=== PATIENT | male | born 1955 | race Caucasian/White ===

== ENCOUNTER 2016-10-13 14:15 | Inpatient (IN) | payer OTHER, MEDICAID ==
[2016-10-13] VITALS (11 sets, daily range): BP systolic 131–150; BP diastolic 83–89; PULSE 78–103; RESP 20–36; O2SAT 87–96
[~2016-10-13] VITALS: Ht 165.1 cm; Wt 62.4 kg
[~2016-10-13 14:15] MED LIST: AMLO5TAB2 PO; ASPI-235 PO; CARV25TA2 PO; CHOL100045 PO; EZET10TA PO; FERR-74 PO; FUR20 PO; KLO5T PO; MORP-32 PO; NITR0.4T6 SL; OXYC5TAB72 PO; PANT20T PO; PRED-508 PO; QUET25TA73 PO; RES15 PO; ROSU40TA20 PO; ZIT250 PO
--- NOTE | 2016-10-13 15:37 | ED.REPORT ---
HPI-Abd Pain M 40 and Over Date of Service Oct 13, 2016 ED Provider: Doc,Ed MD History of Present Illness: 60-year-old male with complex medical history complaining of one episode of black stool today and increasing dyspnea since leaving the hospital. He tells me that he does not have any nebulized or inhaled medications at home for his COPD. Was discharged October 08 after an admission for COPD exacerbation. Also had an acute infiltrate on the left side at that time. Has a history of episodic black stool, source of GI bleeding has been unknown. Patient reports that he was transfused during his last admission. He is not having chest pain. He is quite dyspneic. Nursing Notes Stated Complaint: BLOODY STOOL, ABDOMINAL PAIN, TROUBLE BREATHING Chief Complaint: Male Abdominal Pain Allergies: Coded Allergies: atorvastatin (Verified Allergy, Intermediate, myalgias, 04/18/16) pravastatin (Verified Allergy, Intermediate, myalgias, 04/18/16) propoxyphene (Verified Allergy, Intermediate, Hives, 04/18/16) PT DENIES KNOWLEDGE OF ANY DRUG ALLERGIES amoxicillin (Verified Adverse Reaction, Intermediate, diarrhea, 04/18/16) clavulanic acid (Verified Adverse Reaction, Intermediate, diarrhea, 04/18/16 ) niacin (Verified Adverse Reaction, Intermediate, flushing, 04/18/16) phenytoin (Verified Adverse Reaction, Mild, itching, 04/18/16) Scheduled Amlodipine (Amlodipine) 5 Mg Tablet 2.5 MG PO DAILY Aspirin (Lite Coat Aspirin) 325 Mg Tablet 81 MG PO DAILY Azithromycin (Zithromax) 250 Mg Tablet 250 MG PO DAILY Carvedilol (Carvedilol) 25 Mg Tablet 25 MG PO BID Cholecalciferol (Vitamin D3) (Vitamin D) 1,000 Unit Capsule 2,000 UNIT PO DAILY Ezetimibe (Zetia) 10 Mg Tablet 10 MG PO DAILY Ferrous Sulfate (Feosol) 325 Mg Tablet 325 MG PO BIDWM Furosemide (Furosemide) 20 Mg Tab 20 MG PO DAILY Morphine Sulfate ER (Morphine Sulfate ER) 15 Mg Tablet 15 MG PO BID Pantoprazole DR (Protonix) 20 Mg Tablet 20 MG PO BID Prednisone (Deltasone) 20 Mg Tablet 40 MG PO DAILY Quetiapine Fumarate (Quetiapine Fumarate) 25 Mg Tablet 50 MG PO HS Rosuvastatin Calcium (Rosuvastatin Calcium) 40 Mg Tablet 40 MG PO DAILY Temazepam (Temazepam) 15 Mg Capsule 15 MG PO BID Scheduled PRN Clonazepam (Clonazepam) 0.5 Mg Tablet 1 MG PO BID PRN PRN anxiety Nitroglycerin SL (Nitroglycerin SL) 0.4 Mg Tab.subl 0.4 MG SL Q5MIN PRN PRN For Chest Pain oxyCODONE (oxyCODONE) 5 Mg Tablet 5 MG PO Q8H PRN PRN severe pain General Time Seen by MD: 15:36 Chief Complaint Other (melena) Sudden in Onset?: No Past Medical History Past Medical History Notes: PCP: Dr. Lamas Past Medical History 1. tobacco abuse. 2. Emphysema. 3. Hyperlipidemia. 4. Hypertension. 5. Peripheral vascular disease - extensive, severe - patient was undergone multiple revascularization procedures, and at least several stents - however the details, and location are unclear on review (01/24/16) 6. chronic microcytic anemia 7. 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 8. Myocardial infarction 9. Seizure 10. chronic non-healing LLE ulcers, follow by Wound Care 11. chronic pain, on morphine 12. GI bleed Reports: Coronary artery disease Past Surgical History BLE stent placement H/O multiple revascularization procedures left hip surgery Reports: CABG Family History Father reportedly had "five heart attacks before the last one killed him" Mother at age 78 with dementia Reports: Coronary artery disease Smoking History Current Every Day Smoker Social History Alcohol Use: "Social" Other Social History: Good social support, Local resident Ambulatory Status Independent Review of Systems Constitutional: Reports: Fever, Lethargy, Denies: Chills Respiratory: Reports: Dyspnea on exertion, Prod cough, brown Cardiovascular: Reports: Dyspnea on exertion, Orthopnea, Denies: Chest pain, Palpitations GI: Reports: Abdominal pain, Bloody/tarry stool, Melena, Denies: Anorexia, Constipation, Diarrhea Male: Denies Dysuria, Denies Flank pain Musculoskeletal: Reports: Back pain, Extremity pain (R hip) Complete sys rev & neg: except as marked. Physical Exam Physical Exam Notes: Cachectic male in respiratory distress speaking in 2-3 word sentences. Initial Vital Signs Vital Signs (First) Date Time Temp Pulse Resp B/P Pulse Ox O2 Delivery O2 Flow Rate FiO2 10/13/16 14:24 37.8 80 32 134/83 91 Room Air 10/13/16 15:15 2 General/Constitutional: Alert Distress / Hydration: Positive: Distress moderate Resp Distress / Stridor: Positive: Resp distress moderate Diminished Breath Sounds: Positive: Decreased bilateral Wheezing / Retractions: Positive: Accessory muscle use mild, Prolonged exp phase, Wheeze insp/exp diffuse, Wheezing severe Cardiovascular: Regular rhythm, No murmurs Heart Rate / Rhythm: Positive: Tachycardia Abdomen: Soft Tenderness/Guarding/Rebound: Positive: Tender epigastric (mild no massno guarding) Back: Atraumatic, Inspection NL, No midline vertebral tend, No paraspinal tenderness Head / Eyes: Atraumatic, Normocephalic, PERRL, EOMI Rectum / Perineum: No gross blood, No fecal impaction, Sphincter tone NL Rectal for Blood: Positive: Blood - occult heme + Neurologic: Oriented X3, Speech NL, No motor deficits Interpretation & Diagnostics Lab Results Interpretation Result Diagram: 10/13/16 1544 10/13/16 1544 Test 10/13/16 15:44 10/13/16 16:10 White Blood Count 13.1th/mm3 (3.8-10.1) Red Blood Count 4.01mil/mm3 (4.40-5.80) Hemoglobin 10.2g/dL (13.8-17.2) Hematocrit 31.6% (41.0-50.0) Mean Corpuscular Volume 78.8fL (81-100) Mean Corpuscular Hemoglobin 25.4pg (27.0-35.0) Mean Corpuscular Hemoglobin Concent 32.3% (32.0-37.0) Red Cell Distribution Width 18.3% (12.3-15.4) Platelet Count 251bil/L (150-400) Neutrophils (%) (Auto) 84.3% (40-74) Lymphocytes (%) (Auto) 5.3% (14-46) Monocytes (%) (Auto) 7.3% (4-12) Eosinophils (%) (Auto) 2.7% (0-5) Basophils (%) (Auto) 0.2% (0-3) Sodium Level 135mEq/L (134-144) Potassium Level 4.5mEq/L (3.5-5.2) Chloride Level 100mEq/L (97-108) Carbon Dioxide Level 22mmol/L (18-29) Blood Urea Nitrogen 41mg/dL (8-27) Creatinine 2.05mg/dL (0.76-1.27) Estimat Glomerular Filtration Rate 35mL/min (>59) Glucose Level 113mg/dL (60-99) Calcium Level 8.1mg/dL (8.5-10.1) Magnesium Level 1.9mg/dL (1.6-2.6) Total Bilirubin 0.2mg/dL (0.0-1.2) Aspartate Amino Transf (AST/SGOT) 31U/L (0-50) Alanine Aminotransferase (ALT/SGPT) 22U/L (0-44) Alkaline Phosphatase 87U/L (25-160) Total Protein 5.8g/dL (6.4-8.4) Albumin 2.8g/dL (3.4-5.0) Lipase 62U/L (13-60) Urine Color Yellow (YELLOW) Urine Appearance Clear (CLEAR,HAZY) Urine pH 6.5 (5.0-8.0) Urine Specific [place] 1.025 (1.003-1.035) Urine Protein 300mg/dL (NEG,TRACE) Urine Glucose (UA) Negativemg/dL (NEGATIVE) Urine Ketones Negativemg/dL (NEGATIVE) Urine Occult Blood Small (NEGATIVE) Urine Nitrite Negative (NEGATIVE) Urine Bilirubin Negative (NEGATIVE) Urine Urobilinogen Normalmg/dL (NORMAL) Urine Leukocyte Esterase Negative (NEGATIVE) Urine RBC 0-2/hpf (0-2) Urine WBC 0-5/hpf (0-5) Urine Epithelial Cells None/hpf (NONE-MOD) Urine Crystals None seen (NONE SEEN) Urine Bacteria None/hpf (NONE-FEW) Urine Hyaline Casts None/lpf (NONE) Urine Granular Casts None seen (NONE SEEN) Urine Waxy Casts None seen (NONE SEEN) Urine Red Blood Cell Casts None seen (NONE SEEN) Urine White Blood Cell Casts None seen (NONE SEEN) Urine Mucus None seen (None Seen) Urine Trichomonas None seen (NONE SEEN) Urine Yeast None (NONE SEEN) Urinalysis Comment None Urine Culture Reflexed Not indicated X-Ray Chest Interpretation Chest Xray Interpretation: bibasilar infiltrate, progressed since last admit Interpretation / Wet Read by: Interpret - Radiologist Re-Eval/Medical Decision Med Decision/Clinical Course 60-year-old male with complex medical history including COPD and recurrent episodes of GI bleeding. Presents today with increasing respiratory distress reported a fever this morning and hypoxemia. On chest x-ray it appeared that his infiltrates have expanded. His hemoglobin and hematocrit are stable although he reported one episode of melena, he has had recurrent episodes of melena in the past. Cultures have been obtained and given nebulized bronchodilators and prednisone 40 mg. He is hemodynamically stable antibiotic coverage for healthcare associated pneumonia has been initiated and he will be admitted to the hospitalist service. Time of Eval: 19:22 Re-Evaluation/Progress Note: Still dyspneic, 4-5 word sentences. Poor air movement. 88% on room air. Pt reluctantly agrees to stay Consultation : Referral / Consult Name: Rosa Glass MD Consulted With: Hospitalist Finished Carpet Inspector: Accepts admit Discharge & Departure Primary Impression: Pneumonia Pneumonia type: due to unspecified organism Laterality: bilateral Lung location: lower lobe of lung Qualified Code: J18.9 - Pneumonia, unspecified organism Additional Impressions: COPD exacerbation GI bleed GI bleed type/associated pathology: unspecified gastrointestinal hemorrhage type Qualified Code: K92.2 - Gastrointestinal hemorrhage, unspecified Disposition: ADMITTED TO HOSPITAL Vital Signs - All Vital Signs Date Time Temp Pulse Resp B/P Pulse Ox O2 Delivery O2 Flow Rate FiO2 10/13/16 18:41 96 22 94 Nasal Cannula 2 10/13/16 18:36 36.8 93 28 140/89 94 Nasal Cannula 2 10/13/16 16:21 90 22 94 Nasal Cannula 2 10/13/16 15:15 78 26 137/86 94 Nasal Cannula 2 10/13/16 15:15 87 Room Air 10/13/16 14:24 37.8 80 32 134/83 91 Room Air Referrals: Leo Lamas MD (PCP) Julien Talley MD Oct 13, 2016 15:37
[2016-10-13 15:47] LABS: BASOPHILS % (AUTO) 0.2 % (0-3); EOSINOPHILS % (AUTO) 2.7 % (0-5); MONOCYTES % (AUTO) 7.3 % (4-12); Mean Corpuscular Hemoglobin 25.4 pg (27.0-35.0); Mean Corpuscular Volume 78.8 fL (81-100); NEUTROPHILS % (AUTO) 84.3 % (40-74); Platelet Count 251 bil/L (150-400)
[2016-10-13] MEDS ORDERED: Albuterol-Ipratropium 3 mL Inhalation Solution NEB ONE ×2 (16:10→20:35)
[2016-10-13 16:13] LABS: Magnesium 1.9 mg/dL (1.6-2.6)
[2016-10-13 16:41] LABS: APPEARANCE,URINE CLEAR (CLEAR,HAZY); COLOR,URINE YELLOW (YELLOW); PH,URINE 6.5 (5.0-8.0)
[2016-10-13 16:42] LABS: OCCULT BLOOD,URINE SMALL (NEGATIVE); UROBILINOGEN,URINE NORMAL (NORMAL)
[2016-10-13] MEDS ORDERED: Albuterol 2.5 mg/3 mL Inhalation Solution NEB ONE (18:25)
--- NOTE | 2016-10-13 19:05 | DRSVH ---
PROCEDURE: X-RAY CHEST ONE VIEW, PORTABLE ([id number]) INDICATIONS: dyspnea TECHNIQUE: One view of the chest was acquired. COMPARISON: Merged With [facility], CR, XR CHEST 1VW (PORTABLE), 10/05/2016, 10:48. FINDINGS: Surgical changes and devices: Status post CABG procedure. Lungs and pleura: No pneumothorax. Trace left-sided pleural fluid collection noted. Bibasilar opaci ties left greater than right. Mediastinum: Mediastinal contours appear normal. Heart size is normal. Bones and chest wall: No suspicious bony lesions. Overlying soft tissues appear unremarkable. IMPRESSION: Bibasilar pneumonia. Trace left-sided pleural fluid a. Dictated by: Lora Barth MD, PhD on 10/13/2016 at 19:04 Approved by: Lora Barth MD, PhD on 10/13/2016 at 19:04
[2016-10-13] MEDS ORDERED: levoFLOXacin Inj 500 MG in IV Premix 1 EACH IV ONE (19:10)
[2016-10-13] MEDS ORDERED: Cefepime Inj 2,000 MG in Dextrose 5% Minibag Plus 100 ML IV ONE (19:10)
[2016-10-13] MEDS ORDERED: Alum-Mag Hydrox-Simeth 30 mL Suspension PO PRN (20:30)
[2016-10-13] MEDS ORDERED: Ondansetron 2 mg/mL 2 mL Inj IVPUSH PRN (20:30)
--- NOTE | 2016-10-13 21:00 | NUR ---
Admit: pt A&OX3. IV in Left thumb, IV antibx infusing. Tele in place SR. pt on 2Lo2 sats mid to low 90's. pt using call light frequently, able to make needs known. med rec completed by admit RN. will continue to monitor. Addendum: 10/13/16 at 6005 by ANA PAULA HUTCHINSON RN IV: IV therapy called to start new IV, but not able to find a vein. Resident aware and order for PICC line in the am.
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
[2016-10-13] MEDS ORDERED: Acetaminophen IV 1,000 MG in IV Premix 1 EACH IV PRN (22:05)
[2016-10-13] MEDS: Albuterol-Ipratropium 3 mL Inhalation Solution NEB PRN (22:25)
[2016-10-13] MEDS ORDERED: Sodium Chloride LOK Flush 10 mL Syringe IVFLUSH PRN ×2 (22:40)
[2016-10-13 23:15] LABS: Magnesium 1.7 mg/dL (1.6-2.6)
--- NOTE | 2016-10-13 23:50 | NUR ---
Resp: pt called RN to room, RR 42, O2 sat 83%. Oxymask on at 7Lo2 sats to 91%. resident immediately to room, rapid response called. stat EKG, chest Xray. RT to room, and CCU charge, and [facility] charge. pt to placed on Bipap per RT. Report given to Rocio CLINE RN, and will transfer pt to [facility]. pt at this time is refusing Bipap, oxymask back on at 5Lo2 sat 90%.
[2016-10-14] VITALS (11 sets, daily range): BP systolic 118–140; BP diastolic 73–84; PULSE 80–92; RESP 18–28; O2SAT 92–96
[2016-10-14 00:38] LABS: APPEARANCE,URINE CLEAR (CLEAR,HAZY); COLOR,URINE STRAW (YELLOW); OCCULT BLOOD,URINE SMALL (NEGATIVE); UROBILINOGEN,URINE NORMAL (NORMAL)
--- NOTE | 2016-10-14 01:30 | NUR ---
Transfer/Respiratory status/Pain Pt received from [facility]. Report taken from RN AV. Pt transferred via bed to room 2026. Pt on oxymask 6L nasal canula with Sp02 saturations of 91%. At times, pt stating his mask was "suffocating him" and would remove it. Increasingly pt became more and more dyspnic. RT placed pt on BiPAP at 26L/min. Pt began to slow respirations from 36 to 28 on BiPAP. Pt agitated about wearing BiPAP. Brake Lining Finisher encouraged pt to comply with BiPAP as oxymask is not appropriate to treat his SOB. Pt also requested an analgesic to alleviate pain in his feet, PRN analgesic given. Pt currently on BiPAP at 26L/min with SP02 at 94%.
[2016-10-14] MEDS: Albuterol-Ipratropium 3 mL Inhalation Solution NEB PRN (01:36)
--- NOTE | 2016-10-14 01:47 | PCM.CONPHA ---
Subjective Date of Service: Oct 14, 2016 Requesting Provider: Gloria Howard DO Reason for Pharmacy Consult: Vancomycin Dosing Objective Vital Signs Date Time Temp Pulse Resp B/P Pulse Ox O2 Delivery O2 Flow Rate FiO2 10/14/16 01:37 105 28 92 10/14/16 01:14 37.5 92 26 130/80 94 OxyMask 6.00 10/13/16 23:33 28 35 10/13/16 23:13 103 36 150/85 90 OxyMask 7.00 10/13/16 22:26 88 20 Nasal Cannula 2.00 10/13/16 21:02 36.6 95 20 131/88 93 Nasal Cannula 2.00 10/13/16 20:43 92 24 96 Nasal Cannula 2 10/13/16 20:24 78 23 140/89 Nasal Cannula 2 10/13/16 18:41 96 22 94 Nasal Cannula 2 10/13/16 18:36 36.8 93 28 140/89 94 Nasal Cannula 2 10/13/16 16:21 90 22 94 Nasal Cannula 2 10/13/16 15:15 78 26 137/86 94 Nasal Cannula 2 10/13/16 15:15 87 Room Air 10/13/16 14:24 37.8 80 32 134/83 91 Room Air Intake and Output 10/12/16 10/13/16 10/14/16 00:00 00:00 00:00 Output Total 300 ml Balance -300 ml Weight (Kilograms): 62.100 Height (Feet): 5 Height (Inches): 5.00 Test 10/13/16 15:44 10/13/16 22:39 10/13/16 23:00 White Blood Count 13.1th/mm3 (3.8-10.1) Red Blood Count 4.01mil/mm3 (4.40-5.80) Hemoglobin 10.2g/dL (13.8-17.2) Hematocrit 31.6% (41.0-50.0) Mean Corpuscular Volume 78.8fL (81-100) Mean Corpuscular Hemoglobin 25.4pg (27.0-35.0) Mean Corpuscular Hemoglobin Concent 32.3% (32.0-37.0) Red Cell Distribution Width 18.3% (12.3-15.4) Platelet Count 251bil/L (150-400) Neutrophils (%) (Auto) 84.3% (40-74) Lymphocytes (%) (Auto) 5.3% (14-46) Monocytes (%) (Auto) 7.3% (4-12) Eosinophils (%) (Auto) 2.7% (0-5) Basophils (%) (Auto) 0.2% (0-3) Sodium Level 135mEq/L (134-144) Potassium Level 4.5mEq/L (3.5-5.2) Chloride Level 100mEq/L (97-108) Carbon Dioxide Level 22mmol/L (18-29) Blood Urea Nitrogen 41mg/dL (8-27) Creatinine 2.05mg/dL (0.76-1.27) Estimat Glomerular Filtration Rate 35mL/min (>59) Glucose Level 113mg/dL (60-99) Calcium Level 8.1mg/dL (8.5-10.1) Total Bilirubin 0.2mg/dL (0.0-1.2) Aspartate Amino Transf (AST/SGOT) 31U/L (0-50) Alanine Aminotransferase (ALT/SGPT) 22U/L (0-44) Alkaline Phosphatase 87U/L (25-160) Total Protein 5.8g/dL (6.4-8.4) Albumin 2.8g/dL (3.4-5.0) Lipase 62U/L (13-60) Magnesium Level 1.7mg/dL (1.6-2.6) Prealbumin 31mg/dL (20-40) Urine Color Straw (YELLOW) Urine Appearance Clear (CLEAR,HAZY) Urine pH 7.0 (5.0-8.0) Urine Specific [place] 1.020 (1.003-1.035) Urine Protein 100mg/dL (NEG,TRACE) Urine Glucose (UA) Negativemg/dL (NEGATIVE) Urine Ketones Negativemg/dL (NEGATIVE) Urine Occult Blood Small (NEGATIVE) Urine Nitrite Negative (NEGATIVE) Urine Bilirubin Negative (NEGATIVE) Urine Urobilinogen Normalmg/dL (NORMAL) Urine Leukocyte Esterase Negative (NEGATIVE) Urine RBC 0-2/hpf (0-2) Urine WBC 0-5/hpf (0-5) Urine Epithelial Cells Occasional/hpf (NONE-MOD) Urine Crystals None seen (NONE SEEN) Urine Bacteria None/hpf (NONE-FEW) Urine Hyaline Casts None/lpf (NONE) Urine Granular Casts None seen (NONE SEEN) Urine Waxy Casts None seen (NONE SEEN) Urine Red Blood Cell Casts None seen (NONE SEEN) Urine White Blood Cell Casts None seen (NONE SEEN) Urine Mucus None seen (None Seen) Urine Trichomonas None seen (NONE SEEN) Urine Yeast None (NONE SEEN) Urinalysis Comment Urine Culture Reflexed Not indicated Assessment/Plan Assessment/Plan A: * Vancomycin dosing by pharmacy for 60 y/o man with pneumonia * The patient is also being started on cefepime and Levaquin * He was given vancomycin 750 mg in the ED * The patient has CKD, CrCl is estimated to be 32.5 mL/min ( Cockcroft & Gault) * Estimated vancomycin half-life is 22.4 hours and estimated Vd is 43.5 liters P: * Starting vancomycin 750 mg IV every 24 hours per protocol * This dosing is estimated to result in a trough level of about 16 mcg/mL * Target vancomycin trough range of 15 - 20 mcg/mL * Drawing a trough level prior to the third dose (likely prior to steady-state) * Monitor renal function Thank you. Pharmacy will continue to follow. Rebekah Bullock, PharmD Rebekah Bullock Oct 14, 2016 01:47
[2016-10-14 06:17] LABS: Mean Corpuscular Hemoglobin 25.4 pg (27.0-35.0)
[2016-10-14] MEDS ORDERED: 0.9% Sodium Chloride 250 ML ONE (06:18)
[2016-10-14] MEDS: Pantoprazole 20 mg ER24 Tablet PO SCH ×2 (08:21→20:48)
[2016-10-14] MEDS: predniSONE 20 mg Tablet PO SCH (08:21)
[2016-10-14] MEDS: Morphine ER 15 mg (MS Contin) Tablet PO SCH ×2 (08:24→20:47)
--- NOTE | 2016-10-14 08:29 | DRSVH ---
PROCEDURE: X-RAY CHEST ONE VIEW, PORTABLE ([id number]) INDICATIONS: 60 year-old male with respiratory distress. TECHNIQUE: One view of the chest was acquired. COMPARISON: [facility], CR, XR CHEST 1VW (PORTABLE), 10/13/2016, 18:27. [facility], CR, XR CHEST 1VW (PORTABLE), 10/05/2016, 10:48. [facility], CR, XR CHEST 2VW, 1 11/16/2015, 16:03. FINDINGS: Surgical changes and devices: Patient is status post coronary artery bypass grafting. Lungs and pleura: There is persistent retrocardiac opacity. Right lung is clear. There is trace basal left pleural effusion. No pneumothorax. Mediastinum: Mediastinal contours appear normal. Heart size is normal. There is aortic atheroscler osis. Bones and chest wall: No suspicious bony lesions. Overlying soft tissues appear unremarkable. IMPRESSION: 1. Persistent retrocardiac atelectasis, aspiration, or pneumonia. 2. Persistent small left basal pleural effusion of uncertain etiology. Dictated by: Chris Plunkett M.D. on 10/14/2016 at 8:27 Approved by: Chris Plunkett M.D. on 10/14/2016 at 8:27
[2016-10-14] MEDS ORDERED: Vancomycin Dose per Pharmacist XX SCH (08:30)
[2016-10-14] MEDS ORDERED: Cefepime Inj 2,000 MG in Dextrose 5% Minibag Plus 50 ML IV SCH (08:30)
--- NOTE | 2016-10-14 10:59 | CONS ---
[address] [address] CONSULTATION REPORT PATIENT: MARGARET ROCHA : 1955 MR#: [id number] ADMIT: 10/13/2016 JOB ID: [id number] DATE OF SERVICE: 10/14/2016 RENAL CONSULTATION: HISTORY OF PRESENT ILLNESS: The patient is a 60-year-old white male who was admitted to [facility] for exacerbation of COPD. At time of admission his BUN and creatinine were elevated and renal consultation is being sought for further evaluation and management of his chronic kidney disease. I am familiar with the patient from previous evaluations this past summer. At that time we were consulted for acute kidney injury with acute tubular necrosis secondary to a cardiopulmonary arrest. This resolved and at time of discharge his creatinine had improved considerably. He has not had any renal followup since that time. In looking over his laboratory history, it appears that his creatinine has waxed and waned between a high of 3.9 in April of 2016 to a low of approximately 1.4 several months ago. At time of admission his creatinine was 2.05 and this morning it is 2.36. He denies a history of any prior renal disease but I do need to add that he does not seem to be a particularly good historian. He denies a history of any prior diabetes or prostate issues, but does state that he does have hypertension, COPD, and coronary artery disease. He denies a history of hepatitis, lupus, or rheumatoid arthritis. Furthermore, he states that he has no problems with urination, nocturia, or frequency. There is no history of any hematuria, proteinuria, recurrent urinary tract infections, renal lithiasis, or frequent use of nonsteroidal anti-inflammatories. He states that several days prior to admission he began to have upper respiratory tract symptoms including nasal congestion, slight sore throat, worsening of his cough however remained nonproductive, worsening orthopnea, wheezing, and dyspnea with minimal exertion and at rest. He denies any chest pain, fever, chills, nausea, vomiting, or diarrhea. Since he has been in the hospital he has had some improvement in his symptomatology; however, he does remain orthopneic. PAST MEDICAL HISTORY: Significant for COPD as detailed above, chronic kidney disease, hypertension with hypertensive heart disease and hypertensive nephrosclerosis, peripheral vascular disease, coronary artery disease with a history of coronary artery bypass graft, a chronic nonhealing ulceration of his left lower extremity for which he is being seen by wound care, atrial fibrillation, depression, and hyperlipidemia. PAST SURGICAL HISTORY: Significant for bilateral lower extremity peripheral stent placement and other multiple vascular procedures, coronary artery bypass graft, left hip surgery, and appendectomy. ALLERGIES: AMOXICILLIN, ATORVASTATIN, CLAVULANIC ACID, NIACIN, PHENYTOIN, PROPOXYPHENE, AND PRAVASTATIN. SOCIAL HISTORY: He continues to smoke and has a greater than 100 pack year tobacco history. He has a history of alcohol use but states he quit a year ago. FAMILY HISTORY: Noncontributory. MEDICATIONS: At time of admission include amlodipine, aspirin, carvedilol, vitamin D3, Zetia, ferrous sulfate, furosemide, Protonix, quetiapine, Crestor, and temazepam. REVIEW OF SYSTEMS: Review of systems as detailed above. Otherwise is noncontributory. PHYSICAL EXAMINATION: Revealed a somewhat sam-complected cantankerous 60-year-old white male who was alert and oriented x3, in no distress at time of my evaluation. His blood pressure is 140/73 with a heart rate of 86. HEENT: Remarkable for pale sclerae. Corneas and conjunctivae were within normal limits. There was some mild bitemporal wasting. Neck is supple, without adenopathy or thyromegaly, however some jugular venous distention was noted at 90 degrees. Lungs showed increased AP diameter with some hyper-resonance to percussion. There were also some scattered rhonchi and end-expiratory wheezes in all lung garcia. Heart sounds were distant, but appeared to be grossly normal. Abdomen was soft, without any tenderness, rebound, guarding, masses, or hepatosplenomegaly. Extremities showed evidence of clubbing, but no cyanosis or edema was noted. His wound on his left lower extremity was not explored as it was in a surgical dressing. Skin turgor was good. There was no evidence of any rashes. LABORATORY: This morning his white count is 11.9, hematocrit 30.1, hemoglobin 10.1, MCV was low at 78.8. Urinalysis showed a specific gravity of 1.012. Tests for protein and occult blood were positive. There were 0-2 RBCs per high-power field, 0-5 WBCs per high-power field, and microscopic examination was negative. IMPRESSION: 1. Chronic kidney disease stage 3. 2. Hypertension with hypertensive heart disease and hypertensive nephrosclerosis. 3. Proteinuria. 4. Mild metabolic acidosis. RECOMMENDATION: I would like to check a urine protein/creatinine ratio and a serum protein electrophoresis, along with a PSA and a hepatitis profile. I would also like to get a renal ultrasound on him. Once again, I would like to thank you for allowing me to participate in the care this most pleasant and interesting patient. I will be following him closely with you.
--- NOTE | 2016-10-14 11:03 | ABG ---
DateTimeAnalyzed 05:15:00 -_ pH ____7.481 - pCO2 ___29.9__ -mmHg pO2 104 -mmHg HCO3- ___22.0__ -mmol/L ABE ___-0.4__ -mmol/L tHb ___10.3__ -g/dL O2Hb ___94.9__ -% COHb ____2.8__ -% MetHb ____1.1__ -% sO2 ___98.7__ -% FIO2 ___28.0__ -% Pressure_Support ___12.0__ -cmH2O CPAP ____6.0__ -cmH2O Set_RR ___14.0__ -b/min Drawn By LAB - Date/Time Notified____ 05:19:00 -_ Spontaneous_RR ___28.0__ -b/min Oxygen Device 1 ____BIPAP - Notified Whom CHERYL RN - Age 53 -years B 762 -mmHg tO2 ___13.9__ -Vol% Golden test N/A -
--- NOTE | 2016-10-14 12:18 | CONS ---
[address] [address] CONSULTATION REPORT PATIENT: MARGARET ROCHA : 1955 MR#: [id number] ADMIT: 10/13/2016 JOB ID: [id number] DATE OF SERVICE: 10/14/2016 INFECTIOUS DISEASE CONSULTATION: I kindly thank Dr. Boland for this timely consult. REASON FOR CONSULTATION: Possible recurring pulmonary infection in a gentleman with multiple medical problems. HISTORY OF PRESENT ILLNESS: The patient is a 60-year-old gentleman with an almost innumerable list of problems who I know well from a long admission in April and May of this year. The patient was found in [facility] back in April and had a 5 or 6 week hospitalization here. During most of that hospitalization it was thought he would never survive, as he has an almost insurmountable collection of problems including prolonged ventilator dependence, nosocomial pneumonias, renal failure, cardiac failure, and obvious ischemic lower extremities, but the patient amazingly survived and eventually made it home. He was readmitted briefly last week with what was thought to be a respiratory decompensation perhaps caused by pneumonia. He was treated with a broad-spectrum cephalosporin agent as well as azithromycin for what was thought to be a pulmonary infection complicating his underlying COPD. He eventually went home with azithromycin and steroids, which he apparently finished as an outpatient. His discharge was only about five days ago and he was then readmitted just yesterday, just really last night, with complaints of increasing shortness of breath. He also noted that he had a single black stool and felt he was becoming more anemic. INTERIM HISTORY: Overnight the patient reports he got no sleep because of constant irritations and the fact he could not sleep in a recliner as he usually does at home. He states his breathing has become a little bit better here in the hospital and Sadie tells me that he has received some blood transfusions which have also helped him to feel better. The patient also notes he is continuing to smoke cigarettes and does not use home oxygen, though it has been under discussion apparently. Also this morning the patient tells me, as well as the team, that he wants to be discharged home. He thinks he is back to something approaching his usual baseline level of fragilely compensated health and that he is not certain he needs to be in the hospital anymore. I am asked specifically this morning whether he needs any antibiotics now or when he is discharged. PAST MEDICAL HISTORY: 1. Organic heart disease. a. Coronary artery disease. b. Status post CABG. c. Congestive heart failure. 2. Peripheral vascular disease with chronic and recurring lower extremity ulcerations. 3. History of alcoholism with liver disease and esophageal varices. 4. Hypertension. 5. Hyperlipidemia. 6. COPD. 7. Asthma. 8. History of pancreatitis. 9. History of MRSA and Acinetobacter pneumonia steering his long admission this summer. 10. History of C. diff. SOCIAL HISTORY: The patient says he quit drinking some months ago but he still smokes cigarettes. He lives by himself here in [place]. FAMILY HISTORY: Positive for a grandmother with TB but she about the time he was born. Otherwise he has a family history of coronary disease. REVIEW OF SYSTEMS: This morning the patient has no headache or visual complaint. He notes a bit of hearing loss. No sore throat. He is short of breath at all times but states it is a little better right now. No significant production of sputum. No nausea, vomiting, or diarrhea. He does have the single black stool that was noted prior to his readmission. He states his leg ulcers were just recently re-dressed and they are in about their usual situation. PHYSICAL EXAMINATION: Reveals an afebrile gentleman, he has been afebrile since his readmission yesterday in the evening, temp 36.7 right now. Pulse 86. Respiratory rate 18 on nasal oxygen; he is saturating pretty well. Blood pressure 140/73. He is in no acute distress, though he clearly gets short of breath when he speaks long sentences. Sinuses nontender. Eyes with pale conjunctivae. Oral cavity negative. Lungs: Fair air flow bilaterally and a very few crackles at the left base, but not bad. Cardiac tones regular rate and rhythm, without murmur. Abdomen without tenderness. No skin rash noted. Neurologically, he is grossly intact. LABORATORIES: Include a white count 13,000 on admission, now 12,000 today, but note that he has been recently placed on steroids. Creatinine 2.36, up from 2.05 last night. Initial procalcitonin was 0.24, which is reassuring, and I have ordered a stat procalcitonin to be added to his labs this morning. Urinalysis without pyuria. Serologies from this admission include negative urine Legionella and pneumococcal antigens. The micro studies include a pending respiratory viral PCR panel from this morning. A rapid flu was done yesterday and was negative. Blood cultures done yesterday are negative. During his October 05 to October 08 admission he had blood cultures. He also had a respiratory viral PCR panel and these were all negative. IMAGING: Carefully reviewed on the viewer finder. Though his chest x-ray yesterday was read as possible retrocardiac atelectasis/aspiration pneumonia, I find that when compared to the x-ray done last week it is actually quite a bit better. IMPRESSION: I see no evidence for acute bacterial infection in this patient. His initial procalcitonin is reassuring and his white blood count is minimally elevated, and this is likely on the basis of his steroid use. Right now the patient is receiving antibiotics including cefepime, levofloxacin, and vancomycin, which I think it is excessive, and I suspect he does not have any significant infection. Note that he just finished a course of azithromycin, which is undoubtedly still in his bloodstream, and I would go ahead and stop at a minimum the levofloxacin and the vancomycin. If the stat repeat procalcitonin is negative, and the patient continues to be afebrile, I suspect he could simply be discharged without any antibiotics as I see little to indicate ongoing infection. RECOMMENDATIONS: 1. DC vanco and linezolid now. 2. Will continue cefepime while we wait for the 2nd procalcitonin, but if it is less than 0.5 I think I would stop all his antibiotics. 3. This patient may benefit from low-dose once a day azithromycin or three times a week azithromycin as an outpatient, strictly in terms of COPD control. Thank you for this interesting consult. FLACO
[2016-10-14 13:12] LABS: Unsaturated Iron Binding 177.5 ug/dL
--- NOTE | 2016-10-14 14:19 | NUR ---
O2 Pt on bipap this am requesting to be on NC. Started on NC at 5L 95%, titrated down to NC 2L and currently at 92%. Goal being 88-92%, will continue to monitor.
--- NOTE | 2016-10-14 16:57 | PCM.PNMED ---
Subjective Date of Service Oct 14, 2016 Subjective Mr. Carrillo is a 60-year-old male with a complex past medical history including chronic foot ulcers, recent undiagnosed GI bleeding, congestive heart failure with CAD, A. fib history of MRSA pneumonia as well as C. difficile who presented with one episode of black stool today and increased dyspnea since leaving the hospital last week. He feels that maybe he left the hospital too early last week (D/C 10/08/16) and did not realize the extent of his illness. He had an acute infiltrate on the left side at that time. He states medication compliance other than he did not have any nebulized or inhaled medications at home for his COPD after 10/08 discharge. Has a history of episodic black stool, source of GI bleeding has been unknown. Patient reports that he has had blood transfusion during his last admission. He is not having chest pain. He is quite dyspneic but denies chest pain, dysuria, nausea, vomiting, constipation, diarrhea, abdominal pain, joint pain, swelling, dizziness, headache. Overnight Events: No overnight events. tolerated 2L oxymask. Required Bipap placement. Today Mr. Carrillo tolerated Oxymask this morning at 5L. He is resting in bed comfortably and in no acute distress. The patient reports that he feels better than the day prior and says he would like to leave. The patient denies headache , dizziness, sore throat, cough, chest pain, shortness of breath, abdominal pain , nausea, vomiting, constipation, and diarrhea. The patient is voiding and eliminating without difficulty. The patient is ambulating without difficulty. Exam Vital Signs Vital Sign - Last Date Time Temp Pulse Resp B/P Pulse Ox O2 Delivery O2 Flow Rate FiO2 10/14/16 09:39 36.7 86 18 140/73 96 BiPAP 10/14/16 08:30 5.00 10/14/16 05:15 28 Intake and Output 10/13/16 10/13/16 10/14/16 Cumulative From/Thru 15:00 23:00 07:00 10/13/16 14:24 - 10/14/16 05:03 Intake Total 666 ml 666 ml Output Total 300 ml 650 ml 950 ml Balance -300 ml 16 ml -284 ml Intake Oral 666 ml 666 ml Output Urine Total 300 ml 650 ml 950 ml Exam General: No acute distress, well-developed and chronically ill appearing, well- nourished, appropriately interactive HEENT: Normocephalic, atraumatic. External ears without defect. Pupils equal, round, and reactive to light and accommodation. Anicteric sclerae, moist conjunctivae, and no lid lag. Oropharynx free of erythema and cobble stoning with moist mucosa. Neck: Supple with full range of motion. No jugular venous distension. No bruits. No lymphadenopathy or thyromegaly. Cardiovascular: Regular rate and rhythm with no murmurs, rubs, or gallops appreciated Pulmonary: Clear to auscultation bilaterally with no crackles, wheezes, or rhonchi. Normal respiratory effort with no use of accessory muscles. Abdomen: Bowel tones present. Soft, nontender, nondistended. No hepatosplenomegaly or masses appreciated. Extremities: No clubbing, cyanosis, edema, or lymphadenopathy appreciated. Skin: Normal temperature, turgor, and texture; no rash, ulcers, or subcutaneous nodules appreciated. Neurological: Cranial nerves grossly intact. Normal muscle strength, tone, and bulk. Reflexes, coordination, and sensory function within normal limits. No known gait impairment. Psychiatric: Normal mood and affect. Alert and oriented to person, place, and time. IVs and Medications Medications Reviewed: Medications were reviewed in detail Lab and Diagnostics Result Diagram: 10/14/1651210/14/16512 Microbiology Microbiology 10/13/16 Blood Culture, Received Pending X-Rays, CTs and MRIs Date of Service: 10/13/161822 PROCEDURE: X-RAY CHEST ONE VIEW, PORTABLE ([id number]) INDICATIONS: dyspnea TECHNIQUE: One view of the chest was acquired. COMPARISON: [facility], CR, XR CHEST 1VW (PORTABLE), 10/05/2016, 10 :48. FINDINGS: Surgical changes and devices: Status post CABG procedure. Lungs and pleura: No pneumothorax. Trace left-sided pleural fluid collection noted. Bibasilar opacities left greater than right. Mediastinum: Mediastinal contours appear normal. Heart size is normal. Bones and chest wall: No suspicious bony lesions. Overlying soft tissues appear unremarkable. IMPRESSION: Bibasilar pneumonia. Trace left-sided pleural fluid a. Dictated by: Lora Barth MD, PhD on 10/13/2016 at 19:04 . 12-lead ECG EKG, sinus rhythm rate 92, Left ventricular enlargement, QTc 458 ResidentAnita Assessment & Plan Mr. Carrillo is a 60-year-old male with a complex past medical history including chronic foot ulcers, recent undiagnosed GI bleeding, congestive heart failure with CAD, A. fib history of MRSA pneumonia as well as C. difficile who presented with one episode of black stool today and increased dyspnea since leaving the hospital last week. 1. Acute hypoxic respiratory failure, present on admission. Active. - Patient D/C [facility] on 10/08/16 - Vanco, cefepime, levofloxacin started in the ED, Just finished azithromycin on 10/10/16 as outpatient. Will d/c all antibiotics. - Afebrile and vitals are stable. - DuoNebs and albuterol ordered. - Haq virus on PCR. - Chest x-ray: Bibasilar pneumonia with trace left-sided pleural fluid. - Infectious disease following, time and recommendations appreciated. 2. Acute COPD exacerbation, present on admission, Active. - Requiring 2 L by NC for saturation of 93%. - DuoNebs scheduled. Albuterol ordered. - Finished 40mg PO daily of prednisone x 5 days on 10/10/16. Restarted today - Will add home meds triple therapy upon discharge. 3. GI bleed with chronic microcytic anemia, present on admission. Active. - Patient did report one black stool prior to coming to the ED. - Recent previous admission for GI bleed, thought poor candidate for endoscopy. Discharged after one unit red blood cell transfusion. - Previous EGD showed erosive esophagitis and gastritis, unremarkable colonoscopy (03/07/2016). - Currently Hgb 10.1 and 10.2 on admission. - No Aspirin. - Continue Protonix. 4. 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 - Lasix 40 mg IV in the ED did help his breathing. - ProBNP elevated last 3 draws in the setting of chronic kidney disease. - Echo from 09/16/2016 showed improved ejection fraction from 40% to 50-55% with areas of hypokinesis which are also chronic and mild systolic failure, also to note small atrial septal defect noted. - Continue Lasix 20 mg PO qd home dose. 5. Acute on chronic kidney injury, present on admission. Active. - Creatinine on admission 2.05 and currently 2.36. Baseline around 1.7 - Nephrology following, time and recommendations appreciated. 6. Chronic kidney disease stage III, present on admission. Stable - Creatinine 2.05 which is BETTER than his last hospitalization - Monitor closely in the setting of other comorbidities 7. Chronic lower extremity ulcerations, acute, present on admission -Consulted wound care for continued care. Follows as an outpatient 8. A. fib, present on admission, unknown chronicity - Not anticoagulated currently due to anemia and propensity for GI bleeding. - Telemetry - Acetaminophen as needed for mild pain/fever/headache - Bowel regimen as needed - Antiemetic as needed Patient admitted under inpatient status with expected length of stay > 2 midnights for severity of present symptoms, complexities of treatment plan and risk for adverse events Pain Evaluation: Adequate Pain Control VTE Prophylaxis: SCDs VTE Mechanical Devices: Intermittant Pneumatic CD Resuscitation Status: CPR: Attempt Resuscitation Attending Statement The patient was seen and examined together with Dr. Nobles on 10/14/2016 and I agree with the history, exam and plan as outlined in the note above. . PAO NOBLES DO Oct 14, 2016 16:32 Bro Nam MD Oct 27, 2016 17:26
--- NOTE | 2016-10-14 17:17 | DRSVH ---
PROCEDURE: US RENAL SONOGRAM INDICATIONS: 60 year-old male with chronic kidney disease. TECHNIQUE: Real-time scanning was performed of the kidneys and bladder, with image documentation. COMPARISON: [facility], CR, XR CHEST 1VW (PORTABLE), 10/13/2016, 23:12. FINDINGS: Kidneys: Kidneys are normal in size. Right kidney measures 6.2 cm long; left kidney measures 8.9 cm long. Right renal cortical thickness is 0.7 cm; left renal cortical thickness is 0.8 cm. Renal cor tical echotexture is normal. No hydronephrosis or nephrolithiasis. No suspicious solid mass lesions . Posterior right renal cortical exophytic cyst measures 11 x 11 x 8 mm. Posterior left renal cortica l cyst measures 11 x 11 x 7 mm. Bladder: Pre-void bladder volume is 263 mL. Post-void residual is 2.6 mL. Pre-void images demonstr ate no intraluminal masses or stones. On pre-void images, left but not right ureteral jets are noted with color Doppler interrogation. (Of note, ureteral jets may not be detectable in up to 25% of barry es due to insufficient differences in specific gravity between ureteral and bladder urine). Miscellaneous: No free pelvic fluid. There is moderate basal left pleural effusion. IMPRESSION: 1. Asymmetric right renal cortical atrophy may be secondary to chronic renal arterial insufficiency. 2. Bilateral renal cortical cysts measure up to 1.1 cm. 3. Moderate left pleural effusion is of uncertain etiology. Dictated by: Chris Plunkett M.D. on 10/14/2016 at 17:15 Approved by: Chris Plunkett M.D. on 10/14/2016 at 17:15
[2016-10-14] MEDS ORDERED: levoFLOXacin 250 mg Tablet PO SCH (20:30)
[2016-10-14] MEDS: Albuterol 2.5 mg/3 mL Inhalation Solution NEB PRN (23:39)
[2016-10-15] VITALS (14 sets, daily range): BP systolic 138–161; BP diastolic 68–96; PULSE 77–103; RESP 18–32; O2SAT 93–98
--- NOTE | 2016-10-15 03:35 | NUR ---
Respiration Pt on 2L/min via nasal canula of O2. Pt began to have increased wheezing and difficulty breathing. RT called. RT placed pt on BiPAP at an Fi02 of 35. Pt Sp02 at 94%. Pt currently has regular breaths at 18/min and sleeping.
[2016-10-15 04:57] LABS: Mean Corpuscular Hemoglobin 25.5 pg (27.0-35.0); Mean Corpuscular Volume 78.6 fL (81-100)
[2016-10-15] MEDS: predniSONE 20 mg Tablet PO SCH (08:22)
[2016-10-15] MEDS: Morphine ER 15 mg (MS Contin) Tablet PO SCH ×2 (08:22→21:20)
[2016-10-15] MEDS: Pantoprazole 20 mg ER24 Tablet PO SCH ×2 (08:23→21:20)
[2016-10-15] MEDS: Albuterol 2.5 mg/3 mL Inhalation Solution NEB PRN (09:34)
--- NOTE | 2016-10-15 11:05 | PCM.PNMED ---
Subjective Date of Service Oct 15, 2016 Subjective Patient is currently utilizing CPAP and states that he is breathing better. He denies any chest pain, shortness of breath, cough or wheezing. His intake and output last 24 hours or 2085 in and 175 out. Ultrasound showed marked renal asymmetry with the right kidney measuring 6.2 cm and left kidney measuring 8.9 cm. There were also supple isolated simple cyst and a moderately sized left pleural effusion. His lab work is pending however his protein creatinine ratio was markedly elevated at 14 is consistent with approximately 14 g of protein in his urine. Exam Vital Signs Vital Sign - Last Date Time Temp Pulse Resp B/P Pulse Ox O2 Delivery O2 Flow Rate FiO2 10/15/16 09:30 86 93 BiPAP 10/15/16 09:30 32 35 10/15/16 08:11 36.5 138/85 10/15/16 03:22 2.00 Intake and Output 10/14/16 10/14/16 10/15/16 Cumulative From/Thru 15:00 23:00 07:00 10/13/16 14:24 - 10/15/16 06:27 Intake Total 1420 ml 531 ml 2617 ml Output Total 1100 ml 300 ml 2350 ml Balance 320 ml 231 ml 267 ml Intake Oral 1260 ml 400 ml 2326 ml IV Total 160 ml 131 ml 291 ml Output Urine Total 1100 ml 300 ml 2350 ml # Voids 2 2 # Bowel Movements 0 0 Exam HEENT examination is remarkable for pale sclera. Neck is supple without adenopathy thyromegaly or jugular venous distention. Lungs showed some diminished breath sounds more pronounced on the left as compared to the right with a few scattered rhonchi noted. Posterior the soft systolic murmur. Abdomen soft without any tenderness or rebound guarding masses or hepatosplenomegaly. Extremities do not show any clubbing cyanosis or edema. Skin turgor was good and has no evidence of any rashes. Lab and Diagnostics Result Diagram: 10/15/165 10/15/16444 Microbiology Microbiology 10/13/16 Blood Culture, Received Pending X-Rays, CTs and MRIs Date of Service: 10/13/161822 PROCEDURE: X-RAY CHEST ONE VIEW, PORTABLE ([id number]) INDICATIONS: dyspnea TECHNIQUE: One view of the chest was acquired. COMPARISON: [facility], CR, XR CHEST 1VW (PORTABLE), 10/05/2016, 10 :48. FINDINGS: Surgical changes and devices: Status post CABG procedure. Lungs and pleura: No pneumothorax. Trace left-sided pleural fluid collection noted. Bibasilar opacities left greater than right. Mediastinum: Mediastinal contours appear normal. Heart size is normal. Bones and chest wall: No suspicious bony lesions. Overlying soft tissues appear unremarkable. IMPRESSION: Bibasilar pneumonia. Trace left-sided pleural fluid a. Dictated by: Lora Barth MD, PhD on 10/13/2016 at 19:04 . 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 #2 chronic kidney disease stage III #3 hypertension with hypertensive heart disease hypertensive nephrosclerosis #4 left pleural effusion Recommendations #1 his hepatitis panel is pending at time of this dictation but in the meantime I would like to obtain an WES, ankles, and anti-GBM level along with a C3 and C4 level. I would recommend formal evaluation of his left pleural effusion VTE Prophylaxis: SCDs VTE Mechanical Devices: Intermittant Pneumatic CD Resuscitation Status: CPR: Attempt Resuscitation Artie Pearson DO Oct 15, 2016 11:05
[2016-10-15] MEDS ORDERED: 0.9% Sodium Chloride 250 ML ONE (16:05)
--- NOTE | 2016-10-15 16:17 | NUR ---
Social Work: Screen D: Per EMR review, pt is a 60 year old male admitted for pneumonia, COPD exacerbation. Pt is [place] Blind/Disabled with DS supplement. PCP Is Leo Lamas MD> NOK Is sister, Tiffani Mittal. Readmit score is high, 6/8. Pt lives in [place], alone. Pt was previously open with [facility]. [facility] faxed clinicals to [facility] worker and left message with main [facility] office to notify that pt is admitted. [facility] [employer] unsure who pt's CM is. Pt is also open with [facility] for RN, PT. A: Pt who was living I prior to admission. P: Anticipate pt to discharge back home with resumed [facility] and [facility]. Magdalene Hayes MSW
--- NOTE | 2016-10-15 18:47 | NUR ---
Chest Pain About 1430 he complained of left-sided chest pain saying it was an 8/10 and had started about an hour prior. He requested a nitro tab which was given. His chest pain resolved completely within minutes. Upon asking him, he said he has this sort of chest pain at least once week which is always resolved with a nitro tab. He again complained of chest pain at 1607. Gave another nitro tab and the pain again resolved immediately. Spoke with Dr. Garcia who said to get a stat EKG and Troponin lab draw. EKG showed a slight increase in ST elevation from the previous EKG which also showed ST elevation. Notified Dr. Garcia over phone who said she would assess the EKGs herself. Troponin lab value pending. He is currently not complaining of any chest pain. Care continues.
[2016-10-15] MEDS ORDERED: Vancomycin Serum Trough XX ONE (21:30)
[2016-10-16] VITALS (10 sets, daily range): BP systolic 136–157; BP diastolic 84–92; PULSE 79–96; RESP 14–32; O2SAT 90–100
--- NOTE | 2016-10-16 00:37 | PCM.PNMED ---
Subjective Date of Service Oct 16, 2016 Subjective Dwain Carrillo is a 60-year-old male with a complex past medical history including chronic foot ulcers, recent undiagnosed GI bleeding, systolic and diastolic congestive heart failure, CAD, A. fib, history of MRSA pneumonia, as well as, C. difficile who presented to [facility] ED with one episode of black stool today and increased dyspnea since leaving the hospital last week. Hospital day #3. Overnight: The patient had increasing wheeze and dyspnea and was placed on the BiPAP. The patient is resting comfortably in bed in no acute distress. He reports that he feels short of breath. He is currently on supplemental oxygen. He denies headache, chest pain, abdominal pain, nausea, vomiting, fever, chills, dysuria, constipation or diarrhea. The patient ambulates minimally with a walker in the room. . Exam Vital Signs Vital Sign - Last Date Time Temp Pulse Resp B/P Pulse Ox O2 Delivery O2 Flow Rate FiO2 10/16/16 00:04 82 18 97 35 10/15/16 23:19 36.7 147/96 Nasal Cannula 6.00 Intake and Output 10/15/16 10/15/16 10/16/16 Cumulative From/Thru 15:00 23:00 07:00 10/13/16 14:24 - 10/15/16 18:00 Intake Total 1225 ml 3842 ml Output Total 2050 ml 4400 ml Balance -825 ml -558 ml Intake Oral 1120 ml 3446 ml IV Total 105 ml 396 ml Output Urine Total 2050 ml 4400 ml # Voids 2 # Bowel Movements 0 Exam General: No acute distress, well-developed and chronically ill appearing, well- nourished, appropriately interactive HEENT: Normocephalic, atraumatic. External ears without defect. Pupils equal, round, and reactive to light and accommodation. Anicteric sclerae, moist conjunctivae, and no lid lag. Oropharynx free of erythema and cobble stoning with moist mucosa. Neck: Supple with full range of motion. No jugular venous distension. No bruits. No lymphadenopathy or thyromegaly. Cardiovascular: Regular rate and rhythm with no murmurs, rubs, or gallops appreciated Pulmonary: Clear to auscultation bilaterally with no crackles, wheezes, or rhonchi. Normal respiratory effort with no use of accessory muscles. Abdomen: Bowel tones present. Soft, nontender, nondistended. No hepatosplenomegaly or masses appreciated. Extremities: No clubbing, cyanosis, edema, or lymphadenopathy appreciated. Skin: Normal temperature, turgor, and texture; no rash, ulcers, or subcutaneous nodules appreciated. Neurological: Cranial nerves grossly intact. Normal muscle strength, tone, and bulk. Reflexes, coordination, and sensory function within normal limits. No known gait impairment. Psychiatric: Normal mood and affect. Alert and oriented to person, place, and time. . IVs and Medications Medications Reviewed: Medications were reviewed in detail Lab and Diagnostics Result Diagram: 10/15/1644410/15/16444 Microbiology Blood cultures 2 showed no growth after 2 days. Influenza screen negative. Strep pneumoniae and legionella urine antigens negative. Respiratory viral PCR positive for coronavirus O Oc43. . X-Rays, CTs and MRIs X-RAY CHEST ONE VIEW, PORTABLE IMPRESSION: Bibasilar pneumonia. Trace left-sided pleural fluid a. Dictated by: Lora Barth MD, PhD on 10/13/2016 at 19:04 . 12-lead ECG EKG, sinus rhythm rate 92, Left ventricular enlargement, QTc 458 Resident, Anita Assessment & Plan Dwain Carrillo is a 60-year-old male with a complex past medical history including chronic foot ulcers, recent undiagnosed GI bleeding, systolic and diastolic congestive heart failure, CAD, A. fib, history of MRSA pneumonia, as well as, C. difficile who presented to [facility] ED with one episode of black stool today and increased dyspnea since leaving the hospital last week. Hospital day #3. 1. Acute hypoxemic respiratory failure, present on admission. Active. - Patient D/C [facility] on 10/08/16 - Vanco, cefepime, levofloxacin started in the ED, Just finished azithromycin on 10/10/16 as outpatient. Will d/c all antibiotics. - Afebrile and vitals are stable. - DuoNebs and albuterol ordered. - Haq virus on PCR. - Chest x-ray: Bibasilar pneumonia with trace left-sided pleural fluid. - Infectious disease following. We appreciate their time and recommendations appreciated. 2. Acute COPD exacerbation, present on admission. Active. - Requiring 2 L by [place] for saturation of 93%. - DuoNebs scheduled. Albuterol ordered. - Finished 40mg PO daily of prednisone x 5 days on 10/10/16. Restarted today - Will add home meds triple therapy upon discharge. 3. Chronic upper GI bleed with chronic microcytic anemia, present on admission. Active. - Patient did report one black stool prior to coming to the ED. - Recent previous admission for GI bleed, thought poor candidate for endoscopy. Discharged after one unit red blood cell transfusion. - Previous EGD showed erosive esophagitis and gastritis, unremarkable colonoscopy (03/07/2016). - Currently Hgb 10.1 and 10.2 on admission. Continue to monitor hemoglobin and hematocrit daily. - No Aspirin. - Continue Protonix. 4. 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 - Lasix 40 mg IV in the ED did help his breathing. - ProBNP elevated last 3 draws in the setting of chronic kidney disease. - Echo from 09/16/2016 showed improved ejection fraction from 40% to 50-55% with areas of hypokinesis which are also chronic and mild systolic failure, also to note small atrial septal defect noted. - Continue Lasix 20 mg PO qd home dose. 5. Acute on chronic kidney injury, present on admission. Active. - Creatinine on admission 2.05 and currently 2.36. Baseline around 1.7 - Nephrology following, time and recommendations appreciated. 6. Chronic kidney disease stage III, present on admission. Stable - Creatinine 2.05 which is BETTER than his last hospitalization - Monitor closely in the setting of other comorbidities 7. Chronic lower extremity ulcerations, acute, present on admission -Consulted wound care for continued care. Follows as an outpatient 8. A. fib, present on admission, unknown chronicity - Not anticoagulated currently due to anemia and propensity for GI bleeding. - Telemetry - Acetaminophen as needed for mild pain/fever/headache - Bowel regimen as needed - Antiemetic as needed Patient admitted under inpatient status with expected length of stay > 2 midnights for severity of present symptoms, complexities of treatment plan and risk for adverse events VTE Prophylaxis: SCDs VTE Mechanical Devices: Intermittant Pneumatic CD Resuscitation Status: CPR: Attempt Resuscitation Attending Statement The patient was seen and examined together with Dr. Garcia on 10-15-16 and I agree with the history, exam and plan as outlined in the note above. Please note that the date of service for this note and patient visit is 10-15-16. Melanie Garcia DO Oct 16, 2016 00:37 Cinthya Vásquez MD Oct 16, 2016 17:09
[2016-10-16 04:21] LABS: BASOPHILS % (AUTO) 0.1 % (0-3); EOSINOPHILS % (AUTO) 0.1 % (0-5); MONOCYTES % (AUTO) 7.6 % (4-12); Mean Corpuscular Hemoglobin 25.1 pg (27.0-35.0); Mean Corpuscular Volume 79.7 fL (81-100); NEUTROPHILS % (AUTO) 85.6 % (40-74); Platelet Count 238 bil/L (150-400)
--- NOTE | 2016-10-16 06:07 | NUR ---
Resp Pt very wheezy and extremely SOB, unable to speak in full sentences. Pt uses Bipap on and off but does not tolerate it for very long. Pt desats to low 80's on 3 L NC but refuses Oxymask or Bipap, O2 increased to 6L and sats improved to high 80' and low 90's. Pt reports 8/10 L foot pain but did not requested any pain meds besides what was scheduled. Addendum: 10/16/16 at 0731 by FAYE SIMPSON RN Resp. Update: Pt suddenly extremely SOB and getting agitated, has oxymask on at this time with 5L flowing into it but insisting no air is coming out, does not want to use Bipap, 5L O2 added by NC additionally to oxymask but pt kept working himself into a frenzy insisting that there was no air coming out. RT called to place pt back on Bipap and Clonazepam given. Pt now more calm and resting.
[2016-10-16] MEDS: Albuterol 2.5 mg/3 mL Inhalation Solution NEB PRN (07:08)
[2016-10-16] MEDS: Albuterol-Ipratropium 3 mL Inhalation Solution NEB PRN (07:08)
[2016-10-16] MEDS: Pantoprazole 20 mg ER24 Tablet PO SCH ×2 (08:30→22:55)
[2016-10-16] MEDS: Morphine ER 15 mg (MS Contin) Tablet PO SCH ×2 (08:45→22:56)
[2016-10-16] MEDS: predniSONE 20 mg Tablet PO SCH (08:46)
--- NOTE | 2016-10-16 10:29 | NUR ---
Chest pain He is complaining of left arm pain. Requested a nitro tab which was given. Currently getting a stat EKG per MD orders. Care continues. Addendum: 10/16/16 at 1049 by EMELY MAURER RN EKG received and shown to Dr. Boland who was also notified of the left arm pain. No new orders at this time. Pt states pain has gone away. Care continues.
--- NOTE | 2016-10-16 10:31 | PCM.PNMED ---
Subjective Date of Service Oct 16, 2016 Subjective Patient is having some worsening bruising issues including increased cough, wheezing, and requiring additional utilization of his CPAP. He denies any chest pain nausea or vomiting. His intake and output are 1756 in and 2350. Serologies and additional lab tests are pending at this time. Exam Vital Signs Vital Sign - Last Date Time Temp Pulse Resp B/P Pulse Ox O2 Delivery O2 Flow Rate FiO2 10/16/16 08:38 Supplement Oxygen 10/16/16 08:38 36.4 87 24 147/86 97 40 10/16/16 02:58 6.00 Intake and Output 10/15/16 10/15/16 10/16/16 Cumulative From/Thru 15:00 23:00 07:00 10/13/16 14:24 - 10/16/16 06:11 Intake Total 1225 ml 1180 ml 5022 ml Output Total 2050 ml 500 ml 4900 ml Balance -825 ml 680 ml 122 ml Intake Oral 1120 ml 1180 ml 4626 ml IV Total 105 ml 396 ml Output Urine Total 2050 ml 500 ml 4900 ml # Voids 2 # Bowel Movements 2 2 Exam HEENT examination is remarkable for pale sclera. Neck is supple without adenopathy thyromegaly or jugular venous distention. Lungs show diffuse and expiratory wheezes with intermittent in expiratory wheezes rales and scattered rales. Heart rate is tachycardic. Abdomen is soft without any tenderness rebound guarding masses or hepatosplenomegaly. Extremities normal joints and clubbing cyanosis or edema. Lab and Diagnostics Result Diagram: 10/16/16 0411 10/16/16 0411 Microbiology Blood cultures 2 showed no growth after 2 days. Influenza screen negative. Strep pneumoniae and legionella urine antigens negative. Respiratory viral PCR positive for coronavirus O Oc43. . X-Rays, CTs and MRIs X-RAY CHEST ONE VIEW, PORTABLE IMPRESSION: Bibasilar pneumonia. Trace left-sided pleural fluid a. Dictated by: Lora Barth MD, PhD on 10/13/2016 at 19:04 . 12-lead ECG EKG, sinus rhythm rate 92, Left ventricular enlargement, QTc 458 Anita Vela Assessment & Plan Impression #1 acute kidney injury #2 chronic kidney disease with evidence of nephrotic range proteinuria #3 hypertension with hypertensive heart sedation hypertensive nephrosclerosis #4 anemia which appears to be multifactorial Recommendation: I would recheck a chest x-ray on him today and also to give him a dose of Aranesp and check his iron studies. Continue to closely follow his intake, output, and lab. VTE Prophylaxis: SCDs VTE Mechanical Devices: Intermittant Pneumatic CD Resuscitation Status: CPR: Attempt Resuscitation Artie Pearson DO Oct 16, 2016 10:31
[2016-10-16] MEDS ORDERED: Darbepoetin Alfa 60 mCg/0.3 mL Inj SUBQ ONE (10:35)
--- NOTE | 2016-10-16 11:09 | DRSVH ---
PROCEDURE: X-RAY CHEST ONE VIEW, PORTABLE ([id number]) INDICATIONS: 60 year-old male with shortness of breath. TECHNIQUE: One view of the chest was acquired. COMPARISON: [facility], CR, XR CHEST 1VW (PORTABLE), 10/13/2016, 23:12. [facility], CR, XR CHEST 1VW (PORTABLE), 10/13/2016, 18:27. [facility], CR, XR CHEST 1VW (P ORTABLE), 10/05/2016, 10:48. FINDINGS: Surgical changes and devices: Patient is status post coronary artery bypass grafting. Lungs and pleura: There is persistent retrocardiac opacity, as well as small basal left pleural effus ion. Right lung is clear. No pneumothorax. Mediastinum: Mediastinal contours appear normal. Heart size is normal. There is aortic atheroscler osis. Bones and chest wall: No suspicious bony lesions. Overlying soft tissues appear unremarkable. IMPRESSION: Persistent retrocardiac atelectasis, aspiration, or pneumonia. Persistent small basal lef t pleural effusion. Dictated by: Chris Plunkett M.D. on 10/16/2016 at 11:07 Approved by: Chris Plunkett M.D. on 10/16/2016 at 11:07
[2016-10-16 17:02] LABS: TROPONIN T 0.023 ug/L (0.0-0.011)
[2016-10-16] MEDS: Furosemide 10 mg/mL 4 mL Inj IVPUSH SCH ×2 (17:10→22:56)
--- NOTE | 2016-10-16 18:08 | PROG NOTE ---
[address] [address] PROGRESS NOTE PATIENT: MARGARET ROCHA : 1955 MR#: [id number] ADMIT: 10/13/2016 JOB ID: [id number] DATE: 10/16/2016 REASON FOR FOLLOWUP: Haq virus infection. INTERVAL HISTORY: Recall that this is the 60-year-old gentleman whom I saw in consult on Sunday, October 14. He is an extraordinarily complicated patient with underlying organic heart disease, severe peripheral vascular disease, COPD and history of multi-drug resistant organisms as well as C. diff. He is an ongoing cigarette smoker and he was admitted twice in the last two weeks with increasing shortness of breath. At the time I saw him on the , I was not persuaded he had any ongoing bacterial infection and we decided to suspend his antibiotics and check serial procalcitonins while carefully observing the patient. Over the weekend, he has done fairly well though right now is having an acute apparently asthmatic attack with profound wheezing and shortness of breath which he reports came on suddenly when he was attempting to eat a piece of toast for breakfast. He denies fevers, chills, or sweats. He has had some loose bowel movements and, for that reason, a stool PCR panel has been ordered. PHYSICAL EXAMINATION: Reveals a stridorous, short of breath gentleman with audible wheezing. His temperature is 36.4, he has been afebrile throughout this admission which started on October 13. Pulse 87, respiratory rate 28 right now. Blood pressure 147/86. He is saturating quite well on nasal oxygen but is working hard to breathe. The patient's oral cavity unremarkable. Lungs are notable for bilateral wheezing and this wheezing can be heard across the room without a stethoscope. Cardiac tones: Mild tachycardia. Abdomen: Benign. LABORATORIES: Include white count 9000 with 85% segs, but that is likely due to steroids. Patient's creatinine 2.8, procalcitonins x3 are all less than 0.5. Pneumococcal and Legionella antigens are negative. Respiratory viral panel positive for haq virus and blood culture is negative. Chest x-ray done on the showed retrocardiac atelectasis which seems to have been persistent from his previous admission. IMPRESSION: I see no evidence for ongoing bacterial pneumonia or infection in this unfortunate gentleman with an incredible array of interrelated ongoing severe medical problems. At this point, he is having an asthma/chronic obstructive pulmonary disease exacerbation with tremendously increased work of breathing and wheezing. RECOMMENDATIONS: 1. Continue with prednisone. 2. Consider azithromycin on a low dose once a day or higher dose Sunday, Sunday or Sunday regimen for COPD treatment rather than specific treatment of any bacterial pathogen. 3. No systemic antibiotics other than perhaps the azithromycin as mentioned above are indicated. 4. ID will go ahead and sign off on this case at this time, but please do not hesitate to call if there are questions.
[2016-10-16] MEDS ORDERED: 0.9% Sodium Chloride 250 ML ONE (18:27)
[2016-10-16] MEDS: Albuterol-Ipratropium 3 mL Inhalation Solution NEB SCH (21:05)
--- NOTE | 2016-10-16 21:29 | PCM.PNMED ---
Subjective Date of Service Oct 16, 2016 Subjective Mr. Carrillo is a 60-year-old male with a complex past medical history including chronic foot ulcers, recent undiagnosed GI bleeding, congestive heart failure with CAD, A. fib history of MRSA pneumonia as well as C. difficile who presented with one episode of black stool today and increased dyspnea since leaving the hospital last week. He feels that maybe he left the hospital too early last week (D/C 10/08/16) and did not realize the extent of his illness. He had an acute infiltrate on the left side at that time. He states medication compliance other than he did not have any nebulized or inhaled medications at home for his COPD after 10/08 discharge. Has a history of episodic black stool, source of GI bleeding has been unknown. Patient reports that he has had blood transfusion during his last admission. He is not having chest pain. He is quite dyspneic but denies chest pain, dysuria, nausea, vomiting, constipation, diarrhea, abdominal pain, joint pain, swelling, dizziness, headache. Overnight Events: No overnight events. tolerated 2L oxymask. Required Bipap placement. Today Mr. Carrillo tolerated Oxymask this morning at 5L. He is resting in bed comfortably and in no acute distress since O2 needs are met. He reports being tired and the he only puffs on cigarettes.. The patient denies headache, dizziness, sore throat, cough, chest pain, abdominal pain, nausea, vomiting, constipation, and diarrhea. The patient is voiding and eliminating without difficulty. The patient is ambulating without difficulty. Exam Vital Signs Vital Sign - Last Date Time Temp Pulse Resp B/P Pulse Ox O2 Delivery O2 Flow Rate FiO2 10/16/16 07:05 103 32 93 40 10/16/16 02:58 36.4 136/90 Nasal Cannula 6.00 Intake and Output 10/15/16 10/15/16 10/16/16 Cumulative From/Thru 15:00 23:00 07:00 10/13/16 14:24 - 10/16/16 06:11 Intake Total 1225 ml 1180 ml 5022 ml Output Total 2050 ml 500 ml 4900 ml Balance -825 ml 680 ml 122 ml Intake Oral 1120 ml 1180 ml 4626 ml IV Total 105 ml 396 ml Output Urine Total 2050 ml 500 ml 4900 ml # Voids 2 # Bowel Movements 2 2 Exam General: No acute distress, well-developed and chronically ill appearing, well- nourished, appropriately interactive HEENT: Normocephalic, atraumatic. External ears without defect. Pupils equal, round, and reactive to light and accommodation. Anicteric sclerae, moist conjunctivae, and no lid lag. Oropharynx free of erythema and cobble stoning with moist mucosa. Neck: Supple with full range of motion. mild jugular venous distension. No bruits. No lymphadenopathy or thyromegaly. Cardiovascular: Regular rate and rhythm with no murmurs, rubs, or gallops appreciated Pulmonary: Severe Rodriguez-expiratory wheezing. Abnormal respiratory effort with maximal use of accessory muscles. Abdomen: Bowel tones present. Soft, nontender, nondistended. No hepatosplenomegaly or masses appreciated. Extremities: No clubbing, cyanosis, mild lower extremity edema, or lymphadenopathy appreciated. Skin: Normal temperature, turgor, and texture; no rash, ulcers, or subcutaneous nodules appreciated. Neurological: Cranial nerves grossly intact. Normal muscle strength, tone, and bulk. Reflexes, coordination, and sensory function within normal limits. No known gait impairment. Psychiatric: Normal mood and affect. Alert and oriented to person, place, and time. IVs and Medications Medications Reviewed: Medications were reviewed in detail Lab and Diagnostics Result Diagram: 10/16/1641010/16/16410 Microbiology Blood cultures 2 showed no growth after 2 days. Influenza screen negative. Strep pneumoniae and legionella urine antigens negative. Respiratory viral PCR positive for coronavirus O Oc43. . X-Rays, CTs and MRIs X-RAY CHEST ONE VIEW, PORTABLE IMPRESSION: Bibasilar pneumonia. Trace left-sided pleural fluid a. Dictated by: Lora Barth MD, PhD on 10/13/2016 at 19:04 . 12-lead ECG EKG, sinus rhythm rate 92, Left ventricular enlargement, QTc 458 Resident, Anita Assessment & Plan Dwain Carrillo is a 60-year-old male with a complex past medical history including chronic foot ulcers, recent undiagnosed GI bleeding, systolic and diastolic congestive heart failure, CAD, A. fib, history of MRSA pneumonia, as well as, C. difficile who presented to [facility] ED with one episode of black stool today and increased dyspnea since leaving the hospital last week. Hospital day #4. 1. Acute hypoxemic respiratory failure, present on admission. Active. - Patient D/C [facility] on 10/08/16 - Azithromycin 1G Q2Day - Afebrile and vitals are stable. - DuoNebs and albuterol ordered. - Haq virus on PCR. - Chest x-ray: Results per above. - ID consulted and signed off. 2. 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 - ProBNP elevated last 3 draws in the setting of chronic kidney disease. - Echo from 09/16/2016 showed improved ejection fraction from 40% to 50-55% with areas of hypokinesis which are also chronic and mild systolic failure, also to note small atrial septal defect noted. - Lasix 40 IV QID. - Troponins and CPK ordered. 3. Acute COPD exacerbation, present on admission. Active. - Requiring 2-4 L by NC for saturation of 93%. - DuoNebs scheduled. Albuterol ordered. - 60mg PO daily of prednisone starting tomorrow 10/17/15 - Will add home meds, triple therapy upon discharge. 4. Chronic upper GI bleed with chronic microcytic anemia, present on admission. Active. - Patient did report one black stool prior to coming to the ED. - Recent previous admission for GI bleed, thought poor candidate for endoscopy. Discharged after one unit red blood cell transfusion. - Previous EGD showed erosive esophagitis and gastritis, unremarkable colonoscopy (03/07/2016). - Currently Hgb 10.1 and 10.2 on admission. Continue to monitor hemoglobin and hematocrit daily. - No Aspirin. - Continue Protonix. 5. Acute on chronic kidney injury, present on admission. Active. - Creatinine on admission 2.05 and Baseline around 1.7, currently 2.80. - Nephrology following, time and recommendations appreciated. 6. Chronic kidney disease stage III, present on admission. active. - Creatinine 2.80. - Monitor closely in the setting of other comorbidities 7. Chronic lower extremity ulcerations, acute, present on admission -Consulted wound care for continued care. Follows as an outpatient 8. A. fib, present on admission, unknown chronicity - Not anticoagulated currently due to anemia and propensity for GI bleeding. - Telemetry - Acetaminophen as needed for mild pain/fever/headache - Bowel regimen as needed - Antiemetic as needed Patient admitted under inpatient status with expected length of stay > 2 midnights for severity of present symptoms, complexities of treatment plan and risk for adverse events Pain Evaluation: Adequate Pain Control VTE Prophylaxis: SCDs VTE Mechanical Devices: Intermittant Pneumatic CD Resuscitation Status: CPR: Attempt Resuscitation Attending Statement The patient was seen and examined together with Dr. Nobles on 10-16-16 and I agree with the history, exam and plan as outlined in the note above. PAO NOBLES DO Oct 16, 2016 08:32 Cinthya Vásquez MD Oct 17, 2016 17:01
[2016-10-17] VITALS (16 sets, daily range): BP systolic 133–167; BP diastolic 81–100; PULSE 65–92; RESP 15–26; O2SAT 91–100
[2016-10-17 00:06] LABS: Hepatitis A Antibody IgM Negative (Negative); Hepatitis B Core Antibody IgM Negative (Negative)
[2016-10-17 05:13] LABS: BASOPHILS % (AUTO) 0.2 % (0-3); EOSINOPHILS % (AUTO) 0 % (0-5); MONOCYTES % (AUTO) 8.8 % (4-12); Mean Corpuscular Hemoglobin 26.1 pg (27.0-35.0); Mean Corpuscular Volume 79.4 fL (81-100); NEUTROPHILS % (AUTO) 80.6 % (40-74); Platelet Count 250 bil/L (150-400)
[2016-10-17 06:03] LABS: Creatine Kinase 83 U/L (21-232); Unsaturated Iron Binding 255.4 ug/dL
[2016-10-17] MEDS: Furosemide 10 mg/mL 4 mL Inj IVPUSH SCH (06:18)
--- NOTE | 2016-10-17 06:32 | NUR ---
Respiratory Pt reports dyspnea at baseline throughout shift, intermittent use of BiPAP at 40% FiO2 and NC 6L, SpO2 within range. Pt reports "I didn't like wearing that mask at first, but I'm getting used to it now, and I can even sleep with it." VSS, tele SR 70s IVCD.
[2016-10-17] MEDS: Albuterol-Ipratropium 3 mL Inhalation Solution NEB SCH ×4 (09:02→21:23)
--- NOTE | 2016-10-17 10:24 | PCM.PNMED ---
Subjective Date of Service Oct 17, 2016 Subjective Patient's primary issue seems to be respiratory at this point. His intake and output from yesterday was 2496 and 1300 out. His hepatitis titers came back weakly positive for hepatitis C and his remaining serologies are pending at time of this dictation. Her head and further investigate the positive hepatitis serology including cryoglobulins. Exam Vital Signs Vital Sign - Last Date Time Temp Pulse Resp B/P Pulse Ox O2 Delivery O2 Flow Rate FiO2 10/17/16 09:03 73 22 98 Nasal Cannula 3.00 10/17/16 04:30 40 10/17/16 03:39 36.4 133/81 Intake and Output 10/16/16 10/16/16 10/17/16 Cumulative From/Thru 15:00 23:00 07:00 10/13/16 14:24 - 10/17/16 06:48 Intake Total 1316 ml 1200 ml 7538 ml Output Total 800 ml 500 ml 6200 ml Balance 516 ml 700 ml 1338 ml Intake Oral 1080 ml 1200 ml 6906 ml IV Total 236 ml 632 ml Output Urine Total 800 ml 500 ml 6200 ml # Voids 2 4 # Bowel Movements 1 3 Exam Neck is supple without adenopathy or thyromegaly however venous distention was noted. Examination of his lungs showed increased AP diameter and diffuse end expiratory wheezes in all lung garcia. Heart regular rhythm. Systolic murmur. Abdomen soft without any tenderness or rebound guarding masses or hepatosplenomegaly. Extremities transient clubbing cyanosis or edema. Skin turgor was good and there is no evidence of any rashes. Lab and Diagnostics Result Diagram: 10/17/16 0423 10/17/16 0423 Microbiology Blood cultures 2 showed no growth after 2 days. Influenza screen negative. Strep pneumoniae and legionella urine antigens negative. Respiratory viral PCR positive for coronavirus O Oc43. . X-Rays, CTs and MRIs X-RAY CHEST ONE VIEW, PORTABLE IMPRESSION: Bibasilar pneumonia. Trace left-sided pleural fluid a. Dictated by: Lora Barth MD, PhD on 10/13/2016 at 19:04 . 12-lead ECG EKG, sinus rhythm rate 92, Left ventricular enlargement, QTc 458 Resident, Anita Assessment & Plan Dwain Carrillo is a 60-year-old male with a complex past medical history including chronic foot ulcers, recent undiagnosed GI bleeding, systolic and diastolic congestive heart failure, CAD, A. fib, history of MRSA pneumonia, as well as, C. difficile who presented to [facility] ED with one episode of black stool today and increased dyspnea since leaving the hospital last week. Hospital day #4. 1. Acute hypoxemic respiratory failure, present on admission. Active. - Patient D/C [facility] on 10/08/16 - Azithromycin 1G Q2Day - Afebrile and vitals are stable. - DuoNebs and albuterol ordered. - Haq virus on PCR. - Chest x-ray: Results per above. - ID consulted and signed off. 2. 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 - ProBNP elevated last 3 draws in the setting of chronic kidney disease. - Echo from 09/16/2016 showed improved ejection fraction from 40% to 50-55% with areas of hypokinesis which are also chronic and mild systolic failure, also to note small atrial septal defect noted. - Lasix 40 IV QID. - Troponins and CPK ordered. 3. Acute COPD exacerbation, present on admission. Active. - Requiring 2-4 L by NC for saturation of 93%. - DuoNebs scheduled. Albuterol ordered. - 60mg PO daily of prednisone starting tomorrow 10/17/15 - Will add home meds, triple therapy upon discharge. 4. Chronic upper GI bleed with chronic microcytic anemia, present on admission. Active. - Patient did report one black stool prior to coming to the ED. - Recent previous admission for GI bleed, thought poor candidate for endoscopy. Discharged after one unit red blood cell transfusion. - Previous EGD showed erosive esophagitis and gastritis, unremarkable colonoscopy (03/07/2016). - Currently Hgb 10.1 and 10.2 on admission. Continue to monitor hemoglobin and hematocrit daily. - No Aspirin. - Continue Protonix. 5. Acute on chronic kidney injury, present on admission. Active. - Creatinine on admission 2.05 and Baseline around 1.7, currently 2.80. - Nephrology following, time and recommendations appreciated. 6. Chronic kidney disease stage III, present on admission. active. - Creatinine 2.80. - Monitor closely in the setting of other comorbidities 7. Chronic lower extremity ulcerations, acute, present on admission -Consulted wound care for continued care. Follows as an outpatient 8. A. fib, present on admission, unknown chronicity - Not anticoagulated currently due to anemia and propensity for GI bleeding. - Telemetry - Acetaminophen as needed for mild pain/fever/headache - Bowel regimen as needed - Antiemetic as needed Patient admitted under inpatient status with expected length of stay > 2 midnights for severity of present symptoms, complexities of treatment plan and risk for adverse events VTE Prophylaxis: SCDs VTE Mechanical Devices: Intermittant Pneumatic CD Resuscitation Status: CPR: Attempt Resuscitation Artie Pearson DO Oct 17, 2016 10:24
[2016-10-17] MEDS: Pantoprazole 20 mg ER24 Tablet PO SCH ×2 (10:40→21:36)
[2016-10-17] MEDS: Morphine ER 15 mg (MS Contin) Tablet PO SCH ×2 (10:40→21:36)
[2016-10-17] MEDS ORDERED: predniSONE 20 mg Tablet PO ONE (10:50)
[2016-10-17] MEDS: predniSONE 20 mg Tablet PO SCH (13:15)
--- NOTE | 2016-10-17 14:49 | NUR ---
Wound Care Wound evaluation orders received patient seen at bedside. 60 yo male admitted with pneumonia,COPD exacerbation and GI bleed. Well known to the wound clinic for treatment of left and right foot and ankle wounds due to PAD. Today I am impressed that all of his ulcers are healed with the exception of his left medial ankle wound. This wound measures 2 cm x 3 cm x 0.1 cm, it has no erythema and is at this point nearly superficial, It bleeds minimally with cleaning today and is redressed with a piece of xeroform and 2x2 gauze tape, this can be changed daily by nursing. Should need no follow up at wound center, follow up with sole filler as needed.
--- NOTE | 2016-10-17 15:02 | DRSVH ---
PROCEDURE: X-RAY CHEST ONE VIEW, PORTABLE ([id number]) INDICATIONS: dyspnea TECHNIQUE: One view of the chest was acquired. COMPARISON: [facility], CR, XR CHEST 1VW (PORTABLE), 10/16/2016, 10:39. [facility], CR, XR CHEST 1VW (PORTABLE), 10/13/2016, 23:12. [facility], CR, XR CHEST 1VW (PO RTABLE), 10/13/2016, 18:27. FINDINGS: Surgical changes and devices: Median sternotomy. Lungs and pleura: No pneumothorax. Small left pleural effusions. Severe left and moderate right basi lar airspace opacity. Mediastinum: Mediastinal contours appear normal. Heart size is normal. Bones and chest wall: No suspicious bony lesions. Overlying soft tissues appear unremarkable. IMPRESSION: 1. No change in bibasilar pneumonia. Continued plain film surveillance is recommended to ensure resol ution, and to exclude underlying or central malignancy. Dictated by: Martha Yuan M.D. on 10/17/2016 at 15:00 Approved by: Martha Yuan M.D. on 10/17/2016 at 15:00
--- NOTE | 2016-10-17 17:09 | NUR ---
Critical Lab - Troponin At 1455 the lab called to notify this nurse that his troponin was 0.035. Notified Dr. Boland in person at 1313. There were no new orders at that time other than to keep monitoring him. Care continues.
--- NOTE | 2016-10-17 21:58 | PCM.PNMED ---
Subjective Date of Service Oct 17, 2016 Subjective Mr. Carrillo is a 60-year-old male with a complex past medical history including chronic foot ulcers, recent undiagnosed GI bleeding, congestive heart failure with CAD, A. fib history of MRSA pneumonia as well as C. difficile who presented with one episode of black stool today and increased dyspnea since leaving the hospital last week. He feels that maybe he left the hospital too early last week (D/C 10/08/16) and did not realize the extent of his illness. He had an acute infiltrate on the left side at that time. He states medication compliance other than he did not have any nebulized or inhaled medications at home for his COPD after 10/08 discharge. Has a history of episodic black stool, source of GI bleeding has been unknown. Patient reports that he has had blood transfusion during his last admission. He is not having chest pain. He is quite dyspneic but denies chest pain, dysuria, nausea, vomiting, constipation, diarrhea, abdominal pain, joint pain, swelling, dizziness, headache. Overnight Events: No overnight events. Today Mr. Carrillo tolerated Oxymask this morning at 3L down from 5L. He is resting in bed comfortably and in no acute distress since O2 needs are met. He reports being tired and the he only puffs on cigarettes. The patient denies headache, dizziness, sore throat, cough, chest pain, abdominal pain, nausea, vomiting, constipation, and diarrhea. The patient is voiding and eliminating without difficulty. The patient is ambulating without difficulty. We discussed the need for smoking cessation. . Exam Vital Signs Vital Sign - Last Date Time Temp Pulse Resp B/P Pulse Ox O2 Delivery O2 Flow Rate FiO2 10/17/16 04:30 83 24 97 40 10/17/16 03:39 36.4 133/81 Nasal Cannula 3.00 Intake and Output 10/16/16 10/16/16 10/17/16 Cumulative From/Thru 15:00 23:00 07:00 10/13/16 14:24 - 10/17/16 06:01 Intake Total 1316 ml 1200 ml 7538 ml Output Total 800 ml 500 ml 6200 ml Balance 516 ml 700 ml 1338 ml Intake Oral 1080 ml 1200 ml 6906 ml IV Total 236 ml 632 ml Output Urine Total 800 ml 500 ml 6200 ml # Voids 2 4 # Bowel Movements 1 3 Exam General: No acute distress, well-developed and chronically ill appearing, well- nourished, appropriately interactive HEENT: Normocephalic, atraumatic. External ears without defect. Pupils equal, round, and reactive to light and accommodation. Anicteric sclerae, moist conjunctivae, and no lid lag. Oropharynx free of erythema and cobble stoning with moist mucosa. Neck: Supple with full range of motion. mild jugular venous distension. No bruits. No lymphadenopathy or thyromegaly. Cardiovascular: Regular rate and rhythm with no murmurs, rubs, or gallops appreciated Pulmonary: Severe Rodriguez-expiratory wheezing. Abnormal respiratory effort with maximal use of accessory muscles. Abdomen: Bowel tones present. Soft, nontender, nondistended. No hepatosplenomegaly or masses appreciated. Extremities: No clubbing, cyanosis, mild lower extremity edema, or lymphadenopathy appreciated. Skin: Normal temperature, turgor, and texture; no rash, ulcers, or subcutaneous nodules appreciated. Neurological: Cranial nerves grossly intact. Normal muscle strength, tone, and bulk. Reflexes, coordination, and sensory function within normal limits. No known gait impairment. Psychiatric: Normal mood and affect. Alert and oriented to person, place, and time. IVs and Medications Medications Reviewed: Medications were reviewed in detail Lab and Diagnostics Result Diagram: 10/17/16 0423 10/16/16 0411 Microbiology Blood cultures 2 showed no growth after 2 days. Influenza screen negative. Strep pneumoniae and legionella urine antigens negative. Respiratory viral PCR positive for coronavirus O Oc43. . X-Rays, CTs and MRIs X-RAY CHEST ONE VIEW, PORTABLE IMPRESSION: Bibasilar pneumonia. Trace left-sided pleural fluid a. Dictated by: Lora aBrth MD, PhD on 10/13/2016 at 19:04 . 12-lead ECG EKG, sinus rhythm rate 92, Left ventricular enlargement, QTc 458 Resident, Anita Assessment & Plan Dwain Carrillo is a 60-year-old male with a complex past medical history including chronic foot ulcers, recent undiagnosed GI bleeding, systolic and diastolic congestive heart failure, CAD, A. fib, history of MRSA pneumonia, as well as, C. difficile who presented to [facility] ED with one episode of black stool today and increased dyspnea since leaving the hospital last week. Hospital day #5. 1. Acute hypoxemic respiratory failure, present on admission. Improving. - Patient D/C [facility] on 10/08/16. - Azithromycin 1G Q2Day. - Afebrile and vitals are stable. - DuoNebs and albuterol ordered. - Haq virus on PCR. - Chest x-ray: Results per above. - ID consulted and signed off. 2. 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 - Clinically looks more like COPD exacerbation than pneumonia. - ProBNP elevated last 3 draws in the setting of chronic kidney disease. - Echo from 09/16/2016 showed improved ejection fraction from 40% to 50-55% with areas of hypokinesis which are also chronic and mild systolic failure, also to note small atrial septal defect noted. - Lasix 40 IV QID Today, Will start Torsemide 20mg tomorrow. - Troponins and CPK ordered. 3. Acute COPD exacerbation, present on admission. Improving. . - Requiring 2-4 L by NC for saturation of 93%. Goal of between 88% - 92%. - DuoNebs scheduled. Albuterol ordered. - Prednisone 60mg PO daily. - Will add home meds, triple therapy upon discharge. - Anticipate need for home O2 / trilogy. 4. Chronic upper GI bleed with chronic microcytic anemia, present on admission. Resolved. - Patient did report one black stool prior to coming to the ED. - Recent previous admission for GI bleed, thought poor candidate for endoscopy. Discharged after one unit red blood cell transfusion. - Previous EGD showed erosive esophagitis and gastritis, unremarkable colonoscopy (03/07/2016). - Currently Hgb 10.1 and 10.2 on admission. - No Aspirin. - Continue Protonix. 5. Acute on chronic kidney injury, present on admission, Improving. - Creatinine on admission 2.05 and Baseline around 1.7, currently 2.66. - Nephrology following, time and recommendations appreciated. 6. Chronic kidney disease stage III, present on admission. active. - Creatinine 2.66. - Monitor closely in the setting of other comorbidities 7. Chronic lower extremity ulcerations, acute, present on admission -Consulted wound care for continued care. Follows as an outpatient 8. A. fib, present on admission, unknown chronicity. - Not anticoagulated currently due to anemia and propensity for GI bleeding. - Telemetry Physical therapy following, time and recommendations appreciated. - Acetaminophen as needed for mild pain/fever/headache - Bowel regimen as needed - Antiemetic as needed High Risk Medications: Disposition. Patient will likely be discharged in 1-2 more days to [facility] with likely home O2 and Trilogy. Pain Evaluation: Adequate Pain Control VTE Prophylaxis: SCDs VTE Mechanical Devices: Intermittant Pneumatic CD Resuscitation Status: CPR: Attempt Resuscitation Attending Statement The patient was seen and examined together with Dr. Nobles on 10-17-16 and I agree with the history, exam and plan as outlined in the note above. PAO NOBLES DO Oct 17, 2016 06:10 Cinthya Vásquez MD Oct 18, 2016 16:56
[2016-10-18] VITALS (13 sets, daily range): BP systolic 160–176; BP diastolic 82–99; PULSE 67–170; RESP 16–24; O2SAT 95–99
[2016-10-18 04:51] LABS: BASOPHILS % (AUTO) 0.1 % (0-3); EOSINOPHILS % (AUTO) 0 % (0-5); MONOCYTES % (AUTO) 2.9 % (4-12); Mean Corpuscular Hemoglobin 25.8 pg (27.0-35.0); Mean Corpuscular Volume 79.3 fL (81-100); NEUTROPHILS % (AUTO) 90.1 % (40-74); Platelet Count 251 bil/L (150-400)
--- NOTE | 2016-10-18 04:54 | NUR ---
Respiratory Pt switches between 3L NC and BiPAP at 28% FiO2 throughout shift, SpO2 88-97% on both. Pt denies feeling dyspneic, states "It sounds like my breathing is really bad but it feels a lot better, really." Pt resting throughout shift, reports pain at 8/10 at beginning of shift to L foot, scheduled morphine administered with relief upon reassessment. VSS.
[2016-10-18 05:24] LABS: TROPONIN T 0.024 ug/L (0.0-0.011)
--- NOTE | 2016-10-18 08:33 | DRSVH ---
PROCEDURE: X-RAY CHEST ONE VIEW, PORTABLE ([id number]) INDICATIONS: 60 year-old male with dyspnea. TECHNIQUE: One view of the chest was acquired. COMPARISON: [facility], CR, XR CHEST 1VW (PORTABLE), 10/17/2016, 14:30. [facility], CR, XR CHEST 1VW (PORTABLE), 10/16/2016, 10:39. [facility], CR, XR CHEST 1VW (POR TABLE), 10/13/2016, 23:12. FINDINGS: Surgical changes and devices: Patient is status post coronary artery bypass grafting. Lungs and pleura: No pleural effusions or pneumothorax. Bibasilar airspace opacities persist. Mediastinum: Mediastinal contours appear normal. Heart size is normal. There is aortic atheroscler osis. Bones and chest wall: No suspicious bony lesions. Overlying soft tissues appear unremarkable. IMPRESSION: Persistent bibasilar atelectasis, aspiration, or bronchopneumonia. Dictated by: Chris Plunkett M.D. on 10/18/2016 at 8:31 Approved by: Chris Plunkett M.D. on 10/18/2016 at 8:31
[2016-10-18] MEDS: predniSONE 20 mg Tablet PO SCH (09:14)
[2016-10-18] MEDS: Pantoprazole 20 mg ER24 Tablet PO SCH ×2 (09:14→20:55)
[2016-10-18] MEDS: Albuterol-Ipratropium 3 mL Inhalation Solution NEB SCH ×2 (09:15→20:30)
[2016-10-18] MEDS: Morphine ER 15 mg (MS Contin) Tablet PO SCH ×2 (09:15→20:54)
--- NOTE | 2016-10-18 10:15 | PCM.PNMED ---
Subjective Date of Service Oct 18, 2016 Subjective NEPHROLOGY PROGRESS NOTE: No acute event over night. Patient's primary issue remains to be respiratory, although he reports to feel better. He is currently on 3L of NC. The patient denies headache, dizziness, sore throat, chest pain, abdominal pain, nausea, vomiting, constipation, and diarrhea. The patient is voiding without difficulty. The patient is ambulating without difficulty. His intake and output from yesterday was 1951 in and 2375 out. His remaining serologies are pending. Exam Vital Signs Vital Sign - Last Date Time Temp Pulse Resp B/P Pulse Ox O2 Delivery O2 Flow Rate FiO2 10/18/16 09:05 Supplement Oxygen 10/18/16 09:05 36.4 89 20 176/99 97 3.00 10/17/16 16:46 21 Intake and Output 10/17/16 10/17/16 10/18/16 Cumulative From/Thru 15:00 23:00 07:00 10/13/16 14:24 - 10/18/16 05:06 Intake Total 751 ml 810 ml 9099 ml Output Total 1875 ml 700 ml 8775 ml Balance -1124 ml 110 ml 324 ml Intake Oral 630 ml 810 ml 8346 ml IV Total 121 ml 753 ml Output Urine Total 1875 ml 700 ml 8775 ml # Voids 4 # Bowel Movements 1 0 4 Exam General: chronically ill appearance, alert and oriented x 3, cooperative, in no acute distress HEENT:pale sclera, mucosa membrane is moist. Neck: supple without adenopathy thyromegaly or jugular venous distention. Lungs: labored effort with accessory muscle use, auscultation shows diffuse and expiratory wheezes with intermittent in expiratory wheezes rales and scattered rales. Heart: regular rate and rhythm. No murmurs appreciated. Abdomen: soft, nondistended without any tenderness rebound guarding masses or hepatosplenomegaly. Extremities: normal joints and clubbing cyanosis or edema. Skin: dry, but no rashes or skin lesion noted. IVs and Medications Medications Reviewed: Medications were reviewed in detail Lab and Diagnostics Result Diagram: 10/18/1642510/18/16425 Microbiology Blood cultures 2 showed no growth after 2 days. Influenza screen negative. Strep pneumoniae and legionella urine antigens negative. Respiratory viral PCR positive for coronavirus O Oc43. . X-Rays, CTs and MRIs X-RAY CHEST ONE VIEW, PORTABLE IMPRESSION: Bibasilar pneumonia. Trace left-sided pleural fluid a. Dictated by: Lora Barth MD, PhD on 10/13/2016 at 19:04 PROCEDURE: X-RAY CHEST ONE VIEW, PORTABLE INDICATIONS: 60 year-old male with dyspnea. TECHNIQUE: One view of the chest was acquired. COMPARISON: [facility], CR, XR CHEST 1VW (PORTABLE), 10/17/2016, 14: 30. [facility], CR, XR CHEST 1VW (PORTABLE), 10/16/2016, 10:39. [facility], CR, XR CHEST 1VW (PORTABLE), 10/13/2016, 23:12. FINDINGS: Surgical changes and devices: Patient is status post coronary artery bypass grafting. Lungs and pleura: No pleural effusions or pneumothorax. Bibasilar airspace opacities persist. Mediastinum: Mediastinal contours appear normal. Heart size is normal. There is aortic atherosclerosis. Bones and chest wall: No suspicious bony lesions. Overlying soft tissues appear unremarkable. IMPRESSION: Persistent bibasilar atelectasis, aspiration, or bronchopneumonia. Dictated by: Chris Plunkett M.D. on 10/18/2016 at 8:31 Approved by: Chris Plunkett M.D. on 10/18/2016 at 8:31 . 12-lead ECG EKG, sinus rhythm rate 92, Left ventricular enlargement, QTc 458 ResidentAnita Assessment & Plan 60-year-old male with a complex past medical history including chronic foot ulcers, recent undiagnosed GI bleeding, systolic and diastolic congestive heart failure, CAD, A. fib, history of MRSA pneumonia, as well as, C. difficile who presented to [facility] ED with one episode of black stool and increased dyspnea. He was admitted for acute hypoxemic respiratory failure, likely due to COPD exacerbation. 1. Acute on chronic kidney injury, present on admission, active. - With evidence of nephrotic range proteinuria. - Likely related to hypertensive nephrosclerosis and exacerbated by acute hypoxic respiratory failure. - BUN and Cr continue to trend up. Will monitor renal function and strict I/O - Patient's membrane is moist and thus will encourage oral hydration at this point. - Serology pending. - Repeated CXR today showed persistent "bibasilar atelectasis, aspiration, or bronchopneumonia." Treatment for COPD exacerbation per hospitalist team. 2. Chronic hypertension with hypertensive heart secondary to hypertensive nephrosclerosis. - Continue current antihypertensive meds. - Monitor vital signs. 3.Chronic microcytic anemia, multifactorial. - A dose of Aranesp was given yesterday. - Continue oral iron. - H/H is currently stable. Pain Evaluation: Adequate Pain Control VTE Prophylaxis: SCDs VTE Mechanical Devices: Intermittant Pneumatic CD Resuscitation Status: CPR: Attempt Resuscitation Attending Statement Patient's had some worsening of his renal function in addition his blood pressure remains elevated I feel part of this is due to his ongoing difficulties with breathing. I have seen the patient along with a family medicine residents and we have for thoroughly discussed the patient's case Mabel Welch DO Oct 18, 2016 10:15 Artie Pearson DO Oct 18, 2016 16:34
--- NOTE | 2016-10-18 10:54 | NUR ---
Nebulizers He politely, but firmly refused his nebulizer treatments today from the Respiratory Therapist saying, "I don't need them. My lungs don't hurt or nothing." Dr. Vásquez and Dr. Ugarte notified who then went to talk to him about it. He still refuses. Dr. Ugarte is adjusting his medications accordingly. Care continues. Addendum: 10/18/16 at 1144 by EMELY MAURER RN Correction: Dr. Boland.
[2016-10-18] MEDS ORDERED: Albuterol HFA 60 Puff 8 Gm Inhaler INHALATION PRN (12:00)
[2016-10-18] MEDS ORDERED: Albuterol 2.5 mg/3 mL Inhalation Solution NEB PRN (12:30)
[2016-10-18] MEDS ORDERED: Albuterol-Ipratropium 120 Spray 4 Gm Inhaler INHALATION SCH (14:30)
[2016-10-18] MEDS ORDERED: Albuterol-Ipratropium 3 mL Inhalation Solution NEB SCH (14:30)
--- NOTE | 2016-10-18 20:32 | PCM.PNMED ---
Subjective Date of Service Oct 18, 2016 Subjective Mr. Carrillo is a 60-year-old male with a complex past medical history including chronic foot ulcers, recent undiagnosed GI bleeding, congestive heart failure with CAD, A. fib history of MRSA pneumonia as well as C. difficile who presented with one episode of black stool today and increased dyspnea since leaving the hospital last week. He feels that maybe he left the hospital too early last week (D/C 10/08/16) and did not realize the extent of his illness. He had an acute infiltrate on the left side at that time. He states medication compliance other than he did not have any nebulized or inhaled medications at home for his COPD after 10/08 discharge. Has a history of episodic black stool, source of GI bleeding has been unknown. Patient reports that he has had blood transfusion during his last admission. He is not having chest pain. He is quite dyspneic but denies chest pain, dysuria, nausea, vomiting, constipation, diarrhea, abdominal pain, joint pain, swelling, dizziness, headache. Overnight Events: No overnight events. Mr. Carrillo refused nebulizer treatments. Today Mr. Carrillo tolerated oxymask this morning at 3L down from 5L. He is resting in bed comfortably and in no acute distress since O2 needs are met. He reports being tired and the he only puffs on cigarettes. The patient denies headache, dizziness, sore throat, cough, chest pain, abdominal pain, nausea, vomiting, constipation, and diarrhea. The patient is voiding and eliminating without difficulty. The patient is ambulating without difficulty. We discussed the need for smoking cessation. . Exam Vital Signs Vital Sign - Last Date Time Temp Pulse Resp B/P Pulse Ox O2 Delivery O2 Flow Rate FiO2 10/18/16 12:56 36.7 84 20 172/88 96 Nasal Cannula 3.00 10/17/16 16:46 21 Intake and Output 10/17/16 10/17/16 10/18/16 Cumulative From/Thru 15:00 23:00 07:00 10/13/16 14:24 - 10/18/16 05:06 Intake Total 751 ml 810 ml 9099 ml Output Total 1875 ml 700 ml 8775 ml Balance -1124 ml 110 ml 324 ml Intake Oral 630 ml 810 ml 8346 ml IV Total 121 ml 753 ml Output Urine Total 1875 ml 700 ml 8775 ml # Voids 4 # Bowel Movements 1 0 4 Exam General: No acute distress, well-developed and chronically ill appearing, well- nourished, appropriately interactive HEENT: Normocephalic, atraumatic. External ears without defect. Pupils equal, round, and reactive to light and accommodation. Anicteric sclerae, moist conjunctivae, and no lid lag. Oropharynx free of erythema and cobble stoning with moist mucosa. Neck: Supple with full range of motion. mild jugular venous distension. No bruits. No lymphadenopathy or thyromegaly. Cardiovascular: Regular rate and rhythm with no murmurs, rubs, or gallops appreciated Pulmonary: Severe Rodriguez-expiratory wheezing. Abnormal respiratory effort with maximal use of accessory muscles. Abdomen: Bowel tones present. Soft, nontender, nondistended. No hepatosplenomegaly or masses appreciated. Extremities: No clubbing, cyanosis, mild lower extremity edema, or lymphadenopathy appreciated. Skin: Normal temperature, turgor, and texture; no rash, ulcers, or subcutaneous nodules appreciated. Neurological: Cranial nerves grossly intact. Normal muscle strength, tone, and bulk. Reflexes, coordination, and sensory function within normal limits. No known gait impairment. Psychiatric: Normal mood and affect. Alert and oriented to person, place, and time. IVs and Medications Medications Reviewed: Medications were reviewed in detail Lab and Diagnostics Result Diagram: 10/18/1642510/18/16425 Microbiology Blood cultures 2 showed no growth after 2 days. Influenza screen negative. Strep pneumoniae and legionella urine antigens negative. Respiratory viral PCR positive for coronavirus O Oc43. . X-Rays, CTs and MRIs X-RAY CHEST ONE VIEW, PORTABLE IMPRESSION: Bibasilar pneumonia. Trace left-sided pleural fluid a. Dictated by: Lora Barth MD, PhD on 10/13/2016 at 19:04 PROCEDURE: X-RAY CHEST ONE VIEW, PORTABLE INDICATIONS: 60 year-old male with dyspnea. TECHNIQUE: One view of the chest was acquired. COMPARISON: [facility], CR, XR CHEST 1VW (PORTABLE), 10/17/2016, 14: 30. [facility], CR, XR CHEST 1VW (PORTABLE), 10/16/2016, 10:39. [facility], CR, XR CHEST 1VW (PORTABLE), 10/13/2016, 23:12. FINDINGS: Surgical changes and devices: Patient is status post coronary artery bypass grafting. Lungs and pleura: No pleural effusions or pneumothorax. Bibasilar airspace opacities persist. Mediastinum: Mediastinal contours appear normal. Heart size is normal. There is aortic atherosclerosis. Bones and chest wall: No suspicious bony lesions. Overlying soft tissues appear unremarkable. IMPRESSION: Persistent bibasilar atelectasis, aspiration, or bronchopneumonia. Dictated by: Chris Plunkett M.D. on 10/18/2016 at 8:31 Approved by: Chris Plunkett M.D. on 10/18/2016 at 8:31 . 12-lead ECG EKG, sinus rhythm rate 92, Left ventricular enlargement, QTc 458 Resident, Anita Assessment & Plan Dwain Carrillo is a 60-year-old male with a complex past medical history including chronic foot ulcers, recent undiagnosed GI bleeding, systolic and diastolic congestive heart failure, CAD, A. fib, history of MRSA pneumonia, as well as, C. difficile who presented to [facility] ED with one episode of black stool today and increased dyspnea since leaving the hospital last week. Hospital day #5. 1. Acute hypoxemic respiratory failure, present on admission. Improving. - Patient D/C [facility] on 10/08/16. - Azithromycin 1G Q2Day. - Afebrile and vitals are stable. - DuoNebs and albuterol ordered, patient refused nebulized inhalers, replaced with puffers. - Haq virus on PCR. - Chest x-ray: Results per above. - ID consulted and signed off. 2. 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 - Clinically looks more like COPD exacerbation than pneumonia. - ProBNP elevated last 3 draws in the setting of chronic kidney disease. - Echo from 09/16/2016 showed improved ejection fraction from 40% to 50-55% with areas of hypokinesis which are also chronic and mild systolic failure, also to note small atrial septal defect noted. - Holding diuretics and NABIL inhib. 3. Acute COPD exacerbation, present on admission. Improving. - Requiring 2-4 L by [place] for saturation of 93%. Goal of between 88% - 92%. - DuoNebs and albuterol ordered, patient refused nebulized inhalers, replaced with puffers. - Prednisone 60mg PO daily. - Will add home meds, triple therapy upon discharge. - Anticipate need for home O2 / trilogy. 4. Elevated troponins of unknown significance, present on admission. Active. - Troponins - 0.018 on admission, peak at 0.035, currently 0.024. - EKG in the AM, repeat tropes AM. 5. Acute on chronic kidney injury, present on admission,active. - Creatinine on admission 2.05 and Baseline around 1.7, currently 2.66. - IV NS 60 ml / hour - Holding diuretics and NABIL inhib. - Nephrology following, time and recommendations appreciated. 6. Chronic upper GI bleed with chronic microcytic anemia, present on admission. Resolved. - Patient did report one black stool prior to coming to the ED. - Recent previous admission for GI bleed, thought poor candidate for endoscopy. Discharged after one unit red blood cell transfusion. - Previous EGD showed erosive esophagitis and gastritis, unremarkable colonoscopy (03/07/2016). - Currently Hgb 10.1 and 10.2 on admission. - Holding Aspirin. - Continue Protonix. 7. Chronic kidney disease stage III, present on admission. active. - Creatinine 2.66. - Monitor closely in the setting of other comorbidities 8. Chronic lower extremity ulcerations, acute, present on admission -Consulted wound care for continued care. Follows as an outpatient 9. A. fib, present on admission, unknown chronicity. - Not anticoagulated currently due to anemia and propensity for GI bleeding. - Telemetry 10. Tobacco use disorder, present on admission. Active. - Nicotine patch as needed. - Counseled smoking cessation. Physical therapy following, time and recommendations appreciated. - Acetaminophen as needed for mild pain/fever/headache - Bowel regimen as needed - Antiemetic as needed High Risk Medications: Disposition. Patient will likely be discharged in 1-2 more days to [facility] with likely home O2 and Trilogy. Pain Evaluation: Adequate Pain Control VTE Prophylaxis: SCDs VTE Mechanical Devices: Intermittant Pneumatic CD Resuscitation Status: CPR: Attempt Resuscitation Attending Statement The patient was seen and examined together with Dr. Nobles on 10-18-16 and I agree with the history, exam and plan as outlined in the note above. PAO NOBLES DO Oct 18, 2016 18:41 Cinthya Vásquez MD Oct 19, 2016 15:49
[2016-10-18] MEDS: 0.9% Sodium Chloride 1,000 ML IV SCH (21:03)
[2016-10-19] VITALS (14 sets, daily range): BP systolic 118–176; BP diastolic 65–98; PULSE 50–95; RESP 12–22; O2SAT 88–96
--- NOTE | 2016-10-19 01:20 | NUR ---
Respiratory status. Patient reports that he is feeling much better and breathing much better. Patient reports that he just need a little supplemental O2 and he will be fine. Patient is on 1lpm via nasal canula and sating at 96%. Patients lungs are diminished at times and wheezy at other time. Patient denies the need for nebulizers.
[2016-10-19] MEDS: Albuterol 2.5 mg/3 mL Inhalation Solution NEB PRN (02:46)
[2016-10-19 04:33] LABS: BASOPHILS % (AUTO) 0.1 % (0-3); EOSINOPHILS % (AUTO) 0 % (0-5); MONOCYTES % (AUTO) 5.7 % (4-12); Mean Corpuscular Hemoglobin 25.9 pg (27.0-35.0); Mean Corpuscular Volume 78.9 fL (81-100); NEUTROPHILS % (AUTO) 85.8 % (40-74); Platelet Count 290 bil/L (150-400)
[2016-10-19 04:54] LABS: TROPONIN T 0.028 ug/L (0.0-0.011)
[2016-10-19 05:07] LABS: Magnesium 1.7 mg/dL (1.6-2.6); Phosphorus 3.3 mg/dL (2.5-4.9)
[2016-10-19] MEDS: predniSONE 20 mg Tablet PO SCH (07:13)
[2016-10-19] MEDS: Pantoprazole 20 mg ER24 Tablet PO SCH ×2 (07:13→19:41)
[2016-10-19] MEDS: Morphine ER 15 mg (MS Contin) Tablet PO SCH ×2 (07:16→19:39)
[2016-10-19] MEDS: Albuterol-Ipratropium 3 mL Inhalation Solution NEB SCH ×5 (07:17→20:53)
--- NOTE | 2016-10-19 09:39 | DRSVH ---
PROCEDURE: X-RAY CHEST ONE VIEW, PORTABLE ([id number]) INDICATIONS: resp failure TECHNIQUE: One view of the chest was acquired. COMPARISON: [facility], CR, XR CHEST 1VW (PORTABLE), 10/18/2016, 1:55. FINDINGS: Surgical changes and devices: Sternal wires and hilar clips are noted. Lungs and pleura: There is a persistent appearance of predominantly bibasilar/retrocardiac opacities. Minimal interval improvement as noted. There is an overall appearance of increased pulmonary vascula rity. Mediastinum: Mediastinal contours appear normal. Heart size is normal. Bones and chest wall: No suspicious bony lesions. Overlying soft tissues appear unremarkable. IMPRESSION: Persisting, minimally improved appearance of bibasilar/retrocardiac opacities, consistent with pneumonia, atelectasis and/or aspiration. Dictated by: Jackie Ramirez M.D. on 10/19/2016 at 9:29 Approved by: Jackie Ramirez M.D. on 10/19/2016 at 9:29
--- NOTE | 2016-10-19 10:45 | NUR ---
Social Work: Continued Discharge Planning D: Pt discussed in morning rounds. Pt is refusing medical treatments and nebulizer as recommended by MD team. At this point, pt likely to be discharged as pt is not complying with recommendation and no longer meets medical necessity for hospitalization. MD team is requested [employer] speak with pt regarding possible SNF placement. [employer] reviewed barriers for placement: pt insurance and pt history of declining placement. PT will attempted to see pt today. Pt currently 1PA for ambulation. [employer] met with pt at bedside. Sw role explained. Pt states that he is open with [facility] for RN care but has not had [facility] caregivers in the home. [employer] reviewed concerns about pt's readmissions and placement recommendations. Pt states that he will not go to a skilled rehab and told [employer] "don't even waste your time because I won't go." [employer] reviewed risks and high likelihood of readmission. Pt states he understands but still does not wish to discharge to skilled care. Pt states that he has been doing "fine at home" and uses his 4WW. Pt states his sister assists him with groceries and medication management. [employer] discussed adding PT to pt's HH. He is agreeable to this. [employer] spoke with Crescencio at [facility]. They would need a new PT order as pt is not currently open with PT. [employer] to obtain F2F and fax to [facility]. t/c to [facility]; pt's worker is Gertrudis Martinez. Left Message requesting update on pt's [facility] CG status as pt states he does not have in-home caregiving. RN VASCULAR to fax clinicals. A: Pt who is refusing skilled care. P: Anticipate pt to discharge home with resumed [facility] for RN care and new PT order; Pt's sister to transport. [employer] to continue to follow. ESAU Becker
[2016-10-19 11:14] LABS: APPEARANCE,URINE HAZY (CLEAR,HAZY); COLOR,URINE STRAW (YELLOW); OCCULT BLOOD,URINE TRACE (NEGATIVE)
[2016-10-19 11:15] LABS: UROBILINOGEN,URINE NORMAL (NORMAL)
--- NOTE | 2016-10-19 12:42 | PCM.PNMED ---
Subjective Date of Service Oct 19, 2016 Subjective She has had some improvement in both his urine output and his renal function. Yesterday he had 1790 and 1945 out. His creatinine is improved to 2.84. He seems to be having some more increased with breathing however he still has some mild to moderate conversational dyspnea. Exam Vital Signs Vital Sign - Last Date Time Temp Pulse Resp B/P Pulse Ox O2 Delivery O2 Flow Rate FiO2 10/19/16 12:27 36.7 85 20 159/96 96 Room Air 10/19/16 07:48 1.00 10/17/16 16:46 21 Intake and Output 10/18/16 10/18/16 10/19/16 Cumulative From/Thru 15:00 23:00 07:00 10/13/16 14:24 - 10/19/16 05:08 Intake Total 980 ml 1081 ml 10359 ml Output Total 1245 ml 925 ml 15529 ml Balance -265 ml 156 ml 215 ml Intake Oral 980 ml 656 ml 9982 ml IV Total 425 ml 1178 ml Output Urine Total 1245 ml 925 ml 49885 ml # Voids 4 # Bowel Movements 1 0 5 Exam Neck is supple without adenopathy thyromegaly over there is some jugular venous distention which persists. Lungs showed scattered end expiratory wheezes. Heart is regular with a soft systolic murmur. Soft without any tenderness or rebound guarding masses or hepatosplenomegaly. Extremities withoutclubbing cyanosis or edema. Lab and Diagnostics Result Diagram: 10/19/16 0345 10/19/16 0345 Microbiology Blood cultures 2 showed no growth after 2 days. Influenza screen negative. Strep pneumoniae and legionella urine antigens negative. Respiratory viral PCR positive for coronavirus O Oc43. . X-Rays, CTs and MRIs X-RAY CHEST ONE VIEW, PORTABLE IMPRESSION: Bibasilar pneumonia. Trace left-sided pleural fluid a. Dictated by: Lora Barth MD, PhD on 10/13/2016 at 19:04 PROCEDURE: X-RAY CHEST ONE VIEW, PORTABLE INDICATIONS: 60 year-old male with dyspnea. TECHNIQUE: One view of the chest was acquired. COMPARISON: [facility], CR, XR CHEST 1VW (PORTABLE), 10/17/2016, 14: 30. [facility], CR, XR CHEST 1VW (PORTABLE), 10/16/2016, 10:39. [facility], CR, XR CHEST 1VW (PORTABLE), 10/13/2016, 23:12. FINDINGS: Surgical changes and devices: Patient is status post coronary artery bypass grafting. Lungs and pleura: No pleural effusions or pneumothorax. Bibasilar airspace opacities persist. Mediastinum: Mediastinal contours appear normal. Heart size is normal. There is aortic atherosclerosis. Bones and chest wall: No suspicious bony lesions. Overlying soft tissues appear unremarkable. IMPRESSION: Persistent bibasilar atelectasis, aspiration, or bronchopneumonia. Dictated by: Chris Plunkett M.D. on 10/18/2016 at 8:31 Approved by: Chris Plunkett M.D. on 10/18/2016 at 8:31 . 12-lead ECG EKG, sinus rhythm rate 92, Left ventricular enlargement, QTc 458 ResidentAnita Assessment & Plan Impression #1 acute kidney injury which appears to be resolving #2 chronic kidney disease stage III #3 hypertension with hypertensive heart disease hypertensive nephrosclerosis Recommendations #1 I would like to stop the carvedilol and start him on labetalol 300 mg twice a day along with chlorthalidone 25 mg once a day. VTE Prophylaxis: SCDs VTE Mechanical Devices: Intermittant Pneumatic CD Resuscitation Status: CPR: Attempt Resuscitation Artie Pearson DO Oct 19, 2016 12:42
--- NOTE | 2016-10-19 17:08 | PCM.PNMED ---
Subjective Date of Service Oct 19, 2016 Subjective Mr. Carrillo is a 60-year-old male with a complex past medical history including chronic foot ulcers, recent undiagnosed GI bleeding, congestive heart failure with CAD, A. fib history of MRSA pneumonia as well as C. difficile who presented with one episode of black stool today and increased dyspnea since leaving the hospital last week. He feels that maybe he left the hospital too early last week (D/C 10/08/16) and did not realize the extent of his illness. He had an acute infiltrate on the left side at that time. He states medication compliance other than he did not have any nebulized or inhaled medications at home for his COPD after 10/08 discharge. Has a history of episodic black stool, source of GI bleeding has been unknown. Patient reports that he has had blood transfusion during his last admission. He is not having chest pain. He is quite dyspneic but denies chest pain, dysuria, nausea, vomiting, constipation, diarrhea, abdominal pain, joint pain, swelling, dizziness, headache. Overnight Events: No overnight events. Mr. Carrillo accepted nebulizer treatments. Today Mr. Carrillo tolerated oxymask this morning at 0L down from 3L. He is resting in bed comfortably and in no acute distress since O2 needs are met. He reports being tired and the he only puffs on cigarettes. The patient denies headache, dizziness, sore throat, cough, chest pain, abdominal pain, nausea, vomiting, constipation, and diarrhea. The patient is voiding and eliminating without difficulty. The patient is ambulating without difficulty per Physical therapy. We discussed the need for smoking cessation. . Exam Vital Signs Vital Sign - Last Date Time Temp Pulse Resp B/P Pulse Ox O2 Delivery O2 Flow Rate FiO2 10/19/16 12:27 36.7 85 20 159/96 96 Room Air 10/19/16 07:48 1.00 10/17/16 16:46 21 Intake and Output 10/18/16 10/18/16 10/19/16 Cumulative From/Thru 15:00 23:00 07:00 10/13/16 14:24 - 10/19/16 05:08 Intake Total 980 ml 1081 ml 41709 ml Output Total 1245 ml 925 ml 36831 ml Balance -265 ml 156 ml 215 ml Intake Oral 980 ml 656 ml 9982 ml IV Total 425 ml 1178 ml Output Urine Total 1245 ml 925 ml 86257 ml # Voids 4 # Bowel Movements 1 0 5 Exam General: No acute distress, well-developed and chronically ill appearing, well- nourished, appropriately interactive HEENT: Normocephalic, atraumatic. External ears without defect. Pupils equal, round, and reactive to light and accommodation. Anicteric sclerae, moist conjunctivae, and no lid lag. Oropharynx free of erythema and cobble stoning with moist mucosa. Neck: Supple with full range of motion. mild jugular venous distension. No bruits. No lymphadenopathy or thyromegaly. Cardiovascular: Regular rate and rhythm with no murmurs, rubs, or gallops appreciated Pulmonary: Severe Rodriguez-expiratory wheezing. Abnormal respiratory effort with maximal use of accessory muscles. Abdomen: Bowel tones present. Soft, nontender, nondistended. No hepatosplenomegaly or masses appreciated. Extremities: No clubbing, cyanosis, mild lower extremity edema, or lymphadenopathy appreciated. Skin: Normal temperature, turgor, and texture; no rash, ulcers, or subcutaneous nodules appreciated. Neurological: Cranial nerves grossly intact. Normal muscle strength, tone, and bulk. Reflexes, coordination, and sensory function within normal limits. No known gait impairment. Psychiatric: Normal mood and affect. Alert and oriented to person, place, and time. IVs and Medications Medications Reviewed: Medications were reviewed in detail Lab and Diagnostics Result Diagram: 10/19/16 [id number]/[id number] Microbiology Blood cultures 2 showed no growth after 2 days. Influenza screen negative. Strep pneumoniae and legionella urine antigens negative. Respiratory viral PCR positive for coronavirus O Oc43. . X-Rays, CTs and MRIs X-RAY CHEST ONE VIEW, PORTABLE IMPRESSION: Bibasilar pneumonia. Trace left-sided pleural fluid a. Dictated by: Lora Barth MD, PhD on 10/13/2016 at 19:04 PROCEDURE: X-RAY CHEST ONE VIEW, PORTABLE INDICATIONS: 60 year-old male with dyspnea. TECHNIQUE: One view of the chest was acquired. COMPARISON: [facility], CR, XR CHEST 1VW (PORTABLE), 10/17/2016, 14: 30. [facility], CR, XR CHEST 1VW (PORTABLE), 10/16/2016, 10:39. [facility], CR, XR CHEST 1VW (PORTABLE), 10/13/2016, 23:12. FINDINGS: Surgical changes and devices: Patient is status post coronary artery bypass grafting. Lungs and pleura: No pleural effusions or pneumothorax. Bibasilar airspace opacities persist. Mediastinum: Mediastinal contours appear normal. Heart size is normal. There is aortic atherosclerosis. Bones and chest wall: No suspicious bony lesions. Overlying soft tissues appear unremarkable. IMPRESSION: Persistent bibasilar atelectasis, aspiration, or bronchopneumonia. Dictated by: Chris Plunkett M.D. on 10/18/2016 at 8:31 Approved by: Chris Plunkett M.D. on 10/18/2016 at 8:31 . 12-lead ECG EKG, sinus rhythm rate 92, Left ventricular enlargement, QTc 458 Resident, Anita Assessment & Plan Dwain Carrillo is a 60-year-old male with a complex past medical history including chronic foot ulcers, recent undiagnosed GI bleeding, systolic and diastolic congestive heart failure, CAD, A. fib, history of MRSA pneumonia, as well as, C. difficile who presented to [facility] ED with one episode of black stool today and increased dyspnea since leaving the hospital last week. Hospital day #7. 1. Acute hypoxemic respiratory failure, present on admission. Improving. - Patient D/C [facility] on 10/08/16. - Azithromycin 1G Q2Day. - Afebrile and vitals are stable. - DuoNebs and albuterol ordered, patient refused nebulized inhalers, replaced with puffers. - Haq virus on PCR. - Chest x-ray: Results per above. - ID consulted and signed off. 2. Chronic combined systolic and diastolic HF, present on admission, Active. - with reduced ejection fraction - Clinically looks more like COPD exacerbation than pneumonia. - ProBNP elevated last 3 draws in the setting of chronic kidney disease. - Echo from 09/16/2016 showed improved ejection fraction from 40% to 50-55% with areas of hypokinesis which are also chronic and mild systolic failure, also to note small atrial septal defect noted. - Holding diuretics and NABIL inhib. 3. Acute COPD exacerbation, present on admission. Improving. - Requiring 2-4 L by IN for saturation of 93%. Goal of between 88% - 92%. - DuoNebs and albuterol ordered, patient refused nebulized inhalers, replaced with puffers. - Prednisone 60mg PO daily to begin taper tomorrow. decrease by 10 mg daily. - Will add home meds, triple therapy upon discharge. 4. Elevated troponins of unknown significance, present on admission. Improving. - Troponins - 0.018 on admission, peak at 0.035, currently 0.024. - EKG in the AM, repeat tropes AM. 5. Acute on chronic kidney injury, present on admission, Active. - Creatinine on admission 2.05 and Baseline around 1.7, currently 2.66. - IV NS 60 ml / hour - Holding diuretics and NABIL inhib. - Nephrology following, time and recommendations appreciated. - Recommended per Nephro - stop the carvedilol and start him on labetalol 300 mg twice a day along with chlorthalidone 25 mg once a day. 6. Chronic upper GI bleed with chronic microcytic anemia, present on admission. Resolved. - Patient did report one black stool prior to coming to the ED. - Recent previous admission for GI bleed, thought poor candidate for endoscopy. Discharged after one unit red blood cell transfusion. - Previous EGD showed erosive esophagitis and gastritis, unremarkable colonoscopy (03/07/2016). - Currently Hgb 10.1 and 10.2 on admission. - Holding Aspirin. - Continue Protonix. 7. Chronic kidney disease stage III, present on admission. Improving. - Creatinine 2.66. near baseline. will continue to hold Lisinopril and lasix. - Monitor closely in the setting of other comorbidities 8. Chronic lower extremity ulcerations, acute, present on admission. Stable. -Consulted wound care for continued care. Follows as an outpatient 9. Chronic A. fib, present on admission, Stable. - Not anticoagulated currently due to anemia and propensity for GI bleeding. - Telemetry 10. Chronic Tobacco use disorder, present on admission. Stable. - Nicotine patch as needed. - Counseled smoking cessation. Physical therapy following, time and recommendations appreciated. - Acetaminophen as needed for mild pain/fever/headache - Bowel regimen as needed - Antiemetic as needed High Risk Medications: Pain Evaluation: Adequate Pain Control VTE Prophylaxis: SCDs VTE Mechanical Devices: Intermittant Pneumatic CD Resuscitation Status: CPR: Attempt Resuscitation Attending Statement The patient was seen and examined together with Dr. Nobles on 10-19-16 and I agree with the history, exam and plan as outlined in the note above. PAO NOBLES DO Oct 19, 2016 17:05 Cinthya Vásquez MD Oct 20, 2016 12:50
[2016-10-19] MEDS: 0.9% Sodium Chloride 1,000 ML IV SCH (17:52)
--- NOTE | 2016-10-19 18:08 | NUR ---
Respiratory Pt has been on room air today. Pt has had audible wheezes both inspiratory and expiatory. Pt was up ambulating with SBA, he does desat a bit and recovers quickly when he stops momentarily to catch his breath. Plan is for patient to DC tomorrow with HH
[2016-10-20] VITALS (12 sets, daily range): BP systolic 127–162; BP diastolic 78–97; PULSE 74–93; RESP 14–22; O2SAT 91–96
[2016-10-20] MEDS: Albuterol 2.5 mg/3 mL Inhalation Solution NEB PRN (00:43)
[2016-10-20 03:56] LABS: Mean Corpuscular Hemoglobin 25.6 pg (27.0-35.0); Mean Corpuscular Volume 79.5 fL (81-100)
--- NOTE | 2016-10-20 05:12 | NUR ---
Respiratory status and SVT. Patient resting comfortably in bed for most of the shift and maintained O2 saturations in the 90's. Patient became wheezy and RT administered breathing treatments as needed. Patient remains on room air and reports that he is feeling well. Patient had one burst of PSVT at approximally 0515 lasting for 12 seconds. Patient is asymptomatic and vitals are stable. Provider informed and no new orders were received at this time.
[2016-10-20] MEDS: 0.9% Sodium Chloride 1,000 ML IV SCH (05:48)
[2016-10-20] MEDS: Albuterol-Ipratropium 3 mL Inhalation Solution NEB SCH ×3 (08:24→20:40)
[2016-10-20] MEDS ORDERED: predniSONE 20 mg Tablet PO ONE (08:30)
[2016-10-20] MEDS: Pantoprazole 20 mg ER24 Tablet PO SCH ×2 (09:37→20:32)
[2016-10-20] MEDS: Morphine ER 15 mg (MS Contin) Tablet PO SCH ×2 (09:38→20:31)
--- NOTE | 2016-10-20 11:52 | PCM.PNMED ---
Subjective Date of Service Oct 20, 2016 Subjective NEPHROLOGY PROGRESS NOTE: Earlier this morning, patient became wheezy and RT administered breathing treatments as needed. Patient reports improvement and remains on room air. He denies headache, dizziness, sore throat, chest pain, abdominal pain, nausea, vomiting, constipation, and diarrhea. The patient is voiding without difficulty and has good urine output (I/O 2291/2000 yesterday). His renal function has also improved with Cr 2.54 today. Exam Vital Signs Vital Sign - Last Date Time Temp Pulse Resp B/P Pulse Ox O2 Delivery O2 Flow Rate FiO2 10/20/16 09:30 Supplement Oxygen 10/20/16 08:24 91 16 95 10/20/16 08:15 36.7 162/97 10/19/16 07:48 1.00 10/17/16 16:46 21 Intake and Output 10/19/16 10/19/16 10/20/16 Cumulative From/Thru 15:00 23:00 07:00 10/13/16 14:24 - 10/20/16 06:37 Intake Total 1210 ml 1949 ml 48913 ml Output Total 1075 ml 675 ml 05163 ml Balance 135 ml 1274 ml 1624 ml Intake Oral 680 ml 1352 ml 06966 ml IV Total 530 ml 597 ml 2305 ml Output Urine Total 1075 ml 675 ml 06767 ml # Voids 4 # Bowel Movements 1 1 7 Exam General: chronically ill appearance, alert and oriented x 3, cooperative, in no acute distress HEENT:pale sclera, mucosa membrane is moist. Neck: supple without adenopathy thyromegaly or jugular venous distention. Lungs: good respiratory effort at room air. Lung exam reveals scattered end expiratory wheezes. Heart: regular rate and rhythm. No murmurs appreciated. Abdomen: soft, nondistended without any tenderness rebound guarding masses or hepatosplenomegaly. Extremities: normal joints and clubbing cyanosis or edema. Skin: dry, but no rashes or skin lesion noted. IVs and Medications Medications Reviewed: Medications were reviewed in detail Lab and Diagnostics Result Diagram: 10/20/1631410/20/16314 Microbiology Blood cultures 2 showed no growth after 2 days. Influenza screen negative. Strep pneumoniae and legionella urine antigens negative. Respiratory viral PCR positive for coronavirus O Oc43. . X-Rays, CTs and MRIs X-RAY CHEST ONE VIEW, PORTABLE IMPRESSION: Bibasilar pneumonia. Trace left-sided pleural fluid a. Dictated by: Lora Barth MD, PhD on 10/13/2016 at 19:04 PROCEDURE: X-RAY CHEST ONE VIEW, PORTABLE INDICATIONS: 60 year-old male with dyspnea. TECHNIQUE: One view of the chest was acquired. COMPARISON: [facility], CR, XR CHEST 1VW (PORTABLE), 10/17/2016, 14: 30. [facility], CR, XR CHEST 1VW (PORTABLE), 10/16/2016, 10:39. [facility], CR, XR CHEST 1VW (PORTABLE), 10/13/2016, 23:12. FINDINGS: Surgical changes and devices: Patient is status post coronary artery bypass grafting. Lungs and pleura: No pleural effusions or pneumothorax. Bibasilar airspace opacities persist. Mediastinum: Mediastinal contours appear normal. Heart size is normal. There is aortic atherosclerosis. Bones and chest wall: No suspicious bony lesions. Overlying soft tissues appear unremarkable. IMPRESSION: Persistent bibasilar atelectasis, aspiration, or bronchopneumonia. Dictated by: Chris Plunkett M.D. on 10/18/2016 at 8:31 Approved by: Chris Plunkett M.D. on 10/18/2016 at 8:31 . 12-lead ECG EKG, sinus rhythm rate 92, Left ventricular enlargement, QTc 458 ResidentAnita Assessment & Plan Dwain Carrillo is a 60-year-old male with a complex past medical history including chronic foot ulcers, recent undiagnosed GI bleeding, systolic and diastolic congestive heart failure, CAD, A. fib, history of MRSA pneumonia, as well as, C. difficile who presented to [facility] ED with one episode of black stool today and increased dyspnea since leaving the hospital last week. 1. Acute on chronic kidney injury stage III, present on admission, improved. - Likely related to hypertensive nephrosclerosis and exacerbated by acute hypoxic respiratory failure. - Renal function is improving. Will continue to monitor BMP and I/O. 2. Chronic hypertension with hypertensive heart secondary to hypertensive nephrosclerosis. - Will resume home Lasix 20mg PO daily. - Continue with Labetalol 300 mg twice a day along with chlorthalidone 25 mg once a day. - Monitor vital signs. 3.Chronic microcytic anemia, multifactorial. - Continue oral iron. - H/H is currently stable. Pain Evaluation: Adequate Pain Control VTE Prophylaxis: SCDs VTE Mechanical Devices: Intermittant Pneumatic CD Resuscitation Status: CPR: Attempt Resuscitation Mabel Welch DO Oct 20, 2016 11:52 with puffers. - Haq virus on PCR. - Chest x-ray: Results per above. - ID consulted and signed off. 2. Chronic combined systolic and diastolic HF, present on admission, Active. - with reduced ejection fraction - Clinically looks more like COPD exacerbation than pneumonia. - ProBNP elevated last 3 draws in the setting of chronic kidney disease. - Echo from 09/16/2016 showed improved ejection fraction from 40% to 50-55% with areas of hypokinesis which are also chronic and mild systolic failure, also to note small atrial septal defect noted. - Holding diuretics and NABIL inhib. 3. Acute COPD exacerbation, present on admission. Improving. - Requiring 2-4 L by NC for saturation of 93%. Goal of between 88% - 92%. - DuoNebs and albuterol ordered, patient refused nebulized inhalers, replaced with puffers. - Prednisone 60mg PO daily to begin taper tomorrow. decrease by 10 mg daily. - Will add home meds, triple therapy upon discharge. 4. Elevated troponins of unknown significance, present on admission. Improving. - Troponins - 0.018 on admission, peak at 0.035, currently 0.024. - EKG in the AM, repeat tropes AM. 5. Acute on chronic kidney injury, present on admission, Active. - Creatinine on admission 2.05 and Baseline around 1.7, currently 2.66. - IV NS 60 ml / hour - Holding diuretics and NABIL inhib. - Nephrology following, time and recommendations appreciated. - Recommended per Nephro - stop the carvedilol and start him on labetalol 300 mg twice a day along with chlorthalidone 25 mg once a day. 6. Chronic upper GI bleed with chronic microcytic anemia, present on admission. Resolved. - Patient did report one black stool prior to coming to the ED. - Recent previous admission for GI bleed, thought poor candidate for endoscopy. Discharged after one unit red blood cell transfusion. - Previous EGD showed erosive esophagitis and gastritis, unremarkable colonoscopy (03/07/2016). - Currently Hgb 10.1 and 10.2 on admission. - Holding Aspirin. - Continue Protonix. 7. Chronic kidney disease stage III, present on admission. Improving. - Creatinine 2.66. near baseline. will continue to hold Lisinopril and lasix. - Monitor closely in the setting of other comorbidities 8. Chronic lower extremity ulcerations, acute, present on admission. Stable. -Consulted wound care for continued care. Follows as an outpatient 9. Chronic A. fib, present on admission, Stable. - Not anticoagulated currently due to anemia and propensity for GI bleeding. - Telemetry 10. Chronic Tobacco use disorder, present on admission. Stable. - Nicotine patch as needed. - Counseled smoking cessation. Physical therapy following, time and recommendations appreciated. - Acetaminophen as needed for mild pain/fever/headache - Bowel regimen as needed - Antiemetic as needed High Risk Medications: Pain Evaluation: Adequate Pain Control VTE Prophylaxis: SCDs VTE Mechanical Devices: Intermittant Pneumatic CD Resuscitation Status: CPR: Attempt Resuscitation Mabel Welch DO Oct 20, 2016 11:52
--- NOTE | 2016-10-20 12:00 | PCM.PNMED ---
Subjective Date of Service Oct 20, 2016 Exam Vital Signs Vital Sign - Last Date Time Temp Pulse Resp B/P Pulse Ox O2 Delivery O2 Flow Rate FiO2 10/20/16 09:30 Supplement Oxygen 10/20/16 08:24 91 16 95 10/20/16 08:15 36.7 162/97 10/19/16 07:48 1.00 10/17/16 16:46 21 Intake and Output 10/19/16 10/19/16 10/20/16 Cumulative From/Thru 15:00 23:00 07:00 10/13/16 14:24 - 10/20/16 06:37 Intake Total 1210 ml 1949 ml 19022 ml Output Total 1075 ml 675 ml 63488 ml Balance 135 ml 1274 ml 1624 ml Intake Oral 680 ml 1352 ml 46900 ml IV Total 530 ml 597 ml 2305 ml Output Urine Total 1075 ml 675 ml 91823 ml # Voids 4 # Bowel Movements 1 1 7 Lab and Diagnostics Result Diagram: 10/20/16 0315 10/20/16 0315 Microbiology Blood cultures 2 showed no growth after 2 days. Influenza screen negative. Strep pneumoniae and legionella urine antigens negative. Respiratory viral PCR positive for coronavirus O Oc43. . X-Rays, CTs and MRIs X-RAY CHEST ONE VIEW, PORTABLE IMPRESSION: Bibasilar pneumonia. Trace left-sided pleural fluid a. Dictated by: Lora Barth MD, PhD on 10/13/2016 at 19:04 PROCEDURE: X-RAY CHEST ONE VIEW, PORTABLE INDICATIONS: 60 year-old male with dyspnea. TECHNIQUE: One view of the chest was acquired. COMPARISON: [facility], CR, XR CHEST 1VW (PORTABLE), 10/17/2016, 14: 30. [facility], CR, XR CHEST 1VW (PORTABLE), 10/16/2016, 10:39. [facility], CR, XR CHEST 1VW (PORTABLE), 10/13/2016, 23:12. FINDINGS: Surgical changes and devices: Patient is status post coronary artery bypass grafting. Lungs and pleura: No pleural effusions or pneumothorax. Bibasilar airspace opacities persist. Mediastinum: Mediastinal contours appear normal. Heart size is normal. There is aortic atherosclerosis. Bones and chest wall: No suspicious bony lesions. Overlying soft tissues appear unremarkable. IMPRESSION: Persistent bibasilar atelectasis, aspiration, or bronchopneumonia. Dictated by: Chris Plunkett M.D. on 10/18/2016 at 8:31 Approved by: Chris Plunkett M.D. on 10/18/2016 at 8:31 . 12-lead ECG EKG, sinus rhythm rate 92, Left ventricular enlargement, QTc 458 Resident, Anita Assessment & Plan Dwain Carrillo is a 60-year-old male with a complex past medical history including chronic foot ulcers, recent undiagnosed GI bleeding, systolic and diastolic congestive heart failure, CAD, A. fib, history of MRSA pneumonia, as well as, C. difficile who presented to [facility] ED with one episode of black stool today and increased dyspnea since leaving the hospital last week. 1. Acute on chronic kidney injury, present on admission, improved. - Likely related to hypertensive nephrosclerosis and exacerbated by acute hypoxic respiratory failure. - Renal function is improving. Will continue to monitor. 2. Chronic hypertension with hypertensive heart secondary to hypertensive nephrosclerosis. - Will resume home Lasix 20mg PO daily. - Monitor vital signs. 3.Chronic microcytic anemia, multifactorial. - A dose of Aranesp was given yesterday. - Continue oral iron. - H/H is currently stable. 1. Acute hypoxemic respiratory failure, present on admission. Improving. - Patient D/C [facility] on 10/08/16. - Azithromycin 1G Q2Day. - Afebrile and vitals are stable. - DuoNebs and albuterol ordered, patient refused nebulized inhalers, replaced with puffers. - Haq virus on PCR. - Chest x-ray: Results per above. - ID consulted and signed off. 2. Chronic combined systolic and diastolic HF, present on admission, Active. - with reduced ejection fraction - Clinically looks more like COPD exacerbation than pneumonia. - ProBNP elevated last 3 draws in the setting of chronic kidney disease. - Echo from 09/16/2016 showed improved ejection fraction from 40% to 50-55% with areas of hypokinesis which are also chronic and mild systolic failure, also to note small atrial septal defect noted. - Holding diuretics and NABIL inhib. 3. Acute COPD exacerbation, present on admission. Improving. - Requiring 2-4 L by AL for saturation of 93%. Goal of between 88% - 92%. - DuoNebs and albuterol ordered, patient refused nebulized inhalers, replaced with puffers. - Prednisone 60mg PO daily to begin taper tomorrow. decrease by 10 mg daily. - Will add home meds, triple therapy upon discharge. 4. Elevated troponins of unknown significance, present on admission. Improving. - Troponins - 0.018 on admission, peak at 0.035, currently 0.024. - EKG in the AM, repeat tropes AM. 5. Acute on chronic kidney injury, present on admission, Active. - Creatinine on admission 2.05 and Baseline around 1.7, currently 2.66. - IV NS 60 ml / hour - Holding diuretics and NABIL inhib. - Nephrology following, time and recommendations appreciated. - Recommended per Nephro - stop the carvedilol and start him on labetalol 300 mg twice a day along with chlorthalidone 25 mg once a day. 6. Chronic upper GI bleed with chronic microcytic anemia, present on admission. Resolved. - Patient did report one black stool prior to coming to the ED. - Recent previous admission for GI bleed, thought poor candidate for endoscopy. Discharged after one unit red blood cell transfusion. - Previous EGD showed erosive esophagitis and gastritis, unremarkable colonoscopy (03/07/2016). - Currently Hgb 10.1 and 10.2 on admission. - Holding Aspirin. - Continue Protonix. 7. Chronic kidney disease stage III, present on admission. Improving. - Creatinine 2.66. near baseline. will continue to hold Lisinopril and lasix. - Monitor closely in the setting of other comorbidities 8. Chronic lower extremity ulcerations, acute, present on admission. Stable. -Consulted wound care for continued care. Follows as an outpatient 9. Chronic A. fib, present on admission, Stable. - Not anticoagulated currently due to anemia and propensity for GI bleeding. - Telemetry 10. Chronic Tobacco use disorder, present on admission. Stable. - Nicotine patch as needed. - Counseled smoking cessation. Physical therapy following, time and recommendations appreciated. - Acetaminophen as needed for mild pain/fever/headache - Bowel regimen as needed - Antiemetic as needed High Risk Medications: VTE Prophylaxis: SCDs VTE Mechanical Devices: Intermittant Pneumatic CD Resuscitation Status: CPR: Attempt Resuscitation Attending Statement The patient was seen and examined on rounds with the residential property tax appraiser and the findings are detailed above. He is to have improvement in his renal function and the patient appears to have much less respiratory difficulties during our exam today. Her to continue to cautiously treat his blood pressure and closely follow his laboratory values. Artie Pearson DO Oct 20, 2016 12:00
--- NOTE | 2016-10-20 14:19 | DRSVH ---
PROCEDURE: X-RAY CHEST ONE VIEW, PORTABLE ([id number]) INDICATIONS: sob TECHNIQUE: One view of the chest was acquired. COMPARISON: [facility], CR, XR CHEST 1VW (PORTABLE), 10/19/2016, 5:37. FINDINGS: Surgical changes and devices: Status post CABG procedure. Lungs and pleura: Small bilateral pleural fluid collections are noted. Patchy opacities in the left l felipe base suspicious for pneumonia. Streaky opacity noted in the right lung base which could represent atelectasis or pneumonia.. Mediastinum: Mediastinal contours appear normal. Heart size is normal. Bones and chest wall: No suspicious bony lesions. Overlying soft tissues appear unremarkable. IMPRESSION: 1. Small bilateral pleural effusions. 2. Patchy opacity left lung base is increased in size compared to prior examination and is suspicious for pneumonia. 3. Streaky opacity in the right lung base which could represent atelectasis or pneumonia. Dictated by: Lora Barth MD, PhD on 10/20/2016 at 14:17 Approved by: Lora Barth MD, PhD on 10/20/2016 at 14:17
--- NOTE | 2016-10-20 15:16 | NUR ---
Social Work: Readiness for Discharge D: Pt discussed in morning rounds. Pt is approaching discharge and is anticipated to discharge home tomorrow. Pt worked with PT who cleared him to d/c home. Pt is currently open with [facility] for RN care. Per MD, pt is expressing some concerns about d/c home. Upon further discussion with pt, SET UP PERSON learned that pt has anxiety about going home as his sister currently has the flu and he is worried that she won't be able to help him. Pt states that he has everything he needs at home and has no concerns except that he still feels dizzy. SET UP PERSON reviewed options with pt including paying privately for someone to stay with him for several days. Pt declined this but was agreeable to have his HH nurse visit him on Sunday to check vitals and review his care. Pt liked this idea. SET UP PERSON updated MD of plan and informed them that pt states he continues to feel dizzy. t/c to Frankie with [facility] to request an RN see the pt on Sunday morning. He confirms that they can do this and a nurse will see him on Sunday. A: Pt who is I at baseline. P: Pt to discharge home with [facility] for RN care; SET UP PERSON to continue to assist if new barriers arise. ESAU Becker
--- NOTE | 2016-10-20 16:33 | PCM.PNMED ---
Subjective Date of Service Oct 20, 2016 Subjective Mr. Carrillo is a 60-year-old male with a complex past medical history including chronic foot ulcers, recent undiagnosed GI bleeding, congestive heart failure with CAD, A. fib history of MRSA pneumonia as well as C. difficile who presented with one episode of black stool today and increased dyspnea since leaving the hospital last week. He feels that maybe he left the hospital too early last week (D/C 10/08/16) and did not realize the extent of his illness. He had an acute infiltrate on the left side at that time. He states medication compliance other than he did not have any nebulized or inhaled medications at home for his COPD after 10/08 discharge. Has a history of episodic black stool, source of GI bleeding has been unknown. Patient reports that he has had blood transfusion during his last admission. He is not having chest pain. He is quite dyspneic but denies chest pain, dysuria, nausea, vomiting, constipation, diarrhea, abdominal pain, joint pain, swelling, dizziness, headache. Overnight Events: No overnight events. Today Mr. Carrillo was sitting in bed this morning tolerating RA with saturations of 94%. He is resting in bed comfortably and in no acute distress. He reports being ready to go home, however his sister can't take care of him due to their flu-like illness. The patient denies headache, dizziness, sore throat, cough, chest pain, abdominal pain, nausea, vomiting, constipation, and diarrhea. The patient is voiding and eliminating without difficulty. The patient is ambulating without difficulty per Physical therapy. We discussed the need for smoking cessation. Exam Vital Signs Vital Sign - Last Date Time Temp Pulse Resp B/P Pulse Ox O2 Delivery O2 Flow Rate FiO2 10/20/16 04:38 82 10/20/16 03:24 36.5 16 147/85 92 Room Air 10/19/16 07:48 1.00 10/17/16 16:46 21 Intake and Output 10/19/16 10/19/16 10/20/16 Cumulative From/Thru 15:00 23:00 07:00 10/13/16 14:24 - 10/20/16 06:37 Intake Total 1210 ml 1949 ml 66724 ml Output Total 1075 ml 675 ml 59671 ml Balance 135 ml 1274 ml 1624 ml Intake Oral 680 ml 1352 ml 22584 ml IV Total 530 ml 597 ml 2305 ml Output Urine Total 1075 ml 675 ml 90604 ml # Voids 4 # Bowel Movements 1 1 7 Exam General: No acute distress, well-developed and chronically ill appearing, well- nourished, appropriately interactive HEENT: Normocephalic, atraumatic. External ears without defect. Pupils equal, round, and reactive to light and accommodation. Anicteric sclerae, moist conjunctivae, and no lid lag. Oropharynx free of erythema and cobble stoning with moist mucosa. Neck: Supple with full range of motion. mild jugular venous distension. No bruits. No lymphadenopathy or thyromegaly. Cardiovascular: Regular rate and rhythm with no murmurs, rubs, or gallops appreciated Pulmonary: greatly improved Rodriguez-expiratory wheezing from day before now moderate. Abnormal respiratory effort with maximal use of accessory muscles likely at baseline. . Abdomen: Bowel tones present. Soft, nontender, nondistended. No hepatosplenomegaly or masses appreciated. Extremities: No clubbing, cyanosis, mild lower extremity edema, or lymphadenopathy appreciated. Skin: Normal temperature, turgor, and texture; no rash, ulcers, or subcutaneous nodules appreciated. Neurological: Cranial nerves grossly intact. Normal muscle strength, tone, and bulk. Reflexes, coordination, and sensory function within normal limits. No known gait impairment. Psychiatric: Normal mood and affect. Alert and oriented to person, place, and time. IVs and Medications Medications Reviewed: Medications were reviewed in detail Lab and Diagnostics Result Diagram: 10/20/1631410/20/16314 Microbiology Blood cultures 2 showed no growth after 2 days. Influenza screen negative. Strep pneumoniae and legionella urine antigens negative. Respiratory viral PCR positive for coronavirus O Oc43. . X-Rays, CTs and MRIs X-RAY CHEST ONE VIEW, PORTABLE IMPRESSION: Bibasilar pneumonia. Trace left-sided pleural fluid a. Dictated by: Lora Barth MD, PhD on 10/13/2016 at 19:04 PROCEDURE: X-RAY CHEST ONE VIEW, PORTABLE INDICATIONS: 60 year-old male with dyspnea. TECHNIQUE: One view of the chest was acquired. COMPARISON: [facility], CR, XR CHEST 1VW (PORTABLE), 10/17/2016, 14: 30. [facility], CR, XR CHEST 1VW (PORTABLE), 10/16/2016, 10:39. [facility], CR, XR CHEST 1VW (PORTABLE), 10/13/2016, 23:12. FINDINGS: Surgical changes and devices: Patient is status post coronary artery bypass grafting. Lungs and pleura: No pleural effusions or pneumothorax. Bibasilar airspace opacities persist. Mediastinum: Mediastinal contours appear normal. Heart size is normal. There is aortic atherosclerosis. Bones and chest wall: No suspicious bony lesions. Overlying soft tissues appear unremarkable. IMPRESSION: Persistent bibasilar atelectasis, aspiration, or bronchopneumonia. Dictated by: Chris Plunkett M.D. on 10/18/2016 at 8:31 Approved by: Chris Plunkett M.D. on 10/18/2016 at 8:31 . 12-lead ECG EKG, sinus rhythm rate 92, Left ventricular enlargement, QTc 458 Resident, Anita Assessment & Plan Dwain Carrillo is a 60-year-old male with a complex past medical history including chronic foot ulcers, recent undiagnosed GI bleeding, systolic and diastolic congestive heart failure, CAD, A. fib, history of MRSA pneumonia, as well as, C. difficile who presented to [facility] ED with one episode of black stool today and increased dyspnea since leaving the hospital last week. Hospital day #8. 1. Acute hypoxemic respiratory failure, present on admission. Improving. - Patient D/C [facility] on 10/08/16. - Azithromycin 1G Q2Day. - Afebrile and vitals are stable. - DuoNebs and albuterol ordered, patient refused nebulized inhalers, replaced with puffers. - Haq virus on PCR. - Chest x-ray Repeat today, per above. - ID consulted and signed off. - Will send home script for prophylactic Tamiflu. 2. Chronic combined systolic and diastolic HF, present on admission, Stable. - Clinically looks more like COPD exacerbation than pneumonia. - ProBNP elevated last 3 draws in the setting of chronic kidney disease. - Echo from 09/16/2016 showed improved ejection fraction from 40% to 50-55% with areas of hypokinesis which are also chronic and mild systolic failure, also to note small atrial septal defect noted. - Holding diuretics and NABIL inhib due to renal impairment. 3. Acute COPD exacerbation, present on admission. Improving. - On Room Air with saturations of 94%. Goal of between 88% - 92%. - DuoNebs and albuterol ordered, patient refused nebulized inhalers, replaced with puffers. - Prednisone tapering at 30 mg PO daily. Will start 20mg tomorrow and to go home with 20mg daily for 20 days managed by PCP. - Will add home meds, triple therapy inhalers and nebulizer upon discharge. 4. Elevated troponins of unknown significance, present on admission. Improving. - Troponins - 0.018 on admission, peak at 0.035, currently 0.024. - EKG in the AM, repeat tropes AM. - Statin held due to Renal impairment and Rosuvastatin is renally eliminated. He has allergies to atorvastatin and pravastatin. Will resume home meds upon discharge. 5. Acute on chronic kidney injury, present on admission, Improving. - Creatinine on admission 2.05 and Baseline around 1.7, currently 2.66. - IV NS 60 ml / hour discontinued. - Nephrology following, time and recommendations appreciated. - Recommended per Nephro - stop the carvedilol and start him on labetalol 300 mg twice a day along with chlorthalidone 25 mg once a day. 6. Chronic hypertension with hypertensive heart secondary to hypertensive nephrosclerosis. - Will resume home Lasix 20mg PO daily. - Monitor vital signs. 7. Chronic upper GI bleed with chronic microcytic anemia, present on admission. Resolved. - Patient did report one black stool prior to coming to the ED. - Recent previous admission for GI bleed, thought poor candidate for endoscopy. Discharged after one unit red blood cell transfusion. - Previous EGD showed erosive esophagitis and gastritis, unremarkable colonoscopy (03/07/2016). - Currently Hgb 10.1 and 10.2 on admission. - Started Aspirin at 81 mg. - Continue Protonix. 8. Chronic kidney disease stage III, present on admission. Improving. - Creatinine 2.66. near baseline. Will resume Lasix. - Monitor closely in the setting of other comorbidities 9. Chronic lower extremity ulcerations, acute, present on admission. Stable. -Consulted wound care for continued care. Follows as an outpatient 10. Chronic A. fib, present on admission, Stable. - Not anticoagulated currently due to anemia and propensity for GI bleeding. - Telemetry 11. Chronic Tobacco use disorder, present on admission. Stable. - Nicotine patch as needed. - Counseled smoking cessation. 12. Chronic microcytic anemia, multifactorial. present on admission. Stable. - A dose of Aranesp was given yesterday. - Continue oral iron. - H/H is currently stable. Physical therapy following, time and recommendations appreciated. - Acetaminophen as needed for mild pain/fever/headache - Bowel regimen as needed - Antiemetic as needed High Risk Medications: Disposition: Likely home with [facility] tomorrow, pending CXR today and troponin level. Pain Evaluation: Adequate Pain Control VTE Prophylaxis: SCDs VTE Mechanical Devices: Intermittant Pneumatic CD Resuscitation Status: CPR: Attempt Resuscitation Attending Statement The patient was seen and examined together with Dr. Nobles on 10-20-16 and I agree with the history, exam and plan as outlined in the note above. PAO NOBLES DO Oct 20, 2016 06:52 Cinthya Vásquez MD Oct 21, 2016 17:41
--- NOTE | 2016-10-20 19:49 | NUR ---
Dizziness/cough/SPO2 Cardiac: No c/o chest pain. Tele: 80-90 with occasional PSVT. Resp: Pt denies SOB at rest. SPO2 93-96% range on RA. Pt continues to have a cough. Sats actually seem to improve when pt stands and ambulates. GI/: Pt denies n/v/d Neuro: A&Ox3. uses call light to makes needs known. able to ambulate and transfer, but weak. pt reports having lightheadedness throughout the day and despite improved condition feels he is not safe to return home yet.
[2016-10-21] VITALS (11 sets, daily range): BP systolic 141–185; BP diastolic 78–92; PULSE 56–94; RESP 18–24; O2SAT 91–100
[2016-10-21] MEDS: Albuterol 2.5 mg/3 mL Inhalation Solution NEB PRN (01:03)
[2016-10-21 04:35] LABS: BASOPHILS % (AUTO) 0.1 % (0-3); EOSINOPHILS % (AUTO) 0 % (0-5); MONOCYTES % (AUTO) 5.1 % (4-12); Mean Corpuscular Hemoglobin 25.4 pg (27.0-35.0); Mean Corpuscular Volume 79.1 fL (81-100); NEUTROPHILS % (AUTO) 86.8 % (40-74); Platelet Count 359 bil/L (150-400)
--- NOTE | 2016-10-21 05:57 | NUR ---
Restful night. Patient had a restful evening and reported that he got a fair amount of sleep. Patient is maintaining O2 saturations well on room air and vitals are stable. Patient is able to stand and ambulate well.
[2016-10-21] MEDS: Albuterol-Ipratropium 3 mL Inhalation Solution NEB SCH ×3 (08:30→20:46)
[2016-10-21] MEDS ORDERED: predniSONE 20 mg Tablet PO ONE (08:30)
[2016-10-21] MEDS: Pantoprazole 20 mg ER24 Tablet PO SCH ×2 (09:26→20:36)
[2016-10-21] MEDS: Morphine ER 15 mg (MS Contin) Tablet PO SCH ×2 (09:27→20:36)
--- NOTE | 2016-10-21 10:33 | PCM.PNMED ---
Subjective Date of Service Oct 21, 2016 Subjective Patient's pulmonary status continues to improve slowly. She had some slight improvement in his renal function along with his blood pressure. Continue feel somewhat his transient hypotension is more secondary to respiratory difficulties and primary hypertension. His intake and output were 3821 in and 1860 out. Exam Vital Signs Vital Sign - Last Date Time Temp Pulse Resp B/P Pulse Ox O2 Delivery O2 Flow Rate FiO2 10/21/16 10:00 90 10/21/16 09:32 Supplement Oxygen 10/21/16 09:22 36.5 24 185/92 10/21/16 03:40 92 10/19/16 07:48 1.00 10/17/16 16:46 21 Intake and Output 10/20/16 10/20/16 10/21/16 Cumulative From/Thru 15:00 23:00 07:00 10/13/16 14:24 - 10/21/16 06:05 Intake Total 1872 ml 1562 ml 57417 ml Output Total 1185 ml 1000 ml 94915 ml Balance 687 ml 562 ml 2873 ml Intake Oral 1672 ml 1562 ml 64584 ml IV Total 200 ml 2505 ml Output Urine Total 1185 ml 1000 ml 08395 ml # Voids 4 # Bowel Movements 1 1 9 Exam Neck is supple without adenopathy, thyromegaly, but there was some jugular venous distention at 90. Lungs once again showed diffuse scattered end expiratory wheezes with some component of inspiratory wheezing. Heart exam revealed a soft systolic murmur. Abdomen is soft without tenderness rebound guarding masses or hepatosplenomegaly. Extremities shows a clubbing cyanosis or edema. Lab and Diagnostics Result Diagram: 10/21/16 0405 10/21/16 0405 Microbiology Blood cultures 2 showed no growth after 2 days. Influenza screen negative. Strep pneumoniae and legionella urine antigens negative. Respiratory viral PCR positive for coronavirus O Oc43. . X-Rays, CTs and MRIs X-RAY CHEST ONE VIEW, PORTABLE IMPRESSION: Bibasilar pneumonia. Trace left-sided pleural fluid a. Dictated by: Lora Barth MD, PhD on 10/13/2016 at 19:04 PROCEDURE: X-RAY CHEST ONE VIEW, PORTABLE INDICATIONS: 60 year-old male with dyspnea. TECHNIQUE: One view of the chest was acquired. COMPARISON: [facility], CR, XR CHEST 1VW (PORTABLE), 10/17/2016, 14: 30. [facility], CR, XR CHEST 1VW (PORTABLE), 10/16/2016, 10:39. [facility], CR, XR CHEST 1VW (PORTABLE), 10/13/2016, 23:12. FINDINGS: Surgical changes and devices: Patient is status post coronary artery bypass grafting. Lungs and pleura: No pleural effusions or pneumothorax. Bibasilar airspace opacities persist. Mediastinum: Mediastinal contours appear normal. Heart size is normal. There is aortic atherosclerosis. Bones and chest wall: No suspicious bony lesions. Overlying soft tissues appear unremarkable. IMPRESSION: Persistent bibasilar atelectasis, aspiration, or bronchopneumonia. Dictated by: Chris Plunkett M.D. on 10/18/2016 at 8:31 Approved by: Chris Plunkett M.D. on 10/18/2016 at 8:31 . 12-lead ECG EKG, sinus rhythm rate 92, Left ventricular enlargement, QTc 458 Resident, Anita Assessment & Plan Impression #1 chronic kidney disease stage III #2 hypertension with hypertensive heart disease and hypertensive nephrosclerosis Recommendation #1 I would like to continue on his current medical therapy. VTE Prophylaxis: SCDs VTE Mechanical Devices: Intermittant Pneumatic CD Resuscitation Status: CPR: Attempt Resuscitation Artie Pearson DO Oct 21, 2016 10:33
--- NOTE | 2016-10-21 10:44 | DRSVH ---
[facility] [address] [address] Echocardiogram Report Name: MARGARET ROCHA DStudy Date: 10/21/2016 Height: 65 in Hospital Exam Location: [facility] Weight: 137 lb Gender: Male BSA: 1.7 m2 : 1955 Age: 60 yrs BP: 148/51 mmHg Reason For Study: [facility] [place] Ordering Physician: HOSPITALIST [facility] Performed By: Shadi Heart Referring Physician: PAO NOBLES Interpretation Summary The left ventricle is normal in size. There is mild concentric left ventricular hypertrophy. Left ventricular systolic function is moderately reduced. The ejection fraction is estimated to be 40-45%. Base on personal review on prior echo study, there has been no significant change since the previous study. There is severe hypokinesis of the inferolateral wall and the basal and mid anterolateral wall. There is akinesis of the basal inferior wall. The right ventricle is normal size. Right ventricular systolic function is borderline reduced. The right ventricular systolic pressure is estimated at 48 mmHg assuming a right atrial pressure of 3 mm Hg. Compared to the prior echo exam, there has been an increase in the severity of pulmonary hypertension. The left atrium is severely dilated. Right atrial size is normal. A secundum type atrial septal defect is present. The atrial septal defect is small. There is moderate to severe mitral regurgitation. Compared to the prior echo study, there has been an increase in the severity of mitral regurgitation. There is mild aortic regurgitation. This is unchanged compared to the previous study. There is no other significant valvular heart disease. The ascending aorta is mild-moderately enlarged. This is increase compared to the previous study. There is a moderate left-sided pleural effusion. Procedure: A two-dimensional transthoracic echocardiogram with color flow and Doppler was performed. The study quality was technically good. Comparison is made with the echocardiogram of 09/16/16. The patient was in normal sinus rhythm during the exam. Left Ventricle: The left ventricle is normal in size. There is mild concentric left ventricular hypertrophy. Left ventricular systolic function is moderately reduced. The ejection fraction is estimated to be 40-45%. There has been no significant change since the previous study. There is severe hypokinesis of the inferolateral wall and the basal and mid anterolateral wall. There is akinesis of the basal inferior wall. Assessment of diastolic parameters indicates a restrictive filling pattern of the left ventricle consistent with significantly elevated filling pressures. Right Ventricle: The right ventricle is normal size. Right ventricular systolic function is borderline reduced. Atria: The left atrium is severely dilated. Right atrial size is normal. A secundum type atrial septal defect is present. The atrial septal defect is small. Mitral Valve: The mitral valve leaflets are slightly calcified. There is moderate to severe mitral regurgitation. Compared to the prior echo study, there has been an increase in the severity of mitral regurgitation. Aortic Valve: The aortic valve is trileaflet. The aortic valve opens well. There is mild aortic regurgitation. This is unchanged compared to the previous study. Tricuspid Valve: The tricuspid valve is normal. There is mild tricuspid regurgitation. The right ventricular systolic pressure is estimated at 48 mmHg assuming a right atrial pressure of 3 mm Hg. Compared to the prior echo exam, there has been an increase in the severity of pulmonary hypertension. Pulmonic Valve: The pulmonic valve is not well visualized. There is a trace or physiologic amount of pulmonic regurgitation. There is no other significant valvular heart disease. Great Vessels: The aortic root is normal size. The ascending aorta is mild- moderately enlarged. This is increase compared to the previous study. The pulmonary artery is normal size. The IVC is of normal diameter and collapses greater than 50% with a sniff. This suggests a low right atrial pressure of 3 mm Hg. Pericardium/ Pleura There is no pericardial effusion. There is a moderate left-sided pleural effusion. MMode/2D Measurements & Calculations LVIDd: 4.9 cm RA long axis LVOT diam: 2.0 cm LVIDs: 4.1 cm LA A2 area: 28.6 cm AoV Openin.9 cm FS: 15.6 % LA A4 area: 26.5 cm RA area Ao root diam: 3.8 cm EPSS: 1.3 cm LA length (vol) asc Aorta Diam IVSd: 1.1 cm : 14.7 cm LVPWd: 1.2 cm LA vol: 102.0 ml RA vol Ao Arch Diam LA vol index : 36.7 ml (Proximal trans.) RA : 21.8 mm2 IVC diam: 1.8 cm LV esteves. diameter/BSALV sys. diameter/BSA TAPSE: 1.6 cm (cm/m^2): 2.9 (cm/m^2): 2.4 Doppler Measurements & Calculations Ao V2 max MV E max kyle MV E/A: 3.0 TR max kyle : 143.6 cm/sec : 124.7 cm/sec Med Peak E' Kyle : 333.6 cm/sec Ao max PG MV A max kyle TR max PG : 8.3 mmHg : 40.9 cm/sec E/E' med: 32.0 : 44.5 mmHg Ao mean PG Lat Peak E' Kyle PA V2 max MR ERO: 0.17 cm2 : 109.3 cm/sec LVOT Max Kyle E/E' lat: 19.1 PA mean PG : 90.5 cm/sec : 2.7 mmHg CELINA(I,D): 2.0 cm sev ratio MV dec time Ao V2 mean LV V1 max PG MR flow rate : 0.15 sec : 98.3 cm/sec : 104.7 cm3/sec Ao V2 VTI: 29.6 cm LV V1 VTI MR PISA radius CELINA(V,D): 1.9 cm2 : 19.3 cm PA V2 mean CELINA indexed to BSA E/e' average : 78.5 cm/sec (cm^2/m^2): 1.2 : 25.5 PA pr(Accel) : 44.7 mmHg Reading Physician:JAMES
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
--- NOTE | 2016-10-21 19:28 | NUR ---
Tele/pain Cardiac: Pt denies chest pain at this time, but reports he had some around change of shift, aware. Tele: 70-90 with occasional PSVT. Resp: Pt denies SOB at rest. SPO2 93-96% on RA. GI/: Pt denies n/v/d Neuro: A&Ox3. uses call light to makes needs known. able to ambulate and transfer, but weak. has foot and hip pain well managed by pain meds.
--- NOTE | 2016-10-21 19:35 | PCM.PNMED ---
Subjective Date of Service Oct 21, 2016 Subjective Mr. Carrillo is a 60-year-old male with a complex past medical history including chronic foot ulcers, recent undiagnosed GI bleeding, congestive heart failure with CAD, A. fib history of MRSA pneumonia as well as C. difficile who presented with one episode of black stool today and increased dyspnea since leaving the hospital last week. He feels that maybe he left the hospital too early last week (D/C 10/08/16) and did not realize the extent of his illness. He had an acute infiltrate on the left side at that time. He states medication compliance other than he did not have any nebulized or inhaled medications at home for his COPD after 10/08 discharge. Has a history of episodic black stool, source of GI bleeding has been unknown. Patient reports that he has had blood transfusion during his last admission. He is not having chest pain. He is quite dyspneic but denies chest pain, dysuria, nausea, vomiting, constipation, diarrhea, abdominal pain, joint pain, swelling, dizziness, headache. Overnight Events: No overnight events. Telemetry overnight: Sinus rhythm, heart rate 80's, 1st degree AV block, rare PVC's. The patient is resting in bed and in no acute distress. He reports an episode of chest pain this morning that spontaneously resolved. He denies headache, dizziness, sore throat, cough, chest pain, abdominal pain, nausea, vomiting, dysuria, constipation or diarrhea. The patient is voiding and eliminating without difficulty. The patient is ambulating without difficulty per physical therapy. We continue to discuss the importance of smoking cessation. . Exam Vital Signs Vital Sign - Last Date Time Temp Pulse Resp B/P Pulse Ox O2 Delivery O2 Flow Rate FiO2 10/21/16 15:26 36.7 81 18 141/82 97 Room Air 10/19/16 07:48 1.00 10/17/16 16:46 21 Intake and Output 10/20/16 10/20/16 10/21/16 Cumulative From/Thru 15:00 23:00 07:00 10/13/16 14:24 - 10/21/16 06:05 Intake Total 1872 ml 1562 ml 61967 ml Output Total 1185 ml 1000 ml 64520 ml Balance 687 ml 562 ml 2873 ml Intake Oral 1672 ml 1562 ml 69627 ml IV Total 200 ml 2505 ml Output Urine Total 1185 ml 1000 ml 86534 ml # Voids 4 # Bowel Movements 1 1 9 Exam General: Thin older gentleman lying in bed and in no acute distress, chronically ill appearing, appropriately interactive. HEENT: Normocephalic, atraumatic. External ears without defect. Pupils equal, round, and reactive to light. Anicteric sclerae, moist conjunctivae, and no lid lag. Oropharynx free of erythema and cobble stoning with moist mucosa. Neck: Supple with full range of motion. No lymphadenopathy or thyromegaly. Cardiovascular: Regular rate and rhythm with no murmurs, rubs, or gallops appreciated. Pulmonary: Clear to auscultation bilaterally with occasional scattered expiratory wheeze. Abdomen: Bowel tones present. Soft, nontender, nondistended. No hepatosplenomegaly or masses appreciated. Extremities: No clubbing, cyanosis, or edema. Skin: Normal temperature, turgor, and texture; no rash, ulcers, or subcutaneous nodules appreciated. Neurological: Cranial nerves grossly intact. Normal muscle strength, tone, and bulk. Reflexes, coordination, and sensory function within normal limits. No known gait impairment. Psychiatric: Normal mood and affect. Alert and oriented to person, place, and time. . IVs and Medications Medications Reviewed: Medications were reviewed in detail Lab and Diagnostics Item Value Date Time Calcium Level 8.3 mg/dL L 10/21/16 0405 Total Bilirubin 0.2 mg/dL 10/21/16 0405 Aspartate Amino Transf (AST/SGOT) 47 U/L 10/21/16 0405 Alanine Aminotransferase (ALT/SGPT) 67 U/L H 10/21/16 0405 Alkaline Phosphatase 77 U/L 10/21/16 0405 Total Protein 5.2 g/dL L 10/21/16 0405 Albumin 2.7 g/dL L 10/21/16 0405 Procalcitonin 0.18 ng/mL 10/21/16 040 Result Diagram: 10/21/1640410/21/16 040 Microbiology Blood cultures 2 showed no growth after 2 days. Influenza screen negative. Strep pneumoniae and legionella urine antigens negative. Respiratory viral PCR positive for coronavirus O Oc43. . X-Rays, CTs and MRIs X-RAY CHEST ONE VIEW, PORTABLE IMPRESSION: Bibasilar pneumonia. Trace left-sided pleural fluid a. Dictated by: Lora Barth MD, PhD on 10/13/2016 at 19:04 X-RAY CHEST ONE VIEW, PORTABLE IMPRESSION: 1. Small bilateral pleural effusions. 2. Patchy opacity left lung base is increased in size compared to prior examination and is suspicious for pneumonia. 3. Streaky opacity in the right lung base which could represent atelectasis or pneumonia. Dictated by: Lora Barth MD, PhD on 10/20/2016 at 14:17 Approved by: Lora Barth MD, PhD on 10/20/2016 at 14:17 . 12-lead ECG EKG, sinus rhythm rate 92, Left ventricular enlargement, QTc 458 Resident, Anita Assessment & Plan Dwain Carrillo is a 60-year-old male with a complex past medical history including chronic foot ulcers, recent undiagnosed GI bleeding, systolic and diastolic congestive heart failure, CAD, A. fib, history of MRSA pneumonia, as well as, C. difficile who presented to [facility] with one episode of black stool today and increased dyspnea since leaving the hospital last week. Hospital day #8. 1. Acute hypoxemic respiratory failure, present on admission. Improving. - Patient D/C [facility] on 10/08/16. - Azithromycin 1G Q2Day. - Afebrile and vitals are stable. - DuoNebs and albuterol ordered, patient refused nebulized inhalers, replaced with puffers. - Haq virus on PCR. - Chest x-ray Repeat today, per above. - ID consulted and signed off. - Will send home script for prophylactic Tamiflu. 2. Chronic combined systolic and diastolic heart failure, present on admission. Stable. - Clinically looks more like COPD exacerbation than pneumonia. - ProBNP elevated last 3 draws in the setting of chronic kidney disease. - Echo from 09/16/2016 showed improved ejection fraction from 40% to 50-55% with areas of hypokinesis which are also chronic and mild systolic failure, also to note small atrial septal defect noted. - Holding diuretics and NABIL inhib due to renal impairment. 3. Acute COPD exacerbation, present on admission. Improving. - On Room Air with saturations of 94%. Goal of between 88% - 92%. - DuoNebs and albuterol ordered, patient refused nebulized inhalers, replaced with puffers. - Prednisone tapering at 30 mg PO daily. Will start 20mg tomorrow and to go home with 20mg daily for 20 days managed by PCP. - Will add home meds, triple therapy inhalers and nebulizer upon discharge. 4. Elevated troponins of unknown significance, present on admission. Improving. - Troponins - 0.018 on admission, peak at 0.035, currently 0.024. - EKG in the AM, repeat tropes AM. - Statin held due to renal impairment and Rosuvastatin is renally eliminated. He has allergies to atorvastatin and pravastatin. Will resume home meds upon discharge. - Consulted cardiology who believes he is a poor candidate for left heart cath. Added Imdur to medical management and would like to keep him overnight and see how he tolerates Imdur tomorrow. 5. Acute on chronic kidney injury, present on admission. Improving. - Creatinine on admission 2.05 and Baseline around 1.7, currently 2.66. - IV NS 60 ml / hour discontinued. - Nephrology following, time and recommendations appreciated. - Recommended per Nephro - stop the carvedilol and start him on labetalol 300 mg twice a day along with chlorthalidone 25 mg once a day. 6. Chronic hypertension with hypertensive heart secondary to hypertensive nephrosclerosis. - Will resume home Lasix 20mg PO daily. - Monitor vital signs. 7. Chronic upper GI bleed with chronic microcytic anemia, present on admission. Resolved. - Patient did report one black stool prior to coming to the ED. - Recent previous admission for GI bleed, thought poor candidate for endoscopy. Discharged after one unit red blood cell transfusion. - Previous EGD showed erosive esophagitis and gastritis, unremarkable colonoscopy (03/07/2016). - Currently Hgb 10.1 and 10.2 on admission. - Started Aspirin at 81 mg. - Continue Protonix. 8. Chronic kidney disease stage III, present on admission. Improving. - Creatinine 2.66. near baseline. Will resume Lasix. - Monitor closely in the setting of other comorbidities 9. Chronic lower extremity ulcerations, acute, present on admission. Stable. -Consulted wound care for continued care. Follows as an outpatient 10. Chronic A. fib, present on admission, Stable. - Not anticoagulated currently due to anemia and propensity for GI bleeding. - Telemetry 11. Chronic Tobacco use disorder, present on admission. Stable. - Nicotine patch as needed. - Counseled smoking cessation. 12. Chronic microcytic anemia, multifactorial. present on admission. Stable. - A dose of Aranesp was given yesterday. - Continue oral iron. - H/H is currently stable. Physical therapy following, time and recommendations appreciated. - Acetaminophen as needed for mild pain/fever/headache - Bowel regimen as needed - Antiemetic as needed High Risk Medications: Disposition: Likely home with [facility] tomorrow, pending CXR today and troponin level. VTE Prophylaxis: SCDs VTE Mechanical Devices: Intermittant Pneumatic CD Resuscitation Status: CPR: Attempt Resuscitation Attending Statement The patient was seen and examined together with Dr. Garcia on 10-21-16 and I agree with the history, exam and plan as outlined in the note above. Melanie Garcia DO Oct 21, 2016 19:35 Cinthya Vásquez MD Oct 22, 2016 14:41
[2016-10-22] VITALS (7 sets, daily range): BP systolic 142–163; BP diastolic 74–96; PULSE 70–97; RESP 16–22; O2SAT 90–95
[2016-10-22] MEDS: Albuterol 2.5 mg/3 mL Inhalation Solution NEB PRN (02:52)
[2016-10-22 03:47] LABS: BASOPHILS % (AUTO) 0.1 % (0-3); EOSINOPHILS % (AUTO) 0 % (0-5); MONOCYTES % (AUTO) 7.1 % (4-12); Mean Corpuscular Hemoglobin 25.2 pg (27.0-35.0); NEUTROPHILS % (AUTO) 85.7 % (40-74); Platelet Count 342 bil/L (150-400)
[2016-10-22 04:09] LABS: Magnesium 1.7 mg/dL (1.6-2.6); Phosphorus 4.3 mg/dL (2.5-4.9)
--- NOTE | 2016-10-22 05:27 | NUR ---
Wound care/BUN Dressing changed on patient's left ankle wound; xeroform and gauze pad placed over wound and secured with tegaderm. No drainage noted from wound. Patient Sleeping through most of shift. BUN on morning labs 89; paged. Continue to monitor.
[2016-10-22] MEDS ORDERED: Isosorbide Mononitrate 30 mg ER24 Tablet PO SCH (07:30)
[2016-10-22] MEDS: Pantoprazole 20 mg ER24 Tablet PO SCH (08:46)
[2016-10-22] MEDS: Morphine ER 15 mg (MS Contin) Tablet PO SCH (08:46)
[2016-10-22] MEDS: Albuterol-Ipratropium 3 mL Inhalation Solution NEB SCH (09:41)
--- NOTE | 2016-10-22 11:20 | PCM.PNMED ---
Subjective Date of Service Oct 22, 2016 Subjective Patient's blood pressures are trending better with improvement in his respiratory status. His intake and output from yesterday were 3082 in and 3256 out he denies any cough, wheezing or worsening of his shortness of breath. He is having some increase in his urea nitrogen and I feel this is in part due to prednisone. Exam Vital Signs Vital Sign - Last Date Time Temp Pulse Resp B/P Pulse Ox O2 Delivery O2 Flow Rate FiO2 10/22/16 10:03 70 10/22/16 09:41 22 90 Room Air 10/22/16 08:44 36.7 161/96 10/19/16 07:48 1.00 10/17/16 16:46 21 Intake and Output 10/21/16 10/21/16 10/22/16 Cumulative From/Thru 15:00 23:00 07:00 10/13/16 14:24 - 10/22/16 05:27 Intake Total 1520 ml 1187 ml 71065 ml Output Total 2250 ml 600 ml 09813 ml Balance -730 ml 587 ml 2730 ml Intake Oral 1520 ml 1157 ml 31273 ml IV Total 30 ml 2535 ml Output Urine Total 2250 ml 600 ml 90692 ml # Voids 4 # Bowel Movements 0 9 Exam Neck is supple without adenopathy thyromegaly or jugular venous distention. Lungs show diffuse end expiratory wheezes in all lung garcia with scattered rhonchi. Heart is regular rhythmical with a soft systolic murmur. Abdomen was soft with moderate tenderness rebound guarding masses or hepatosplenomegaly. Extremities no transient clubbing cyanosis or edema. Lab and Diagnostics Result Diagram: 10/22/16 0320 10/22/16 0320 Microbiology Blood cultures 2 showed no growth after 2 days. Influenza screen negative. Strep pneumoniae and legionella urine antigens negative. Respiratory viral PCR positive for coronavirus O Oc43. . X-Rays, CTs and MRIs X-RAY CHEST ONE VIEW, PORTABLE IMPRESSION: Bibasilar pneumonia. Trace left-sided pleural fluid a. Dictated by: Lora Barth MD, PhD on 10/13/2016 at 19:04 X-RAY CHEST ONE VIEW, PORTABLE IMPRESSION: 1. Small bilateral pleural effusions. 2. Patchy opacity left lung base is increased in size compared to prior examination and is suspicious for pneumonia. 3. Streaky opacity in the right lung base which could represent atelectasis or pneumonia. Dictated by: Lora Barth MD, PhD on 10/20/2016 at 14:17 Approved by: Lora Barth MD, PhD on 10/20/2016 at 14:17 . 12-lead ECG EKG, sinus rhythm rate 92, Left ventricular enlargement, QTc 458 Resident, Anita Assessment & Plan Impression #1 chronic kidney disease stage III #2 hypertension with hypertensive urgency and hypertensive nephrosclerosis #3 renal azotemia secondary to corticosteroids Recommendations #1 over to continue on his current medical therapy and continue to follow his lab and I&O's with you. VTE Prophylaxis: SCDs VTE Mechanical Devices: Intermittant Pneumatic CD Resuscitation Status: CPR: Attempt Resuscitation Artie Pearson DO Oct 22, 2016 11:20
--- NOTE | 2016-10-22 12:25 | NUR ---
Social Work Discharge D: EMR Reviewed. Pt is on day 9 of hospitalization for Pneumonia, COPD Exacerbation. Pt is medically stable and discharging home via POV. Pt will resumed Home Health services with [facility] at discharge. GIOVANNI called and left message for Dwain Marmolejo with [facility] to inform Pt discharging and requires resumption of service. A: Pt open with Home Health P: Pt is medically stable and discharging home today via POV. Pt to resume services with [facility]. ESAU Roca
--- NOTE | 2016-10-22 12:43 | PCM.DIMED ---
PAO NOBLES DO 10/22/16 1233: Discharge Instructions Date of Service Oct 22, 2016 Dates of Hospitalization Oct 13, 2016 at 20:34 Discharge Diagnosis Discharge Diagnosis 1. Acute hypoxemic respiratory failure, present on admission. Resolved.. 2. Chronic combined systolic and diastolic heart failure, present on admission. Stable. 3. Acute COPD exacerbation, present on admission. Stable. 4. Elevated troponins of unknown significance, present on admission. Stable. 5. Acute on chronic kidney injury, present on admission. Stable. 6. Chronic hypertension with hypertensive heart secondary to hypertensive nephrosclerosis. Present on admission. Stable. 7. Chronic upper GI bleed with chronic microcytic anemia, present on admission. Resolved. 8. Chronic kidney disease stage III, present on admission. Stable. 9. Chronic lower extremity ulcerations, acute, present on admission. Stable. 10. Chronic persistent A. fib, present on admission, Stable. 11. Chronic Tobacco use disorder, present on admission. Stable. 12. Chronic microcytic anemia, multifactorial. present on admission. Stable. Medication Instructions - Azithromycin 500 mg Q2Day as outpatient. - Prophylactic Tamiflu 45 mg daily. - Continue with low dose Aspirin and Beta Blockers (labetalol). - Typically I would recommend carvedilol instead of labetalol in this patient's situation given the fact he has reduced LVEF and ischemic heart disease. - ACEi's are probably not a great choice given his history of CKD. Possibly consider Isordil/Hydralazine TID for afterload/preload reduction. - Prednisone tapering at 30 mg PO daily. Will start 20mg tomorrow and to go home with 20mg daily for 20 days managed by PCP - Triple therapy inhalers and nebulizer upon discharge. - Rosuvastatin to be continued. - Lasix 20mg PO daily. - Continue Protonix. - Continue home ASA. - Continue oral iron. Activity Home Health Phyical Therapy Call your provider Fever or Chills, Shortness of breath, Bleeding, Chest pain, Vomitting, Excessive diarrhea, Weakness (unilateral) Patient Instructions Recommend home with home health. Follow-up plan Recommend that he follows up with Dr. Dodd as an outpatient to manage CAD and his ischemic heart disease. Follow up in 1-2 weeks with your PCP, Dr. Lamas for post hospitalization and medication review. Follow-up Provider: Jemima Dodd MD Follow-up with PCP in: 2 weeks Provider: Leo Lamas MD Follow-up in: 2 weeks Cinthya Vásquez MD 10/30/16 0920: Discharge Instructions Attending's Statement The patient was seen and examined together with Dr. Fernandez on 10-22-16 and I agree with the history, exam and plan as outlined in the note above. PAO NOBLES DO Oct 22, 2016 12:33 Cinthya Vásquez MD Oct 30, 2016 09:20
[2016-10-22] MEDS ORDERED: predniSONE 20 mg Tablet PO ONE (12:45)
[2016-10-22] MEDS ORDERED: HYG25 PO (12:57)
[2016-10-22] MEDS ORDERED: ASPI-973 PO (12:57)
[2016-10-22] MEDS ORDERED: ALBU1.25 INHALATION (12:57)
[2016-10-22] MEDS ORDERED: ADV100INH IH (12:57)
[2016-10-22] MEDS ORDERED: TIOT18CA3 IH (12:57)
[2016-10-22] MEDS ORDERED: ZIT250 PO (12:57)
[2016-10-22] MEDS ORDERED: PRED-508 PO (12:57)
--- NOTE | 2016-10-22 13:40 | NUR ---
Discharge Patient given discharge orders. Patient given hard copies of prescriptions. Patient given medication list with written and verbal times of medication due next. Patient given informational packets. Patient IV removed fully intact. Patient assisted with getting dressed and belongings packed. Patient sister was called for transportation. Patient was wheeled to main entrance to meet sister at entrance.
--- NOTE | 2016-10-22 19:37 | PCM.DC.MED ---
Discharge Summary Date of Service Oct 22, 2016 Dates of Hospitalization Date of Hospital Admission Oct 13, 2016 at 20:34 Date of Discharge: Oct 22, 2016 Providers: Admitting Physician: Rosa Glass MD Primary Care Physician: Leo Lamas MD Attending Physician: Rosa Glass MD Diagnosis at Time of Discharge Diagnosis at Time of Discharge 1. Acute hypoxemic respiratory failure, present on admission. Resolved.. 2. Chronic combined systolic and diastolic heart failure, present on admission. Stable. 3. Acute COPD exacerbation, present on admission. Stable. 4. Elevated troponins of unknown significance, present on admission. Stable. 5. Acute on chronic kidney injury, present on admission. Stable. 6. Chronic hypertension with hypertensive heart secondary to hypertensive nephrosclerosis. Present on admission. Stable. 7. Chronic upper GI bleed with chronic microcytic anemia, present on admission. Resolved. 8. Chronic kidney disease stage III, present on admission. Stable. 9. Chronic lower extremity ulcerations, acute, present on admission. Stable. 10. Chronic persistent A. fib, present on admission, Stable. 11. Chronic Tobacco use disorder, present on admission. Stable. 12. Chronic microcytic anemia, multifactorial. present on admission. Stable. Procedures XRay, CTs & MRIs X-RAY CHEST ONE VIEW, PORTABLE IMPRESSION: Bibasilar pneumonia. Trace left-sided pleural fluid a. Dictated by: Lora Barth MD, PhD on 10/13/2016 at 19:04 X-RAY CHEST ONE VIEW, PORTABLE IMPRESSION: 1. Small bilateral pleural effusions. 2. Patchy opacity left lung base is increased in size compared to prior examination and is suspicious for pneumonia. 3. Streaky opacity in the right lung base which could represent atelectasis or pneumonia. Dictated by: Lora Barth MD, PhD on 10/20/2016 at 14:17 Approved by: Lora Barth MD, PhD on 10/20/2016 at 14:17 . ECG 12 Lead EKG, sinus rhythm rate 92, Left ventricular enlargement, QTc 458 ResidentAnita Brief History Mr. Carrillo is a 60-year-old male with a complex past medical history including chronic foot ulcers, recent undiagnosed GI bleeding, congestive heart failure with CAD, A. fib history of MRSA pneumonia as well as C. difficile who presented with one episode of black stool today and increased dyspnea since leaving the hospital last week. He feels that maybe he left the hospital too early last week (D/C 10/08/16) and did not realize the extent of his illness. He had an acute infiltrate on the left side at that time. He states medication compliance other than he did not have any nebulized or inhaled medications at home for his COPD after 10/08 discharge. Has a history of episodic black stool, source of GI bleeding has been unknown. Patient reports that he has had blood transfusion during his last admission. He is not having chest pain. He is quite dyspneic but denies chest pain, dysuria, nausea, vomiting, constipation, diarrhea, abdominal pain, joint pain, swelling, dizziness, headache. In the ED, He was afebrile, HR 90, RR 28; BP 140/89; 94% on 2L by NC. WBC 13.1, H&H 10.2 and 31.6; BUN & creatinine 41 & 2.05, proteinuria Chest x-ray Bibasilar PNA, trace left-sided pleural fluid accumulation Hospital Course Dwain Carrillo is a 60-year-old male with a complex past medical history including chronic foot ulcers, recent undiagnosed GI bleeding, systolic and diastolic congestive heart failure, CAD, A. fib, history of MRSA pneumonia, as well as, C. difficile who presented to [facility] ED with one episode of black stool today and increased dyspnea since leaving the hospital last week. Hospital day #8. 1. Acute hypoxemic respiratory failure, present on admission. Improving. - Patient D/C [facility] on 10/08/16. - Azithromycin 1G Q2Day. - Afebrile and vitals are stable. - DuoNebs and albuterol ordered, patient refused nebulized inhalers, replaced with puffers. - Haq virus on PCR. - Chest x-ray Repeat today, per above. - ID consulted and signed off. - Will send home script for prophylactic Tamiflu. 2. Chronic combined systolic and diastolic heart failure, present on admission. Stable. - Clinically looks more like COPD exacerbation than pneumonia. - ProBNP elevated last 3 draws in the setting of chronic kidney disease. - Echo from 09/16/2016 showed improved ejection fraction from 40% to 50-55% with areas of hypokinesis which are also chronic and mild systolic failure, also to note small atrial septal defect noted. - Holding diuretics and NABIL inhib due to renal impairment. 3. Acute COPD exacerbation, present on admission. Improving. - On Room Air with saturations of 94%. Goal of between 88% - 92%. - DuoNebs and albuterol ordered, patient refused nebulized inhalers, replaced with puffers. - Prednisone tapering at 30 mg PO daily. Will start 20mg tomorrow and to go home with 20mg daily for 20 days managed by PCP. - Will add home meds, triple therapy inhalers and nebulizer upon discharge. 4. Elevated troponins of unknown significance, present on admission. Improving. - Troponins - 0.018 on admission, peak at 0.035, currently 0.024. - EKG in the AM, repeat tropes AM. - Statin held due to renal impairment and Rosuvastatin is renally eliminated. He has allergies to atorvastatin and pravastatin. Will resume home meds upon discharge. - Consulted cardiology who believes he is a poor candidate for left heart cath. Added Imdur to medical management and would like to keep him overnight and see how he tolerates Imdur tomorrow. 5. Acute on chronic kidney injury, present on admission. Improving. - Creatinine on admission 2.05 and Baseline around 1.7, currently 2.66. - IV NS 60 ml / hour discontinued. - Nephrology following, time and recommendations appreciated. - Recommended per Nephro - stop the carvedilol and start him on labetalol 300 mg twice a day along with chlorthalidone 25 mg once a day. 6. Chronic hypertension with hypertensive heart secondary to hypertensive nephrosclerosis. - Will resume home Lasix 20mg PO daily. - Monitor vital signs. 7. Chronic upper GI bleed with chronic microcytic anemia, present on admission. Resolved. - Patient did report one black stool prior to coming to the ED. - Recent previous admission for GI bleed, thought poor candidate for endoscopy. Discharged after one unit red blood cell transfusion. - Previous EGD showed erosive esophagitis and gastritis, unremarkable colonoscopy (03/07/2016). - Currently Hgb 10.1 and 10.2 on admission. - Started Aspirin at 81 mg. - Continue Protonix. 8. Chronic kidney disease stage III, present on admission. Improving. - Creatinine 2.66. near baseline. Will resume Lasix. - Monitor closely in the setting of other comorbidities 9. Chronic lower extremity ulcerations, acute, present on admission. Stable. -Consulted wound care for continued care. Follows as an outpatient 10. Chronic A. fib, present on admission, Stable. - Not anticoagulated currently due to anemia and propensity for GI bleeding. - Telemetry 11. Chronic Tobacco use disorder, present on admission. Stable. - Nicotine patch as needed. - Counseled smoking cessation. 12. Chronic microcytic anemia, multifactorial. present on admission. Stable. - A dose of Aranesp was given yesterday. - Continue oral iron. - H/H is currently stable. Physical therapy following, time and recommendations appreciated. - Acetaminophen as needed for mild pain/fever/headache - Bowel regimen as needed - Antiemetic as needed High Risk Medications: Disposition: Likely home with [facility] tomorrow, pending CXR today and troponin level. Exam Vital Signs (Last) Date Time Temp Pulse Resp B/P Pulse Ox O2 Delivery O2 Flow Rate FiO2 10/22/16 11:48 36.4 74 16 142/74 90 Room Air 10/19/16 07:48 1.00 10/17/16 16:46 21 Exam General: Thin older gentleman lying in bed and in no acute distress, chronically ill appearing, appropriately interactive. HEENT: Normocephalic, atraumatic. External ears without defect. Pupils equal, round, and reactive to light. Anicteric sclerae, moist conjunctivae, and no lid lag. Oropharynx free of erythema and cobble stoning with moist mucosa. Neck: Supple with full range of motion. No lymphadenopathy or thyromegaly. Cardiovascular: Regular rate and rhythm with no murmurs, rubs, or gallops appreciated. Pulmonary: Clear to auscultation bilaterally with occasional scattered expiratory wheeze. Abdomen: Bowel tones present. Soft, nontender, nondistended. No hepatosplenomegaly or masses appreciated. Extremities: No clubbing, cyanosis, or edema. Skin: Normal temperature, turgor, and texture; no rash, ulcers, or subcutaneous nodules appreciated. Neurological: Cranial nerves grossly intact. Normal muscle strength, tone, and bulk. Reflexes, coordination, and sensory function within normal limits. No known gait impairment. Psychiatric: Normal mood and affect. Alert and oriented to person, place, and time. Test 10/13/16 15:44 10/13/16 22:39 12/30/16 23:00 10/14/16 11:00 Lipase 62U/L (13-60) Hemoglobin A1c 5.7% (4.8-5.6) Prealbumin 31mg/dL (20-40) Urine Legionella pneumophilia Ag Negative (Negative) Urine Random Creatinine 23mg/dL (22-328) Urine Random Total Protein 337mg/dL (0-15) Uric Acid 7.0mg/dL (2.6-7.2) Globulin (PEP) 2.5g/dL (2.2-3.9) Albumin/Globulin Ratio 0.9 (0.7-1.7) Lhxky-6-Bfutwgkge 0.3g/dL (0.0-0.4) Uopmj-3-Fobiyulcc 0.9g/dL (0.4-1.0) Beta Globulins 0.9g/dL (0.7-1.3) Gamma Globulins 0.4g/dL (0.4-1.8) Serum Monoclonal Protein Not observedg/dL Protein Electrophoresis Comment Comment (.) Protein Electrophoresis Interpret Comment (.) Hepatitis A IgM Antibody Negative (Negative) Hepatitis B Surface Antigen Negative (Negative) Hepatitis B Core IgM Antibody Negative (Negative) Hepatitis C Antibody 0.1s/co ratio (0.0-0.9) Hepatitis C Comment Comment (.) Test 10/15/16 12:37 10/17/16 04:23 10/17/16 09:50 10/17/16 12:30 Erythrocyte Sedimentation Rate 31mm/hr (0-30) Anti-Nuclear Antibody Screen Negative (.) Anti-Glomerular Basement Memb Ab 6units (0-20) Iron Level 26ug/dL (35-150) Total Iron Binding Capacity 281ug/dL (250-450) Percent Iron Saturation 9%sat (15-50) Unsaturated Iron Binding 255.4ug/dL Total Creatine Kinase 83U/L (21-232) Creatine Kinase MB 4.6ng/mL (0.0-10.4) Creatine Kinase MB % % (0.0-5.0) Hepatitis C RNA Qualitative (PCR) Negative (Negative) Hepatitis C Genotype (.) Hepatitis C Genotype Comment Comment (.) Test 10/18/16 11:50 10/20/16 16:40 10/20/16 17:07 10/21/16 04:05 Urine Color Straw (YELLOW) Urine Appearance Hazy (CLEAR,HAZY) Urine pH 6.0 (5.0-8.0) Urine Specific [place] 1.015 (1.003-1.035) Urine Protein 100mg/dL (NEG,TRACE) Urine Glucose (UA) Negativemg/dL (NEGATIVE) Urine Ketones Negativemg/dL (NEGATIVE) Urine Occult Blood Trace (NEGATIVE) Urine Nitrite Negative (NEGATIVE) Urine Bilirubin Negative (NEGATIVE) Urine Urobilinogen Normalmg/dL (NORMAL) Urine Leukocyte Esterase Negative (NEGATIVE) Urine RBC 0-2/hpf (0-2) Urine WBC 0-5/hpf (0-5) Urine Epithelial Cells Occasional/hpf (NONE-MOD) Urine Crystals None seen (NONE SEEN) Urine Bacteria None/hpf (NONE-FEW) Urine Hyaline Casts None/lpf (NONE) Urine Granular Casts None seen (NONE SEEN) Urine Waxy Casts None seen (NONE SEEN) Urine Red Blood Cell Casts None seen (NONE SEEN) Urine White Blood Cell Casts None seen (NONE SEEN) Urine Mucus None seen (None Seen) Urine Trichomonas None seen (NONE SEEN) Urine Yeast None (NONE SEEN) Urinalysis Comment None Urine Culture Reflexed Not indicated Troponin T 0.055ug/L (0.0-0.011) Hold Urine Received (Received) Procalcitonin 0.18ng/mL (See Comment) Test 10/22/16 03:20 White Blood Count 13.3th/mm3 (3.8-10.1) Red Blood Count 3.57mil/mm3 (4.40-5.80) Hemoglobin 9.0g/dL (13.8-17.2) Hematocrit 28.2% (41.0-50.0) Mean Corpuscular Volume 79.0fL (81-100) Mean Corpuscular Hemoglobin 25.2pg (27.0-35.0) Mean Corpuscular Hemoglobin Concent 31.9% (32.0-37.0) Red Cell Distribution Width 19.5% (12.3-15.4) Platelet Count 342bil/L (150-400) Neutrophils (%) (Auto) 85.7% (40-74) Lymphocytes (%) (Auto) 6.4% (14-46) Monocytes (%) (Auto) 7.1% (4-12) Eosinophils (%) (Auto) 0% (0-5) Basophils (%) (Auto) 0.1% (0-3) Sodium Level 142mEq/L (134-144) Potassium Level 4.6mEq/L (3.5-5.2) Chloride Level 102mEq/L (97-108) Carbon Dioxide Level 24mmol/L (18-29) Blood Urea Nitrogen 89mg/dL (8-27) Creatinine 2.61mg/dL (0.76-1.27) Estimat Glomerular Filtration Rate 27mL/min (>59) Glucose Level 103mg/dL (60-99) Calcium Level 8.1mg/dL (8.5-10.1) Phosphorus Level 4.3mg/dL (2.5-4.9) Magnesium Level 1.7mg/dL (1.6-2.6) Total Bilirubin 0.2mg/dL (0.0-1.2) Aspartate Amino Transf (AST/SGOT) 31U/L (0-50) Alanine Aminotransferase (ALT/SGPT) 51U/L (0-44) Alkaline Phosphatase 77U/L (25-160) Total Protein 4.9g/dL (6.4-8.4) Albumin 2.6g/dL (3.4-5.0) Microbiology Results Blood cultures 2 showed no growth after 2 days. Influenza screen negative. Strep pneumoniae and legionella urine antigens negative. Respiratory viral PCR positive for coronavirus O Oc43. . Discharge Medications Discharge Medications Albuterol Neb Soln (Albuterol Neb Soln) 1.25 Mg/3 Ml Vial.neb 1.25 MG INHALATION Q4H Prescribed by: PAO NOBLES DO Amlodipine (Amlodipine) 5 Mg Tablet 2.5 MG PO DAILY Prescribed by: SHIRLEY DAMON MD Aspirin (Aspirin) 81 Mg Tablet 81 MG PO DAILY Prescribed by: PAO NOBLES DO Azithromycin (Zithromax) 250 Mg Tablet 500 MG PO Q2DAY Prescribed by: PAO NOBLES DO Chlorthalidone (Chlorthalidone) 25 Mg Tablet 25 MG PO DAILY Prescribed by: PAO NOBLES DO Cholecalciferol (Vitamin D3) (Vitamin D) 1,000 Unit Capsule 2,000 UNIT PO DAILY (Reported) Ezetimibe (Zetia) 10 Mg Tablet 10 MG PO DAILY (Reported) Ferrous Sulfate (Feosol) 325 Mg Tablet 325 MG PO BIDWM Prescribed by: SHIRLEY DAMON MD Fluticasone/Salmeterol (Advair 100-50 Diskus) 60 Puffs/Inh Disk 1 PUFFS IH BID Prescribed by: PAO NOBLES DO Furosemide (Furosemide) 20 Mg Tab 20 MG PO DAILY Prescribed by: JUMANA URBAN DO Morphine Sulfate ER (Morphine Sulfate ER) 15 Mg Tablet 15 MG PO BID Prescribed by: JUMANA URBAN DO Pantoprazole DR (Protonix) 20 Mg Tablet 20 MG PO BID Prescribed by: JUMANA URBAN DO Prednisone (Deltasone) 20 Mg Tablet 20 MG PO DAILY Prescribed by: PAO NOBLES DO Quetiapine Fumarate (Quetiapine Fumarate) 25 Mg Tablet 50 MG PO HS Prescribed by: SHIRLEY DAMON MD Rosuvastatin Calcium (Rosuvastatin Calcium) 40 Mg Tablet 40 MG PO DAILY Prescribed by: JUMANA URBAN DO Temazepam (Temazepam) 15 Mg Capsule 15 MG PO BID Prescribed by: JUMANA URBAN DO Tiotropium [place] (Spiriva) 18 Mcg Cap.w.dev 18 MCG IH DAILY Prescribed by: PAO NOBLES DO As needed Clonazepam (Clonazepam) 0.5 Mg Tablet 1 MG PO BID PRN PRN anxiety Prescribed by: LAUREEN CUMMINGS DO Nitroglycerin SL (Nitroglycerin SL) 0.4 Mg Tab.subl 0.4 MG SL Q5MIN PRN PRN For Chest Pain (Reported) oxyCODONE (oxyCODONE) 5 Mg Tablet 5 MG PO Q8H PRN PRN severe pain Prescribed by: LAUREEN CUMMINGS DO Additional med instructions - Azithromycin 500 mg Q2Day as outpatient. - Prophylactic Tamiflu 45 mg daily. - Continue with low dose Aspirin and Beta Blockers (labetalol). - Typically I would recommend carvedilol instead of labetalol in this patient's situation given the fact he has reduced LVEF and ischemic heart disease. - ACEi's are probably not a great choice given his history of CKD. Possibly consider Isordil/Hydralazine TID for afterload/preload reduction. - Prednisone tapering at 30 mg PO daily. Will start 20mg tomorrow and to go home with 20mg daily for 20 days managed by PCP - Triple therapy inhalers and nebulizer upon discharge. - Rosuvastatin to be continued. - Lasix 20mg PO daily. - Continue Protonix. - Continue home ASA. - Continue oral iron. Followup Plan Follow-up plan Recommend that he follows up with Dr. Dodd as an outpatient to manage CAD and his ischemic heart disease. Follow up in 1-2 weeks with your PCP, Dr. Lamas for post hospitalization and medication review. Discharge Activity: Home Health Phyical Therapy Patient Instructions Recommend home with home health. Follow-up Provider: Jemima Dodd MD Follow-up with PCP in: 2 weeks Provider: Leo Lamas MD Follow-up in: 2 weeks Attending Statement The patient was seen and examined together with Dr. Nobles on 10-22-16 and I agree with the history, exam and plan as outlined in the note above. copies to: Jemima Dodd MD; Leo Lamas MD, COREY P DO Oct 22, 2016 19:35 Cinthya Vásquez MD Oct 30, 2016 09:21
[2016-10-27 14:10] LABS: Antiproteinase 3 (PR-3) Abs <3.5 U/mL (0.0-3.5); Perinuclear (P-ANCA) <1:20 titer (Neg:<1:20)
== END 2016-10-22 13:45 | disposition home health service (06) | DRG 133 ==
LOC: SED 14:15 → MPC 20:34 → PCC 10-14 01:20
PROVIDERS: ADMIT Specialist; ATTEND Specialist
PROC: 5A09558 Assistance with Respiratory Ventilation, Greater than 96 Consecutive Hours, Intermittent Positive Airway Pressure (ICD-10-PCS; principal; 2016-10-13)
PROC: 4A033R1 Measurement of Arterial Saturation, Peripheral, Percutaneous Approach (ICD-10-PCS; 2016-10-14)
DX: J96.01 Acute respiratory failure with hypoxia (principal); J44.1 Chronic obstructive pulmonary disease with (acute) exacerbation; K92.2 Gastrointestinal hemorrhage, unspecified; I13.0 Hypertensive heart and chronic kidney disease with heart failure and stage 1 through stage 4 chronic kidney disease, or unspecified chronic kidney disease; I50.42 Chronic combined systolic (congestive) and diastolic (congestive) heart failure; N18.3 Chronic kidney disease, stage 3 (moderate); E87.2 Acidosis; N17.9 Acute kidney failure, unspecified; E78.5 Hyperlipidemia, unspecified; I73.9 Peripheral vascular disease, unspecified; D63.1 Anemia in chronic kidney disease; I25.2 Old myocardial infarction; F17.210 Nicotine dependence, cigarettes, uncomplicated; Z79.82 Long term (current) use of aspirin; Z95.1 Presence of aortocoronary bypass graft; Z86.14 Personal history of Methicillin resistant Staphylococcus aureus infection; L97.909 Non-pressure chronic ulcer of unspecified part of unspecified lower leg with unspecified severity; I48.91 Unspecified atrial fibrillation

== ENCOUNTER 2016-10-23 13:17 | Inpatient (IN) | payer OTHER, MEDICAID ==
[2016-10-23] VITALS (7 sets, daily range): BP systolic 129–159; BP diastolic 60–89; PULSE 69–107; RESP 12–25; O2SAT 91–98
[~2016-10-23] VITALS: Ht 165.1 cm; Wt 63.3 kg
[~2016-10-23 13:17] MED LIST changes: +ADV100INH IH; +ALBU1.25 INHALATION; -ASPI-235 PO; +ASPI-973 PO; -CARV25TA2 PO; +HYG25 PO; +TIOT18CA3 IH
--- NOTE | 2016-10-23 13:35 | ED.REPORT ---
HPI-General Illness Date of Service Oct 23, 2016 ED Provider: Jake Ricci MD 60 year old male presents to the ED via EMS after he was found on the ground by his sister. Pt unable to recall how long he was on the ground before EMS arrival. He states that he got tired yesterday and laid down on the floor. He was too weak to get up and was then found this morning. Patient DC'd yesterday after admit - for a multitude of issues, chronic respiratory failure, COPD, elevated troponins, acute on chronic kidney injury, chronic hypertension, chronic upper GI bleed, chronic kidney, disease, chronic lower extremity ulcerations, chronic A. fib. He states " I just don't feel good." Additionally, he reports abd pain, but is a poor historian otherwise. Nursing Notes Stated Complaint: GROUND LEVEL FALL Chief Complaint: General Complaint Nursing Notes Reviewed: Yes ([employer] not reconciled) Allergies: Coded Allergies: atorvastatin (Verified Allergy, Intermediate, myalgias, 04/18/16) pravastatin (Verified Allergy, Intermediate, myalgias, 04/18/16) propoxyphene (Verified Allergy, Intermediate, Hives, 04/18/16) PT DENIES KNOWLEDGE OF ANY DRUG ALLERGIES amoxicillin (Verified Adverse Reaction, Intermediate, diarrhea, 04/18/16) clavulanic acid (Verified Adverse Reaction, Intermediate, diarrhea, 04/18/16 ) niacin (Verified Adverse Reaction, Intermediate, flushing, 04/18/16) phenytoin (Verified Adverse Reaction, Mild, itching, 04/18/16) Scheduled Albuterol Neb Soln (Albuterol Neb Soln) 1.25 Mg/3 Ml Vial.neb 1.25 MG INHALATION Q4H Amlodipine (Amlodipine) 5 Mg Tablet 2.5 MG PO DAILY Aspirin (Aspirin) 81 Mg Tablet 81 MG PO DAILY Azithromycin (Zithromax) 250 Mg Tablet 500 MG PO Q2DAY Chlorthalidone (Chlorthalidone) 25 Mg Tablet 25 MG PO DAILY Cholecalciferol (Vitamin D3) (Vitamin D) 1,000 Unit Capsule 2,000 UNIT PO DAILY Ezetimibe (Zetia) 10 Mg Tablet 10 MG PO DAILY Ferrous Sulfate (Feosol) 325 Mg Tablet 325 MG PO BIDWM Fluticasone/Salmeterol (Advair 100-50 Diskus) 60 Puffs/Inh Disk 1 PUFFS IH BID Furosemide (Furosemide) 20 Mg Tab 20 MG PO DAILY Morphine Sulfate ER (Morphine Sulfate ER) 15 Mg Tablet 15 MG PO BID Pantoprazole DR (Protonix) 20 Mg Tablet 20 MG PO BID Prednisone (Deltasone) 20 Mg Tablet 20 MG PO DAILY Quetiapine Fumarate (Quetiapine Fumarate) 25 Mg Tablet 50 MG PO HS Rosuvastatin Calcium (Rosuvastatin Calcium) 40 Mg Tablet 40 MG PO DAILY Temazepam (Temazepam) 15 Mg Capsule 15 MG PO BID Tiotropium [place] (Spiriva) 18 Mcg Cap.w.dev 18 MCG IH DAILY Scheduled PRN Clonazepam (Clonazepam) 0.5 Mg Tablet 1 MG PO BID PRN PRN anxiety Nitroglycerin SL (Nitroglycerin SL) 0.4 Mg Tab.subl 0.4 MG SL Q5MIN PRN PRN For Chest Pain oxyCODONE (oxyCODONE) 5 Mg Tablet 5 MG PO Q8H PRN PRN severe pain General Time Seen by MD: 13:31 Chief Complaint Other (Found down) Hx Obtained From: Patient, EMS Unable to Obtain Hx: Patient condition (Poor historian) Arrived By: Ambulance Past Medical History Past Medical History Notes: PCP: Dr. Lamas Patient DC'd yesterday after admit - for a multitude of issues, chronic respiratory failure, COPD, elevated troponins, acute on chronic kidney injury, chronic hypertension, chronic upper GI bleed, chronic kidney disease, chronic lower extremity ulcerations, chronic A. fib... Past Medical History 1. tobacco abuse. 2. Emphysema. 3. Hyperlipidemia. 4. Hypertension. 5. Peripheral vascular disease - extensive, severe - patient was undergone multiple revascularization procedures, and at least several stents - however the details, and location are unclear on review (01/24/16) 6. chronic microcytic anemia 7. 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 8. Myocardial infarction 9. Seizure 10. chronic non-healing LLE ulcers, follow by Wound Care 11. chronic pain, on morphine 12. GI bleed History of MRSA pneumonia History of chronic atrial fibrillation on anticoagulation and anemia and propensity for GI bleeding Reports: Coronary artery disease Past Surgical History BLE stent placement H/O multiple revascularization procedures left hip surgery Reports: CABG Family History Father reportedly had "five heart attacks before the last one killed him" Mother at age 78 with dementia Reports: Coronary artery disease Smoking History Current Every Day Smoker Social History Alcohol Use: "Social" Other Social History: Good social support, Local resident Ambulatory Status Independent Review of Systems Unable to Obtain ROS Patient condition (poor historian) Full Review of Systems Constitutional: Reports: Malaise, Weakness - generalized GI: Reports: Abdominal pain Physical Exam Vital Signs Vital Signs Date Time Temp Pulse Resp B/P Pulse Ox O2 Delivery O2 Flow Rate FiO2 10/23/16 16:48 87 12 152/60 96 Nasal Cannula 2 10/23/16 15:45 90 22 10/23/16 14:31 107 22 91 Room Air 10/23/16 13:24 36.5 104 25 148/60 96 Room Air Initial VS: Reviewed, Vital signs abnormal General/Constitutional: Awake Appears very weak and chronically ill. Head / Eyes: Normocephalic, PERRL, No scleral icterus, Conjunctiva NL Bilat periorbial and facial edema of uncertain acuity. No head or facial trauma. Neck: Atraumatic, Full range of motion Resp Distress / Stridor: Positive: Resp distress mild (mildy dyspneic) scattered wheezes and rhonchi in all lung garcia. Cardiovascular: Regular rhythm, Heart sounds NL, Peripheral circulation NL Heart Rate / Rhythm: Positive: Tachycardia Abdomen: Soft, Non-tender, No guarding, No rebound Back: Atraumatic, Inspection NL Lower Extremity / Pelvis / MS: Full range of motion, Neurologic intact, Vascular intact 1+ edema to bilat ankles. Skin: Warm, Dry Neurologic: Oriented X3, Speech NL Globally weak with no focal findings. Interpretation & Diagnostics Lab Results Interpretation Result Diagram: 10/23/16 1535 10/23/16 1535 Test 10/23/16 13:42 10/23/16 14:20 10/23/16 15:35 Hold Urine Received (Received) Urine Color Straw (YELLOW) Urine Appearance Hazy (CLEAR,HAZY) Urine pH 7.0 (5.0-8.0) Urine Specific [place] 1.020 (1.003-1.035) Urine Protein 100mg/dL (NEG,TRACE) Urine Glucose (UA) Negativemg/dL (NEGATIVE) Urine Ketones Negativemg/dL (NEGATIVE) Urine Occult Blood Moderate (NEGATIVE) Urine Nitrite Negative (NEGATIVE) Urine Bilirubin Negative (NEGATIVE) Urine Urobilinogen Normalmg/dL (NORMAL) Urine Leukocyte Esterase Negative (NEGATIVE) Urine RBC 0-2/hpf (0-2) Urine WBC 0-5/hpf (0-5) Urine Epithelial Cells Occasional/hpf (NONE-MOD) Urine Crystals None seen (NONE SEEN) Urine Bacteria None/hpf (NONE-FEW) Urine Hyaline Casts None/lpf (NONE) Urine Granular Casts None seen (NONE SEEN) Urine Waxy Casts None seen (NONE SEEN) Urine Red Blood Cell Casts None seen (NONE SEEN) Urine White Blood Cell Casts None seen (NONE SEEN) Urine Mucus None seen (None Seen) Urine Trichomonas None seen (NONE SEEN) Urine Yeast None (NONE SEEN) Urinalysis Comment None Urine Culture Reflexed Not indicated White Blood Count 15.3th/mm3 (3.8-10.1) Red Blood Count 2.99mil/mm3 (4.40-5.80) Hemoglobin 7.6g/dL (13.8-17.2) Hematocrit 23.5% (41.0-50.0) Mean Corpuscular Volume 78.6fL (81-100) Mean Corpuscular Hemoglobin 25.4pg (27.0-35.0) Mean Corpuscular Hemoglobin Concent 32.3% (32.0-37.0) Red Cell Distribution Width 19.5% (12.3-15.4) Platelet Count 355bil/L (150-400) Neutrophils (%) (Auto) 89.0% (40-74) Lymphocytes (%) (Auto) 5.4% (14-46) Monocytes (%) (Auto) 5.2% (4-12) Eosinophils (%) (Auto) 0.1% (0-5) Basophils (%) (Auto) 0% (0-3) Prothrombin Time 10.7sec (8.1-12.5) Prothromb Time International Ratio 1.00ratio Sodium Level 140mEq/L (134-144) Potassium Level 4.1mEq/L (3.5-5.2) Chloride Level 97mEq/L (97-108) Carbon Dioxide Level 23mmol/L (18-29) Blood Urea Nitrogen 94mg/dL (8-27) Creatinine 2.72mg/dL (0.76-1.27) Estimat Glomerular Filtration Rate 25mL/min (>59) Glucose Level 84mg/dL (60-99) Lactic Acid Level 1.4mmol/L (0.4-2.0) Calcium Level 8.2mg/dL (8.5-10.1) Magnesium Level 1.9mg/dL (1.6-2.6) Total Bilirubin 0.4mg/dL (0.0-1.2) Aspartate Amino Transf (AST/SGOT) 46U/L (0-50) Alanine Aminotransferase (ALT/SGPT) 47U/L (0-44) Alkaline Phosphatase 86U/L (25-160) Total Creatine Kinase 847U/L (21-232) Troponin T 0.115ug/L (0.0-0.011) Total Protein 5.4g/dL (6.4-8.4) Albumin 3.1g/dL (3.4-5.0) Lab Results Interpretation: C positive leukocytosis Hematocrit has dropped from 28 yesterday CMP chronic renal insufficiency not appreciably changed, glucose adequate CPK marginally elevated, but not severely so General Lab Results Interp 1: Labs reviewed ECG Interpretation ECG Interpretation: LVH with repol Unchanged from 2 days ago Time: 15:50 Interpreted by: ED physician Normal ECG Interpretation: Normal rate (95), Normal sinus rhythm X-Ray Chest Interpretation Chest Xray Interpretation: IMPRESSION: Persistent retrocardiac atelectasis, aspiration, or pneumonia. Dictated by: Chris Plunkett M.D. on 10/23/2016 at 15:10 View: Portable, 1 view Interpretation / Wet Read by: Interpret - Radiologist Re-Eval/Medical Decision Med Decision/Clinical Course This is a 60-year-old male multiple recent admissions just discharged yesterday went home. Reports he felt weak, like down the floor and remained there until home health came and found him on the floor today. Not had anything to eat or drink since yesterday, he is not taking any of his medicines, he still feels short of breath, denies any actual trauma-he reports he did not fall or hit himself but he laid about self down. He now has Periorbital edema he thinks is from having his face later on the floor. He appears mildly short of breath but thinks that may be his baseline, and I had a resident who had seen him during his hospitalization is that he does look better from a respiratory standpoint than before even though he has profound rhonchi and wheezes in all garcia and is mildly tachypnea. Abdomen notable for a significant 5. drop in his hematocrit. He has recently admitted for many anemia and transfusion and early September. He has been typed and cross and transfusion is being planned. He is too weak and unsafe for discharge, [place] for direct trauma [facility] given the dramatic drop in hematocrit, the lack of stability, profound weakness, the plan is readmission. He received empiric albuterol and Atrovent for his chronic lung disease, his radiograph is not appreciably changed Case discussed with hospitalisst. Source of Hx: Old records Time of Eval: 15:00 Re-Evaluation/Progress Note: Pt updated. Time of Eval: 17:59 Re-Evaluation/Progress Note: Updated pt of labs, ECG and imaging results. Recommended admission. Pt understands and agrees with plan. All questions addressed. Consultation #1: Call Returned at: 14:55 Note: A resident that was following the patient while hospitalized last week, came down to evaluate the patient. He states that the facial edema is new, but otherwise the patient is at baseline. Consultation #2: Referral / Consult Name: Luis Angel Howell MD Consulted With: Hospitalist Call Returned at: 17:58 Sales Ambassador: Will see patient, Agrees with eval, Agrees with plan, Accepts admit Differential Diagnosis: Negative: Abdominal pain, Drug dependence, G-tube repair/replacement, Malingering, Medical clearance, Medication refill, Neutropenia Counseled Regarding: Diagnosis, Lab results, Need for admission Discharge & Departure Primary Impression: Weakness Additional Impressions: Anemia Anemia type: unspecified type Qualified Code: D64.9 - Anemia, unspecified Chronic obstructive pulmonary disease (COPD) COPD type: unspecified COPD Qualified Code: J44.9 - Chronic obstructive pulmonary disease, unspecified Chronic renal insufficiency Chronic kidney disease stage: stage 3 (moderate) Qualified Code: N18.3 - Chronic kidney disease, stage 3 (moderate) Disposition: ADMITTED TO HOSPITAL Discharge Condition All VS Reviewed: Yes Referrals: Leo Lamas MD (PCP) Scribe Attestation Portions of this note were transcribed by Dhara Henao. I, (Dr. Ricci) personally performed the history, physical exam and medical decision-making; I reviewed and confirmed the accuracy of the information in the transcribed note. Signed by: Dhara Henao. 10/23/2016, 1800 copies to: Leo Lamas MD, Matthew F MD Oct 23, 2016 13:35 Dhara Henao Oct 23, 2016 13:59
[2016-10-23] MEDS ORDERED: Ipratropium 0.02% 0.5 mg/2.5 mL Inhalation Solution NEB ONE ×2 (14:05→15:30)
[2016-10-23] MEDS ORDERED: Albuterol 2.5 mg/3 mL Inhalation Solution NEB ONE ×2 (14:05→15:30)
[2016-10-23 14:41] LABS: APPEARANCE,URINE HAZY (CLEAR,HAZY); COLOR,URINE STRAW (YELLOW); OCCULT BLOOD,URINE MODERATE (NEGATIVE); UROBILINOGEN,URINE NORMAL (NORMAL)
--- NOTE | 2016-10-23 15:12 | DRSVH ---
PROCEDURE: X-RAY CHEST ONE VIEW, PORTABLE ([id number]) INDICATIONS: 60 year-old male with shortness of breath. TECHNIQUE: One view of the chest was acquired. COMPARISON: [facility], CR, XR CHEST 1VW (PORTABLE), 10/20/2016, 13:46. [facility], CR, XR CHEST 1VW (PORTABLE), 10/19/2016, 5:37. [facility], CR, XR CHEST 1VW (PORT ABLE), 10/18/2016, 1:55. FINDINGS: Surgical changes and devices: Patient is status post coronary artery bypass grafting. Lungs and pleura: There is persistent retrocardiac air space opacity. Right lung now appears clear. N o pleural effusions or pneumothorax. Mediastinum: Mediastinal contours appear normal. Heart size is normal. There is aortic atheroscler osis. Bones and chest wall: No suspicious bony lesions. Overlying soft tissues appear unremarkable. IMPRESSION: Persistent retrocardiac atelectasis, aspiration, or pneumonia. Dictated by: Chris Plunkett M.D. on 10/23/2016 at 15:10 Approved by: Chris Plunkett M.D. on 10/23/2016 at 15:10
[2016-10-23 15:57] LABS: BASOPHILS % (AUTO) 0 % (0-3); EOSINOPHILS % (AUTO) 0.1 % (0-5); MONOCYTES % (AUTO) 5.2 % (4-12); Mean Corpuscular Hemoglobin 25.4 pg (27.0-35.0); Mean Corpuscular Volume 78.6 fL (81-100); Platelet Count 355 bil/L (150-400)
[2016-10-23 17:44] LABS: Magnesium 1.9 mg/dL (1.6-2.6)
--- NOTE | 2016-10-23 17:59 | PCM.HPMED ---
Subjective Date of Service Oct 23, 2016 Primary Provider: Admitting Physician: Luis Angel Howell MD Primary Care Physician: Leo Lamas MD Attending Physician: Luis Angel Howell MD Chief Complaint: Weakness, anemia, failure to thrive History of Present Illness: 60 year old male presents to the ED via EMS after he was found on the ground by his sister. Pt unable to recall how long he was on the ground before EMS arrival. He states that he got tired yesterday and laid down on the floor. He was too weak to get up and was then found this morning. Patient DC'd yesterday after admit - for a multitude of issues, chronic respiratory failure, COPD, elevated troponins, acute on chronic kidney injury, chronic hypertension, chronic upper GI bleed, chronic kidney, disease, chronic lower extremity ulcerations, chronic A. fib. He states " I just don't feel good." Additionally, he reports abd pain, but is a poor historian otherwise. Review of Systems: Patient says he cannot remember much of anything from the prior day. He states he gave up smoking. He had a normal bowel movement that was brown yesterday. He states he did not eat dinner and woke up on the ground so had not had breakfast. Not clear if he ate since he went home. States he just feels lousy. He denies all of the symptoms below. Gen.: No fevers chills weight loss weight gain + general malaise Eyes: no visual disturbances or blurring vision HEENT: No nose/throat drainage, no pain in ears or throat, no hearing loss Lymph: No lymph nodes noted Cardiac: No chest pain, orthopnea, PND, palpitations , pedal edema or dyspnea on exertion Pulmonary: no cough, wheezing or bringing up of sputum GI: No anorexia nausea vomiting blood or black in the stool I guess one could state anorexia since he did not eat dinner or breakfast since he has been home. But now he is hungry and asking for a turkey sandwich. : no dysuria hematuria urinary frequency or decrease in urine output Musculoskeletal: Joint swelling no joint pain no new muscle aches or back pain Neuro: No syncope, seizures, no new focal weakness, numbness or tingling +LOC Psychiatric: New new anxiety insomnia or depression Endocrine: No new heat or cold intolerances polyuria or polydipsia Hematology: No lymphadenopathy or easy bleeding or bruising noted skin: No new rashes, stasis dermatitis Allergies Coded Allergies: atorvastatin (Verified Allergy, Intermediate, myalgias, 04/18/16) pravastatin (Verified Allergy, Intermediate, myalgias, 04/18/16) propoxyphene (Verified Allergy, Intermediate, Hives, 04/18/16) PT DENIES KNOWLEDGE OF ANY DRUG ALLERGIES amoxicillin (Verified Adverse Reaction, Intermediate, diarrhea, 04/18/16) clavulanic acid (Verified Adverse Reaction, Intermediate, diarrhea, 04/18/16 ) niacin (Verified Adverse Reaction, Intermediate, flushing, 04/18/16) phenytoin (Verified Adverse Reaction, Mild, itching, 04/18/16) Home Medications Albuterol Neb Soln (Albuterol Neb Soln) 1.25 Mg/3 Ml Vial.neb 1.25 MG INHALATION Q4H Amlodipine (Amlodipine) 5 Mg Tablet 2.5 MG PO DAILY Aspirin (Aspirin) 81 Mg Tablet 81 MG PO DAILY Azithromycin (Zithromax) 250 Mg Tablet 500 MG PO Q2DAY Chlorthalidone (Chlorthalidone) 25 Mg Tablet 25 MG PO DAILY Cholecalciferol (Vitamin D3) (Vitamin D) 1,000 Unit Capsule 2,000 UNIT PO DAILY Ezetimibe (Zetia) 10 Mg Tablet 10 MG PO DAILY Ferrous Sulfate (Feosol) 325 Mg Tablet 325 MG PO BIDWM Fluticasone/Salmeterol (Advair 100-50 Diskus) 60 Puffs/Inh Disk 1 PUFFS IH BID Furosemide (Furosemide) 20 Mg Tab 20 MG PO DAILY Morphine Sulfate ER (Morphine Sulfate ER) 15 Mg Tablet 15 MG PO BID Pantoprazole DR (Protonix) 20 Mg Tablet 20 MG PO BID Prednisone (Deltasone) 20 Mg Tablet 20 MG PO DAILY Quetiapine Fumarate (Quetiapine Fumarate) 25 Mg Tablet 50 MG PO HS Rosuvastatin Calcium (Rosuvastatin Calcium) 40 Mg Tablet 40 MG PO DAILY Temazepam (Temazepam) 15 Mg Capsule 15 MG PO BID Tiotropium [place] (Spiriva) 18 Mcg Cap.w.dev 18 MCG IH DAILY Scheduled PRN Clonazepam (Clonazepam) 0.5 Mg Tablet 1 MG PO BID PRN PRN anxiety Nitroglycerin SL (Nitroglycerin SL) 0.4 Mg Tab.subl 0.4 MG SL Q5MIN PRN PRN For Chest Pain oxyCODONE (oxyCODONE) 5 Mg Tablet 5 MG PO Q8H PRN PRN severe pain PMH tobacco abuse. Emphysema. 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 Seizure chronic non-healing LLE ulcers, follow by Wound Care chronic pain, on morphine GI bleed History of MRSA pneumonia History of chronic atrial fibrillation on anticoagulation and anemia and propensity for GI bleeding Reports: Coronary artery disease Past Surgical History BLE stent placement H/O multiple revascularization procedures left hip surgery Reports: CABG Family History Father reportedly had "five heart attacks before the last one killed him" Mother at age 78 with dementia Reports: Coronary artery disease Smoking History Current Every Day Smoker Social History Alcohol Use: "Social" Other Social History: Good social support, Local resident Ambulatory Status Independent Social History Hx Alcohol Use: Yes (quit 1 year ago) Hx Substance Use: Yes (marijuana "once in a while") Hx Tobacco Use: Yes Smoking Status: Current Every Day Smoker Exam Vital Signs Vital Sign - Last Date Time Temp Pulse Resp B/P Pulse Ox O2 Delivery O2 Flow Rate FiO2 10/23/16 16:48 87 12 152/60 96 Nasal Cannula 2 10/23/16 13:24 36.5 Exam Gen.- A+ O 3 no apparent distress. Frail wisp of a man who looks much older than stated age and looks exhausted and tired Eyes- open conjunctiva clear, pupils equal nonicteric Mouth- oral mucosa moist, no exudate ENT- ears normal, nose normal Neck- supple/trach midline CVS- RRR no murmur or gallop Lungs- patient moves they are all right, no accessory muscle usage there are crackles at the right base GI- NABS/NT soft, flat Musc- moving 4 no obvious deformity Neuro- cranial nerves II through XII intact to gross examination, nonfocal Skin- warm and dry, no rashes/lesions/wounds noted Psych- pleasant and appropriate, Lab and Diagnostics Labs LFTs- AST 46, ALT 47 [place] CK 847, BU and 94/CR 2.72, PT 10.7, INR 1.0, UA Result Diagram: 10/23/16 1535 10/23/16 1535 X-Rays, CTs and MRIs CXR concurrently reviewed by myself persistent retrocardiac atelectasis/ aspiration or pneumonia Assessment & Plan 60-year-old male discharged yesterday to home found on the ground with a lower hemoglobin than yesterday. Possible GI bleed-follow H&H and check stool for blood, PPI prophylaxis. Patient is hemodynamically stable so I see no indication for urgent transfusion at this point in time and have canceled the 2 units ordered from the emergency room. Acute/chronic anemia- checking anemia panel, follow H&H and transfuse as needed Weakness/failure to thrive-PT eval and case management/social work. Patient more agreeable to placement and even going to his sister's house now. COPD/pneumonia-bumping prednisone from 20 back up to 40 mg continuing Zithromax as previously and bronchodilators Chronic systolic CHF-check BNP and judiciously manage fluids CAD, HTN, lipids, PVD, hx pafib-it is not entirely clear why this patient is not on a beta laney such as Coreg for CAD/CHF, continue his home BP regimen and rosuvastatin for lipids and aspirin for CAD/PVD Ongoing tobacco abuse-recommend cessation, ongoing nicotine replacement Chronic pain with continuous opiate dependence-continue prior opiate regimen of morphine sulfate 15 mg twice a day with when necessary oxycodone Prophylaxis-DVT, heparin as SCDs are contraindicated with peripheral vascular disease, GI patient is already on a PPI Disposition-he is from home independent living in a full code. If patient does not drop his H&H and is not acutely bleeding then we need to mobilize him and figure out a better discharge plan than the one that took place. Luis Angel Howell MD Oct 23, 2016 17:59
[2016-10-23 18:09] LABS: TROPONIN T 0.115 ug/L (0.0-0.011)
[2016-10-23] MEDS ORDERED: Ondansetron 2 mg/mL 2 mL Inj IVPUSH PRN (18:20)
[2016-10-23] MEDS ORDERED: Alum-Mag Hydrox-Simeth 30 mL Suspension PO PRN (18:20)
[2016-10-23] MEDS ORDERED: 0.9% Sodium Chloride 250 ML IV ONE (18:20)
[2016-10-23] MEDS ORDERED: Polyethylene Glycol (PEG) 17 Gm Powder PO PRN (18:20)
[2016-10-23] MEDS: Albuterol 1.25 mg/3 mL Inhalation Solution INHALATION SCH ×2 (18:25→22:25)
[2016-10-23 19:31] LABS: Unsaturated Iron Binding 296.4 ug/dL
[2016-10-23] MEDS: Fluticasone-Salmeterol 100-50 Inhaler INHALATION SCH (22:20)
[2016-10-23] MEDS: Pantoprazole 20 mg ER24 Tablet PO SCH (22:22)
[2016-10-23] MEDS: Morphine ER 15 mg (MS Contin) Tablet PO SCH (22:22)
--- NOTE | 2016-10-23 22:42 | NUR ---
Admit note: Pt admitted from ER, able to stand and pivot a few steps to the bed. Reports some dizziness when up. VSS. The ER doctor had ordered for the pt to receive RBCs tonight, Swing hospitalist was to patient's room and d/c'd the transfusion tonight. To watch pt tonight, trending H & H. Pt was able to eat a dinner after arriving, stated that helped give him some energy. Pt is slightly confused, was able to state name, birthday, at [facility], but did not know the date or year. RN did talk to pt's sister Tiffani on the phone who stated pt is not usually confused but he was "not quite himself" when she found him on the floor earlier today. Pt arrived on 2L NC 98%, CPOX is being used for high risk for FIDEL score. Pt was decreased to 1L NC currently 95%. Denies shortness of breath. RN asked pt is he uses oxygen at home, he stated "yes", when asked how much he stated "I don't know". Pt oriented to room and call light, bed alarm activated.
[2016-10-24] VITALS (20 sets, daily range): BP systolic 122–152; BP diastolic 72–84; PULSE 81–113; RESP 18–20; O2SAT 87–98
[2016-10-24] MEDS: Albuterol 1.25 mg/3 mL Inhalation Solution INHALATION SCH ×6 (00:57→20:25)
--- NOTE | 2016-10-24 02:54 | NUR ---
Critical lab: Hemoglobin 6.7. Night hospitalist paged, awaiting orders. Addendum: 10/24/16 at 0343 by MARY BAZZI RN Night hospitalist aware. No new orders, trend H & H with am labs. Addendum: 10/24/16 at 0638 by MARY BAZZI RN New H&H 6.3 & 19.9. Night hospitalist paged.
[2016-10-24 06:14] LABS: BASOPHILS % (AUTO) 0 % (0-3); EOSINOPHILS % (AUTO) 0.1 % (0-5); Mean Corpuscular Hemoglobin 25.3 pg (27.0-35.0); Mean Corpuscular Volume 79.9 fL (81-100); Platelet Count 249 bil/L (150-400)
[2016-10-24 07:58] LABS: TROPONIN T 0.133 ug/L (0.0-0.011)
[2016-10-24] MEDS ORDERED: predniSONE 20 mg Tablet PO SCH (08:30)
--- NOTE | 2016-10-24 08:34 | PCM.PNMED ---
Subjective Date of Service Oct 24, 2016 Subjective Patient laying in bed complains of fatigue and dyspnea which has worsened since yesterday. Denies fevers, chills, coughing up blood or blood in stool/tarry stool. Exam Vital Signs Vital Sign - Last Date Time Temp Pulse Resp B/P Pulse Ox O2 Delivery O2 Flow Rate FiO2 10/24/16 06:38 Supplement Oxygen 10/24/16 05:25 37.1 94 20 134/77 96 2.00 Intake and Output 10/23/16 10/23/16 10/24/16 Cumulative From/Thru 15:00 23:00 07:00 10/23/16 13:24 - 10/24/16 06:38 Output Total 100 ml 100 ml Balance -100 ml -100 ml Output Urine Total 100 ml 100 ml # Voids 1 1 Exam General/Constitutional: Thin, Awake and alert, in mild distress, chronically ill appearing and tired Head / Eyes: Normocephalic, PERRL, Mild scleral icterus, Conjunctiva NL Neck: Supple Resp: Mild respiratory distress, no use of accessory muscles, scattered wheezes on lower lobes bilaterally Cardiovascular: Regular rhythm, Heart sounds NL no murmurs appreciated, pedal pulse NL Abdomen: Soft, Tenderness to palpation on LLQ MSK: 1+ pitting edema LE Neuro: No focal neuro deficits Psych: NL mood and affect Skin: Dowy edematous with periorbital swelling, Warm, Dry, poor skin tugor. IVs and Medications Medications Reviewed: Medications were reviewed in detail Lab and Diagnostics Result Diagram: 10/24/16 0520 10/24/16 0520 X-Rays, CTs and MRIs CXR concurrently reviewed by myself persistent retrocardiac atelectasis/ aspiration or pneumonia Assessment & Plan Patient is a 60-year-old male with a complex past medical history including chronic foot ulcers, recent undiagnosed GI bleeding, systolic and diastolic congestive heart failure, CAD, A. fib, history of MRSA pneumonia, as well as, C. difficile, with multiple recent hospitalizations, who presented to [facility] ED found on the ground with a lower hemoglobin than yesterday. Day #1 Possible GI bleed Recent previous admission for GI bleed, thought poor candidate for endoscopy. Discharged after one unit red blood cell transfusion. Previous EGD showed erosive esophagitis and gastritis, unremarkable colonoscopy (03/07/2016). 2 unit PRBC given this am H&H every 6H x4 now on PPI ggt GI consult placed, appreciate time and recommendations Acute on chronic anemia 2 units PRBC given for hemoglobin decreasing from 7.6 on admit to 6.3 this morning anemia panel pending follow H&H and transfuse as needed Weakness/failure to thrive PT eval and case management/social work Acute on chronic kidney injury, present on admission. Creatinine on admission 2.72 and Baseline around 1.7, currently 2.87. gentle fluids Nephrology consult placed, appreciate time and recommendations Elevated troponins of unknown significance, present on admission. Troponins - 0.113 on admission trend Troponin Q6H x4 Statin held due to renal impairment and Rosuvastatin is renally eliminated. He has allergies to atorvastatin and pravastatin. Will resume home meds upon discharge. COPD patient recently discharged on 10/08/16 and 10/22/16 increasing prednisone from 20mg back up to 40 mg continuing Zithromax as previously DuoNebs and albuterol Chronic systolic CHF, present on admission. Echo from 09/16/2016 showed improved ejection fraction from 40% to 50-55% with areas of hypokinesis which are also chronic and mild systolic failure, also to note small atrial septal defect noted. check BNP and judiciously manage fluids Chronic hypertension with hypertensive heart secondary to hypertensive nephrosclerosis. Lasix 40mg PO daily. Monitor vital signs. Hx of A-fib telemetry Chronic lower extremity ulcerations with PVD, present on admission. wound care Ongoing tobacco abuse counseled on smoking cessation ongoing nicotine replacement Chronic pain with continuous opiate dependence continue prior opiate regimen of morphine sulfate 15 mg twice a day with oxycodone for break through Prophylaxis-DVT, heparin as SCDs are contraindicated with peripheral vascular disease, GI patient is already on a PPI Disposition-he is from home independent living. Code status: FULL VTE Prophylaxis: Sub-Q Heparin (Unfractionated) Resuscitation Status: CPR: Attempt Resuscitation Attending Statement The patient was seen and examined together with Dr. Sauer on 10/24/2016 and I agree with the history, exam and plan as outlined in the note above. Jessica Sauer DO Oct 24, 2016 08:25 Vaughn England MD Oct 25, 2016 10:39
[2016-10-24] MEDS: Morphine ER 15 mg (MS Contin) Tablet PO SCH ×2 (08:49→20:05)
[2016-10-24] MEDS: Pantoprazole 20 mg ER24 Tablet PO SCH (08:49)
[2016-10-24] MEDS: Tiotropium 18mcg/Cap 5 Capsule Inhaler Kit INHALATION SCH (08:50)
[2016-10-24] MEDS: Fluticasone-Salmeterol 100-50 Inhaler INHALATION SCH ×2 (08:50→20:03)
[2016-10-24] MEDS ORDERED: Pantoprazole 8 mg/Hr Infusion IV SCH ×2 (12:00)
--- NOTE | 2016-10-24 15:50 | NUR ---
Social Work-initial assessment: Data:See initial assessment. Pt is a 60 y/o male who was admitted on 10/23/16 for weakness per H&P. Pt insurance is [employer] and PCP is Leo Lamas MD. EMR Reviewed. SW met with pt to discuss discharge planning, SW role explained. Pt just discharged home a couple days ago with resume HH through [facility]. Pt resides at home alone in an apartment where he remains independent with ADLS. Pt does not use any DME and does not drive. Pt is currently open with [facility] , left message for Frankie Nash, [facility] liaison informing him of pt's admission, pt has no SNF history. Pt has no roasterman care or VA benefits. Pt has no DPOA/advanced directive, pt states his sister is working on this. PT evaluation is pending. Pt anticipates to return home with Resume HH orders. Pt states his sister will provide transport home. SW placed phone number and plan on white board in room. SW will continue to follow. Assessment:Pt who would benefit from HH. Plan:Pt to discharge home when medically stable via POV. Pt will need resume HH through [facility] at discharge. PT evaluation is pending. SW will continue to follow. ESAU Post Addendum: 10/24/16 at 1554 by OLGA BARNETT SS Amended: Links added.
--- NOTE | 2016-10-24 17:29 | NUR ---
Endo refusal Pt consulted by GI who recommended clear diet for dinner tonight in anticipation of endoscopy procedure tomorrow. Pt refused and said he "will do it in a few days", and that he wants to eat now instead. GI brought me into room to clarify pt's position again with witness, and pt repeated refusal of GI procedure in favor of eating dinner tonight. Hospitalist notified by GI , continuing to monitor.
[2016-10-24] MEDS: Dextrose 5% 0.45% NaCl 1,000 ML IV SCH (20:03)
--- NOTE | 2016-10-24 21:10 | CONS ---
[address] [address] CONSULTATION REPORT PATIENT: MARGARET ROCHA : 1955 MR#: [id number] ADMIT: 10/23/2016 JOB ID: [id number] DATE OF SERVICE: 10/24/2016 REASON FOR CONSULTATION: Acute on chronic anemia. HISTORY OF PRESENT ILLNESS: The patient is a very pleasant 60-year-old gentleman who was found down on the ground by his sister. EMS was called and he was brought to the hospital. He states that he does not remember falling down but does state that for the last couple of days he has been feeling poorly and easy fatigability. He does, however, state that he does not remember much of anything the day prior to the event above. He does report that he has been having regular brown formed stool. The most recent one was in the hospital today. Review of records indicates that his iron-deficiency anemia has been present at least since February 2016. In February 2016, he was seen by Dr. Soriano and at that time had undergone an upper endoscopy as well as a colonoscopy. The upper endoscopy did reveal evidence of gastritis and old blood in the stomach and the colonoscopy was essentially unremarkable. He has been on iron tablets and has been seeing Dr. Fabio Clark with Hematology for microcytic iron-deficiency anemia. He was last seen in the oncology clinic back in June 2016 and at that time, his hemoglobin was 10.5 with a hematocrit of 33%. On October 05, he was admitted to the hospital for what appears to be a COPD exacerbation and possibly pneumonia. He was then subsequently discharged and then readmitted back to the hospital on October 13 for hospital-acquired pneumonia, COPD exacerbation and possible GI bleed as he reported one episode of melena. However, his hemoglobin on that admission was 10.2 and 31.6 which was his baseline. He was then subsequently discharged from the hospital on October 22. On admission yesterday, he was noted to have a hemoglobin of 7.6 with a hematocrit of 23.5. His white blood cell count was 15.3, platelet count was 355 and subsequently his hemoglobin has been repeated and this morning he was noted to have a hemoglobin of 6.3 with a hematocrit of 19.9. Per my discussion with the primary team, his initial stool guaiac was negative. However, repeat stool guaiac was positive. Upon further interview with the patient, he denies any nausea or vomiting. He does report pain in the left lower quadrant which he states has been present for the last four days. This pain does not improve with bowel movements. He denies any trauma to the area. States he has not had pain like that in the past. PAST MEDICAL HISTORY: Significant for COPD, coronary artery disease, peripheral vascular disease, chronic microcytic anemia. PAST SURGICAL HISTORY: Includes bilateral lower extremity stent placement, history of left hip surgery, and history of coronary bypass grafting. FAMILY HISTORY: Significant for coronary artery disease. SOCIAL HISTORY: Patient reports a history of cigarette use starting at age of 11 up until the age of 60. He reports social alcohol use. HOME MEDICATIONS: 1. Albuterol. 2. Amodopa. 3. Aspirin. 4. Azathioprine. 5. Chlorthalidone. 6. Cholecalciferol. 7. Zetia. 8. Ferrous sulfate 325 mg b.i.d. 9. Fluticasone salmeterol. 10. Furosemide. 11. Morphine sulfate. 12. Pantoprazole 20 mg p.o. b.i.d. 13. Prednisone 20 mg p.o. daily. 14. Quetiapine fumarate. 15. Rosuvastatin. 16. Temazepam. 17. Spiriva. ALLERGIES: 1. ATORVASTATIN. 2. PRAVASTATIN. 3. PROPOXYPHENE. 4. AMOXICILLIN. 5. CLAVULANIC ACID. 6. NIACIN. 7. PHENYTOIN. REVIEW OF SYSTEMS: Positive for generalized malaise as well as he reports there is some irritation in the back of the throat which he describes as a sandpaper-type feeling. He denies any associated dysphagia. PHYSICAL EXAMINATION: His temperature is 37, his pulse is 98, blood pressure is 140/84, respiratory rate is 19, O2 saturation is 95% on 2 L nasal cannula. Generally, he is an chronically ill-appearing gentleman in no apparent distress who answers questions appropriately and is oriented to person, place, and time. HEENT: No pallor. No icterus. Oropharynx is clear. Chest exam: Lung exam reveals some crackles at bilateral bases as well as some rhonchi. Abdomen is soft. He is tender in the left lower quadrant. There is no rebound or guarding. Positive bowel sounds are appreciated. Extremities with trace edema. LABORATORY DATA: Shows a sodium of 140, potassium 4.1, chloride of 23, BUN of 94, creatinine of 2.72, lactic acid was 1.4, total bili 0.4, AST is 46, ALT is 47, alkaline phosphatase is 86, creatine kinase is 847 and troponin is 0.115, total protein 5.4, albumin is 3.1. White blood cell count is 12.2, hemoglobin of 6.3, hematocrit 19.9. MCV of 79.9, platelet count 249. His retic count 4.8. IMAGING: Includes a chest x-ray which shows persistent retrocardiac atelectasis. CT chest, abdomen and pelvis without contrast from April 19, 2016 revealed indeterminate hepatic hypodensities possibly cysts in liver. Also there was a comment of nodular contour of the liver, however, liver and spleen were normal in size. The pancreas contained foci of calcifications in the pancreatic head. There was a moderate amount of free fluid. There is possible mild thickening of the sigmoid colon. ASSESSMENT AND PLAN: 1. A 60-year-old gentleman with multiple medical problems, presenting with acute on chronic anemia. The patient is not having any overt GI bleeding as he reports having had a brown bowel movement today. He does have a history of gastritis as well as esophagitis which may be contributing to his anemia, however, with this degree of H and H drop and without any overt signs, I feel this is less likely and his anemia may be multifactorial. I did discuss with the patient regarding upper endoscopic evaluation. He, however, declined for endoscopy procedure for tomorrow and stated that possibly he may consider it for the next day or the day after. He did state to me that he did not want to be n.p.o. or on a clear liquid diet but wanted to be able to eat solid food now. I will recommend that he be on a PPI daily and would recommend discontinuing the PPI drip as there is no evidence of overt bleeding. Would also continue to follow his H and H closely, and transfuse blood products as needed. Would avoid any NSAIDs or anticoagulants. 2. Left lower quadrant pain. Would recommend cross-sectional imaging for further evaluation. 3. History of ascites. If ascites is seen on repeat imaging, may need to consider doing a diagnostic paracentesis. 4. Calcifications in the head of the pancreas. This is suggestive of chronic pancreatitis, however, the patient does not have any epigastric pain or diarrhea to suggest pancreatic insufficiency. 5. Nodular-appearing liver with ascites. This is suggestive of cirrhosis. Would recommend that if repeat imaging shows evidence of ascites, would send off ascitic fluid for albumin, total protein, cytology, cell count and differential. Thank you for allowing me to participate in the patients care. If you have any further questions, please not hesitate to contact me.
--- NOTE | 2016-10-24 22:18 | CONS ---
[address] [address] CONSULTATION REPORT PATIENT: MARGARET ROCHA : 1955 MR#: [id number] ADMIT: 10/23/2016 JOB ID: [id number] DATE OF SERVICE: 10/24/2016 REQUESTING PHYSICIAN: Luis Angel Howell MD REASON FOR CONSULTATION: Management of abnormal kidney function test. CHIEF COMPLAINT: Ground level fall. HISTORY OF PRESENT ILLNESS: This is a 60-year-old male with multiple past medical history including chronic kidney disease stage 3, upper GI bleed, hypertension, COPD, heart failure, and chronic atrial fibrillation presented to the hospital due to ground level fall. The patient was just discharged home on October 22. He was admitted at that time for a week due to acute hypoxic respiratory failure and CO2 exacerbation. He came back the very next day due to ground level fall. His initial hemoglobin was 7.6 and it dropped to 6.7, and currently is 6.3. He received packed RBCs today. His initial serum creatinine was 2.72. Today it went up to 2.8. His baseline serum creatinine was around 2. During my visit, the patient asking for food. He is now n.p.o. and placed on PPI drip. He had an EGD done previously that showed erosive esophagitis and gastritis. Also, had a colonoscopy in February 2016 which was unremarkable. Of note, he was also found to have elevation of serum troponin. Current level is 0.133. He has no chest pain or shortness of breath during my visit. His blood pressure has been stable. PAST MEDICAL HISTORY: Chronic kidney disease, stage 3, COPD, hypertension, peripheral vascular disease, coronary artery disease status post CABG, chronic nonhealing ulcers, chronic atrial fibrillation, depression, dyslipidemia, COPD, heart failure, peripheral vascular disease, tobacco abuse, seizure, history of GI bleed. PAST SURGICAL HISTORY: Status post bilateral lower extremity stent placement, multiple revascularization left hip surgeries status post CABG. FAMILY HISTORY: Positive for coronary artery disease in the family, dementia. SOCIAL HISTORY: Patient is an active smoker. He uses marijuana once in a while. He quit drinking one year ago. REVIEW OF SYSTEMS: A 14 point review of systems was performed. MEDICATIONS: Reviewed. ALLERGIES: 1. LOVASTATIN. 2. PRAVASTATIN. 3. PROPOXYPHENE. 4. AMOXICILLIN. 5. CLAVULANIC ACID. 6. NIACIN. 7. PHENYTOIN. PHYSICAL EXAMINATION: Vitals: Temperature 37.0, pulse 98, respiratory rate 19, blood pressure 140/84. General appearance: Awake, alert x3. In no acute distress. HEENT: Mild pallor. No jaundice. No JVD. No lymphadenopathy. No thyroid enlargement. Heart: Regular rhythm. Normal S1, S2. No murmur, rubs or gallops. Lungs: Occasional rhonchi bilaterally. No wheezing at this moment. Extremities: Trace edema of the lower extremities. Skin: No rashes. No excoriation. LABORATORY: Sodium 138, potassium 4.0, chloride 97, bicarb 23, BUN 87, creatinine 2.87, glucose 83, calcium 7.6, alkaline phos 462. ASSESSMENT: This is a very complicated case with multiple history of gastrointestinal bleed, chronic obstructive pulmonary disease, heart failure, hypertension, atrial fibrillation, peripheral vascular disease, tobacco abuse presented to the hospital with ground level fall and found to have acute on chronic anemia. His hemoglobin was 6.3, and he received 2 units of blood. He is now with worsening kidney function. Baseline creatinine was around 2. Current number is 2.8. The etiology of acute kidney injury rather due to intravascular volume depletion from the CVA and anemia. The patient has not received any IV contrast over the past 24 hours. At this point, I would like to give him gentle IV fluid with normal saline run at 40 cc/hour overnight. Monitor hemoglobin. Continue Protonix as per GI recommendations. I would recommend to hold diuretics for now. We will monitor his kidney function on a daily basis. We will repeat bladder scan to check postvoid residual. We will repeat a UA to rule out any evidence of infection. Thank you for the consultation. We will monitor along with you.
[2016-10-25] VITALS (11 sets, daily range): BP systolic 128–198; BP diastolic 78–93; PULSE 80–100; RESP 18–22; O2SAT 91–95
[2016-10-25] MEDS: Albuterol 1.25 mg/3 mL Inhalation Solution INHALATION SCH ×3 (00:52→10:25)
[2016-10-25] MEDS: Pantoprazole 20 mg ER24 Tablet PO SCH ×3 (01:03→20:26)
--- NOTE | 2016-10-25 02:19 | NUR ---
Abdominal tenderness, Respiratory: Pt denies abdominal pain at rest, states it is only tender with palpation. At the beginning of the shift, pt went down for an abdominal CT; no reading up at this time. Pt was also on RA at the beginning of the shift, CPOX in place. After falling asleep, sats dropped to 86%. Placed on 2L NC for the night, low to mid 90s.
[2016-10-25 06:35] LABS: BASOPHILS % (AUTO) 0 % (0-3); EOSINOPHILS % (AUTO) 0 % (0-5); MONOCYTES % (AUTO) 7.6 % (4-12); Mean Corpuscular Hemoglobin 26.8 pg (27.0-35.0); Mean Corpuscular Volume 82.2 fL (81-100); NEUTROPHILS % (AUTO) 86.4 % (40-74); Platelet Count 203 bil/L (150-400)
[2016-10-25] MEDS: Fluticasone-Salmeterol 100-50 Inhaler INHALATION SCH ×2 (08:09→20:24)
[2016-10-25] MEDS: Tiotropium 18mcg/Cap 5 Capsule Inhaler Kit INHALATION SCH (08:11)
[2016-10-25] MEDS: Morphine ER 15 mg (MS Contin) Tablet PO SCH ×2 (08:12→20:25)
[2016-10-25] MEDS: Dextrose 5% 0.45% NaCl 1,000 ML IV SCH (10:00)
--- NOTE | 2016-10-25 10:37 | PCM.PNMED ---
Subjective Date of Service Oct 25, 2016 Subjective No overnight events. Patient reports he is feeling better, but not back to his baseline. He endorses SOB. Denies CP, fevers, chills, nausea or vomiting. Exam Vital Signs Vital Sign - Last Date Time Temp Pulse Resp B/P Pulse Ox O2 Delivery O2 Flow Rate FiO2 10/25/16 04:51 36.7 86 18 155/83 94 Nasal Cannula 2.00 Intake and Output 10/24/16 10/24/16 10/25/16 Cumulative From/Thru 15:00 23:00 07:00 10/23/16 13:24 - 10/25/16 06:32 Intake Total 1215 ml 940 ml 1548 ml 3703 ml Output Total 750 ml 1400 ml 900 ml 3150 ml Balance 465 ml -460 ml 648 ml 553 ml Intake Oral 900 ml 600 ml 880 ml 2380 ml IV Total 25 ml 50 ml 668 ml 743 ml Packed Cells 290 ml 290 ml 580 ml Output Urine Total 750 ml 1400 ml 900 ml 3150 ml # Voids 1 # Bowel Movements 1 1 Exam General/Constitutional: Thin, Awake and alert, in mild distress, chronically ill appearing Head / Eyes: Normocephalic, PERRL, Mild scleral icterus, Conjunctiva NL Neck: Supple Resp: Mild respiratory distress, no use of accessory muscles, scattered wheezes on lower lobes bilaterally Cardiovascular: Regular rhythm, Heart sounds NL no murmurs appreciated, pedal pulse NL Abdomen: Soft, Tenderness to palpation on LLQ MSK: 1+ pitting edema LE Neuro: No focal neuro deficits Psych: NL mood and affect Skin: Pale,Warm, Dry, large area of ecchymosis 20cm in height by 10cm in width on left lower back Lab and Diagnostics Result Diagram: 10/25/16 0547 10/25/16 0547 X-Rays, CTs and MRIs Date of Service: 10/23/16 1403 PROCEDURE: X-RAY CHEST ONE VIEW, PORTABLE ([id number]) IMPRESSION: Persistent retrocardiac atelectasis, aspiration, or pneumonia. Dictated by: Chris Plunkett M.D. on 10/23/2016 at 15:10 Date of Service: 10/24/16 1725 PROCEDURE: CT ABDOMEN AND PELVIS WITHOUT CONTRAST ([id number]) INDICATIONS: LLQ abdomen pain IMPRESSION: 1.The presumed source of left lower quadrant pain is a relatively large left psoas muscle hematoma with epicenter in the abdomen and tapering into the pelvis. No hemoperitoneum is associated. 2.There is mild diverticulosis but without acute diverticulitis. Asymmetric pleural effusions, small to moderate on the left and scant on the right. Adjacent basilar atelectasis. Postsurgical changes are noted of presumed prior CABG. 3.This information was immediately called to the nursing station caring for the patient who is hospitalized at this time. Dictated by: Miko Garcia M.D. on 10/25/2016 at 10:57 Assessment & Plan Patient is a 60-year-old male with a complex past medical history including chronic foot ulcers, recent undiagnosed GI bleeding, systolic and diastolic congestive heart failure, CAD, A. fib, history of MRSA pneumonia, as well as, C. difficile, with multiple recent hospitalizations, who presented to [facility] ED found on the ground with a lower hemoglobin than yesterday. Day #2 Left psoas hematoma, acute. CT abd/pelv showed 17cm hematoma on left psoas General surgery consulted, appreciate time and expertise Patient to be NPO until further recommendations from general surgery Acute on chronic anemia 2 units PRBC given for hemoglobin decreasing from 7.6 on admit to 6.3, then 8.7 after transfusion anemia panel showing iron deficiency H&H every 6H x4 transfuse if hgb <7 PPI ggt changed to PPI PO per GI recs Low suspicion of active GI bleed Recent previous admission for GI bleed, thought poor candidate for endoscopy. Discharged after one unit red blood cell transfusion. Previous EGD showed erosive esophagitis and gastritis, unremarkable colonoscopy (03/07/2016). Appreciate GI consult - patient declines to have endoscopy at this time Weakness/failure to thrive PT eval postponed due to recent CT findings as above Acute on chronic kidney injury, present on admission. Creatinine on admission 2.72 and Baseline around 1.7, currently 2.81. gentle fluids Nephrology consult placed, appreciate time and recommendations Elevated troponins of unknown significance, present on admission. Troponins - 0.113 on admission most likely due to demand ischemia, patient has not had any CP COPD patient recently discharged on 10/08/16 and 10/22/16 increasing prednisone from 20mg back up to 40 mg DuoNebs and albuterol scheduled TID Chronic systolic CHF, present on admission. Echo from 09/16/2016 showed improved ejection fraction from 40% to 50-55% with areas of hypokinesis which are also chronic and mild systolic failure, also to note small atrial [place] [id number] judiciously manage fluids Chronic hypertension with hypertensive heart secondary to hypertensive nephrosclerosis. Hold Lasix per nephro recs Monitor vital signs. Hx of A-fib telemetry Chronic lower extremity ulcerations with PVD, present on admission. wound care Ongoing tobacco abuse counseled on smoking cessation ongoing nicotine replacement Chronic pain with continuous opiate dependence continue prior opiate regimen of morphine sulfate 15 mg twice a day with oxycodone for break through Prophylaxis-DVT, heparin as SCDs are contraindicated with peripheral vascular disease, GI patient is already on a PPI Disposition-he is from home independent living. Code status: FULL VTE Prophylaxis: Sub-Q Heparin (Unfractionated) VTE Mechanical Devices: Intermittant Pneumatic CD Resuscitation Status: CPR: Attempt Resuscitation Attending Statement The patient was seen and examined together with Dr. Sauer on 10/25/2016 and I agree with the history, exam and plan as outlined in the note above. Jessica Sauer DO Oct 25, 2016 08:31 Vaughn England MD Oct 26, 2016 13:40
--- NOTE | 2016-10-25 10:59 | DRSVH ---
PROCEDURE: CT ABDOMEN AND PELVIS WITHOUT CONTRAST ([id number]) INDICATIONS: LLQ abdomen pain TECHNIQUE: After the administration of oral contrast, 5 mm thick sections acquired from the diaphragms to the sy mphysis. 5 mm coronal and sagittal reformats were performed. For radiation dose reduction, the foll owing was used: automated exposure control, adjustment of mA and/or kV according to patient size. COMPARISON: [facility], CT, CHEST/ABD/PELVIS W/CON ([facility]), 12/21/2008, 8:19. [facility], CT, ABD/PELVIS W/O CON (PNL), 12/16/2008, 1:29. FINDINGS: Image quality: Excellent. ABDOMEN: Lung bases: Lung bases are atelectatic greater on the left than the right associated with bilateral left greater than right pleural effusions. A small ovoid pulmonary nodule at the lateral right middl e lobe of the right lung is sharply demarcated, benign in appearance, and has not changed from 2009. Heart size is normal. Solid organs: Liver and spleen are normal in size. Gallbladder contains a very small nonobstructive calculus measuring only approximately 3 mm in dimension, and this could be better visualized by ultr asound if clinically warranted.. Pancreas is normal in size. No adrenal nodules. The kidneys are s een to be asymmetric in size, without hydronephrosis or nephrolithiasis but with a diminutive right k idney and compensatory hypertrophy of the left kidney, and this was not present on the comparison CT from 12/16/08. Peritoneum and bowel: Bowel loops demonstrate normal wall thickness and caliber. No free fluid or a ir. Nodes and vessels: No retroperitoneal or mesenteric adenopathy by size criteria. Aorta and inferior vena cava are normal in size. Miscellaneous: No ventral hernias. Involving the left psoas muscle and extending into the pelvis is what appears to be a spontaneous psoas muscle hematoma with maximal craniocaudad dimension of 16.9 c m in maximal axial dimension of 5.8 cm AP and 7.4 cm transverse. This has mildly heterogeneous high density material within, and no evidence of penetration into the peritoneal space with secondary hemo peritoneum. PELVIS: Genitourinary: Bladder wall thickness is normal. Miscellaneous: No inguinal hernias or adenopathy. The left psoas hematoma extends inferiorly taperi ng into the pelvis, without significant adjacent mass effect, or without evidence of hemoperitoneum i mmediately adjacent. There is no suspicion for acute diverticulitis. Bones: No suspicious bony lesions. No vertebral body compression fractures. IMPRESSION: 1. The presumed source of left lower quadrant pain is a relatively large left psoas muscle hematoma with epicenter in the abdomen and tapering into the pelvis. No hemoperitoneum is associated. 2. There is mild diverticulosis but without acute diverticulitis. Asymmetric pleural effusions, sma ll to moderate on the left and scant on the right. Adjacent basilar atelectasis. Postsurgical reeves es are noted of presumed prior CABG. 3. This information was immediately called to the nursing station caring for the patient who is hosp italized at this time. The patient's nurse, Lupillo, was advised of these findings and will contact the ordering health care pro vider. Multiple attempts to contact the ordering provider directly were unsuccessful through the pag er number provided. Dictated by: Miko Garcia M.D. on 10/25/2016 at 10:57 Approved by: Miko Garcia M.D. on 10/25/2016 at 10:57
--- NOTE | 2016-10-25 11:44 | PCM.PNSURG ---
Subjective Date of Service: Oct 25, 2016 Date of Service: Oct 25, 2016 Visit Information: Reason for Visit Weakness, Anemia Surgery/Surgery Date Post-Op Day # Date of Admission: Oct 23, 2016 at 17:13 Hospital Day # Subjective: Patient reports his weakness is improving but still present, and he continues to experience dizziness when sitting up. He denies fevers, chills, N/V/D, abdominal pain. He reports shortness of breath, nonproductive cough, and wheezing, improved with nebulizers. He had a bowel movement with brown stool yesterday which tested guaiac positive. Revisited the topic of an upper endoscopy with the patient and he stated that he does not wish to have it done today, as he still wants to eat, but wants it tomorrow. Advised the patient that if he does have an upper GI bleed, he may continue to bleed until an upper endoscopy can be done, and he expressed understanding but stated he wished to have it done tomorrow. Objective Objective General: Alert, Oriented X3, Cooperative, Chronically ill appearing. Mild respiratory distress with accessory muscle use. Head: Normocephalic, atraumatic Eyes: PERRLA, EOMI. No scleral icterus ENT: Mucous Membranes Moist/[place] Chest & Lungs: Scattered wheezes bilaterally. Cardiovascular: Regular Rate/Rhythm, Normal S1, Normal S2, No Murmurs/Rubs/ Gallops Abdomen: Mild LLQ tenderness to palpation, Non-distended, No masses, Normoactive bowel tones, Soft Extremities: No cyanosis/clubbing/edema bilaterally Neurological: Grossly Neurologically Intact Vital Sign- Last 8 Hours Date Time Temp Pulse Resp B/P Pulse Ox O2 Delivery O2 Flow Rate FiO2 10/25/16 04:51 36.7 86 18 155/83 94 Nasal Cannula 2.00 10/25/16 04:02 91 20 95 Nasal Cannula 1.50 10/25/16 04:00 Supplement Oxygen Intake and Output- Last 8 Hour 10/25/16 Cumulative From/Thru 07:00 10/23/16 13:24 - 10/25/16 06:32 Intake Total 1548 ml 3703 ml Output Total 900 ml 3150 ml Balance 648 ml 553 ml Intake Oral 880 ml 2380 ml IV Total 668 ml 743 ml Packed Cells 580 ml Output Urine Total 900 ml 3150 ml # Voids 1 # Bowel Movements 1 Result Diagram: 10/25/16 0547 10/25/16 0547 Assessment & Plan Impression Patient is a 60-year-old male with history of chronic anemia, recent admission for acute GI bleed, CHF, CAD, A. fib on aspirin, C diff diarrhea, with multiple recent hospitalizations, who presented after being found on the ground. Admitted for acute on chronic anemia. 1. Acute on chronic anemia - Likely secondary to psoas hematoma seen on CT abd/pelvis. He does have a history of recent previous admission for GI bleed, thought poor candidate for endoscopy, as well as a history of gastritis and esophagitis found on colonoscopy 03/07/16. However, this is a less likely cause of his anemia. He reports brown stools, which were initially guaiac negative early yesterday but turned guaiac positive later in the day. On Aspirin at home. Discussed upper endoscopy with patient but he continues to decline today, requesting the endoscopy be done tomorrow as he still wanted to eat. As the patient has been having brown stool and no overt hematochezia, the acute drop in his H&H is likely explained by other factors such as the psoas hematoma. He was given 2U PRBCs this admission. - Recommend daily Protonix 40 mg - Avoid any NSAIDs or anticoagulants - Follow H&H q6h 2. Psoas hematoma - Patient reports continuing mild LLQ pain. CT abd/pelvis showed mild diverticulosis without acute diverticulitis. Likely source of LLQ pain is a relatively large left psoas muscle hematoma with epicenter in the abdomen and tapering into the pelvis. - Recommend surgery consult. 3. Calcifications in the head of the pancreas. - This is suggestive of chronic pancreatitis, however, the patient does not have any epigastric pain or diarrhea to suggest pancreatic insufficiency. 4. Nodular-appearing liver with ascites. - Radiology reading on CT abd on 04/19/16 commented on nodular contour of liver despite normal size of liver/spleen. This may be suggestive of cirrhosis. However, CT abd showed no ascites, and normal appearing liver. 5. History of ascites. - No ascites seen on CT abdomen/pelvis. Stable. Problems: VTE Prophylaxis: Sub-Q Heparin (Unfractionated) Resuscitation Status: CPR: Attempt Resuscitation Attending Statement: pt seen and examined with resident physician agree with his note. Ct scan revealed psoas hematoma which I believe is responsible for his acute anemia. He has had no overt bleeding from his rectum as he reports brown stool. would continue PPI daily secondary to history of gastritis. Follow H/H and transfuse PRBC as needed. Surgery consultation noted. Mike Quiñones Oct 25, 2016 11:44 Stevenson Jiménez MD Oct 25, 2016 17:04
--- NOTE | 2016-10-25 12:19 | PCM.PNMED ---
Subjective Date of Service Oct 25, 2016 Subjective s/p blood transfusion. Hb 10.3, dropped to 8.7 this morning. He has chronic SOB, stable, not worsened. Exam Vital Signs Vital Sign - Last Date Time Temp Pulse Resp B/P Pulse Ox O2 Delivery O2 Flow Rate FiO2 10/25/16 08:00 Supplement Oxygen 10/25/16 04:51 36.7 86 18 155/83 94 2.00 Intake and Output 10/24/16 10/24/16 10/25/16 Cumulative From/Thru 15:00 23:00 07:00 10/23/16 13:24 - 10/25/16 06:32 Intake Total 1215 ml 940 ml 1548 ml 3703 ml Output Total 750 ml 1400 ml 900 ml 3150 ml Balance 465 ml -460 ml 648 ml 553 ml Intake Oral 900 ml 600 ml 880 ml 2380 ml IV Total 25 ml 50 ml 668 ml 743 ml Packed Cells 290 ml 290 ml 580 ml Output Urine Total 750 ml 1400 ml 900 ml 3150 ml # Voids 1 # Bowel Movements 1 1 Exam PHYSICAL EXAMINATION: Vitals: Temperature 37.0, pulse 98, respiratory rate 19, blood pressure 140/84. General appearance: Awake, alert x3. In no acute distress. HEENT: Mild pallor. No jaundice. No JVD. No lymphadenopathy. No thyroid enlargement. Heart: Regular rhythm. Normal S1, S2. No murmur, rubs or gallops. Lungs: Occasional rhonchi bilaterally. no wheezing at this moment. Abd: LLQ tenderness, soft, no rebound, no HSM. Extremities: Trace edema of the lower extremities. Skin: No rashes. No excoriation. Lab and Diagnostics Result Diagram: 10/25/16 0547 10/25/16 0547 X-Rays, CTs and MRIs CXR concurrently reviewed by myself persistent retrocardiac atelectasis/ aspiration or pneumonia Assessment & Plan 1. BABS on CKD - due to intravascular volume depletion, severe anemia. - relatively stable. 2. Severe anemia - h/o GIB. - large left psoas hematoma. 3. COPD with tobacco abuse. 4. Afib 5. Chronic systolic heart failure. plan: continue D5 1/2 NS 60 ml/hr x 1 L then d/c'd. avoid nephrotoxins, adjust meds per GFR. repeat BMP in am. VTE Prophylaxis: Sub-Q Heparin (Unfractionated) VTE Mechanical Devices: Intermittant Pneumatic CD Resuscitation Status: CPR: Attempt Resuscitation Flavio Alves MD Oct 25, 2016 12:19
[2016-10-25] MEDS: Albuterol-Ipratropium 3 mL Inhalation Solution NEB SCH (15:05)
--- NOTE | 2016-10-25 16:08 | NUR ---
PT NOTE-- Cancel order received for PT. Patient removed from PT caseload.
--- NOTE | 2016-10-25 18:50 | NUR ---
Elevated BP BP reported 191/83 at approx 1800 while eating dinner. After dinner pt settled down a bit, BP taken again was 171/85. MD notified, PRN medications ordered. NOC shift notified.
[2016-10-25] MEDS ORDERED: hydrALAZINE 20 mg/mL Inj IV PRN (19:00)
--- NOTE | 2016-10-25 20:45 | CONS ---
[address] [address] CONSULTATION REPORT PATIENT: MARGARET ROCHA : 1955 MR#: [id number] ADMIT: 10/23/2016 JOB ID: [id number] DATE OF SERVICE: 10/25/2016 CHIEF COMPLAINT: A 60-year-old gentleman with left psoas hematoma seen in consultation at the request of Jessica Sauer DO. HISTORY OF PRESENT ILLNESS: The patient is a 60-year-old gentleman who was brought into the emergency department on October 23, 2016 after he was found on the ground passed out by his sister. He was unable to recall how long he was down. He apparently got tired and laid down and he was too weak to get up and he was found there in the morning. He was discharged from the hospital on October 22, 2016 after 10 days of tendinitis of hospitalization with a diagnosis of heart failure, respiratory failure. He has been in the hospital earlier in September with bleeding thought to be from occult source attributed to gastrointestinal bleeding, but no source was ever found. He got 2 units of packed red blood cells given yesterday and when Dr. Jiménez from Gastroenterology was involved yesterday, he had requested a CT of abdomen and pelvis to evaluate his left lower quadrant pain. That revealed a left psoas hematoma. He stayed hemodynamically normal overnight, but the hospitalist team consulted me today due to decreasing hemoglobin from 10.3 yesterday to 8.7 today. The patient feels like his abdominal pain is still there, but it is actually better than it was yesterday. He reports the left flank bruising that was noticed today, but he does not know how long he has had it. OTHER MEDICAL PROBLEMS: 1. Alcoholic pancreatitis. 2. Peripheral arterial occlusive disease. 3. MRSA pneumonia. 4. Chronic atrial fibrillation. 5. Propensity to bleed and anemia. 6. Coronary artery disease. 7. Chronic obstructive pulmonary disease. PRIOR OPERATIONS: 1. Coronary artery bypass grafting. 2. Left hip surgery. 3. Bilateral lower extremity stent placement. MEDICATIONS: 1. Albuterol. 2. Amlodipine. 3. Baby aspirin. 4. Azithromycin. 5. Chlorthalidone. 6. Cholecalciferol. 7. Zetia. 8. Ferrous sulfate. 9. Fluticasone salmeterol. 10. Furosemide. 11. Morphine. 12. Pantoprazole. 13. Prednisone. 14. Quetiapine. 15. Rosuvastatin. 16. Temazepam. 17. Tiotropium. ALLERGIES: 1. ATORVASTATIN. 2. PRAVASTATIN. 3. PROPOXYPHENE. 4. AMOXICILLIN. 5. NIACIN. 6. PHENYTOIN. REVIEW OF SYSTEMS: Twelve point review of systems negative other than the pertinent positives noted in the history of present illness and other medical problems. SOCIAL HISTORY: He continues to smoke. FAMILY HISTORY: Father had myocardial infarction. Mother had dementia. INVESTIGATIONS: Hemoglobin 10.1, up from 8.7 this morning, platelets 203, white blood cell count 10.3, BUN 83, creatinine 2.81. Otherwise, relatively normal chemistries. ProBNP 26,000. CT abdomen and pelvis showed large left psoas muscle hematoma. Moderate diverticulosis. Diminutive right kidney. PHYSICAL EXAMINATION: A 60-year-old gentleman in no acute distress. Temperature 37.2, heart rate 87, blood pressure 155/83, saturating 91% on 1.5 L nasal cannula. Eyes: Normal pupils, conjunctivae. Ears, nose, and throat: Normal external appearance. Respiratory: Bilateral air entry. Cardiovascular: Irregularly irregular. Gastrointestinal: Tender to deep palpation in the left lower quadrant. Obvious bruising of the left flank. Genitourinary: Deferred. Musculoskeletal: Globally decreased strength but symmetric. Neurologic: No focal deficits. Psych: Alert, appropriate. ASSESSMENT AND PLAN: He could have a spontaneous or posttraumatic left psoas hematoma from minor trauma. With history of multiple episodes of bleeding with just him being on baby aspirin, I believe it might be worth getting hematology to investigate him for a bleeding diatheses, but I do not see any reason for surgical intervention at this point. I would continue to support him with transfusion of RBCs and clotting factors as indicated. He does not have any signs of infection, and I reviewed the CT with Dr. Garcia who does believe this is not an abscess and it looks very much like a classic hematoma. I will continue to follow along for the time being, but please call us if you have any other questions, but I do not believe he would need a surgical intervention.
--- NOTE | 2016-10-25 22:02 | NUR ---
Hypertension Initial assessment pt BP found to be 198/93. Scheduled Po metoprolol given. BP still elevated. IV access obtained and Hydralazine 5mg IVP given x1. BP reassessed 30mins later 128/78.
[2016-10-26] VITALS (10 sets, daily range): BP systolic 137–167; BP diastolic 74–88; PULSE 65–84; RESP 18–22; O2SAT 90–95
--- NOTE | 2016-10-26 00:03 | NUR ---
IV access: IV started at start of shift, which shortly after infiltrated. Multiple attempts made, including attempts by charge operator. Unable to obtain IV access. Pt currently has no scheduled IV meds, H&H has been stable. Spoke with Dr. Gregory who said he will bring it to day teams attention. MD aware of no IV access at this time.
[2016-10-26 06:38] LABS: BASOPHILS % (AUTO) 0 % (0-3); EOSINOPHILS % (AUTO) 1.3 % (0-5); Mean Corpuscular Hemoglobin 26.8 pg (27.0-35.0); Platelet Count 234 bil/L (150-400)
[2016-10-26] MEDS: Albuterol-Ipratropium 3 mL Inhalation Solution NEB SCH ×3 (07:34→21:55)
[2016-10-26] MEDS: Pantoprazole 20 mg ER24 Tablet PO SCH ×2 (08:40→20:42)
[2016-10-26] MEDS: Morphine ER 15 mg (MS Contin) Tablet PO SCH ×2 (08:41→20:43)
[2016-10-26] MEDS: Fluticasone-Salmeterol 100-50 Inhaler INHALATION SCH ×2 (08:41→20:42)
[2016-10-26] MEDS: Tiotropium 18mcg/Cap 5 Capsule Inhaler Kit INHALATION SCH (08:41)
--- NOTE | 2016-10-26 09:25 | PCM.PNMED ---
Subjective Date of Service Oct 26, 2016 Subjective No acute events overnight. This morning, he reports his baseline coughing, wheezing, and shortness of breath, but denies fevers, chills, N/V/D, weakness, dizziness. He has no other complaints. Exam Vital Signs Vital Sign - Last Date Time Temp Pulse Resp B/P Pulse Ox O2 Delivery O2 Flow Rate FiO2 10/26/16 08:00 74 10/26/16 07:35 20 92 Nasal Cannula 2.00 10/26/16 04:31 36.7 167/88 Intake and Output 10/25/16 10/25/16 10/26/16 Cumulative From/Thru 15:00 23:00 07:00 10/23/16 13:24 - 10/26/16 04:34 Intake Total 2024 ml 109 ml 5836 ml Output Total 800 ml 3950 ml Balance 1224 ml 109 ml 1886 ml Intake Oral 997 ml 3377 ml IV Total 1027 ml 109 ml 1879 ml Packed Cells 580 ml Output Urine Total 800 ml 3950 ml # Voids 1 # Bowel Movements 1 Exam General: Alert, Oriented X3, Cooperative, Chronically ill appearing. Mild respiratory distress with accessory muscle use. Head: Normocephalic, atraumatic Eyes: PERRLA, EOMI. No scleral icterus ENT: Mucous Membranes Moist/[place] Chest & Lungs: Scattered wheezes bilaterally. Cardiovascular: Regular Rate/Rhythm, Normal S1, Normal S2, No Murmurs/Rubs/ Gallops Abdomen: Mild LLQ tenderness to palpation, Non-distended, No masses, Normoactive bowel tones, Soft Extremities: No cyanosis/clubbing/edema bilaterally Neurological: Grossly Neurologically Intact Lab and Diagnostics Result Diagram: 10/26/16 0600 10/26/16 0600 X-Rays, CTs and MRIs Date of Service: 10/23/16 1403 PROCEDURE: X-RAY CHEST ONE VIEW, PORTABLE ([id number]) IMPRESSION: Persistent retrocardiac atelectasis, aspiration, or pneumonia. Dictated by: Chris Plunkett M.D. on 10/23/2016 at 15:10 Date of Service: 10/24/16 1725 PROCEDURE: CT ABDOMEN AND PELVIS WITHOUT CONTRAST ([id number]) INDICATIONS: LLQ abdomen pain IMPRESSION: 1.The presumed source of left lower quadrant pain is a relatively large left psoas muscle hematoma with epicenter in the abdomen and tapering into the pelvis. No hemoperitoneum is associated. 2.There is mild diverticulosis but without acute diverticulitis. Asymmetric pleural effusions, small to moderate on the left and scant on the right. Adjacent basilar atelectasis. Postsurgical changes are noted of presumed prior CABG. 3.This information was immediately called to the nursing station caring for the patient who is hospitalized at this time. Dictated by: Miko Garcia M.D. on 10/25/2016 at 10:57 Assessment & Plan Patient is a 60-year-old male with history of chronic anemia, recent admission for acute GI bleed, CHF, CAD, A. fib on aspirin, C diff diarrhea, with multiple recent hospitalizations, who presented after being found on the ground. Admitted for acute on chronic anemia. 1. Acute on chronic anemia. Improving. - Likely secondary to psoas hematoma seen on CT abd/pelvis. He does have a history of recent previous admission for GI bleed, thought poor candidate for endoscopy, as well as a history of gastritis and esophagitis found on colonoscopy 03/07/16. However, this is a less likely cause of his anemia. He reports brown stools, which were initially guaiac negative early yesterday but turned guaiac positive later in the day. As the patient has been having brown stool and no overt hematochezia, the acute drop in his H&H is likely explained by other factors such as the psoas hematoma. He was given 2U PRBCs this admission. Hb has begun to stabilize, with Hb 9.1 at 2:40 AM and 9.3 at 6 AM. - Recommend daily Protonix 40 mg - Avoid any NSAIDs or anticoagulants - Continue to trend H&H, tranfuse if necessary 2. Psoas hematoma - Patient reports continuing mild LLQ pain. CT abd/pelvis showed mild diverticulosis without acute diverticulitis. Likely source of LLQ pain is a relatively large left psoas muscle hematoma with epicenter in the abdomen and tapering into the pelvis. Possibly secondary to trauma as he was found down. - General Surgery has been consulted. - Continue to trend H&H. 3. Calcifications in the head of the pancreas. - This is suggestive of chronic pancreatitis, however, the patient does not have any epigastric pain or diarrhea to suggest pancreatic insufficiency. - Will continue to monitor 4. Nodular-appearing liver with ascites. - Radiology reading on CT abd on 04/19/16 commented on nodular contour of liver despite normal size of liver/spleen. This may be suggestive of cirrhosis. However, CT abd showed no ascites, and normal appearing liver. - Will continue to monitor. 5. History of ascites. Stable. - No ascites seen on CT abdomen/pelvis. VTE Prophylaxis: Sub-Q Heparin (Unfractionated) VTE Mechanical Devices: Intermittant Pneumatic CD Resuscitation Status: CPR: Attempt Resuscitation Attending Statement Seen and examined with the resident physician Plan as outlined in his notes above. Mike Quiñones Oct 26, 2016 09:25 Stevenson Jiménez MD Nov 13, 2016 14:46
--- NOTE | 2016-10-26 10:18 | PCM.PNMED ---
Subjective Date of Service Oct 26, 2016 Subjective No overnight events. Patient reports he is feeling better. Continues to have chronic shortness of breath, relieved to not have surgery. Endorses feeling cold, no chills. Denies CP, fevers or chills. Exam Vital Signs Vital Sign - Last Date Time Temp Pulse Resp B/P Pulse Ox O2 Delivery O2 Flow Rate FiO2 10/26/16 07:35 73 20 92 Nasal Cannula 2.00 10/26/16 04:31 36.7 167/88 Intake and Output 10/25/16 10/25/16 10/26/16 Cumulative From/Thru 15:00 23:00 07:00 10/23/16 13:24 - 10/26/16 04:34 Intake Total 2024 ml 109 ml 5836 ml Output Total 800 ml 3950 ml Balance 1224 ml 109 ml 1886 ml Intake Oral 997 ml 3377 ml IV Total 1027 ml 109 ml 1879 ml Packed Cells 580 ml Output Urine Total 800 ml 3950 ml # Voids 1 # Bowel Movements 1 Exam General/Constitutional: Thin, Awake and alert, chronically ill appearing, NAD Head / Eyes: Normocephalic, PERRL, Conjunctiva NL Neck: Supple Resp: Mild respiratory distress, no use of accessory muscles, scattered wheezes on lower lobes bilaterally Cardiovascular: Regular rhythm, Heart sounds NL no murmurs appreciated, pedal pulse NL Abdomen: Soft, Tenderness to palpation on LLQ MSK: no edema Psych: NL mood and affect Skin: Pale,Warm, Dry, large area of ecchymosis 20cm in height by 10cm in width on left lower back, now slightly more edematous and larger IVs and Medications Medications Reviewed: Medications were reviewed in detail Lab and Diagnostics Result Diagram: 10/26/16 0600 10/26/16 0600 X-Rays, CTs and MRIs Date of Service: 10/23/16 1403 PROCEDURE: X-RAY CHEST ONE VIEW, PORTABLE ([id number]) IMPRESSION: Persistent retrocardiac atelectasis, aspiration, or pneumonia. Dictated by: Chris Plunkett M.D. on 10/23/2016 at 15:10 Date of Service: 10/24/16 1725 PROCEDURE: CT ABDOMEN AND PELVIS WITHOUT CONTRAST ([id number]) INDICATIONS: LLQ abdomen pain IMPRESSION: 1.The presumed source of left lower quadrant pain is a relatively large left psoas muscle hematoma with epicenter in the abdomen and tapering into the pelvis. No hemoperitoneum is associated. 2.There is mild diverticulosis but without acute diverticulitis. Asymmetric pleural effusions, small to moderate on the left and scant on the right. Adjacent basilar atelectasis. Postsurgical changes are noted of presumed prior CABG. 3.This information was immediately called to the nursing station caring for the patient who is hospitalized at this time. Dictated by: Miko Garcia M.D. on 10/25/2016 at 10:57 Assessment & Plan Patient is a 60-year-old male with a complex past medical history including chronic foot ulcers, recent undiagnosed GI bleeding, systolic and diastolic congestive heart failure, CAD, A. fib, history of MRSA pneumonia, as well as, C. difficile, with multiple recent hospitalizations, who presented to [facility] ED found on the ground with a lower hemoglobin than yesterday. Day #3 Left psoas hematoma, present on admission. Acute. CT abd/pelv showed 17cm hematoma on left psoas General surgery consulted, appreciate time and expertise No surgical interventions recommended at this time continue to follow H/H transfuse as needed Repeat CT abd/pelv tomorrow if H/H stable Acute on chronic anemia, present on admission. Stable. 2 units PRBC given for hemoglobin decreasing from 7.6 on admit to 6.3, then 8.7 after transfusion anemia panel showing iron deficiency H/H every 6H x4 transfuse if hgb <7 PPI ggt changed to PPI PO per GI recs Low suspicion of active GI bleed Recent previous admission for GI bleed, thought poor candidate for endoscopy. Discharged after one unit red blood cell transfusion. Previous EGD showed erosive esophagitis and gastritis, unremarkable colonoscopy (03/07/2016). Appreciate GI consult - patient declines to have endoscopy at this time Hypertension, present on admission. Uncontrolled. Currently on amlodipine, metoprolol succinate 25mg BID added Weakness/failure to thrive, present on admission. Improving. PT eval postponed due to recent CT findings as above PT eval reordered Acute on chronic kidney injury, present on admission. Improving. Creatinine on admission 2.72 and Baseline around 1.7, currently 2.67. currently without IV access, will monitor with daily BMP Nephrology consult placed, appreciate time and recommendations Elevated troponins of unknown significance, present on admission. Troponins - 0.113 on admission most likely due to demand ischemia, patient has not had any CP COPD patient recently discharged on 10/08/16 and 10/22/16 increasing prednisone from 20mg back up to 40 mg DuoNebs and albuterol scheduled TID Not on home O2, requiring supplemental O2 at 2L O2 to be kept at 88-92% Chronic systolic CHF, present on admission. Echo from 09/16/2016 showed improved ejection fraction from 40% to 50-55% with areas of hypokinesis which are also chronic and mild systolic failure, also to note small atrial [place]al [place] [address] judiciously manage fluids, currently without IV access Chronic hypertension with hypertensive heart secondary to hypertensive nephrosclerosis. Hold Lasix per nephro recs Monitor vital signs. Hx of A-fib telemetry Chronic lower extremity ulcerations with PVD, present on admission. wound care Ongoing tobacco abuse counseled on smoking cessation ongoing nicotine replacement Chronic pain with continuous opiate dependence continue prior opiate regimen of morphine sulfate 15 mg twice a day with oxycodone for break through Prophylaxis-DVT, heparin as SCDs are contraindicated with peripheral vascular disease, GI patient is already on a PPI Disposition-he is from home independent living. Code status: FULL VTE Prophylaxis: Sub-Q Heparin (Unfractionated) VTE Mechanical Devices: Intermittant Pneumatic CD Resuscitation Status: CPR: Attempt Resuscitation Attending Statement The patient was seen and examined together with Dr. Sauer on 10/26/2016 and I agree with the history, exam and plan as outlined in the note above. Jessica Sauer DO Oct 26, 2016 07:46 Vaughn England MD Oct 27, 2016 13:57
--- NOTE | 2016-10-26 11:56 | PCM.PNMED ---
Subjective Date of Service Oct 26, 2016 Subjective Hb stabilized. no episode of GIB. (+) chronic SOB, stable, on NC. Exam Vital Signs Vital Sign - Last Date Time Temp Pulse Resp B/P Pulse Ox O2 Delivery O2 Flow Rate FiO2 10/26/16 09:42 36.6 71 20 154/80 93 Nasal Cannula 2.00 Intake and Output 10/25/16 10/25/16 10/26/16 Cumulative From/Thru 15:00 23:00 07:00 10/23/16 13:24 - 10/26/16 04:34 Intake Total 2024 ml 109 ml 5836 ml Output Total 800 ml 3950 ml Balance 1224 ml 109 ml 1886 ml Intake Oral 997 ml 3377 ml IV Total 1027 ml 109 ml 1879 ml Packed Cells 580 ml Output Urine Total 800 ml 3950 ml # Voids 1 # Bowel Movements 1 Exam General appearance: Awake, alert x3. In no acute distress. HEENT: Mild pallor. No jaundice. No JVD. No lymphadenopathy. No thyroid enlargement. Heart: Regular rhythm. Normal S1, S2. No murmur, rubs or gallops. Lungs: coarse crackles at bases. (+) wheezing at this moment. Abd: LLQ tenderness, soft, no rebound, no HSM. Extremities: Trace edema of the lower extremities. Skin: No rashes. No excoriation. Lab and Diagnostics Result Diagram: 10/26/16 0600 10/26/16 0600 X-Rays, CTs and MRIs Date of Service: 10/23/16 1403 PROCEDURE: X-RAY CHEST ONE VIEW, PORTABLE ([id number]) IMPRESSION: Persistent retrocardiac atelectasis, aspiration, or pneumonia. Dictated by: Chris Plunkett M.D. on 10/23/2016 at 15:10 Date of Service: 10/24/16 1725 PROCEDURE: CT ABDOMEN AND PELVIS WITHOUT CONTRAST ([id number]) INDICATIONS: LLQ abdomen pain IMPRESSION: 1.The presumed source of left lower quadrant pain is a relatively large left psoas muscle hematoma with epicenter in the abdomen and tapering into the pelvis. No hemoperitoneum is associated. 2.There is mild diverticulosis but without acute diverticulitis. Asymmetric pleural effusions, small to moderate on the left and scant on the right. Adjacent basilar atelectasis. Postsurgical changes are noted of presumed prior CABG. 3.This information was immediately called to the nursing station caring for the patient who is hospitalized at this time. Dictated by: Miko Garcia M.D. on 10/25/2016 at 10:57 Assessment & Plan 1. BABS on CKD - due to intravascular volume depletion, severe anemia. - relatively stable. 2. Severe anemia - h/o GIB. - large left psoas hematoma. 3. COPD with tobacco abuse. 4. Afib 5. Chronic systolic heart failure. plan: d/c IVF, hold diuretics. resume lasix in am. avoid nephrotoxins, adjust meds per GFR. repeat BMP in am. VTE Prophylaxis: Sub-Q Heparin (Unfractionated) VTE Mechanical Devices: Intermittant Pneumatic CD Resuscitation Status: CPR: Attempt Resuscitation Flavio Alves MD Oct 26, 2016 11:56
--- NOTE | 2016-10-26 13:01 | NUR ---
Social Work: Continued d/c planning Data: Pt is on day 3 of hospitalization. EMR reviewed, pt discussed in rounds. Pt continues to not be stable for d/c. PT continues to be pending and, per MD, will be evaluated by PT once H&H is stable. Assessment: Pt in wheelchair at baseline with caregiving. Plan: Pt will d/c home via POV when medically stable with resume Vidhya VAUGHAN. [employer] will continue to follow. ESAU Reynoso
--- NOTE | 2016-10-26 13:26 | PROG NOTE ---
[address] [address] PROGRESS NOTE PATIENT: MARGARET ROCHA : 1955 MR#: [id number] ADMIT: 10/23/2016 JOB ID: [id number] DATE: 10/26/2016 SUBJECTIVE: The patient is a 60-year-old gentleman [facility] microcytic iron deficiency anemia. Initial endoscopies did not show blood loss, but he ultimately had an upper endoscopy showing gastritis and ongoing blood loss. He was hospitalized from April 18, 2016, through June 05, 2016, with septic shock associated with MRSA, Clostridium difficile colitis and Acinetobacter tracheobronchitis, which resolved. He was rehospitalized with chronic GI bleeding and transfused on September 15, 2016, discharged the following day, but readmitted on October 05, 2016, with the COPD and pneumonia, discharged on October 08, 2016. He was again admitted from October 13, 2016 through October 22, 2016 with acute respiratory failure and COPD in the setting of chronic GI bleeding, requiring additional transfusion support. His current admission on October 23, 2016 was precipitated when he was found on the ground by his sister. He was extremely weak, and unable to get up. He had severe anemia with a hemoglobin that fell to 6.3 and hematocrit of 19.9% on October 24, 2016, for which he has received two additional units of packed red blood cells on October 24, 2016. Imaging showed a large 17 cm hematoma in the left psoas muscle. Hematology/oncology follows him for microcytic iron deficiency anemia, likely due to his longstanding chronic GI blood loss. OBJECTIVE: Vitals: T 36.6, P 71, R 20, BP 154/80, O2 saturation 93% on 2 L oxygen by nasal cannula. HEENT: Conjunctivae slightly pale. Mucous membranes dry. No oral lesions. Nodes: Shotty adenopathy in the neck. Chest: A few scattered expiratory wheezes. Cardiac examination: Regular rate and rhythm with rare ectopic beat. Normal S1, S2. Abdomen: Soft, nontender. Normoactive bowel tones. No splenomegaly or masses. Extremities: No edema. 2+ distal pulses. No calf tenderness. LABORATORIES: WBC 13.1 with 85% neutrophils, 6% lymphocytes, hemoglobin 9.3, hematocrit 28.8%, MCV 83, platelets 234,000. BUN 73, creatinine 2.67, glucose 85, iron 23 (normal 35-150), ferritin 51 (normal 30-400). ASSESSMENT AND PLAN: Microcytic iron deficiency anemia: The patient has been transfused on multiple occasions for chronic GI blood loss, likely associated with gastritis. His current findings are likely associated with ongoing GI blood loss and acute bleeding into a large 17 cm left psoas hematoma. This may be posttraumatic. Surgery does not feel any indication for surgical intervention. His coagulation parameters have shown a normal PT of 10.7 with INR of 1.0. Recommend testing PFA-100 which evaluates platelet function, which could be impaired, contributing to further bleeding/blood loss. Other contributing factors to his anemia include significant renal insufficiency with current BUN of 73 and creatinine of 2.67. Baseline creatinine has been closer to 1.7, although it has varied significantly in the past. I am not inclined to perform bone marrow studies in this gentleman with multiple comorbidities. Transfuse if hemoglobin is less than 7.0. Despite multiple transfusions, there is no evidence of iron overload, with normal ferritin of 51 as recently as October 23, 2016. MTDD
[2016-10-26] MEDS: MeTOProlol XL 25 mg ER24 Tablet PO SCH (20:42)
[2016-10-27] VITALS (13 sets, daily range): BP systolic 114–172; BP diastolic 68–89; PULSE 69–92; RESP 19–22; O2SAT 90–97
[2016-10-27 02:44] LABS: BASOPHILS % (AUTO) 0 % (0-3); EOSINOPHILS % (AUTO) 2.1 % (0-5); MONOCYTES % (AUTO) 7.8 % (4-12); Mean Corpuscular Hemoglobin 26.4 pg (27.0-35.0); Mean Corpuscular Volume 83.6 fL (81-100); NEUTROPHILS % (AUTO) 80.8 % (40-74); Platelet Count 238 bil/L (150-400)
--- NOTE | 2016-10-27 04:23 | NUR ---
Resp/Pain/Activity Pt c/o SOB on exertion, SpO2 90% 1L NC. Pt c/o 7/10 L hip pain. Scheduled MS Contin and PRN Oxycodone administered, effective per patient. Patient turning independently, using urinal at bedside to void, using call light appropriately.
[2016-10-27] MEDS: Albuterol-Ipratropium 3 mL Inhalation Solution NEB SCH ×4 (07:33→20:30)
[2016-10-27] MEDS: Morphine ER 15 mg (MS Contin) Tablet PO SCH ×2 (07:45→20:24)
[2016-10-27] MEDS: MeTOProlol XL 25 mg ER24 Tablet PO SCH ×2 (07:45→20:24)
[2016-10-27] MEDS: Pantoprazole 20 mg ER24 Tablet PO SCH ×2 (07:46→20:24)
[2016-10-27] MEDS: Fluticasone-Salmeterol 100-50 Inhaler INHALATION SCH ×2 (07:46→20:23)
[2016-10-27] MEDS: Tiotropium 18mcg/Cap 5 Capsule Inhaler Kit INHALATION SCH (07:46)
--- NOTE | 2016-10-27 09:50 | PCM.PNMED ---
Subjective Date of Service Oct 27, 2016 Subjective No overnight events. Patient reports no further nausea or vomiting since yesterday morning. Tolerating oral intake. Would like to know more about his kidneys. Denies M[place]ICK, vision changes, CP, SOB, fevers or chills. Exam Vital Signs Vital Sign - Last Date Time Temp Pulse Resp B/P Pulse Ox O2 Delivery O2 Flow Rate FiO2 10/27/16 09:27 37.1 89 20 162/80 93 Nasal Cannula 1.00 Intake and Output 10/26/16 10/26/16 10/27/16 Cumulative From/Thru 15:00 23:00 07:00 10/23/16 13:24 - 10/27/16 04:45 Intake Total 1036 ml 700 ml 150 ml 7722 ml Output Total 900 ml 1300 ml 6150 ml Balance 136 ml -600 ml 150 ml 1572 ml Intake Oral 1036 ml 700 ml 5113 ml IV Total 150 ml 2029 ml Packed Cells 580 ml Output Urine Total 900 ml 1300 ml 6150 ml # Voids 1 # Bowel Movements 2 1 4 Exam General/Constitutional: Thin, Awake and alert, NAD, chronically ill appearing Head / Eyes: Normocephalic atraumatic, EOMI, PERRL, Conjunctiva NL Neck: Supple Resp: Mild respiratory distress, no use of accessory muscles, scattered wheezes on lower lobes bilaterally Cardiovascular: Regular rhythm, Heart sounds NL no murmurs appreciated, pedal pulse NL Abdomen: Soft, Tenderness to palpation on LLQ MSK: no edema Psych: NL mood and affect Skin: Pale,Warm, Dry, large area of ecchymosis 20cm in height by 10cm in width on left lower back, edema improved IVs and Medications Medications Reviewed: Medications were reviewed in detail Lab and Diagnostics Result Diagram: 10/27/16 0230 10/27/16 0230 X-Rays, CTs and MRIs Date of Service: 10/23/16 1403 PROCEDURE: X-RAY CHEST ONE VIEW, PORTABLE ([id number]) IMPRESSION: Persistent retrocardiac atelectasis, aspiration, or pneumonia. Dictated by: Chris Plunkett M.D. on 10/23/2016 at 15:10 Date of Service: 10/24/16 1725 PROCEDURE: CT ABDOMEN AND PELVIS WITHOUT CONTRAST ([id number]) INDICATIONS: LLQ abdomen pain IMPRESSION: 1.The presumed source of left lower quadrant pain is a relatively large left psoas muscle hematoma with epicenter in the abdomen and tapering into the pelvis. No hemoperitoneum is associated. 2.There is mild diverticulosis but without acute diverticulitis. Asymmetric pleural effusions, small to moderate on the left and scant on the right. Adjacent basilar atelectasis. Postsurgical changes are noted of presumed prior CABG. 3.This information was immediately called to the nursing station caring for the patient who is hospitalized at this time. Dictated by: Miko Garcia M.D. on 10/25/2016 at 10:57 Assessment & Plan Patient is a 60-year-old male with a complex past medical history including chronic foot ulcers, recent undiagnosed GI bleeding, systolic and diastolic congestive heart failure, CAD, A. fib, history of MRSA pneumonia, as well as, C. difficile, with multiple recent hospitalizations, who presented to [facility] ED found on the ground with a lower hemoglobin than yesterday. Day #4 Left psoas hematoma, present on admission. Acute. CT abd/pelv showed 17cm hematoma on left psoas General surgery consulted, appreciate time and expertise No surgical interventions recommended at this time continue to follow H/H transfuse as needed Repeat CT abd/pelv ordered for today with PO contrast to evaluate for any progression of the hematoma Acute on chronic anemia, present on admission. Stable. Secondary to Psoas Hematoma likely 2 units PRBC given for hemoglobin decreasing from 7.6 on admit to 6.3, then 8.7 after transfusion anemia panel showing iron deficiency H/H every 6H x4 transfuse if hgb <7 PPI ggt changed to PPI PO per GI recs Low suspicion of active GI bleed Recent previous admission for GI bleed, thought poor candidate for endoscopy. Discharged after one unit red blood cell transfusion. Previous EGD showed erosive esophagitis and gastritis, unremarkable colonoscopy (03/07/2016). Appreciate GI consult - patient declines to have endoscopy at this time Hypertension, present on admission. Uncontrolled. Currently on amlodipine, metoprolol succinate 25mg BID added Weakness/failure to thrive, present on admission. Improving. PT eval postponed due to recent CT findings as above PT eval reordered Acute Kidney Injury on CKD, present on admission. Improving. Creatinine on admission 2.72 and Baseline around 1.7, currently 3.10 Start D5 1/2 NS at 80 mL/hour Recheck renal function in AM Nephrology on board and managing Hold diuretics for now Elevated troponins of unknown significance, present on admission. Troponins - 0.113 on admission most likely due to demand ischemia, patient has not had any CP COPD patient recently discharged on 10/08/16 and 10/22/16 increasing prednisone from 20mg back up to 40 mg DuoNebs and albuterol scheduled TID Not on home O2, requiring supplemental O2 at 2L O2 to be kept at 88-92% Chronic systolic CHF, present on admission. Echo from 09/16/2016 showed improved ejection fraction from 40% to 50-55% with areas of hypokinesis which are also chronic and mild systolic failure, also to note small atrial [place] [address] judiciously manage fluids, currently without IV access Chronic hypertension with hypertensive heart secondary to hypertensive nephrosclerosis. Hold Lasix per nephro recs Monitor vital signs. Hx of A-fib telemetry Chronic lower extremity ulcerations with PVD, present on admission. wound care Ongoing tobacco abuse counseled on smoking cessation ongoing nicotine replacement Chronic pain with continuous opiate dependence continue prior opiate regimen of morphine sulfate 15 mg twice a day with oxycodone for break through Prophylaxis-DVT, heparin as SCDs are contraindicated with peripheral vascular disease, GI patient is already on a PPI Disposition-he is from home independent living. Code status: FULL VTE Prophylaxis: Sub-Q Heparin (Unfractionated) VTE Mechanical Devices: Intermittant Pneumatic CD Resuscitation Status: CPR: Attempt Resuscitation Attending Statement The patient was seen and examined together with Dr. Sauer on 10/27/2016 and I agree with the history, exam and plan as outlined in the note above. Jessica Sauer DO Oct 27, 2016 09:48 Vaughn England MD Oct 27, 2016 14:01
--- NOTE | 2016-10-27 11:40 | DRSVH ---
PROCEDURE: CT ABDOMEN AND PELVIS WITHOUT CONTRAST ([id number]) INDICATIONS: left psoas hematoma follow up TECHNIQUE: After the administration of oral contrast, 5 mm thick sections acquired from the diaphragms to the sy mphysis. 5 mm coronal and sagittal reformats were performed. For radiation dose reduction, the foll owing was used: automated exposure control, adjustment of mA and/or kV according to patient size. COMPARISON: [facility], CT, CHEST/ABD/PELVIS W/CON (PNL), 12/21/2008, 8:19. [facility], MR, MR ANKLE LT W&WO CON, 01/26/2016, 12:11. [facility], CT, CT ANGIO CHEST P E, 08/14/2015, 21:23. [facility], CT, CT CHEST ABD PELVIS WO CON, 04/19/2016, 2:08. [facility], CT, CT CHEST WO CON, 09/16/2016, 6:29. [facility], CT, CT ABD PELVIS WO CON, 10/24/2016, 19:12. FINDINGS: Image quality: Excellent. ABDOMEN: Lung bases: There is a trace right and a moderate-sized left low-density pleural effusion. There is compressive atelectasis or consolidation at the left lung base. Patchy air space opacities are partia lly characterize within the right middle lobe and lingula. There is a 7 mm in diameter coin lesion wi thin the right middle lobe which is unchanged when compared with the study dated 12/21/08. Heart is no rmal size. Dense coronary artery calcifications are present. Solid organs: Liver and spleen are normal in size. Multiple low-density cystic lesions are present t hroughout the liver unchanged from the study dated 12/21/08. A 3 mm diameter calcification is present in the gallbladder fundus. No gallbladder wall thickening or pericholecystic fluid. Pancreas is maurilio l in size. Punctate calcifications are present in the head of the pancreas suggesting prior pancreati tis, now resolved. The medial limb of the right adrenal gland is thickened and low density suggesting the presence of an adrenal adenoma. No left adrenal nodules. The right kidney is atrophic. 2 low-den sity cystic lesions are present within the right renal cortex. There is likely compensatory hypertrop hy of the left kidney. There is moderate left perinephric fat stranding. An intermediate density cyst ic lesion is present off the lower pole the left kidney. This lesion was low density in the past sugg esting the presence of interval bleeding. Peritoneum and bowel: Bowel loops demonstrate normal wall thickness and caliber. There are scattere d sigmoid diverticula. No evidence for diverticulitis. The appendix is not visualized; however there is no discrete right lower quadrant fluid or fat stranding to suggest acute appendicitis. There is t race low density free fluid within the pelvis. Nodes and vessels: No retroperitoneal or mesenteric adenopathy by size criteria. Aorta and inferior vena cava are normal in size. Dense atheromatous calcifications are present throughout the abdomina l aorta and iliac vessels. Miscellaneous: Large left intramuscular psoas hematomas redemonstrated, slightly decreased in size wh en compared with the prior study. For example, in the axial plane the hematoma now measures 7.8 x 5.7 cm and previously measured 8.2 x 5.9 cm. No new retroperitoneal hematoma. PELVIS: Genitourinary: Bladder wall thickness is normal. Miscellaneous: No inguinal adenopathy. There are small bilateral fat containing inguinal hernias. Bones: No suspicious bony lesions. No vertebral body compression fractures. The left hip prosthesi s is intact. IMPRESSION: 1. Slight decrease in the size of the large left intramuscular hematoma when compared to study dated 10/24/16. No findings to suggest new retroperitoneal bleed. 2. Trace right and moderate-sized left pleural effusion and consolidation or compressive atelectasis at the left lung base. 3. Cholelithiasis. No findings to suggest choledocholithiasis or acute cholecystitis. 4. Left lower pole intermediate density renal cyst which previously demonstrated low density suggesti ng a small amount of intracystic hemorrhage. Dictated by: Dali Arzate M.D. on 10/27/2016 at 11:38 Approved by: Dali Arzate M.D. on 10/27/2016 at 11:38
--- NOTE | 2016-10-27 11:47 | PCM.PNMED ---
Subjective Date of Service Oct 27, 2016 Subjective Patient continues to have shortness of breath. He denies abdominal pain, N/V/D, fevers, chills, or hematemesis/hematochezia. He has no other complaints. Exam Vital Signs Vital Sign - Last Date Time Temp Pulse Resp B/P Pulse Ox O2 Delivery O2 Flow Rate FiO2 10/27/16 09:27 37.1 89 20 162/80 93 Nasal Cannula 1.00 Intake and Output 10/26/16 10/26/16 10/27/16 Cumulative From/Thru 15:00 23:00 07:00 10/23/16 13:24 - 10/27/16 04:45 Intake Total 1036 ml 700 ml 150 ml 7722 ml Output Total 900 ml 1300 ml 6150 ml Balance 136 ml -600 ml 150 ml 1572 ml Intake Oral 1036 ml 700 ml 5113 ml IV Total 150 ml 2029 ml Packed Cells 580 ml Output Urine Total 900 ml 1300 ml 6150 ml # Voids 1 # Bowel Movements 2 1 4 Exam General: Alert, Oriented X3, Cooperative, Chronically ill appearing. Mild respiratory distress with accessory muscle use. Head: Normocephalic, atraumatic Eyes: PERRLA, EOMI. No scleral icterus ENT: Mucous Membranes Moist/[place] Chest & Lungs: Scattered wheezes bilaterally. Cardiovascular: Regular Rate/Rhythm, Normal S1, Normal S2, No Murmurs/Rubs/ Gallops Abdomen: No tenderness, Non-distended, No masses, Normoactive bowel tones, Soft Extremities: No cyanosis/clubbing/edema bilaterally Neurological: Grossly Neurologically Intact Lab and Diagnostics Result Diagram: 10/27/16 0230 10/27/16 0230 X-Rays, CTs and MRIs Date of Service: 10/23/16 1403 PROCEDURE: X-RAY CHEST ONE VIEW, PORTABLE ([id number]) IMPRESSION: Persistent retrocardiac atelectasis, aspiration, or pneumonia. Dictated by: Chris Plunkett M.D. on 10/23/2016 at 15:10 Date of Service: 10/24/16 1725 PROCEDURE: CT ABDOMEN AND PELVIS WITHOUT CONTRAST ([id number]) INDICATIONS: LLQ abdomen pain IMPRESSION: 1.The presumed source of left lower quadrant pain is a relatively large left psoas muscle hematoma with epicenter in the abdomen and tapering into the pelvis. No hemoperitoneum is associated. 2.There is mild diverticulosis but without acute diverticulitis. Asymmetric pleural effusions, small to moderate on the left and scant on the right. Adjacent basilar atelectasis. Postsurgical changes are noted of presumed prior CABG. 3.This information was immediately called to the nursing station caring for the patient who is hospitalized at this time. Dictated by: Miko Garcia M.D. on 10/25/2016 at 10:57 Assessment & Plan Patient is a 60-year-old male with history of chronic anemia, recent admission for acute GI bleed, CHF, CAD, A. fib on aspirin, C diff diarrhea, with multiple recent hospitalizations, who presented after being found on the ground. Admitted for acute on chronic anemia. Acute on chronic anemia. Improving. - Likely secondary to psoas hematoma seen on CT abd/pelvis. He does have a history of recent previous admission for GI bleed, gastritis and esophagitis found on colonoscopy 03/07/16. However, this is a less likely cause of his anemia. He reports brown stools, so his anemia is most likely secondary to his psoas hematoma. Hb has begun to stabilize, with Hb fluctuating between 9.5 and 10.5. - Recommend daily Protonix 40 mg - Avoid any NSAIDs or anticoagulants - Continue to trend H&H, tranfuse if necessary - We will sign off at this time, as it appears his anemia is secondary to the psoas hematoma. If you have any further questions or require assistance, please do not hesitate to contact us. Thank you. Psoas hematoma - Patient reports continuing mild LLQ pain. CT abd/pelvis showed mild diverticulosis without acute diverticulitis. Likely source of LLQ pain is a relatively large left psoas muscle hematoma with epicenter in the abdomen and tapering into the pelvis. Possibly secondary to trauma as he was found down. - General Surgery has been consulted. - Continue to trend H&H. Calcifications in the head of the pancreas. - This is suggestive of chronic pancreatitis, however, the patient does not have any epigastric pain or diarrhea to suggest pancreatic insufficiency. - Will continue to monitor Nodular-appearing liver with ascites. - Radiology reading on CT abd on 04/19/16 commented on nodular contour of liver despite normal size of liver/spleen. This may be suggestive of cirrhosis. However, CT abd showed no ascites, and normal appearing liver. - Will continue to monitor. History of ascites. Stable. - No ascites seen on CT abdomen/pelvis. VTE Prophylaxis: Sub-Q Heparin (Unfractionated) VTE Mechanical Devices: Intermittant Pneumatic CD Resuscitation Status: CPR: Attempt Resuscitation Attending Statement Patient seen and examined Agree with resident physician noted above Agree with plan as outlined in his notes above. Mike Quiñones Oct 27, 2016 11:47 Stevenson Jiménez MD Nov 13, 2016 14:50
[2016-10-27] MEDS: Dextrose 5% 0.45% NaCl 1,000 ML IV SCH ×2 (13:21→23:50)
--- NOTE | 2016-10-27 13:35 | PCM.PNMED ---
Subjective Date of Service Oct 27, 2016 Subjective chronic dyspnea at rest noted, stable. productive cough. Exam Vital Signs Vital Sign - Last Date Time Temp Pulse Resp B/P Pulse Ox O2 Delivery O2 Flow Rate FiO2 10/27/16 13:17 36.7 76 22 172/73 92 Nasal Cannula 1.00 Intake and Output 10/26/16 10/26/16 10/27/16 Cumulative From/Thru 15:00 23:00 07:00 10/23/16 13:24 - 10/27/16 04:45 Intake Total 1036 ml 700 ml 150 ml 7722 ml Output Total 900 ml 1300 ml 6150 ml Balance 136 ml -600 ml 150 ml 1572 ml Intake Oral 1036 ml 700 ml 5113 ml IV Total 150 ml 2029 ml Packed Cells 580 ml Output Urine Total 900 ml 1300 ml 6150 ml # Voids 1 # Bowel Movements 2 1 4 Exam General appearance: Awake, alert x3. In no acute distress. HEENT: Mild pallor. No jaundice. No JVD. No lymphadenopathy. No thyroid enlargement. Heart: Regular rhythm. Normal S1, S2. No murmur, rubs or gallops. Lungs: coarse crackles at bases. (+) wheezing at this moment. Abd: LLQ tenderness, soft, no rebound, no HSM. Extremities: Trace edema of the lower extremities. Skin: No rashes. No excoriation. Lab and Diagnostics Result Diagram: 10/27/16 0230 10/27/16 0230 X-Rays, CTs and MRIs Date of Service: 10/23/16 1403 PROCEDURE: X-RAY CHEST ONE VIEW, PORTABLE ([id number]) IMPRESSION: Persistent retrocardiac atelectasis, aspiration, or pneumonia. Dictated by: Chris Plunkett M.D. on 10/23/2016 at 15:10 Date of Service: 10/24/16 1725 PROCEDURE: CT ABDOMEN AND PELVIS WITHOUT CONTRAST ([id number]) INDICATIONS: LLQ abdomen pain IMPRESSION: 1.The presumed source of left lower quadrant pain is a relatively large left psoas muscle hematoma with epicenter in the abdomen and tapering into the pelvis. No hemoperitoneum is associated. 2.There is mild diverticulosis but without acute diverticulitis. Asymmetric pleural effusions, small to moderate on the left and scant on the right. Adjacent basilar atelectasis. Postsurgical changes are noted of presumed prior CABG. 3.This information was immediately called to the nursing station caring for the patient who is hospitalized at this time. Dictated by: Miko Garcai M.D. on 10/25/2016 at 10:57 Assessment & Plan 1. BABS on CKD - due to intravascular volume depletion, severe anemia. - deteriorate after IVF discontinued 2. Severe anemia - h/o GIB. - large left psoas hematoma. 3. COPD with tobacco abuse. 4. Afib 5. Chronic systolic heart failure. plan: resume maintenance IVF with d5 1/2NS 80 ml/hr. hold diuretics. continue to monitor his volume status on the daily basis. BMP in am. VTE Prophylaxis: Sub-Q Heparin (Unfractionated) VTE Mechanical Devices: Intermittant Pneumatic CD Resuscitation Status: CPR: Attempt Resuscitation Flavio Alves MD Oct 27, 2016 13:35
--- NOTE | 2016-10-27 13:46 | NUR ---
Evaluation completed. Please go to "Notes" then click on "Assessments and Notes" (bottom left corner of screen). Then select appropriate discipline tab on top of screen.
[2016-10-28] VITALS (10 sets, daily range): BP systolic 116–157; BP diastolic 69–82; PULSE 62–83; RESP 16–22; O2SAT 91–96
[2016-10-28 06:00] LABS: BASOPHILS % (AUTO) 0 % (0-3); EOSINOPHILS % (AUTO) 2.3 % (0-5); Mean Corpuscular Hemoglobin 26.3 pg (27.0-35.0); Mean Corpuscular Volume 83.4 fL (81-100); Platelet Count 240 bil/L (150-400)
[2016-10-28] MEDS: Albuterol-Ipratropium 3 mL Inhalation Solution NEB SCH ×3 (08:15→20:28)
[2016-10-28] MEDS: Tiotropium 18mcg/Cap 5 Capsule Inhaler Kit INHALATION SCH (08:41)
[2016-10-28] MEDS: MeTOProlol XL 25 mg ER24 Tablet PO SCH ×2 (08:42→20:19)
[2016-10-28] MEDS: Morphine ER 15 mg (MS Contin) Tablet PO SCH ×2 (08:42→20:19)
[2016-10-28] MEDS: Pantoprazole 20 mg ER24 Tablet PO SCH ×2 (08:43→20:19)
[2016-10-28] MEDS: Fluticasone-Salmeterol 100-50 Inhaler INHALATION SCH ×2 (08:43→20:20)
--- NOTE | 2016-10-28 11:38 | NUR ---
PSVT call recd from tele (2x) with PSVT 5 sec and 4 sec. aware. Pt asymptomatic. will continue to monitor.
--- NOTE | 2016-10-28 12:21 | NUR ---
Social Work-readiness for discharge: Data:EMR Reviewed. Pt is on day 5 of hospitalization for weakness per H&P. Pt is not medically stable, but MD anticipated in the next day or two. PT worked with pt and recommending home with HH. Pt ambulated 100ft. SW spoke with pt at bedside and confirmed discharge plan. Pt states that his sister will provide transport home at discharge. [facility] aware pt is in the hospital and the will need resume orders at discharge. SW will continue to follow. Assessment:pt to benefit from HH. Plan:Pt to discharge home when medically stable via POV. Pt will need resume HH orders through [facility] at discharge. SW will continue to follow. [facility] Post
--- NOTE | 2016-10-28 12:26 | DRSVH ---
PROCEDURE: X-RAY CHEST ONE VIEW, PORTABLE ([id number]) INDICATIONS: SOB with cough TECHNIQUE: One view of the chest was acquired. COMPARISON: [facility], CR, XR CHEST 1VW (PORTABLE), 10/23/2016, 14:02. FINDINGS: Surgical changes and devices: Postsurgical changes are redemonstrated in the mediastinum. Lungs and pleura: There is a small left pleural effusion, increased from the prior study with persis tent left basilar consolidation or compressive atelectasis. There are new confluent airspace opaciti es in the medial upper lung zones, right greater than left. Mild bony edema is also noted. Mediastinum: Mediastinal contours appear unchanged. Heart size is enlarged. Bones and chest wall: No suspicious bony lesions. Overlying soft tissues appear unremarkable. IMPRESSION: 1. New confluent airspace opacities in the suprahilar regions, right greater than left, are nonspeci fic but likely represent pneumonia given clinical history. 2. Increased small left pleural effusion with persistent left basilar consolidation or compressive a telectasis. 3. Persistent mild pulmonary edema. Dictated by: Sheldon Hackett M.D. on 10/28/2016 at 12:21 Approved by: Sheldon Hackett M.D. on 10/28/2016 at 12:21
--- NOTE | 2016-10-28 12:53 | PCM.PNMED ---
Subjective Date of Service Oct 28, 2016 Subjective doing about the same, having lunch. sitting up on the chair, no worsening SOB. Exam Vital Signs Vital Sign - Last Date Time Temp Pulse Resp B/P Pulse Ox O2 Delivery O2 Flow Rate FiO2 10/28/16 10:33 70 10/28/16 10:25 36.6 18 116/69 94 Nasal Cannula 2.00 Intake and Output 10/27/16 10/27/16 10/28/16 Cumulative From/Thru 15:00 23:00 07:00 10/23/16 13:24 - 10/28/16 06:15 Intake Total 874 ml 1482 ml 645 ml 50953 ml Output Total 650 ml 1275 ml 1025 ml 9100 ml Balance 224 ml 207 ml -380 ml 1623 ml Intake Oral 874 ml 1100 ml 200 ml 7287 ml IV Total 382 ml 445 ml 2856 ml Packed Cells 580 ml Output Urine Total 650 ml 1275 ml 1025 ml 9100 ml # Voids 1 # Bowel Movements 0 1 1 6 Exam General appearance: Awake, alert x3. In no acute distress. HEENT: Mild pallor. No jaundice. No JVD. No lymphadenopathy. No thyroid enlargement. Heart: Regular rhythm. Normal S1, S2. No murmur, rubs or gallops. Lungs: coarse crackles at bases. no wheezing at this moment. Abd: LLQ tenderness, soft, no rebound, no HSM. Extremities: Trace edema of the lower extremities. Skin: No rashes. No excoriation. Lab and Diagnostics Result Diagram: 10/28/16 0530 10/28/16 0530 X-Rays, CTs and MRIs Date of Service: 10/23/16 1403 PROCEDURE: X-RAY CHEST ONE VIEW, PORTABLE ([id number]) IMPRESSION: Persistent retrocardiac atelectasis, aspiration, or pneumonia. Dictated by: Chris Plunkett M.D. on 10/23/2016 at 15:10 Date of Service: 10/24/16 1725 PROCEDURE: CT ABDOMEN AND PELVIS WITHOUT CONTRAST ([id number]) INDICATIONS: LLQ abdomen pain IMPRESSION: 1.The presumed source of left lower quadrant pain is a relatively large left psoas muscle hematoma with epicenter in the abdomen and tapering into the pelvis. No hemoperitoneum is associated. 2.There is mild diverticulosis but without acute diverticulitis. Asymmetric pleural effusions, small to moderate on the left and scant on the right. Adjacent basilar atelectasis. Postsurgical changes are noted of presumed prior CABG. 3.This information was immediately called to the nursing station caring for the patient who is hospitalized at this time. Dictated by: Miko Garcia M.D. on 10/25/2016 at 10:57 Assessment & Plan 1. BABS on CKD - due to intravascular volume depletion, severe anemia. - deteriorate after IVF discontinued 2. Severe anemia - h/o GIB. - large left psoas hematoma. 3. COPD with tobacco abuse. 4. Afib 5. Chronic systolic heart failure. plan: continue maintenance IVF with d5 1/2NS 60 ml/hr. hold diuretics. continue to monitor his volume status on the daily basis. VTE Prophylaxis: Sub-Q Heparin (Unfractionated) VTE Mechanical Devices: Venous Foot Pump Resuscitation Status: CPR: Attempt Resuscitation Flavio Alves MD Oct 28, 2016 12:53
--- NOTE | 2016-10-28 14:04 | PCM.PNMED ---
Subjective Date of Service Oct 28, 2016 Subjective No overnight events. Patient endorses chronic SOB with cough. Otherwise no concerns or complaints. Denies fevers or chills. Exam Vital Signs Vital Sign - Last Date Time Temp Pulse Resp B/P Pulse Ox O2 Delivery O2 Flow Rate FiO2 10/28/16 10:33 70 10/28/16 10:25 36.6 18 116/69 94 Nasal Cannula 2.00 Intake and Output 10/27/16 10/27/16 10/28/16 Cumulative From/Thru 15:00 23:00 07:00 10/23/16 13:24 - 10/28/16 06:15 Intake Total 874 ml 1482 ml 645 ml 46204 ml Output Total 650 ml 1275 ml 1025 ml 9100 ml Balance 224 ml 207 ml -380 ml 1623 ml Intake Oral 874 ml 1100 ml 200 ml 7287 ml IV Total 382 ml 445 ml 2856 ml Packed Cells 580 ml Output Urine Total 650 ml 1275 ml 1025 ml 9100 ml # Voids 1 # Bowel Movements 0 1 1 6 Exam General/Constitutional: Thin, Awake and alert, NAD, chronically ill appearing Head / Eyes: Normocephalic atraumatic, EOMI, PERRL, Conjunctiva NL Neck: Supple Resp: Mild-mod respiratory distress, some use of accessory muscles, scattered wheezes on lower lobes bilaterally with crackles right upper lobes Cardiovascular: Regular rhythm, Heart sounds NL no murmurs appreciated, pedal pulse NL Extremities: no edema Psych: NL mood and affect Skin: Pale,Warm, Dry, large area of ecchymosis 20cm in height by 10cm in width on left lower back no longer edematous IVs and Medications Medications Reviewed: Medications were reviewed in detail Lab and Diagnostics Result Diagram: 10/28/16 0530 10/28/16 0530 X-Rays, CTs and MRIs Date of Service: 10/23/16 1403 PROCEDURE: X-RAY CHEST ONE VIEW, PORTABLE ([id number]) IMPRESSION: Persistent retrocardiac atelectasis, aspiration, or pneumonia. Dictated by: Chris Plunkett M.D. on 10/23/2016 at 15:10 Date of Service: 10/24/16 1725 PROCEDURE: CT ABDOMEN AND PELVIS WITHOUT CONTRAST ([id number]) INDICATIONS: LLQ abdomen pain IMPRESSION: 1.The presumed source of left lower quadrant pain is a relatively large left psoas muscle hematoma with epicenter in the abdomen and tapering into the pelvis. No hemoperitoneum is associated. 2.There is mild diverticulosis but without acute diverticulitis. Asymmetric pleural effusions, small to moderate on the left and scant on the right. Adjacent basilar atelectasis. Postsurgical changes are noted of presumed prior CABG. 3.This information was immediately called to the nursing station caring for the patient who is hospitalized at this time. Dictated by: Miko Garcia M.D. on 10/25/2016 at 10:57 Assessment & Plan Patient is a 60-year-old male with a complex past medical history including chronic foot ulcers, recent undiagnosed GI bleeding, systolic and diastolic congestive heart failure, CAD, A. fib, history of MRSA pneumonia, as well as, C. difficile, with multiple recent hospitalizations, who presented to [facility] ED found on the ground with a lower hemoglobin than yesterday. Day #4 Left psoas hematoma, present on admission. Acute. CT abd/pelv showed 17cm hematoma on left psoas General surgery consulted, appreciate time and expertise No surgical interventions recommended at this time continue to follow H/H transfuse as needed Repeat CT abd/pelv showed hematoma decreased in size Will follow H/H Q12H Acute on chronic anemia, present on admission. Stable. Secondary to Psoas Hematoma likely 2 units PRBC given for hemoglobin decreasing from 7.6 on admit to 6.3, then 8.7 after transfusion anemia panel showing iron deficiency H/H every 6H x4 transfuse if hgb <7 PPI ggt changed to PPI PO per GI recs Low suspicion of active GI bleed Recent previous admission for GI bleed, thought poor candidate for endoscopy. Discharged after one unit red blood cell transfusion. Previous EGD showed erosive esophagitis and gastritis, unremarkable colonoscopy (03/07/2016). Appreciate GI consult - patient declines to have endoscopy at this time Acute Kidney Injury on CKD, present on admission. Improving. Creatinine on admission 2.72 and Baseline around 1.7, currently 3.10 Continue with D5 1/2 NS at 60 mL/hour Hold diuretics Recheck renal function in AM Appreciate nephrology consult: time and expertise Suspected pneumonia, acute. HCAP treatment started with Vancomycin, Zosyn and Levofloxacin MRSA screen pending Hypertension, present on admission. Uncontrolled. Currently on amlodipine, metoprolol succinate 25mg BID added Weakness/failure to thrive, present on admission. Improving. PT eval postponed due to recent CT findings as above PT recommends HHPT Elevated troponins of unknown significance, present on admission. Troponins - 0.113 on admission most likely due to demand ischemia, patient has not had any CP COPD patient recently discharged on 10/08/16 and 10/22/16 increasing prednisone from 20mg back up to 40 mg DuoNebs and albuterol scheduled TID Not on home O2, requiring supplemental O2 at 2L O2 to be kept at 88-92% Chronic systolic CHF, present on admission. Echo from 09/16/2016 showed improved ejection fraction from 40% to 50-55% with areas of hypokinesis which are also chronic and mild systolic failure, also to note small atrial septal [place] [address] judiciously manage fluids, currently without IV access Chronic hypertension with hypertensive heart secondary to hypertensive nephrosclerosis. Hold Lasix per nephro recs Monitor vital signs. Hx of A-fib telemetry Chronic lower extremity ulcerations with PVD, present on admission. wound care Ongoing tobacco abuse counseled on smoking cessation ongoing nicotine replacement Chronic pain with continuous opiate dependence continue prior opiate regimen of morphine sulfate 15 mg twice a day with oxycodone for break through Prophylaxis-DVT, heparin as SCDs are contraindicated with peripheral vascular disease, GI patient is already on a PPI Disposition-he is from home independent living. Code status: FULL VTE Prophylaxis: Sub-Q Heparin (Unfractionated) VTE Mechanical Devices: Intermittant Pneumatic CD Resuscitation Status: CPR: Attempt Resuscitation VTE Prophylaxis: Sub-Q Heparin (Unfractionated) VTE Mechanical Devices: Venous Foot Pump Resuscitation Status: CPR: Attempt Resuscitation Attending Statement The patient was seen and examined together with Dr. Sauer on 10/28/2016 and I agree with the history, exam and plan as outlined in the note above. Jessica Sauer DO Oct 28, 2016 13:49 Vaughn England MD Oct 29, 2016 12:23
[2016-10-28] MEDS: Dextrose 5% 0.45% NaCl 1,000 ML IV SCH (15:14)
--- NOTE | 2016-10-28 15:35 | PCM.PHAPRO ---
Progress Weakness, anemia, failure to thrive VANCOMYCIN DOSING PER PHARMACY A - Pt is currently being treated for possible HCAP - Has hx of MRSA with previous vancomycin use Current labs include: SCr: 3.05 CrCl: 21 WBC: 9.2 Other abx: Levofloxacin, zosyn Culture info is pending P: - Will give vancomycin 750 mg IV Q24H with close monitoring of renal function - Random trough to be drawn on 10/29/16 @ 0500 - Pharmacy will continue to follow, thanks! Deborah Oleary PharmD Oct 28, 2016 15:35
--- NOTE | 2016-10-28 16:05 | NUR ---
IV/ Off unit->PICC placement Pt transported via by aide for PIC placement. Initial IV leaked, 1 attempt made by primary RN for IV. IV therapy called for assistance. Recommendation by IV therapy to place a PICC line. Primary RN confirmed with Dr Sauer that PICC was necessary for IVF. Addendum: 10/28/16 at 1738 by YULI ADAM RN Pt back on unit. Reconnecting to IVF.
[2016-10-28] MEDS ORDERED: Sodium Chloride LOK Flush 10 mL Syringe IVFLUSH PRN (17:45)
[2016-10-28] MEDS: Vancomycin Dose per Pharmacist XX SCH (17:51)
[2016-10-28] MEDS: Piperacillin-Tazo 3.375 Gm Inj 3.375 GM in Dextrose 5% Minibag Plus 50 ML IV SCH (17:57)
--- NOTE | 2016-10-28 18:51 | DRSVH ---
PROCEDURE: X-RAY PICC LINE PLACEMENT BY NURSE ([id number]) INDICATIONS: Need IV Access COMPARISON: [facility], CR, XR CHEST 1VW (PORTABLE), 10/28/2016, 11:24. FINDINGS: PICC was placed by the intravenous therapy team from the right side. Fluoroscopic spot fi lm demonstrates tip of PICC at the cavoatrial junction. IMPRESSION: Tip of PICC extends to the cavoatrial junction. Dictated by: Sheldon Hackett M.D. on 10/28/2016 at 18:50 Approved by: Sheldon Hackett M.D. on 10/28/2016 at 18:50
[2016-10-29] VITALS (11 sets, daily range): BP systolic 102–146; BP diastolic 61–84; PULSE 76–90; RESP 18–26; O2SAT 92–98
[2016-10-29] MEDS: Piperacillin-Tazo 3.375 Gm Inj 3.375 GM in Dextrose 5% Minibag Plus 50 ML IV SCH ×2 (01:01→07:37)
[2016-10-29] MEDS ORDERED: Vancomycin Serum Trough XX ONE ×2 (05:00→17:30)
[2016-10-29 05:15] LABS: BASOPHILS % (AUTO) 0 % (0-3); EOSINOPHILS % (AUTO) 2.2 % (0-5); MONOCYTES % (AUTO) 8.6 % (4-12); Mean Corpuscular Hemoglobin 26.2 pg (27.0-35.0); Mean Corpuscular Volume 83.3 fL (81-100); NEUTROPHILS % (AUTO) 83.1 % (40-74); Platelet Count 212 bil/L (150-400)
--- NOTE | 2016-10-29 05:32 | NUR ---
Uneventful night Patient slept throughout the night. on 2L via NC. lungs coarse throughout. occasional non-productive cough. patient uses call light appropriately. bed alarm in place for safety, history of falls.
[2016-10-29] MEDS: Fluticasone-Salmeterol 100-50 Inhaler INHALATION SCH ×2 (07:38→20:45)
[2016-10-29] MEDS: Tiotropium 18mcg/Cap 5 Capsule Inhaler Kit INHALATION SCH (07:38)
[2016-10-29] MEDS: Dextrose 5% 0.45% NaCl 1,000 ML IV SCH (07:39)
[2016-10-29] MEDS: Morphine ER 15 mg (MS Contin) Tablet PO SCH ×2 (07:42→20:46)
[2016-10-29] MEDS: MeTOProlol XL 25 mg ER24 Tablet PO SCH ×2 (07:42→20:45)
[2016-10-29] MEDS: Pantoprazole 20 mg ER24 Tablet PO SCH ×2 (07:42→20:45)
[2016-10-29] MEDS: Vancomycin Dose per Pharmacist XX SCH (07:47)
[2016-10-29] MEDS: Albuterol-Ipratropium 3 mL Inhalation Solution NEB SCH ×3 (08:04→20:29)
[2016-10-29] MEDS ORDERED: levoFLOXacin Inj 750 MG in IV Premix 1 EACH IV SCH (08:30)
--- NOTE | 2016-10-29 11:45 | NUR ---
PSVT & PVR-Kiser Per orders, PVR scanned, showed to be >444. Order obtained for kiser catheter. Cather placed using sterile technique. Yellow/clear urine drained. Pt tolerated procedure well. Call recd from tele d/t 6 sec of PSVT in 140s. MD aware. pt asymptomatic. Will continue with frequent monitoring.
--- NOTE | 2016-10-29 13:59 | PCM.PNMED ---
Subjective Date of Service Oct 29, 2016 Subjective Kidney function deteriorated. PVR > 444 ml, kiser cath inserted. chronic SOB, noted, not worsened. Exam Vital Signs Vital Sign - Last Date Time Temp Pulse Resp B/P Pulse Ox O2 Delivery O2 Flow Rate FiO2 10/29/16 13:46 36.6 81 18 146/71 97 Room Air 10/29/16 10:14 3.00 Intake and Output 10/28/16 10/28/16 10/29/16 Cumulative From/Thru 15:00 23:00 07:00 10/23/16 13:24 - 10/29/16 05:23 Intake Total 1046 ml 880 ml 200 ml 51850 ml Output Total 620 ml 1100 ml 26984 ml Balance 1046 ml 260 ml -900 ml 2029 ml Intake Oral 880 ml 200 ml 8367 ml IV Total 1046 ml 3902 ml Packed Cells 580 ml Output Urine Total 620 ml 1100 ml 82234 ml # Voids 1 # Bowel Movements 1 1 8 Exam General appearance: Awake, alert x3. In no acute distress. HEENT: Mild pallor. No jaundice. No JVD. No lymphadenopathy. No thyroid enlargement. Heart: Regular rhythm. Normal S1, S2. No murmur, rubs or gallops. Lungs: coarse crackles at bases. no wheezing at this moment. Abd: LLQ tenderness, soft, no rebound, no HSM. Extremities: Trace edema of the lower extremities. Skin: No rashes. No excoriation. : kiser cath in place, yellowish urine. Lab and Diagnostics Result Diagram: 10/29/16 0858 10/29/16 0447 X-Rays, CTs and MRIs Date of Service: 10/23/16 1403 PROCEDURE: X-RAY CHEST ONE VIEW, PORTABLE ([id number]) IMPRESSION: Persistent retrocardiac atelectasis, aspiration, or pneumonia. Dictated by: Chris Plunkett M.D. on 10/23/2016 at 15:10 Date of Service: 10/24/16 1725 PROCEDURE: CT ABDOMEN AND PELVIS WITHOUT CONTRAST ([id number]) INDICATIONS: LLQ abdomen pain IMPRESSION: 1.The presumed source of left lower quadrant pain is a relatively large left psoas muscle hematoma with epicenter in the abdomen and tapering into the pelvis. No hemoperitoneum is associated. 2.There is mild diverticulosis but without acute diverticulitis. Asymmetric pleural effusions, small to moderate on the left and scant on the right. Adjacent basilar atelectasis. Postsurgical changes are noted of presumed prior CABG. 3.This information was immediately called to the nursing station caring for the patient who is hospitalized at this time. Dictated by: Miko Garcia M.D. on 10/25/2016 at 10:57 Assessment & Plan 1. BABS on CKD - due to intravascular volume depletion, severe anemia. - deteriorate now with evidence of urinary retention. 2. Severe anemia - h/o GIB. - large left psoas hematoma. 3. hypocalcemia. 4. COPD with tobacco abuse. 5. Afib 6. Chronic systolic heart failure. plan: d/c IVF. kiser cath placement. check PSA level. start flomax. check PTH, vitd, CBC, CMP, Mg, PO4 in am. VTE Prophylaxis: Sub-Q Heparin (Unfractionated) VTE Mechanical Devices: Venous Foot Pump Resuscitation Status: CPR: Attempt Resuscitation Flavio Alves MD Oct 29, 2016 13:59
[2016-10-29] MEDS ORDERED: Sodium Chloride LOK Flush 10 mL Syringe IVFLUSH PRN ×2 (16:20)
--- NOTE | 2016-10-29 16:34 | PCM.PNMED ---
Subjective Date of Service Oct 29, 2016 Subjective No overnight events, patient without new complaints. Patient feels better, up and about, walking around the unit. Exam Vital Signs Vital Sign - Last Date Time Temp Pulse Resp B/P Pulse Ox O2 Delivery O2 Flow Rate FiO2 10/29/16 15:53 82 26 94 Nasal Cannula 1.00 10/29/16 13:46 36.6 146/71 Intake and Output 10/28/16 10/28/16 10/29/16 Cumulative From/Thru 15:00 23:00 07:00 10/23/16 13:24 - 10/29/16 05:23 Intake Total 1046 ml 880 ml 200 ml 39907 ml Output Total 620 ml 1100 ml 28324 ml Balance 1046 ml 260 ml -900 ml 2029 ml Intake Oral 880 ml 200 ml 8367 ml IV Total 1046 ml 3902 ml Packed Cells 580 ml Output Urine Total 620 ml 1100 ml 48645 ml # Voids 1 # Bowel Movements 1 1 8 Exam General: No acute distress, HEENT: Normocephalic, atraumatic. External ears without defect. Pupils equal, round, and reactive to light and accommodation. Anicteric sclerae, moist conjunctivae, and no lid lag. Neck: Supple with full range of motion. No jugular venous distension Cardiovascular: Regular rate and rhythm with no murmurs, rubs, or gallops appreciated Pulmonary: mild scattered wheezes on lower lobes bilaterally Abdomen: Bowel tones present. Soft, nontender, nondistended. No hepatosplenomegaly or masses appreciated. Extremities: No clubbing, cyanosis, edema, or lymphadenopathy appreciated. Skin: Normal temperature, turgor, and texture; no rash, ulcers, or subcutaneous nodules appreciated. Neurological: Cranial nerves grossly intact. Normal muscle strength, tone, and bulk. Reflexes, coordination, and sensory function within normal limits. No known gait impairment. Psychiatric: Normal mood and affect. Alert and oriented to person, place, and time. IVs and Medications Medications Reviewed: Medications were reviewed in detail Lab and Diagnostics Result Diagram: 10/29/16 0858 10/29/16 0447 X-Rays, CTs and MRIs Date of Service: 10/23/16 1403 PROCEDURE: X-RAY CHEST ONE VIEW, PORTABLE ([id number]) IMPRESSION: Persistent retrocardiac atelectasis, aspiration, or pneumonia. Dictated by: Chris Plunkett M.D. on 10/23/2016 at 15:10 Date of Service: 10/24/16 1720 PROCEDURE: CT ABDOMEN AND PELVIS WITHOUT CONTRAST ([id number]) INDICATIONS: LLQ abdomen pain IMPRESSION: 1.The presumed source of left lower quadrant pain is a relatively large left psoas muscle hematoma with epicenter in the abdomen and tapering into the pelvis. No hemoperitoneum is associated. 2.There is mild diverticulosis but without acute diverticulitis. Asymmetric pleural effusions, small to moderate on the left and scant on the right. Adjacent basilar atelectasis. Postsurgical changes are noted of presumed prior CABG. 3.This information was immediately called to the nursing station caring for the patient who is hospitalized at this time. Dictated by: Miko Garcia M.D. on 10/25/2016 at 10:57 Assessment & Plan Patient is a 60-year-old male with a complex past medical history including chronic foot ulcers, recent undiagnosed GI bleeding, systolic and diastolic congestive heart failure, CAD, A. fib, history of MRSA pneumonia, as well as, C. difficile, with multiple recent hospitalizations, who presented to [facility] ED found on the ground with a lower hemoglobin than yesterday. Day #4 Left psoas hematoma, present on admission. stable CT abd/pelv showed 17cm hematoma on left psoas General surgery consulted, appreciate time and expertise No surgical interventions recommended at this time continue to follow H/H transfuse as needed Repeat CT abd/pelv showed hematoma decreased in size Stable at this point Acute on chronic anemia, present on admission. Stable. Secondary to Psoas Hematoma likely 2 units PRBC given for hemoglobin decreasing from 7.6 on admit to 6.3, then 8.7 after transfusion anemia panel showing iron deficiency H/H every 6H x4 transfuse if hgb <7 PPI ggt changed to PPI PO per GI recs Low suspicion of active GI bleed Recent previous admission for GI bleed, thought poor candidate for endoscopy. Discharged after one unit red blood cell transfusion. Previous EGD showed erosive esophagitis and gastritis, unremarkable colonoscopy (03/07/2016). Appreciate GI consult - patient declines to have endoscopy at this time Acute Kidney Injury on CKD, present on admission. Improving. Creatinine on admission 2.72. Baseline around 1.7 Worsen of kidney function due to vancomycin/Zosyn/Levaquin in addition to the initial dehydration and acute anemia Continue with D5 1/2 NS at 80 mL/hour Hold diuretics Recheck renal function in AM Appreciate nephrology consult: time and expertise Suspected pneumonia, acute. HCAP treatment started with Vancomycin, Zosyn and Levofloxacin MRSA screen pending Hypertension, present on admission. Uncontrolled. Currently on amlodipine, metoprolol succinate 25mg BID added Weakness/failure to thrive, present on admission. Improving. PT eval postponed due to recent CT findings as above PT recommends HHPT Elevated troponins of unknown significance, present on admission. Troponins - 0.113 on admission most likely due to demand ischemia, patient has not had any CP COPD patient recently discharged on 10/08/16 and 10/22/16 increasing prednisone from 20mg back up to 40 mg DuoNebs and albuterol scheduled TID Not on home O2, requiring supplemental O2 at 2L O2 to be kept at 88-92% Chronic systolic CHF, present on admission. Echo from 09/16/2016 showed improved ejection fraction from 40% to 50-55% with areas of hypokinesis which are also chronic and mild systolic failure, also to note small atrial [place]al [place] [address] judiciously manage fluids, currently without IV access Chronic hypertension with hypertensive heart secondary to hypertensive nephrosclerosis. Hold Lasix per nephro recs Monitor vital signs. Hx of A-fib telemetry Chronic lower extremity ulcerations with PVD, present on admission. wound care Ongoing tobacco abuse counseled on smoking cessation ongoing nicotine replacement Chronic pain with continuous opiate dependence continue prior opiate regimen of morphine sulfate 15 mg twice a day with oxycodone for break through Disposition: Anticipate the patient may be discharged 1 day pending resolution of AK I. VTE Prophylaxis: Sub-Q Heparin (Unfractionated) VTE Mechanical Devices: Venous Foot Pump Resuscitation Status: CPR: Attempt Resuscitation Omar Nazario DO Oct 29, 2016 16:34
[2016-10-29] MEDS ORDERED: Vancomycin Inj 1,000 MG in IV Premix 1 EACH IV ONE (18:00)
[2016-10-30] VITALS (13 sets, daily range): BP systolic 92–113; BP diastolic 61–69; PULSE 80–115; RESP 20–24; O2SAT 93–96
[2016-10-30] MEDS: Albuterol-Ipratropium 3 mL Inhalation Solution NEB PRN (04:20)
--- NOTE | 2016-10-30 04:24 | NUR ---
Respiratory Patient woke up with SOB at night. patient o2 increased to 3L. auditory wheeze heard. Patient requested breathing treatment. paged. new order for breathing treatment obtained. RT up to give treatment. 02 maintained above 90% while sleeping. will continue to monitor. IV SL.
[2016-10-30 06:16] LABS: BASOPHILS % (AUTO) 0 % (0-3); EOSINOPHILS % (AUTO) 2.6 % (0-5); MONOCYTES % (AUTO) 9.2 % (4-12); Mean Corpuscular Hemoglobin 26.1 pg (27.0-35.0); Mean Corpuscular Volume 83.9 fL (81-100); NEUTROPHILS % (AUTO) 83.6 % (40-74); Platelet Count 244 bil/L (150-400)
[2016-10-30 07:04] LABS: Magnesium 1.5 mg/dL (1.6-2.6); Phosphorus 4.5 mg/dL (2.5-4.9)
[2016-10-30] MEDS ORDERED: Magnesium Chloride SR 64 mg ER24 Tablet PO ONE (07:50)
[2016-10-30] MEDS: Fluticasone-Salmeterol 100-50 Inhaler INHALATION SCH ×2 (07:57→19:51)
[2016-10-30] MEDS: Tiotropium 18mcg/Cap 5 Capsule Inhaler Kit INHALATION SCH (07:57)
[2016-10-30] MEDS: Pantoprazole 20 mg ER24 Tablet PO SCH ×2 (08:00→19:54)
[2016-10-30] MEDS: Morphine ER 15 mg (MS Contin) Tablet PO SCH ×2 (08:00→19:54)
[2016-10-30] MEDS: MeTOProlol XL 25 mg ER24 Tablet PO SCH ×2 (08:01→19:54)
[2016-10-30] MEDS: Sodium Chloride LOK Flush 10 mL Syringe IVFLUSH PRN (08:02)
[2016-10-30] MEDS ORDERED: 0.9% Sodium Chloride 250 ML IV ONE (09:25)
[2016-10-30] MEDS: Albuterol-Ipratropium 3 mL Inhalation Solution NEB SCH ×3 (09:35→21:11)
--- NOTE | 2016-10-30 10:32 | PCM.PNMED ---
Subjective Date of Service Oct 30, 2016 Subjective Overnight events: Patient's H/H dropped 8.4 to 6.8, back up to 7.7 on repeat. Blood transfusion cancelled. Patient endorses mild increase of SOB over his chronic dyspnea, otherwise doing well. Endorses intermittent left sided pleuritic pain which goes away rapidly. Denies CP, nausea, fever, or chills. Exam Vital Signs Vital Sign - Last Date Time Temp Pulse Resp B/P Pulse Ox O2 Delivery O2 Flow Rate FiO2 10/30/16 09:35 82 20 93 Nasal Cannula 2.50 10/30/16 09:15 36.9 92/61 Intake and Output 10/29/16 10/29/16 10/30/16 Cumulative From/Thru 15:00 23:00 07:00 10/23/16 13:24 - 10/29/16 18:43 Intake Total 150 ml 2595 ml 06049 ml Output Total 1180 ml 60013 ml Balance 150 ml 1415 ml 3594 ml Intake Oral 1000 ml 9367 ml IV Total 150 ml 1595 ml 5647 ml Packed Cells 580 ml Output Urine Total 1180 ml 10566 ml # Voids 1 # Bowel Movements 0 8 Exam General/Constitutional: Thin, Awake and alert, NAD, chronically ill appearing Head / Eyes: Normocephalic atraumatic, EOMI, PERRL, Conjunctiva NL Neck: Supple Resp: Mild-mod respiratory distress, some use of accessory muscles, scattered wheezes on lower lobes bilaterally with crackles right upper lobes Cardiovascular: Regular rhythm, Heart sounds NL no murmurs appreciated, pedal pulse NL Extremities: no edema Psych: NL mood and affect Skin: Pale,Warm, Dry, large area of ecchymosis 20cm in height by 10cm in width on left lower back no longer edematous and dissipating IVs and Medications Medications Reviewed: Medications were reviewed in detail Lab and Diagnostics Result Diagram: 10/30/16 0900 10/30/16 0515 X-Rays, CTs and MRIs Date of Service: 10/23/16 1403 PROCEDURE: X-RAY CHEST ONE VIEW, PORTABLE ([id number]) IMPRESSION: Persistent retrocardiac atelectasis, aspiration, or pneumonia. Dictated by: Chris Plunkett M.D. on 10/23/2016 at 15:10 Date of Service: 10/24/16 1725 PROCEDURE: CT ABDOMEN AND PELVIS WITHOUT CONTRAST ([id number]) INDICATIONS: LLQ abdomen pain IMPRESSION: 1.The presumed source of left lower quadrant pain is a relatively large left psoas muscle hematoma with epicenter in the abdomen and tapering into the pelvis. No hemoperitoneum is associated. 2.There is mild diverticulosis but without acute diverticulitis. Asymmetric pleural effusions, small to moderate on the left and scant on the right. Adjacent basilar atelectasis. Postsurgical changes are noted of presumed prior CABG. 3.This information was immediately called to the nursing station caring for the patient who is hospitalized at this time. Dictated by: Miko Garcia M.D. on 10/25/2016 at 10:57 Assessment & Plan Patient is a 60-year-old male with a complex past medical history including chronic foot ulcers, recent undiagnosed GI bleeding, systolic and diastolic congestive heart failure, CAD, A. fib, history of MRSA pneumonia, as well as, C. difficile, with multiple recent hospitalizations, who presented to [facility] ED found on the ground with a lower hemoglobin than yesterday. Day #7 Left psoas hematoma, present on admission. stable CT abd/pelv showed 17cm hematoma on left psoas General surgery consulted, appreciate time and expertise No surgical interventions recommended at this time continue to follow H/H transfuse as needed Repeat CT abd/pelv showed hematoma decreased in size 1/13 Check H/H Q6H, low threshold for repeat imaging Acute on chronic anemia, present on admission. Stable. Secondary to Psoas Hematoma likely 2 units PRBC given for hemoglobin decreasing from 7.6 on admit to 6.3, then 8.7 after transfusion anemia panel showing iron deficiency H/H every 6H x4 transfuse if hgb <7 PPI ggt changed to PPI PO per GI recs Low suspicion of active GI bleed Recent previous admission for GI bleed, thought poor candidate for endoscopy. Discharged after one unit red blood cell transfusion. Previous EGD showed erosive esophagitis and gastritis, unremarkable colonoscopy (03/07/2016). Appreciate GI consult - patient declines to have endoscopy at this time Guaiac today Acute Kidney Injury on CKD, present on admission. Active. Creatinine on admission 2.72. Baseline around 1.7 Worsen of kidney function due to vancomycin/Zosyn/Levaquin in addition to the initial dehydration and acute anemia Continue with D5 1/2 NS at 80 mL/hour Hold diuretics Recheck renal function in AM Appreciate nephrology consult: time and expertise Suspected pneumonia, acute. HCAP treatment started with Vancomycin, Zosyn and Levofloxacin, stopped 10/29 MRSA screen negative Hypertension, present on admission. Uncontrolled. Currently on amlodipine, metoprolol succinate 25mg BID added Weakness/failure to thrive, present on admission. Improving. PT eval postponed due to recent CT findings as above PT recommends HHPT Elevated troponins of unknown significance, present on admission. Troponins - 0.113 on admission most likely due to demand ischemia, patient has not had any CP COPD patient recently discharged on 10/08/16 and 10/22/16 increasing prednisone from 20mg back up to 40 mg DuoNebs and albuterol scheduled TID Not on home O2, requiring supplemental O2 at 2L O2 to be kept at 88-92% Chronic systolic CHF, present on admission. Echo from 09/16/2016 showed improved ejection fraction from 40% to 50-55% with areas of hypokinesis which are also chronic and mild systolic failure, also to note small atrial [place] [address] judiciously manage fluids, currently without IV access Chronic hypertension with hypertensive heart secondary to hypertensive nephrosclerosis. Hold Lasix per nephro recs Monitor vital signs. Hx of A-fib telemetry Chronic lower extremity ulcerations with PVD, present on admission. wound care Ongoing tobacco abuse counseled on smoking cessation ongoing nicotine replacement Chronic pain with continuous opiate dependence continue prior opiate regimen of morphine sulfate 15 mg twice a day with oxycodone for break through Disposition: Anticipate the patient may be discharged if H/H stable with resolution of AK I. VTE Prophylaxis: Sub-Q Heparin (Unfractionated) VTE Mechanical Devices: Venous Foot Pump Resuscitation Status: CPR: Attempt Resuscitation Time spent 20 minutes Attending Statement I have seen and evaluated patient at bedside, in addition to directly supervising care provided by resident physician. I agree with above documentation. Jessica Sauer DO Oct 30, 2016 10:32 Sen Quintana DO Oct 30, 2016 15:53
--- NOTE | 2016-10-30 14:16 | PCM.PNMED ---
Subjective Date of Service Oct 30, 2016 Subjective Patient is well-known to me from previous evaluations. He presented to the hospital several days ago with acute on chronic kidney injury secondary to acute blood loss and intravascular volume depletion. His baseline creatinine is in the low to mid 2 range and today his creatinine has risen to 3.47. His intake and output 2945 in and 2280 out his blood pressures failure. The patient offers no new complaints today and denies any chest pain, shortness of breath, cough or wheezing. Exam Vital Signs Vital Sign - Last Date Time Temp Pulse Resp B/P Pulse Ox O2 Delivery O2 Flow Rate FiO2 10/30/16 13:22 90 24 93 Nasal Cannula 1.00 10/30/16 12:33 36.9 103/69 Intake and Output 10/29/16 10/29/16 10/30/16 Cumulative From/Thru 15:00 23:00 07:00 10/23/16 13:24 - 10/29/16 18:43 Intake Total 150 ml 2595 ml 61059 ml Output Total 1180 ml 68113 ml Balance 150 ml 1415 ml 3594 ml Intake Oral 1000 ml 9367 ml IV Total 150 ml 1595 ml 5647 ml Packed Cells 580 ml Output Urine Total 1180 ml 79401 ml # Voids 1 # Bowel Movements 0 8 Exam Sclera are pale. Neck is supple without adenopathy thyromegaly or jugular venous distention. Lungs were remarkably clear to auscultation. In the past his pulmonary examination is spent quite problematic. Heart is regular with a soft systolic murmur. Abdomen soft without any tenderness or rebound guarding masses or hepatosplenomegaly. Extremities shows a clubbing cyanosis or edema. Skin turgor is good news no evidence of any rashes. Lab and Diagnostics Result Diagram: 10/30/16 0900 10/30/16 0515 X-Rays, CTs and MRIs Date of Service: 10/23/16 1403 PROCEDURE: X-RAY CHEST ONE VIEW, PORTABLE ([id number]) IMPRESSION: Persistent retrocardiac atelectasis, aspiration, or pneumonia. Dictated by: Chris Plunkett M.D. on 10/23/2016 at 15:10 Date of Service: 10/24/16 1725 PROCEDURE: CT ABDOMEN AND PELVIS WITHOUT CONTRAST ([id number]) INDICATIONS: LLQ abdomen pain IMPRESSION: 1.The presumed source of left lower quadrant pain is a relatively large left psoas muscle hematoma with epicenter in the abdomen and tapering into the pelvis. No hemoperitoneum is associated. 2.There is mild diverticulosis but without acute diverticulitis. Asymmetric pleural effusions, small to moderate on the left and scant on the right. Adjacent basilar atelectasis. Postsurgical changes are noted of presumed prior CABG. 3.This information was immediately called to the nursing station caring for the patient who is hospitalized at this time. Dictated by: Miko Garcia M.D. on 10/25/2016 at 10:57 Assessment & Plan Impression #1 acute kidney injury #2 chronic kidney disease stage III #3 dehydration Recommendations #1 would like to continue his cautious IV hydration and will follow up with his anemia including additional doses of Aranesp in evaluating his iron studies. VTE Prophylaxis: Sub-Q Heparin (Unfractionated) VTE Mechanical Devices: Venous Foot Pump Resuscitation Status: CPR: Attempt Resuscitation Artie Pearson DO Oct 30, 2016 14:16
[2016-10-30] MEDS ORDERED: Darbepoetin Alfa 60 mCg/0.3 mL Inj SUBQ ONE (14:20)
--- NOTE | 2016-10-30 15:50 | NUR ---
Labs and PSVT Critical H/H this AM. Re-draw shows labs values improved without blood transfusion this AM. Nephrology ordering one time epopoetin. Draws from PICC line could be contaminated by dilution and subsequent checks to be drawn peripherally. Mag low this AM. Oral supplement admin. Rechecks shows value improved. Asymptomatic short runs of PSVT continue this shift. Provider notified and no no new orders received after review of current labs.
[2016-10-30] MEDS ORDERED: Vancomycin Serum Trough XX ONE (17:30)
[2016-10-31] VITALS (13 sets, daily range): BP systolic 90–120; BP diastolic 56–71; PULSE 79–97; RESP 15–22; O2SAT 89–97
[2016-10-31 02:08] LABS: Vitamin D, 25-Hydroxy 20.6 ng/mL (30.0-100.0)
[2016-10-31 03:21] LABS: BASOPHILS % (AUTO) 0.2 % (0-3); EOSINOPHILS % (AUTO) 3.5 % (0-5); Mean Corpuscular Volume 84.7 fL (81-100); NEUTROPHILS % (AUTO) 74.1 % (40-74); Platelet Count 221 bil/L (150-400)
[2016-10-31] MEDS: Albuterol-Ipratropium 3 mL Inhalation Solution NEB SCH ×3 (07:57→19:51)
[2016-10-31] MEDS: MeTOProlol XL 25 mg ER24 Tablet PO SCH ×2 (08:25→20:06)
[2016-10-31] MEDS: Fluticasone-Salmeterol 100-50 Inhaler INHALATION SCH ×2 (08:29→20:05)
[2016-10-31] MEDS: Tiotropium 18mcg/Cap 5 Capsule Inhaler Kit INHALATION SCH (08:30)
[2016-10-31] MEDS: Pantoprazole 20 mg ER24 Tablet PO SCH ×2 (08:31→20:06)
[2016-10-31] MEDS: Morphine ER 15 mg (MS Contin) Tablet PO SCH ×2 (08:31→20:08)
[2016-10-31] MEDS ORDERED: 0.9% Sodium Chloride 1,000 ML IV ONE (10:20)
--- NOTE | 2016-10-31 12:03 | PCM.PNMED ---
Subjective Date of Service Oct 31, 2016 Subjective Patient's renal function is about the same. He continues to have more urine [place] M[place] taking in. His blood pressure remains in the 90 to low 100 range. His intake yesterday was 736 and 1125 out. He complains of some thirst but denies any chest pain, shortness of breath, cough, wheezing, nausea or vomiting. His hemoglobin sounds 7.4 and his BUN and creatinine remain elevated at 54 and 3.75 respectively. His iron saturation is 80% and albumin is 2.1. Exam Vital Signs Vital Sign - Last Date Time Temp Pulse Resp B/P Pulse Ox O2 Delivery O2 Flow Rate FiO2 10/31/16 09:03 36.6 91 20 94/56 97 Nasal Cannula 3.50 Intake and Output 10/30/16 10/30/16 10/31/16 Cumulative From/Thru 15:00 23:00 07:00 10/23/16 13:24 - 10/30/16 21:43 Intake Total 200 ml 536 ml 17961 ml Output Total 575 ml 550 ml 14769 ml Balance -375 ml -14 ml 3205 ml Intake Oral 200 ml 536 ml 02470 ml IV Total 5647 ml Packed Cells 580 ml Output Urine Total 575 ml 550 ml 75375 ml # Voids 1 # Bowel Movements 0 8 Exam HEENT examination is remarkable for sclera. Neck supple without adenopathy thyromegaly or significant jugular venous distention. Lungs remain clear to auscultation. Heart is regular rhythmical with a soft systolic murmur. Abdomen is soft benign tenderness rebound guarding masses or hepatosplenomegaly. She was shocked once and clubbing cyanosis or edema. Skin turgor is markedly diminished. Lab and Diagnostics Result Diagram: 10/31/16 0256 10/31/16 0256 X-Rays, CTs and MRIs Date of Service: 10/23/16 1403 PROCEDURE: X-RAY CHEST ONE VIEW, PORTABLE ([id number]) IMPRESSION: Persistent retrocardiac atelectasis, aspiration, or pneumonia. Dictated by: Chris Plunkett M.D. on 10/23/2016 at 15:10 Date of Service: 10/24/16 1725 PROCEDURE: CT ABDOMEN AND PELVIS WITHOUT CONTRAST ([id number]) INDICATIONS: LLQ abdomen pain IMPRESSION: 1.The presumed source of left lower quadrant pain is a relatively large left psoas muscle hematoma with epicenter in the abdomen and tapering into the pelvis. No hemoperitoneum is associated. 2.There is mild diverticulosis but without acute diverticulitis. Asymmetric pleural effusions, small to moderate on the left and scant on the right. Adjacent basilar atelectasis. Postsurgical changes are noted of presumed prior CABG. 3.This information was immediately called to the nursing station caring for the patient who is hospitalized at this time. Dictated by: Miko Garcia M.D. on 10/25/2016 at 10:57 Assessment & Plan Impression #1 acute on chronic kidney injury was prerenal azotemia secondary to intravascular volume depletion and corticosteroids. #2 baseline stage III kidney disease #4 hypertension with hypertensive heart disease and hypertensive nephrosclerosis. Recommendations #1 I discussed the case with the resident and would like to give him a 500 mL porous half-normal saline and then continue him on 50 ML's an hour. Obviously we need to continue to hold diuretics. His albumin being low rectum 2 doses of 25 g of albumin and a dose of ferrous gluconate. He did continue to follow both his intake and output along with his lab. VTE Prophylaxis: Sub-Q Heparin (Unfractionated) VTE Mechanical Devices: Venous Foot Pump Resuscitation Status: CPR: Attempt Resuscitation Artie Pearson DO Oct 31, 2016 12:03
[2016-10-31] MEDS ORDERED: Iron Sucrose Inj 200 MG in 0.9% Sodium Chloride 100 ML IV ONE (12:05)
--- NOTE | 2016-10-31 14:40 | NUR ---
Social Work-readiness for discharge: Data:EMR Reviewed. Pt is on day 8of hospitalization for weakness per H&P. Pt is not medically stable, but MD anticipated in the next day or two. PT worked with pt and recommending home with HH. Pt ambulated 100ft. SW spoke with pt at bedside and confirmed discharge plan. Pt states that his sister will provide transport home at discharge. [facility] aware pt is in the hospital and the will need resume orders at discharge. SW will continue to follow. Assessment:pt to benefit from HH. Plan:Pt to discharge home when medically stable via POV. Pt will need resume HH orders through [facility] at discharge. SW will continue to follow. [facility] Post
--- NOTE | 2016-10-31 14:56 | PCM.PNMED ---
Subjective Date of Service Oct 31, 2016 Subjective No overnight events. Patient has no concerns or complaints at this time. Continues to endorse SOB, states he has stopped coughing. Denies CP, fevers or chills. Exam Vital Signs Vital Sign - Last Date Time Temp Pulse Resp B/P Pulse Ox O2 Delivery O2 Flow Rate FiO2 10/31/16 14:08 80 22 95 Nasal Cannula 4.00 10/31/16 13:03 37.0 105/63 Intake and Output 10/30/16 10/30/16 10/31/16 Cumulative From/Thru 14:59 22:59 06:59 10/23/16 13:24 - 10/30/16 21:43 Intake Total 200 ml 536 ml 52841 ml Output Total 575 ml 550 ml 28697 ml Balance -375 ml -14 ml 3205 ml Intake Oral 200 ml 536 ml 27061 ml IV Total 5647 ml Packed Cells 580 ml Output Urine Total 575 ml 550 ml 73246 ml # Voids 1 # Bowel Movements 0 8 Exam General/Constitutional: Thin, AAox3, NAD, chronically ill appearing Head / Eyes: Normocephalic atraumatic, EOMI, Conjunctiva NL Neck: Supple Resp: Mild-mod respiratory distress, some use of accessory muscles, scattered wheezes on lower lobes bilaterally with crackles right upper lobes Cardiovascular: Regular rhythm, Heart sounds NL no murmurs appreciated, pedal pulse NL Extremities: no edema Psych: NL mood and affect Skin: Pale,Warm, Dry with tenting at base of neck IVs and Medications Medications Reviewed: Medications were reviewed in detail Lab and Diagnostics Result Diagram: 10/31/16 0256 10/31/16 0256 X-Rays, CTs and MRIs Date of Service: 10/23/16 1403 PROCEDURE: X-RAY CHEST ONE VIEW, PORTABLE ([id number]) IMPRESSION: Persistent retrocardiac atelectasis, aspiration, or pneumonia. Dictated by: Chris Plunkett M.D. on 10/23/2016 at 15:10 Date of Service: 10/24/16 1725 PROCEDURE: CT ABDOMEN AND PELVIS WITHOUT CONTRAST ([id number]) INDICATIONS: LLQ abdomen pain IMPRESSION: 1.The presumed source of left lower quadrant pain is a relatively large left psoas muscle hematoma with epicenter in the abdomen and tapering into the pelvis. No hemoperitoneum is associated. 2.There is mild diverticulosis but without acute diverticulitis. Asymmetric pleural effusions, small to moderate on the left and scant on the right. Adjacent basilar atelectasis. Postsurgical changes are noted of presumed prior CABG. 3.This information was immediately called to the nursing station caring for the patient who is hospitalized at this time. Dictated by: Miko Garcia M.D. on 10/25/2016 at 10:57 Assessment & Plan Patient is a 60-year-old male with a complex past medical history including chronic foot ulcers, recent undiagnosed GI bleeding, systolic and diastolic congestive heart failure, CAD, A. fib, history of MRSA pneumonia, as well as, C. difficile, with multiple recent hospitalizations, who presented to [facility] ED found on the ground with a lower hemoglobin than yesterday. Day #8 Acute on chronic anemia, present on admission. Active. Secondary to psoas hematoma likely 2 units PRBC given for hemoglobin decreasing from 7.6 on admit to 6.3, then 8.7 after transfusion anemia panel showing iron deficiency PPI ggt changed to PPI PO per GI recs Low suspicion of active GI bleed Recent previous admission for GI bleed, thought poor candidate for endoscopy. Discharged after one unit red blood cell transfusion. Previous EGD showed erosive esophagitis and gastritis, unremarkable colonoscopy (03/07/2016). Appreciate GI consult - patient declines to have endoscopy at this time Guaiac pending Acute Kidney Injury on CKD, present on admission. Active. Creatinine on admission 2.72. Baseline around 1.7 Most likely due to vancomycin/Zosyn/Levaquin in addition to the initial dehydration and acute anemia Continue with D5 1/2 NS at 60 mL/hour Hold diuretics Appreciate nephrology consult: time and expertise Aranesp injection x1 given albumin and iron per nephrology Recheck renal function in AM Left psoas hematoma, present on admission. Stable CT abd/pelv showed 17cm hematoma on left psoas General surgery consulted, appreciate time and expertise No surgical interventions recommended at this time continue to follow H/H transfuse as needed Repeat CT abd/pelv showed hematoma decreased in size 10/27 Suspected pneumonia, acute. HCAP treatment started with Vancomycin, Zosyn and Levofloxacin, stopped 10/29 MRSA screen negative Hypertension, present on admission. Uncontrolled. Currently on amlodipine, metoprolol succinate 25mg BID added Weakness/failure to thrive, present on admission. Improving. PT eval postponed due to recent CT findings as above PT recommends HHPT Elevated troponins of unknown significance, present on admission. Troponins - 0.113 on admission most likely due to demand ischemia, patient has not had any CP COPD patient recently discharged on 10/08/16 and 10/22/16 increasing prednisone from 20mg back up to 40 mg DuoNebs and albuterol scheduled TID Not on home O2, requiring supplemental O2 at 2L O2 to be kept at 88-92% Chronic systolic CHF, present on admission. Echo from 09/16/2016 showed improved ejection fraction from 40% to 50-55% with areas of hypokinesis which are also chronic and mild systolic failure, also to note small atrial [place]al [place] [address] judiciously manage fluids, currently without IV access Chronic hypertension with hypertensive heart secondary to hypertensive nephrosclerosis. Hold Lasix per nephro recs Monitor vital signs. Hx of A-fib telemetry Chronic lower extremity ulcerations with PVD, present on admission. wound care Ongoing tobacco abuse counseled on smoking cessation ongoing nicotine replacement Chronic pain with continuous opiate dependence continue prior opiate regimen of morphine sulfate 15 mg twice a day with oxycodone for break through VTE Prophylaxis: Sub-Q Heparin (Unfractionated) VTE Mechanical Devices: Venous Foot Pump Resuscitation Status: CPR: Attempt Resuscitation Time spent 30 minutes Attending Statement I have seen and evaluated patient at bedside in addition to directly supervising care provided by resident physician. I agree with above documentation. Jessica Sauer DO Oct 31, 2016 14:45 Sen Quintana DO Nov 01, 2016 08:03
--- NOTE | 2016-10-31 15:00 | NUR ---
Pain At approx 1330 Pt complains of groin pain related to kiser, requesting dose of pain medication. 5 mg Oxycodone IR given. Pt was visiting with sister, declined offer of assessment/re-position of kiser. Re-assessment for pain, pt reports pain is much improved, Call light with in reach, will continue to monitor.
[2016-10-31] MEDS: Albumin 25% 25 GM in IV Premix 1 EACH IV SCH ×2 (15:08→20:09)
--- NOTE | 2016-10-31 15:31 | NUR ---
V Tach Call from Tele monitor, pt had 5 beats of V Tach. Pt is asymptomatic at this time. paged,
--- NOTE | 2016-10-31 19:00 | NUR ---
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 pt reports "tightness" in his chest at that time, pt requested nitro. pt denied any nausea, dizziness, sweating. pt stated tightness did not radiate. EKG obtained. BP 113/71, HR 90. nuclear monitoring technician stated "SR 94 with PACs, looks like his norm". pt reported nitro effective, made aware, no new orders.
[2016-11-01] VITALS (19 sets, daily range): BP systolic 82–145; BP diastolic 48–81; PULSE 84–95; RESP 16–24; O2SAT 88–96
[2016-11-01] MEDS ORDERED: Acetaminophen IV 1,000 MG in IV Premix 1 EACH IV ONE (00:40)
--- NOTE | 2016-11-01 03:50 | NUR ---
Febrile temp was 38.6 axy at 23:50. RN removed extra blankets and socks, turned fan on, turned temp down in room.pt temp increased to 39.1 Rectally around 0030. made aware, new orders obtained for Tylenol and blood cultures. pt temp decreased to 38.1 axy one hour post interventions. care on-going.
[2016-11-01 05:06] LABS: Mean Corpuscular Hemoglobin 25.7 pg (27.0-35.0); Mean Corpuscular Volume 85.1 fL (81-100)
[2016-11-01] MEDS: Albuterol-Ipratropium 3 mL Inhalation Solution NEB SCH ×3 (07:52→20:41)
[2016-11-01] MEDS: Morphine ER 15 mg (MS Contin) Tablet PO SCH ×2 (08:30→22:10)
[2016-11-01] MEDS: Tiotropium 18mcg/Cap 5 Capsule Inhaler Kit INHALATION SCH (08:30)
[2016-11-01] MEDS: Pantoprazole 20 mg ER24 Tablet PO SCH ×2 (08:30→22:10)
[2016-11-01] MEDS: Fluticasone-Salmeterol 100-50 Inhaler INHALATION SCH ×2 (09:03→22:10)
[2016-11-01] MEDS ORDERED: Furosemide 10 mg/mL 10 mL Inj IVPUSH ONE ×2 (09:25→14:20)
[2016-11-01] MEDS ORDERED: 0.9% Sodium Chloride 100 ML ONE (10:24)
[2016-11-01 10:33] LABS: INR 1.07 ratio
--- NOTE | 2016-11-01 11:39 | NUR ---
Mentation Pt appears very sleepy this morning, arouses with verbal stimuli, will answer questions appropriately. He requested water, however, could not use straw. Gave pt a bite of applesauce and pt able to swallow but appeared very drowsy and swallow was not safe so AM medications held. MD aware of change in mentation.
--- NOTE | 2016-11-01 11:42 | PCM.PNMED ---
Subjective Date of Service Nov 01, 2016 Subjective Patient's condition continues to deteriorate. His blood pressure is now in the low 90s and his hemoglobin is dropped to 6.9. His creatinine continues to rise to 4.42 mg/dL. Crit is 2733 in and 1025 out patient is quite lethargic Exam Vital Signs Vital Sign - Last Date Time Temp Pulse Resp B/P Pulse Ox O2 Delivery O2 Flow Rate FiO2 11/01/16 11:04 36.8 87 16 98/61 11/01/16 10:22 93 OxyMask 4.00 Intake and Output 10/31/16 10/31/16 11/01/16 Cumulative From/Thru 15:00 23:00 07:00 10/23/16 13:24 - 11/01/16 04:43 Intake Total 500 ml 2233 ml 686 ml 77322 ml Output Total 425 ml 600 ml 89335 ml Balance 75 ml 1633 ml 686 ml 5599 ml Intake Oral 500 ml 850 ml 35564 ml IV Total 1383 ml 686 ml 7716 ml Packed Cells 580 ml Output Urine Total 425 ml 600 ml 43497 ml # Voids 1 # Bowel Movements 1 9 Exam HEENT examination is remarkable for pale sclera. Neck is supple without adenopathy thyromegaly or jugular venous distention. Lungs are clear to auscultation. Heart is regular rhythm with a soft systolic murmur. Abdomen is soft without any tenderness rebound guarding masses or hepatosplenomegaly. She is not sure she clubbing cyanosis or edema. Skin turgor is diminished. Lab and Diagnostics Result Diagram: 11/01/16 0455 11/01/16 0455 X-Rays, CTs and MRIs Date of Service: 10/23/16 1403 PROCEDURE: X-RAY CHEST ONE VIEW, PORTABLE ([id number]) IMPRESSION: Persistent retrocardiac atelectasis, aspiration, or pneumonia. Dictated by: Chris Plunkett M.D. on 10/23/2016 at 15:10 Date of Service: 10/24/16 1725 PROCEDURE: CT ABDOMEN AND PELVIS WITHOUT CONTRAST ([id number]) INDICATIONS: LLQ abdomen pain IMPRESSION: 1.The presumed source of left lower quadrant pain is a relatively large left psoas muscle hematoma with epicenter in the abdomen and tapering into the pelvis. No hemoperitoneum is associated. 2.There is mild diverticulosis but without acute diverticulitis. Asymmetric pleural effusions, small to moderate on the left and scant on the right. Adjacent basilar atelectasis. Postsurgical changes are noted of presumed prior CABG. 3.This information was immediately called to the nursing station caring for the patient who is hospitalized at this time. Dictated by: Miko Garcia M.D. on 10/25/2016 at 10:57 Assessment & Plan Impression #1 acute on chronic kidney injury secondary to intravascular volume depletion. #2 acute anemia #3 hypotension Recommendations #100 despite IV fluids and his BUN and creatinine continued to deteriorate. I would like to go ahead and arrange for an acute dialysis treatment for uremia and to give him several units of blood. Additional indication is metabolic acidosis. He will be dialyzed today for 3 hours on a 3 potassium bath to be given and will give him 2 units of blood. the decision for further dialysis on his lab, blood pressure, intake, and all port. VTE Prophylaxis: Sub-Q Heparin (Unfractionated) VTE Mechanical Devices: Intermittant Pneumatic CD Resuscitation Status: CPR: Attempt Resuscitation Artie Pearson DO Nov 01, 2016 11:41
[2016-11-01] MEDS ORDERED: Heparin 5,000 Units/500 mL NS Premix IV ONE ×2 (12:17→15:00)
--- NOTE | 2016-11-01 13:49 | DRSVH ---
PROCEDURE: X-RAY CHEST ONE VIEW, PORTABLE ([id number]) INDICATIONS: SHORTNESS OF BREATH TECHNIQUE: One view of the chest was acquired. COMPARISON: [facility], CR, XR CHEST 1VW (PORTABLE), 10/28/2016, 11:24. FINDINGS: Surgical changes and devices: Right PICC present tip projected over the lower SVC. Median sternotomy wires related to CABG. Lungs and pleura: Interval increase in diffuse, widespread bilateral interstitial and airspace opacit ies. Small bilateral pleural effusions noted. No pneumothorax. Mediastinum: Mediastinal contours appear normal. Heart size is normal. Bones and chest wall: No suspicious bony lesions. Overlying soft tissues appear unremarkable. IMPRESSION: 1. Increasing pulmonary edema and/or diffuse bilateral pneumonia. 2. Increasing small bilateral pleural effusions. Dictated by: Misha DHALIWAL Interpreted: Jackie Ramirez MD on 11/01/2016 at 13:49 Transcribed by: REFUGIO on 11/01/2016 at 13:49 Approved by: Jackie Ramirez M.D. on 11/01/2016 at 17:36
[2016-11-01] MEDS ORDERED: 0.9% Sodium Chloride 500 ML ONE (13:57)
--- NOTE | 2016-11-01 14:27 | PCM.PNMED ---
Subjective Date of Service Nov 01, 2016 Subjective 24H events: 5 beats of V-tac, patient asymptomatic. Hypotensive overnight with increased oxygen demands requiring 6L at one time. Patient very lethargic today. Answers questions appropriately. Complains of being cold. Denies abdominal pain, CP, SOB, fevers or nausea. Exam Vital Signs Vital Sign - Last Date Time Temp Pulse Resp B/P Pulse Ox O2 Delivery O2 Flow Rate FiO2 11/01/16 13:46 36.8 88 16 99/57 11/01/16 10:22 93 OxyMask 4.00 Intake and Output 10/31/16 10/31/16 11/01/16 Cumulative From/Thru 15:00 23:00 07:00 10/23/16 13:24 - 11/01/16 04:43 Intake Total 500 ml 2233 ml 686 ml 17927 ml Output Total 425 ml 600 ml 02142 ml Balance 75 ml 1633 ml 686 ml 5599 ml Intake Oral 500 ml 850 ml 53552 ml IV Total 1383 ml 686 ml 7716 ml Packed Cells 580 ml Output Urine Total 425 ml 600 ml 35775 ml # Voids 1 # Bowel Movements 1 9 Exam General/Constitutional: Thin, AAox3, NAD, chronically ill appearing Head / Eyes: Normocephalic atraumatic, EOMI, Conjunctiva NL Neck: Supple Resp: Mild-mod respiratory distress, some use of accessory muscles, scattered wheezes on lower lobes bilaterally with crackles right upper lobes Cardiovascular: Regular rhythm, Heart sounds NL no murmurs appreciated, pedal pulse NL Extremities: no edema Psych: NL mood and affect Skin: Pale,Warm, Dry with tenting at base of neck Lab and Diagnostics Result Diagram: 11/01/16 0455 11/01/16 0455 X-Rays, CTs and MRIs Date of Service: 10/23/16 1403 PROCEDURE: X-RAY CHEST ONE VIEW, PORTABLE ([id number]) IMPRESSION: Persistent retrocardiac atelectasis, aspiration, or pneumonia. Dictated by: Chris Plunkett M.D. on 10/23/2016 at 15:10 Date of Service: 10/24/16 1725 PROCEDURE: CT ABDOMEN AND PELVIS WITHOUT CONTRAST ([id number]) INDICATIONS: LLQ abdomen pain IMPRESSION: 1.The presumed source of left lower quadrant pain is a relatively large left psoas muscle hematoma with epicenter in the abdomen and tapering into the pelvis. No hemoperitoneum is associated. 2.There is mild diverticulosis but without acute diverticulitis. Asymmetric pleural effusions, small to moderate on the left and scant on the right. Adjacent basilar atelectasis. Postsurgical changes are noted of presumed prior CABG. 3.This information was immediately called to the nursing station caring for the patient who is hospitalized at this time. Dictated by: Miko Garcia M.D. on 10/25/2016 at 10:57 Assessment & Plan hPatient is a 60-year-old male with a complex past medical history including chronic foot ulcers, recent undiagnosed GI bleeding, systolic and diastolic congestive heart failure, CAD, A. fib, history of MRSA pneumonia, as well as, C. difficile, with multiple recent hospitalizations, who presented to [facility] ED found on the ground with a lower hemoglobin than yesterday. Day #9 Acute on chronic anemia, present on admission. Active. Initially secondary to psoas hematoma likely 2 units PRBC given for hemoglobin decreasing from 7.6 on admit to 6.3, then 8.7 after transfusion anemia panel showing iron deficiency PPI ggt changed to PPI PO per GI recs Low suspicion of active GI bleed Recent previous admission for GI bleed, thought poor candidate for endoscopy. Discharged after one unit red blood cell transfusion. Previous EGD showed erosive esophagitis and gastritis, unremarkable colonoscopy (03/07/2016). Appreciate GI consult - patient declines to have endoscopy at this time Guaiac positive Acute Kidney Injury on CKD, present on admission. Active. Creatinine on admission 2.72. Baseline around 1.7 Most likely due to vancomycin/Zosyn/Levaquin in addition to the initial dehydration and acute anemia Hold diuretics Continue with D5 1/2 NS at 60 mL/hour 1 unit PRBC with one time dose of Lasix to follow given today Appreciate nephrology consult: time and expertise Aranesp injection x1 given albumin and iron per nephrology Dialysis today Recheck renal function in AM Metabolic acidosis, acute. not present on admission. Active. Anion gap of 16, at 20.75 corrected for albumin from yesterday with Delta gap of 4.0 suggesting pure anion gap acidosis continue gentle IVF Emergent dialysis today as above Left psoas hematoma, present on admission. Stable CT abd/pelv showed 17cm hematoma on left psoas General surgery consulted, appreciate time and expertise No surgical interventions recommended at this time continue to follow H/H transfuse as needed Repeat CT abd/pelv showed hematoma decreased in size 10/27 Suspected pneumonia, acute. HCAP treatment started with Vancomycin, Zosyn and Levofloxacin, stopped 10/29 MRSA screen negative Hypertension, present on admission. Uncontrolled. Currently on amlodipine, metoprolol succinate 25mg BID added Weakness/failure to thrive, present on admission. Improving. PT eval postponed due to recent CT findings as above PT recommends HHPT Elevated troponins of unknown significance, present on admission. Troponins - 0.113 on admission most likely due to demand ischemia, patient has not had any CP COPD patient recently discharged on 10/08/16 and 10/22/16 increasing prednisone from 20mg back up to 40 mg DuoNebs and albuterol scheduled TID Not on home O2, requiring supplemental O2 at 2L O2 to be kept at 88-92% Chronic systolic CHF, present on admission. Echo from 09/16/2016 showed improved ejection fraction from 40% to 50-55% with areas of hypokinesis which are also chronic and mild systolic failure, also to note small atrial [place]al [place] [address] judiciously manage fluids, currently without IV access Chronic hypertension with hypertensive heart secondary to hypertensive nephrosclerosis. Hold Lasix per nephro recs Monitor vital signs. Hx of A-fib telemetry Chronic lower extremity ulcerations with PVD, present on admission. wound care Ongoing tobacco abuse counseled on smoking cessation ongoing nicotine replacement Chronic pain with continuous opiate dependence continue prior opiate regimen of morphine sulfate 15 mg twice a day with oxycodone for break through VTE Prophylaxis: Sub-Q Heparin (Unfractionated) VTE Mechanical Devices: Intermittant Pneumatic CD Resuscitation Status: CPR: Attempt Resuscitation Time spent 35 minutes Attending Statement I have seen and directly evaluated patient at bedside in addition to directly supervising care provided by resident physician. I agree with above documentation. Given declining mentation through the day in addition to worsening reparatory function over past 24hrs, pt was transferred to [facility] following urgent dialysis as arranged by [employer] [facility]. Pearson for closer monitoring. Jessica Sauer DO Nov 01, 2016 14:17 Sen Quintana DO Nov 01, 2016 16:11
[2016-11-01] MEDS ORDERED: 0.9% Sodium Chloride 1,000 ML ONE (15:00)
--- NOTE | 2016-11-01 15:06 | NUR ---
Off unit Pt off unit to laborer demolition at 1500. IVP Lasix not given as it had not arrived from pharmacy. Report to be called to [facility] notified of transfer. Addendum: 11/01/16 at 1640 by LORIE CAR RN Pt will be transferring to [facility], room 2007 following laborer demolition. Attempted to contact Monica GRACIA who was unavailable for report at this time and will contact this RN when ready. Addendum: 11/01/16 at 1653 by LORIE CAR RN Report given to BASIL Anderson
[2016-11-01] MEDS ORDERED: Heparin 1,000 Unit/mL 10 mL Inj ONE (15:17)
[2016-11-01] MEDS ORDERED: fentaNYL-PF 50 mCg/mL 2 mL Inj ONE (15:17)
--- NOTE | 2016-11-01 16:19 | DRSVH ---
PROCEDURE: CT ABDOMEN AND PELVIS WITHOUT CONTRAST ([id number]) INDICATIONS: follow up hematoma TECHNIQUE: Noncontrast 5 mm thick sections acquired from the diaphragms to the symphysis. 5 mm coronal and sagi ttal reformats were then performed. For radiation dose reduction, the following was used: automated exposure control, adjustment of mA and/or kV according to patient size. COMPARISON: [facility], CT, CT ABD PELVIS WO CON, 10/27/2016, 10:53. FINDINGS: Image quality: Excellent. ABDOMEN: Lung bases: Small right and moderate-sized left pleural fluid collections are noted which have increa sed slightly in size interval since prior CT scan. Consolidation of the lung bases bilaterally which could represent compressive atelectasis versus pneumonia. Heart size is normal. Postsurgical changes compatible prior CABG procedure are noted. Solid organs: Liver and spleen are normal in size. Hypoattenuating lesions in the liver are stable c ompared to prior examinations and may represent cysts. Gallbladder contains a small gallstone which i s stable compared to prior examination.. Pancreas is normal in contours. Punctate calcifications in the head of the pancreas are stable compared to prior examination. No adrenal nodules. Right kidney is atrophied. Left kidney is stable in appearance compared to prior CT scan. Peritoneum and bowel: Unenhanced bowel loops demonstrate normal wall thickness and caliber. Scattere d diverticula noted in the sigmoid colon without evidence of diverticulitis. Small amount of low dens ity free fluid is noted in the pelvis which is increased in size compared to prior examination. Small amount of low-density free fluid noted adjacent to the right lobe liver which is developmental since the prior examination. Nodes and vessels: No retroperitoneal or mesenteric adenopathy by size criteria. Aorta and inferior vena cava are normal in caliber. Dialysis catheter has been placed via a right common femoral approa ch with tip in the infrarenal IVC. Miscellaneous: No ventral hernias. Extensive subcutaneous soft tissue edema is noted compatible anas arca. PELVIS: Genitourinary: Bladder contains a Johnson catheter. Miscellaneous: No inguinal hernias or adenopathy. There is a 7.9 x 5.8 cm left psoas hematoma which is stable in size and contour compared to CT scan obtained 10/27/2016 Bones: No suspicious bony lesions. No vertebral body compression fractures. Left hip arthroplasty p ostsurgical changes noted. Spine degenerative disc disease and facet arthropathy are noted. IMPRESSION: 1. Left psoas intramuscular hematoma stable in size compared to 10/27/2016. 2. Small left and moderate-sized right pleural effusion slightly increased in size compared to prior CT scan. 3. Small amount of ascites in the abdomen and pelvis which is increased in volume compared to the rita or CT scan. 4. Consolidation involving the lung bases bilaterally right greater than left which could represent c ompressive atelectasis versus pneumonia. Please correlate with clinical and laboratory data. 5. Anasarca. Dictated by: Lora Barth MD, PhD on 11/01/2016 at 16:18 Approved by: Lora Barth MD, PhD on 11/01/2016 at 16:18
--- NOTE | 2016-11-01 17:10 | NUR ---
Care assumed/Transfer Care assumed at 1610. VSS though hypotensive per his usual. Requiring O2 at 15L Oxymask to keep SPO2 92%. Denies pain. Right groin HD catheter intact with clean, dry dressing. Report called to Monica Castanon RN and pt. transferred to 2007 via bed by staff in no acute distress at 1700.
--- NOTE | 2016-11-01 18:19 | NUR ---
Admit to PCC Pt transferred to PCC room 2006. Report received from Alicia GRACIA in [facility] and from Emelina CAR RN in [facility]. Pt transferred in hospital bed. Pt was immediately prepared and started on hemodialysis. Per report from [facility] pt's BP had been systolically in the 80's. Upon arrival pt was alert on 15L oxymask. Vitals were taken by hemodialysis nurse prior to dialysis. Per [facility] report pt had been obtunded for most of her shift with decreasing LOC. Historically Pt had been SR in 80s, 4L NC and SBA at baseline.
[2016-11-01] MEDS: 0.9% Sodium Chloride 250 ML IV SCH (19:00)
[2016-11-02] VITALS (11 sets, daily range): BP systolic 103–161; BP diastolic 55–92; PULSE 83–108; RESP 16–20; O2SAT 91–95
--- NOTE | 2016-11-02 02:50 | NUR ---
Blood Transfusion Pt received 2nd unit prbc during Hemodialysis given by HD RN, Repeat H/H increased to 9.9/30.5, no s/s of bleeding. Respiratory Initially on 5LPM via oxymask, pt keep taking 02 mask off, desats to low 80's, breath sounds with crackles and expiratory wheezes, increased 02 to 15LPM, sp02 91-92%, nebs treatment per RT, Notified Dr Gregory & Dr Snider w/ changes in respiratory status with no new order. Addendum: 11/02/16 at 0411 by GERALDINE MOORE RN Addendum: Notified Dr. Snider of troponin 0.277 with no new order, no ekg changes, no c/o CP
[2016-11-02 03:05] LABS: Mean Corpuscular Hemoglobin 26.2 pg (27.0-35.0); Mean Corpuscular Volume 82.2 fL (81-100)
[2016-11-02 03:40] LABS: TROPONIN T 0.277 ug/L (0.0-0.011)
[2016-11-02] MEDS: Albuterol-Ipratropium 3 mL Inhalation Solution NEB PRN (04:04)
[2016-11-02] MEDS: Albuterol-Ipratropium 3 mL Inhalation Solution NEB SCH ×2 (08:31→14:26)
[2016-11-02] MEDS: Tiotropium 18mcg/Cap 5 Capsule Inhaler Kit INHALATION SCH (09:21)
[2016-11-02] MEDS: MeTOProlol XL 25 mg ER24 Tablet PO SCH (09:21)
[2016-11-02] MEDS: Fluticasone-Salmeterol 100-50 Inhaler INHALATION SCH ×2 (09:22→19:36)
[2016-11-02] MEDS: Morphine ER 15 mg (MS Contin) Tablet PO SCH ×2 (09:23→19:36)
--- NOTE | 2016-11-02 11:43 | DRSVH ---
PROCEDURE: CV TEMP DIALYSIS INDICATIONS: ESRD COMPARISON: None. Technique: Due to patient's altered mental status, informed consent could not be obtained from the pa tient. Emergency two physician consent was obtained by the ordering physician Dr. Artie Pearson. Margarita lane risks and benefits of the procedure were discussed with Dr. Pearson prior to emergency two physi nemesio consent. Patient taken to angiography suite and placed in a supine position angiography table. Access site for right common femoral vein localized using ultrasound guidance. Access site was prepped and draped in usual sterile fashion. Access to the right common femoral vein was achieved utilizing a Seldinger ne edle advanced under ultrasound guidance. A 0.36 inch guidewire was advanced to the access needle into the distal inferior vena cava under fluoroscopic guidance. Access needles was removed over the guide wire. Venotomy site was then sequentially dilated with vascular dilators passed over the guidewire. D ual-lumen temporary dialysis catheter was then advanced over the guidewire under fluoroscopic guidanc e. Tip of the vas catheter was positioned immediately inferior to the renal veins. Procedure was term inated this point. Patient tolerated procedure well with no immediate complications. Patient was sent to his room in both hemodynamically neurologically stable condition. IMPRESSION: Successful placement of right common femoral vein temporary dialysis catheter. Dictated by: Lora Barth MD, PhD on 11/02/2016 at 11:41 Approved by: Lora Barth MD, PhD on 11/02/2016 at 11:41
[2016-11-02] MEDS: Pantoprazole 20 mg ER24 Tablet PO SCH ×2 (12:26→20:36)
--- NOTE | 2016-11-02 15:27 | NUR ---
Social Work: Readiness for Discharge D: Pt discussed in morning rounds. Pt anticipate to require 1-2 more days of hospitalization. Pt transferred to [facility] bed after cardiac cath procedure yesterday. Pt requiring Hemodialysis and blood transfusion today. Pt currently on 5L 02 via oxymast. Pt ambulated with PT on 10/29 approximately 100 feet. There is no note after this date. Upon admission to [facility], pt has been 1 person assist. PEDIATRIC NP requested PT see the pt when appropriate for re-assessment. Pt lives at home in [place]. He is open with [facility] for RN, PT. Pt would like to go home at time of discharge. Pt's insurance poses a significant barrier to discharge to skilled rehab. A: Pt who was previously I at baseline. P: Evolving; PT to reassess pt when medically appropriate; PEDIATRIC NP to continue to follow. At this time, pt's plan is to go home with resumed [facility] for RN, PT. Magdalene Hayes PEDIATRIC NP
--- NOTE | 2016-11-02 15:41 | PCM.PNMED ---
Subjective Date of Service Nov 02, 2016 Subjective The patient is considerably more alert and interactive today. He did have prostate 300 and also urine out last night and his blood pressures considerably better. Concerned with the events of the last day that between his blood loss and acute hypotension for some ongoing myocardial ischemia. He has a strong cardiac history including a prior CABG and was seen during his last admission by cardiology. The would like Him at that time but because of his renal function they declined. I discussed the case with Dr. Rodriguez from cardiology today and since he already has a dialysis cath. I would like to see about a heart catheterization tomorrow and we can dialyze him following that. Exam Vital Signs Vital Sign - Last Date Time Temp Pulse Resp B/P Pulse Ox O2 Delivery O2 Flow Rate FiO2 11/02/16 14:26 94 18 92 OxyMask 6.00 11/02/16 12:29 36.9 146/82 Intake and Output 11/01/16 11/01/16 11/02/16 Cumulative From/Thru 15:00 23:00 07:00 10/23/16 13:24 - 11/02/16 06:30 Intake Total 836 ml 163 ml 67382 ml Output Total 300 ml 400 ml 44025 ml Balance 536 ml -237 ml 5898 ml Intake Oral 0 ml 163 ml 41419 ml IV Total 536 ml 8252 ml Packed Cells 300 ml 880 ml Output Urine Total 300 ml 400 ml 89685 ml # Voids 1 # Bowel Movements 1 2 12 Exam She skinned tones are more pink and less pale. Neck is supple without adenopathy thyromegaly or jugular venous distention. Lungs were clear to auscultation. Heart was regular rhythmic with a soft systolic murmur. Abdomen soft benign tenderness rebound guarding masses or hepatosplenomegaly. Extremities no tremors or clubbing cyanosis or edema. Skin turgor is diminished however there is no evidence of any rashes. Lab and Diagnostics Result Diagram: 11/02/16 0238 11/02/16 0238 X-Rays, CTs and MRIs Date of Service: 10/23/16 1403 PROCEDURE: X-RAY CHEST ONE VIEW, PORTABLE ([id number]) IMPRESSION: Persistent retrocardiac atelectasis, aspiration, or pneumonia. Dictated by: Chris Plunkett M.D. on 10/23/2016 at 15:10 Date of Service: 10/24/16 1725 PROCEDURE: CT ABDOMEN AND PELVIS WITHOUT CONTRAST ([id number]) INDICATIONS: LLQ abdomen pain IMPRESSION: 1.The presumed source of left lower quadrant pain is a relatively large left psoas muscle hematoma with epicenter in the abdomen and tapering into the pelvis. No hemoperitoneum is associated. 2.There is mild diverticulosis but without acute diverticulitis. Asymmetric pleural effusions, small to moderate on the left and scant on the right. Adjacent basilar atelectasis. Postsurgical changes are noted of presumed prior CABG. 3.This information was immediately called to the nursing station caring for the patient who is hospitalized at this time. Dictated by: Miko Garcia M.D. on 10/25/2016 at 10:57 Assessment & Plan Impression #1 acute on chronic kidney injury secondary to acute blood loss and hypotension which appears to be stable at this time #2 hypertension with hypertensive heart disease and hypertensive nephrosclerosis #3 unstable angina with markedly elevated troponins Recommendations #1 is detailed above a feeling that we should do a cardiac catheterization on him in the morning and I can dialyze him following this. VTE Prophylaxis: Sub-Q Heparin (Unfractionated) VTE Mechanical Devices: Intermittant Pneumatic CD Resuscitation Status: CPR: Attempt Resuscitation Artie Pearson DO Nov 02, 2016 15:41
--- NOTE | 2016-11-02 15:46 | DRSVH ---
[facility] [address] [place] [address] Echocardiogram Report Name: MARGARET ROCHA DStudy Date: 11/02/2016 Height: 65 in Hospital Exam Location: [facility] Weight: 152 lb Gender: Male BSA: 1.8 m2 : 1955 Age: 60 yrs BP: 130/68 mm Hg Reason For Study: Chest pain, ELEVATED TROPONIN Ordering Physician: HOSPITALIST [facility] Performed By: Shadi Heart Referring Physician: HAYLEY GROSSMAN Interpretation Summary Left ventricular ejection fraction is estimated to be .45. There is hypokinesis of the inferolateral wall . There is akinesis of the basal inferior wall. There has been no significant change since the previous exam. Procedure: A two-dimensional transthoracic echocardiogram with color flow and Doppler was performed in limited views only. Comparison is made with the echocardiogram of 10/21/16. There is borderline sinus tachycardia with a heart rate of 93 - 100 bpm. Left Ventricle: The left ventricle is normal in size. Left ventricular wall thickness is mildly increased. Left ventricular ejection fraction is estimated to be .45. There has been no significant change since the previous exam. There is hypokinesis of the inferolateral wall . There is akinesis of the basal inferior wall. MMode/2D Measurements & Calculations EDV(MOD-sp2): 166.8 ml Electronically signed by: Mike Dao on Reading Physician:11/02/2016 03:45 PM
--- NOTE | 2016-11-02 15:54 | NUR ---
NUTRITION ASSESSMENT Assess: 60 yo M w/ acute on chronic anemia, BABS, and metabolic acidosis. PO intake has been somewhat variable throughout admit. Pt requiring dialysis for acute kidney injury. Pt becoming more lethargic. PMHx: Emphysema, CAD, CABG, HLD, HTN, NM, PVD, Chronic microcytic anemia, Pancreatitis, Seizure, Chronic non-healing LLE ulcers, GI bleed, MRSA pneumonia, Afib. LABS: Cr 2.69, Glu 177, Ca 7.3, AST 247, ALT 168, Alk phos 342, Albumin 2.8 MEDICATIONS: Reviewed. Lopressor, Protonix, Seroquel DIET: Heart Healthy, PO 75-100% w/ occasional meal refusal GI symptoms/stool: BM x2 11/02 Skin integrity: No issues noted; Judson: 13 ANTHROPOMETRICS: Current Wt: 59.9 kg (most recent standing wt) BMI: 25.2 kg/m2 IBW: 62.8 kgRecent wt changes: None noted Admit Wt: 59.9 kg ESTIMATED NEEDS: Hemodialysis Calories: 4040-2002 kcal/d (30-35 kcal/kg/d) Protein: 70-120 g/d (1.2-2.0 g/kg/d) Fluids: 7306-5925 ml/d (25-30 ml/kg/d) NUTRITION DIAGNOSIS: 1) Increased nutrient needs related to acute kidney failure as evidenced by need for hemodialysis. INTERVENTION: 1) Will send Ensure BID MONITOR/EVALUATE: PO intake, Labs, Wt, Nutrition status, POC. Will follow per moderate nutrition risk guidelines.
[2016-11-02] MEDS: 0.9% Sodium Chloride 250 ML IV SCH (17:33)
--- NOTE | 2016-11-02 18:42 | NUR ---
Mentation Pt A&O x3, through the day. Pt c/o of being SOB at times with intermittent drop of SpO2 in the 70s, however reminded pt to put his Oxy mask back on. Pt on Bedrest due to femoral dialysis catheter. Will report to oncoming RN.
--- NOTE | 2016-11-02 20:52 | PCM.PNMED ---
Subjective Date of Service Nov 02, 2016 Subjective Dwain Carrillo is a 60-year-old male who was recently discharged on 10/22/16 and has a complex past medical history including chronic foot ulcers, recent undiagnosed GI bleeding, systolic and diastolic congestive heart failure, CAD, A. fib, history of MRSA pneumonia, and C. difficile who presented to [facility] ED after being found on the ground. Admitted for acute on chronic anemia and weakness. Hospital day 10. Overnight: Patient received hemodialysis yesterday along with transfusion of 2 PRBCs. Patient continued to require supplemental oxygen via Oxymask at 8-10 L. Today: Patient states he feels slightly better. He continues to endorse shortness of breath, weakness, back pain, abdominal pain, and nonradiating chest pressure that has been intermittent throughout his hospital stay. Patient denies nausea, vomiting, diarrhea, dysuria. Remaining review of systems is negative. Exam Vital Signs Vital Sign - Last Date Time Temp Pulse Resp B/P Pulse Ox O2 Delivery O2 Flow Rate FiO2 11/02/16 14:26 94 18 92 OxyMask 6.00 11/02/16 12:29 36.9 146/82 Intake and Output 11/01/16 11/01/16 11/02/16 Cumulative From/Thru 14:59 22:59 06:59 10/23/16 13:24 - 11/02/16 06:30 Intake Total 836 ml 163 ml 25629 ml Output Total 300 ml 400 ml 41381 ml Balance 536 ml -237 ml 5898 ml Intake Oral 0 ml 163 ml 40494 ml IV Total 536 ml 8252 ml Packed Cells 300 ml 880 ml Output Urine Total 300 ml 400 ml 87460 ml # Voids 1 # Bowel Movements 1 2 12 Exam General: Mild distress, elderly chronically ill-appearing male HEENT: Normocephalic, atraumatic. External ears without defect. Pupils equal, round, and reactive to light and accommodation. Anicteric sclerae, moist conjunctivae, and no lid lag. Oxygen mask in place. Cardiovascular: Regular rate and rhythm with no murmurs, rubs, or gallops appreciated Pulmonary: Decreased air movement, crackles in bases bilaterally and expiratory wheezes present. Abdomen: Bowel tones present. Soft, diffusely tender to palpation, nondistended. No hepatosplenomegaly or masses appreciated. Extremities: No lower extremity edema. Skin: Pale, normal temperature, decreased skin turgor. Neurological: Cranial nerves grossly intact. Psychiatric: Alert and oriented to person, place, and time. Right common femoral vein temporary dialysis catheter in place. Dressing clean dry and intact. Lab and Diagnostics Result Diagram: 11/02/16 0238 11/02/16 0238 X-Rays, CTs and MRIs Date of Service: 10/23/16 1403 PROCEDURE: X-RAY CHEST ONE VIEW, PORTABLE ([id number]) IMPRESSION: Persistent retrocardiac atelectasis, aspiration, or pneumonia. Dictated by: Chris Plunkett M.D. on 10/23/2016 at 15:10 Date of Service: 10/24/16 1725 PROCEDURE: CT ABDOMEN AND PELVIS WITHOUT CONTRAST ([id number]) INDICATIONS: LLQ abdomen pain IMPRESSION: 1.The presumed source of left lower quadrant pain is a relatively large left psoas muscle hematoma with epicenter in the abdomen and tapering into the pelvis. No hemoperitoneum is associated. 2.There is mild diverticulosis but without acute diverticulitis. Asymmetric pleural effusions, small to moderate on the left and scant on the right. Adjacent basilar atelectasis. Postsurgical changes are noted of presumed prior CABG. 3.This information was immediately called to the nursing station caring for the patient who is hospitalized at this time. Dictated by: Miko Garcia M.D. on 10/25/2016 at 10:57 Assessment & Plan Dwain Carrillo is a 60-year-old male who was recently discharged on 10/22/16 and has a complex past medical history including chronic foot ulcers, recent undiagnosed GI bleeding, systolic and diastolic congestive heart failure, CAD, A. fib, history of MRSA pneumonia, and C. difficile who presented to [facility] ED after being found on the ground. Admitted for acute on chronic anemia and weakness. Hospital day 10. 1. Acute on chronic anemia, present on admission. Active. - Initially thought to be secondary to psoas hematoma or GI bleed. -Patient has had a total of 4 units PRBCs transfused during hospitalization thus far. - Guaiac positive stools. -Oral PPI per gastroenterology's recommendations. - Not a candidate for endoscopy at this time per gastroenterology. - Previous EGD showed erosive esophagitis and gastritis and colonoscopy was unremarkable on 03/07/2016. - Gastroenterology consulted and signed off at this time. 2. Acute on chronic kidney disease, present on admission. Active. - Creatinine on admission 2.72. Baseline around 1.7 - Most likely due to vancomycin/Zosyn/Levaquin in addition to the initial dehydration and acute anemia - Nephrology managing fluid and dialysis. - Hemodialysis completed on 11/01. - Nephrology consulted. Appreciate time and expertise. 3. Left psoas hematoma, present on admission. Stable. - CT abd/pelv showed 17cm hematoma on left psoas - General surgery consulted, appreciate time and expertise - No surgical interventions recommended at this time - Continue to follow H/H transfuse as needed - Repeat CT abd/pelv showed hematoma decreased in size 10/27 4. Suspected pneumonia, present on admission. Resolved. - HCAP treatment started with Vancomycin, Zosyn and Levofloxacin, stopped 10/29 - MRSA screen negative 5. Hypertension, present on admission. Uncontrolled. - Currently on amlodipine, metoprolol succinate 25mg BID added 6. Weakness/failure to thrive, present on admission. Improving. - PT eval postponed due to recent CT findings as above - PT recommends HHPT 7. Elevated troponins of unknown significance, present on admission. Active. - Difficult to assess in light of acute on chronic kidney disease. Patient has history of elevated troponins. - Troponins trending up. - No new ekg changes. - Limited echo order to evaluate further. - Heparin drip precluded due to hematoma and recent blood loss. - Cardiology consulted. Appreciate time and expertise. 8. COPD, present on admission. Chronic. - Patient recently discharged on 10/08/16 and 10/22/16 - Increased prednisone from 20mg to 40 mg - DuoNebs and albuterol scheduled TID - Not on home O2, requiring supplemental O2 at 2L - O2 to be kept at 88-92% 9. Chronic systolic CHF, present on admission. Chronic. - Echo from 09/16/2016 showed improved ejection fraction from 40% to 50-55% with areas of hypokinesis which are also chronic and mild systolic failure, also to note small atrial septal defect noted. 10. Hx of A-fib, present on admission. Chronic. - Monitored on telemetry 11. Chronic lower extremity ulcerations with PVD, present on admission. Chronic. - Wound care following. 12. Tobacco abuse, present on admission. Chronic. - Counseled on smoking cessation - ongoing nicotine replacement 13. Chronic pain with continuous opiate dependence, present on admission. Chronic. - Continue prior opiate regimen of morphine sulfate 15 mg twice a day with oxycodone for break through Disposition: Discharge with home health at minimum. Discharge pending cardiac workup and improved kidney and respiratory status. GI Prophylaxis: Not indicated VTE Prophylaxis: Sub-Q Heparin (Unfractionated) VTE Mechanical Devices: Intermittant Pneumatic CD Resuscitation Status: CPR: Attempt Resuscitation Attending Statement The patient was seen and examined together with Resident/House-staff on 11/02/16 and I agree with the history, exam and plan as outlined in the note above. RAMON RO DO Nov 02, 2016 15:29 José Antonio Evangelista Nov 03, 2016 17:23
--- NOTE | 2016-11-02 22:09 | NUR ---
Oxygen CPOx reads 78%. O2 at 6L NC. RN suggests oxymask, pt refuses. O2 increased to 7L NC. sats increase to 92%.
[2016-11-03] VITALS (10 sets, daily range): BP systolic 124–156; BP diastolic 79–93; PULSE 87–105; RESP 16–22; O2SAT 92–97
[2016-11-03 04:28] LABS: BASOPHILS % (AUTO) 0.2 % (0-3); EOSINOPHILS % (AUTO) 2.1 % (0-5); MONOCYTES % (AUTO) 9.5 % (4-12); Mean Corpuscular Volume 83.1 fL (81-100); NEUTROPHILS % (AUTO) 79.1 % (40-74); Platelet Count 211 bil/L (150-400)
[2016-11-03] MEDS: Morphine ER 15 mg (MS Contin) Tablet PO SCH ×2 (09:15→20:32)
[2016-11-03] MEDS: Albuterol-Ipratropium 3 mL Inhalation Solution NEB SCH ×3 (09:44→20:30)
[2016-11-03] MEDS: Fluticasone-Salmeterol 100-50 Inhaler INHALATION SCH ×2 (10:59→20:32)
[2016-11-03] MEDS: Pantoprazole 20 mg ER24 Tablet PO SCH ×2 (10:59→20:32)
--- NOTE | 2016-11-03 11:45 | NUR ---
Pt arrived to MOC: Pt arrived to [facility] [facility] for dialysis treatment. Report given to dialysis nurse.
--- NOTE | 2016-11-03 13:21 | NUR ---
LOC/Dialysis/Decline Cath Cardiac: Tele SR 80-90s, pt denies c/p Resp: Pt reports SOB with activity. SPO2 96% on 6.5L oxymask this AM. Target is for SPO2 88-92%. O2 titrated down to 4L oxymask, SPO2 mid to low 90s. Will continue to titrate this afternoon. GI/: Pt denies n/v Neuro: Pt A&O x 3. Pt is very somnolent this AM. He is able to to accurately report his pain, but is forgetful. Pt is declining heart cath this AM because pt reports, "the Dr said there were risks". Pt was confused about dialysis this morning. He agreed to dialysis after it was described by the nurse. Pt went to dialize just before noon in [facility], report given to Alicia. Addendum: 11/03/16 at 1839 by ALBERTA DENNIS RN Pt much more alert and awake following dialysis.
--- NOTE | 2016-11-03 14:26 | PCM.PNMED ---
Subjective Date of Service Nov 03, 2016 Subjective The patient has refused his cardiac catheterization today. Patient is more somnolent today and I did discuss the case with the patient's sister. I explained the risks of potentially reversible cardiac lesions and the possibility of repairing them. Exam Vital Signs Vital Sign - Last Date Time Temp Pulse Resp B/P Pulse Ox O2 Delivery O2 Flow Rate FiO2 11/03/16 11:25 101 11/03/16 09:45 20 94 OxyMask 4.00 11/03/16 09:15 36.6 137/93 Intake and Output 11/02/16 11/02/16 11/03/16 Cumulative From/Thru 15:00 23:00 07:00 10/23/16 13:24 - 11/03/16 06:37 Intake Total 320 ml 236 ml 30086 ml Output Total 450 ml 400 ml 13841 ml Balance -130 ml -164 ml 5604 ml Intake Oral 320 ml 236 ml 95620 ml IV Total 8252 ml Packed Cells 880 ml Output Urine Total 450 ml 400 ml 41163 ml # Voids 1 # Bowel Movements 12 Exam Neck is supple without adenopathy thyromegaly or jugular venous distention. Lungs were clear to auscultation with a few end expiratory wheezes. Heart is regular rhythm with a soft systolic murmur. Abdomen was soft without tenderness or rebound guarding masses or hepatosplenomegaly. Extremities do not show significant clubbing cyanosis or edema. Lab and Diagnostics Result Diagram: 11/03/160 11/03/16 0420 X-Rays, CTs and MRIs Date of Service: 10/23/16 1403 PROCEDURE: X-RAY CHEST ONE VIEW, PORTABLE ([id number]) IMPRESSION: Persistent retrocardiac atelectasis, aspiration, or pneumonia. Dictated by: Chris Plunkett M.D. on 10/23/2016 at 15:10 Date of Service: 10/24/16 1725 PROCEDURE: CT ABDOMEN AND PELVIS WITHOUT CONTRAST ([id number]) INDICATIONS: LLQ abdomen pain IMPRESSION: 1.The presumed source of left lower quadrant pain is a relatively large left psoas muscle hematoma with epicenter in the abdomen and tapering into the pelvis. No hemoperitoneum is associated. 2.There is mild diverticulosis but without acute diverticulitis. Asymmetric pleural effusions, small to moderate on the left and scant on the right. Adjacent basilar atelectasis. Postsurgical changes are noted of presumed prior CABG. 3.This information was immediately called to the nursing station caring for the patient who is hospitalized at this time. Dictated by: Mkio Garcia M.D. on 10/25/2016 at 10:57 Assessment & Plan Impression #1 acute on chronic kidney injury #2 chronic kidney disease stage III or 4 3 hypertension with hypertensive heart disease and hypertensive nephrosclerosis patient #1 patient is dialyzed today for 3-1/2 hours on a clear dialyzer. He is to be dialyzed without heparin and a 3K potassium bath. I would like to take off 1/2-2 kg as tolerated. I will reevaluate him in the morning and if he still declines a heart catheterization will pull his femoral catheter. GI Prophylaxis: Not indicated VTE Prophylaxis: Sub-Q Heparin (Unfractionated) VTE Mechanical Devices: Intermittant Pneumatic CD Resuscitation Status: CPR: Attempt Resuscitation Artie Pearson DO Nov 03, 2016 14:26
--- NOTE | 2016-11-03 15:05 | PCM.PNMED ---
Subjective Date of Service Nov 03, 2016 Subjective Dwain Carrillo is a 60-year-old male who was recently discharged on 10/22/16 and has a complex past medical history including chronic foot ulcers, recent undiagnosed GI bleeding, systolic and diastolic congestive heart failure, CAD, A. fib, history of MRSA pneumonia, and C. difficile who presented to [facility] ED after being found on the ground. Admitted for acute on chronic anemia and weakness. Hospital day 11. Overnight: Patient remain on nasal canula overnight. No other acute events. Today: Patient slightly more confused today. He continues to complain of diffuse discomfort and pain. he feels slightly better. He continues to endorse shortness of breath, weakness, back pain, abdominal pain, and nonradiating chest pressure that has been intermittent throughout his hospital stay. Patient denies nausea, vomiting, diarrhea, dysuria. Dialysis planned for today. Patient denied cardiac catheterization. Remaining review of systems is negative. Exam Vital Signs Vital Sign - Last Date Time Temp Pulse Resp B/P Pulse Ox O2 Delivery O2 Flow Rate FiO2 11/03/16 05:29 91 11/03/16 03:24 36.5 22 147/85 97 Nasal Cannula 6.50 Intake and Output 11/02/16 11/02/16 11/03/16 Cumulative From/Thru 15:00 23:00 07:00 10/23/16 13:24 - 11/03/16 06:37 Intake Total 320 ml 236 ml 61810 ml Output Total 450 ml 400 ml 87597 ml Balance -130 ml -164 ml 5604 ml Intake Oral 320 ml 236 ml 14806 ml IV Total 8252 ml Packed Cells 880 ml Output Urine Total 450 ml 400 ml 37915 ml # Voids 1 # Bowel Movements 12 Exam General: Mild distress, elderly chronically ill-appearing male HEENT: Normocephalic, atraumatic. External ears without defect. Pupils equal, round, and reactive to light and accommodation. Anicteric sclerae, moist conjunctivae, and no lid lag. Oxygen mask in place. Cardiovascular: Regular rate and rhythm with no murmurs, rubs, or gallops appreciated Pulmonary: Decreased air movement, crackles in bases bilaterally and expiratory wheezes present. Abdomen: Bowel tones present. Soft, diffusely tender to palpation, nondistended. No hepatosplenomegaly or masses appreciated. Extremities: No lower extremity edema. Skin: Pale, normal temperature, decreased skin turgor. Neurological: Cranial nerves grossly intact. Psychiatric: Alert and oriented to person, place, and time. Right common femoral vein temporary dialysis catheter in place. Dressing clean dry and intact. Lab and Diagnostics Result Diagram: 11/03/1641911/03/16 042 X-Rays, CTs and MRIs Date of Service: 10/23/16 1403 PROCEDURE: X-RAY CHEST ONE VIEW, PORTABLE ([id number]) IMPRESSION: Persistent retrocardiac atelectasis, aspiration, or pneumonia. Dictated by: Chris Plunkett M.D. on 10/23/2016 at 15:10 Date of Service: 10/24/16 1725 PROCEDURE: CT ABDOMEN AND PELVIS WITHOUT CONTRAST ([id number]) INDICATIONS: LLQ abdomen pain IMPRESSION: 1.The presumed source of left lower quadrant pain is a relatively large left psoas muscle hematoma with epicenter in the abdomen and tapering into the pelvis. No hemoperitoneum is associated. 2.There is mild diverticulosis but without acute diverticulitis. Asymmetric pleural effusions, small to moderate on the left and scant on the right. Adjacent basilar atelectasis. Postsurgical changes are noted of presumed prior CABG. 3.This information was immediately called to the nursing station caring for the patient who is hospitalized at this time. Dictated by: Miko Garcia M.D. on 10/25/2016 at 10:57 Assessment & Plan Dwain Carrillo is a 60-year-old male who was recently discharged on 10/22/16 and has a complex past medical history including chronic foot ulcers, recent undiagnosed GI bleeding, systolic and diastolic congestive heart failure, CAD, A. fib, history of MRSA pneumonia, and C. difficile who presented to [facility] ED after being found on the ground. Admitted for acute on chronic anemia and weakness. Hospital day 11. 1. Acute on chronic anemia, present on admission. Active. - Initially thought to be secondary to psoas hematoma or GI bleed. -Patient has had a total of 4 units PRBCs transfused during hospitalization thus far. - Guaiac positive stools. -Oral PPI per gastroenterology's recommendations. - Not a candidate for endoscopy at this time per gastroenterology. - Previous EGD showed erosive esophagitis and gastritis and colonoscopy was unremarkable on 03/07/2016. - Gastroenterology consulted and signed off at this time. 2. Acute on chronic kidney disease, present on admission. Active. - Creatinine on admission 2.72. Baseline around 1.7 - Most likely due to vancomycin/Zosyn/Levaquin in addition to the initial dehydration and acute anemia - Nephrology managing fluid and dialysis. - Hemodialysis completed on 11/01 and planned for session today. - Nephrology consulted. Appreciate time and expertise. 3. Left psoas hematoma, present on admission. Stable. - CT abd/pelv showed 17cm hematoma on left psoas - General surgery consulted, appreciate time and expertise - No surgical interventions recommended at this time - Continue to follow H/H transfuse as needed - Repeat CT abd/pelv showed hematoma decreased in size 10/27 4. Suspected pneumonia, present on admission. Resolved. - HCAP treatment started with Vancomycin, Zosyn and Levofloxacin, stopped 10/29 - MRSA screen negative 5. Hypertension, present on admission. Uncontrolled. - Currently on amlodipine, metoprolol succinate 25mg BID added 6. Weakness/failure to thrive, present on admission. Improving. - PT eval postponed due to recent CT findings as above - PT recommends HHPT 7. Elevated troponins of unknown significance, present on admission. Active. - Difficult to assess in light of acute on chronic kidney disease. Patient has history of elevated troponins. - Troponins trending up. - No new ekg changes. - Limited echo order to evaluate further. - Heparin drip precluded due to hematoma and recent blood loss. - Cardiac catheterization declined by patient. - Cardiology consulted. Appreciate time and expertise. 8. COPD, present on admission. Chronic. - Patient recently discharged on 10/08/16 and 10/22/16 - Increased prednisone from 20mg to 40 mg - DuoNebs and albuterol scheduled TID - Not on home O2, requiring supplemental O2 at 2L - O2 to be kept at 88-92% 9. Chronic systolic CHF, present on admission. Chronic. - Echo from 09/16/2016 showed improved ejection fraction from 40% to 50-55% with areas of hypokinesis which are also chronic and mild systolic failure, also to note small atrial septal defect noted. 10. Hx of A-fib, present on admission. Chronic. - Monitored on telemetry 11. Chronic lower extremity ulcerations with PVD, present on admission. Chronic. - Wound care following. 12. Tobacco abuse, present on admission. Chronic. - Counseled on smoking cessation - ongoing nicotine replacement 13. Chronic pain with continuous opiate dependence, present on admission. Chronic. - Continue prior opiate regimen of morphine sulfate 15 mg twice a day with oxycodone for break through Disposition: Discharge with home health at minimum. Discharge pending cardiac workup and improved kidney and respiratory status. GI Prophylaxis: Not indicated VTE Prophylaxis: Sub-Q Heparin (Unfractionated) VTE Mechanical Devices: Intermittant Pneumatic CD Resuscitation Status: CPR: Attempt Resuscitation Attending Statement The patient was seen and examined together with Resident/House-staff on 11/03/16 and I agree with the history, exam and plan as outlined in the note above. RAMON RO DO Nov 03, 2016 06:57 José Antonio Evangelista Nov 03, 2016 17:33
--- NOTE | 2016-11-03 15:10 | NUR ---
Dialysis note: 3 1/2 hrs tx. 2000 ml net UF. Right femoral catheter, dsg changed, sutures intact. Hepatitis serologies drawn. Pls see DTR for VS details. Qb 400. No heparin given. O2 @ 3L via mask on. Stable tx. Catheter flushed, heparin dwelled and secured. Report given to Kiya Alford RN. Transferred back to patient's room in stable condition.
[2016-11-03] MEDS: 0.9% Sodium Chloride 1,000 ML IV SCH (15:25)
[2016-11-03] MEDS: Tiotropium 18mcg/Cap 5 Capsule Inhaler Kit INHALATION SCH (16:08)
[2016-11-03] MEDS: MeTOProlol XL 25 mg ER24 Tablet PO SCH (16:08)
[2016-11-04] VITALS (11 sets, daily range): BP systolic 123–155; BP diastolic 73–100; PULSE 88–130; RESP 16–24; O2SAT 91–96
[2016-11-04] MEDS: 0.9% Sodium Chloride 1,000 ML IV SCH ×2 (00:25→13:44)
[2016-11-04] MEDS: Albuterol-Ipratropium 3 mL Inhalation Solution NEB SCH ×4 (02:10→20:30)
[2016-11-04 04:25] LABS: BASOPHILS % (AUTO) 0.3 % (0-3); EOSINOPHILS % (AUTO) 2.2 % (0-5); MONOCYTES % (AUTO) 10.2 % (4-12); Mean Corpuscular Hemoglobin 25.9 pg (27.0-35.0); Mean Corpuscular Volume 82.1 fL (81-100); NEUTROPHILS % (AUTO) 78.3 % (40-74); Platelet Count 251 bil/L (150-400)
--- NOTE | 2016-11-04 06:18 | NUR ---
Cough / sleep Patient requesting medication for cough, MD notified, orders received and Tessalon pearls administered for cough. Cough is non-productive and moist. Cough improves after administration. Patient requesting medication for sleep. HS meds given and non effective. Patient given Clonazepam dose and is able to fall asleep after this.
--- NOTE | 2016-11-04 06:22 | NUR ---
Potassium K 3.3 on AM labs. notified. No new orders. Plan for dialysis today.
[2016-11-04] MEDS: Tiotropium 18mcg/Cap 5 Capsule Inhaler Kit INHALATION SCH (08:43)
[2016-11-04] MEDS: Fluticasone-Salmeterol 100-50 Inhaler INHALATION SCH ×2 (08:43→20:26)
[2016-11-04] MEDS: Morphine ER 15 mg (MS Contin) Tablet PO SCH ×2 (08:43→20:54)
[2016-11-04] MEDS: Pantoprazole 20 mg ER24 Tablet PO SCH ×2 (08:43→20:27)
--- NOTE | 2016-11-04 09:29 | NUR ---
Pt arrived to [facility]: Pt arrived to [facility] for dialysis treatment. Report given to dialysis nurse from [facility]. Addendum: 11/04/16 at 1311 by LITZY JIMENEZ RN Pt completed treatment and [facility] Report called to Rocío Cheney RN. Pt appears stable at this time. distribution technician aware of transfer back to [facility].
--- NOTE | 2016-11-04 11:40 | PCM.PNMED ---
Subjective Date of Service Nov 04, 2016 Subjective Patient was seen in dialysis today and he remains quite somnolent. His mental status is waxing and waning however I do not feel that he is competent to make any type of medical decision concerning his care. Exam Vital Signs Vital Sign - Last Date Time Temp Pulse Resp B/P Pulse Ox O2 Delivery O2 Flow Rate FiO2 11/04/16 09:53 105 11/04/16 08:31 Supplement Oxygen 11/04/16 08:31 36.8 24 139/79 96 3.00 Intake and Output 11/03/16 11/03/16 11/04/16 Cumulative From/Thru 15:00 23:00 07:00 10/23/16 13:24 - 11/04/16 06:29 Intake Total 536 ml 1348 ml 31668 ml Output Total 2000 ml 450 ml 550 ml 56655 ml Balance -2000 ml 86 ml 798 ml 4488 ml Intake Oral 536 ml 500 ml 83893 ml IV Total 848 ml 9100 ml Packed Cells 880 ml Output Urine Total 450 ml 550 ml 60692 ml Ultrafiltrate 2000 ml 2000 ml # Voids 1 # Bowel Movements 1 13 Exam Patient is quite lethargic at time of my evaluation. Neck is supple without adenopathy thyromegaly or jugular venous distention. Auscultation of the somewhat diminished due to poor inspiratory effort. She was soft systolic murmur. Abdomen is soft without any tenderness or rebound guarding masses or hepatosplenomegaly. Lab and Diagnostics Result Diagram: 11/04/16 0410 11/04/16 0410 X-Rays, CTs and MRIs Date of Service: 10/23/16 1403 PROCEDURE: X-RAY CHEST ONE VIEW, PORTABLE ([id number]) IMPRESSION: Persistent retrocardiac atelectasis, aspiration, or pneumonia. Dictated by: Chris Plunkett M.D. on 10/23/2016 at 15:10 Date of Service: 10/24/16 0725 PROCEDURE: CT ABDOMEN AND PELVIS WITHOUT CONTRAST ([id number]) INDICATIONS: LLQ abdomen pain IMPRESSION: 1.The presumed source of left lower quadrant pain is a relatively large left psoas muscle hematoma with epicenter in the abdomen and tapering into the pelvis. No hemoperitoneum is associated. 2.There is mild diverticulosis but without acute diverticulitis. Asymmetric pleural effusions, small to moderate on the left and scant on the right. Adjacent basilar atelectasis. Postsurgical changes are noted of presumed prior CABG. 3.This information was immediately called to the nursing station caring for the patient who is hospitalized at this time. Dictated by: Miko Garcia M.D. on 10/25/2016 at 10:57 Assessment & Plan Impression #1 acute kidney injury superimposed on chronic kidney disease #2 Non compos mentis Patient is dialyzed today for 3-1/2 hours on a 4K bath with 1200 heparin and 500 now. We will try to take 1/2-2 L of fluid off. I have instructed the nurse it we will discontinue the dialysis catheter following his treatment today. 2 I strongly feel that we need to get a competency evaluation to determine his exact mental capacity or lack. GI Prophylaxis: Not indicated VTE Prophylaxis: Sub-Q Heparin (Unfractionated) VTE Mechanical Devices: Intermittant Pneumatic CD Resuscitation Status: CPR: Attempt Resuscitation Artie Pearson DO Nov 04, 2016 11:40
--- NOTE | 2016-11-04 12:21 | PCM.PNMED ---
Subjective Date of Service Nov 04, 2016 Subjective Dwain Carrillo is a 60-year-old male who was recently discharged on 10/22/16 and has a complex past medical history including chronic foot ulcers, recent undiagnosed GI bleeding, systolic and diastolic congestive heart failure, CAD, A. fib, history of MRSA pneumonia, and C. difficile who presented to [facility] ED after being found on the ground. Admitted for acute on chronic anemia and weakness. Hospital day 12. Overnight: No other acute events. Today: Currently receiving dialysis. Patient slightly more confused and somnolent today. States he now wants to proceed with cardiac catheterization today which he denied yesterday. Patient's mentation seems to waxing and waning. Competency to make decisions is questionable may consider further evaluation and discussion with family. He continues to complain of diffuse discomfort and pain. Patient denies nausea, vomiting, diarrhea, dysuria. Remaining review of systems is negative. Exam Vital Signs Vital Sign - Last Date Time Temp Pulse Resp B/P Pulse Ox O2 Delivery O2 Flow Rate FiO2 11/04/16 04:39 103 11/04/16 03:41 36.6 16 129/89 93 Nasal Cannula 2.00 Intake and Output 11/03/16 11/03/16 11/04/16 Cumulative From/Thru 15:00 23:00 07:00 10/23/16 13:24 - 11/04/16 06:29 Intake Total 536 ml 1348 ml 08987 ml Output Total 2000 ml 450 ml 550 ml 84173 ml Balance -2000 ml 86 ml 798 ml 4488 ml Intake Oral 536 ml 500 ml 44530 ml IV Total 848 ml 9100 ml Packed Cells 880 ml Output Urine Total 450 ml 550 ml 96935 ml Ultrafiltrate 2000 ml 2000 ml # Voids 1 # Bowel Movements 1 13 Exam General: Mild distress, elderly chronically ill-appearing male HEENT: Normocephalic, atraumatic. External ears without defect. Pupils equal, round, and reactive to light and accommodation. Anicteric sclerae, moist conjunctivae, and no lid lag. Oxygen mask in place. Cardiovascular: Regular rate and rhythm with no murmurs, rubs, or gallops appreciated Pulmonary: Decreased air movement, crackles in bases bilaterally and expiratory wheezes present. Abdomen: Bowel tones present. Soft, diffusely tender to palpation, nondistended. No hepatosplenomegaly or masses appreciated. Extremities: No lower extremity edema. Skin: Pale, normal temperature, decreased skin turgor. Neurological: Cranial nerves grossly intact. Psychiatric: Alert and oriented to person, place, and time. Right common femoral vein temporary dialysis catheter in place. Dressing clean dry and intact. Lab and Diagnostics Result Diagram: 11/04/1640911/04/16 0410 X-Rays, CTs and MRIs Date of Service: 10/23/16 1403 PROCEDURE: X-RAY CHEST ONE VIEW, PORTABLE ([id number]) IMPRESSION: Persistent retrocardiac atelectasis, aspiration, or pneumonia. Dictated by: Chris Plunkett M.D. on 10/23/2016 at 15:10 Date of Service: 10/24/16 1725 PROCEDURE: CT ABDOMEN AND PELVIS WITHOUT CONTRAST ([id number]) INDICATIONS: LLQ abdomen pain IMPRESSION: 1.The presumed source of left lower quadrant pain is a relatively large left psoas muscle hematoma with epicenter in the abdomen and tapering into the pelvis. No hemoperitoneum is associated. 2.There is mild diverticulosis but without acute diverticulitis. Asymmetric pleural effusions, small to moderate on the left and scant on the right. Adjacent basilar atelectasis. Postsurgical changes are noted of presumed prior CABG. 3.This information was immediately called to the nursing station caring for the patient who is hospitalized at this time. Dictated by: Miko Garcia M.D. on 10/25/2016 at 10:57 Assessment & Plan Dwain Carrillo is a 60-year-old male who was recently discharged on 10/22/16 and has a complex past medical history including chronic foot ulcers, recent undiagnosed GI bleeding, systolic and diastolic congestive heart failure, CAD, A. fib, history of MRSA pneumonia, and C. difficile who presented to [facility] ED after being found on the ground. Admitted for acute on chronic anemia and weakness. Hospital day 12. 1. Acute on chronic anemia, present on admission. Active. - Initially thought to be secondary to psoas hematoma or GI bleed. - Patient has had a total of 4 units PRBCs transfused during hospitalization thus far. - Guaiac positive stools. - Oral PPI per gastroenterology's recommendations. - Not a candidate for endoscopy at this time per gastroenterology. - Previous EGD showed erosive esophagitis and gastritis and colonoscopy was unremarkable on 03/07/2016. - Gastroenterology consulted and signed off at this time. 2. Acute on chronic kidney disease, present on admission. Active. - Creatinine on admission 2.72. Baseline around 1.7 - Most likely due to vancomycin/Zosyn/Levaquin in addition to the initial dehydration and acute anemia - Nephrology managing fluid and dialysis. - Hemodialysis completed on 11/01, 11/03, and today. - Catheter will be removed after dialysis today (11/04). - Nephrology consulted. Appreciate time and expertise. 3. Left psoas hematoma, present on admission. Stable. - CT abd/pelv showed 17cm hematoma on left psoas - General surgery consulted, appreciate time and expertise - No surgical interventions recommended at this time - Continue to follow H/H transfuse as needed - Repeat CT abd/pelv showed hematoma decreased in size 10/27 4. Suspected pneumonia, present on admission. Resolved. - HCAP treatment started with Vancomycin, Zosyn and Levofloxacin, stopped 10/29 - MRSA screen negative 5. Hypertension, present on admission. Uncontrolled. - Currently on amlodipine, metoprolol succinate 25mg BID added 6. Weakness/failure to thrive, present on admission. Improving. - PT eval postponed due to hematoma. - PT recommends HHPT 7. Elevated troponins of unknown significance, present on admission. Active. - Difficult to assess in light of acute on chronic kidney disease. Patient has history of elevated troponins. - Troponins trending up. - No new ekg changes. - Limited echo order to evaluate further. - Heparin drip precluded due to hematoma and recent blood loss. - Cardiac catheterization declined by patient. - Cardiology consulted. Appreciate time and expertise. 8. COPD, present on admission. Chronic. - Patient recently discharged on 10/08/16 and 10/22/16 - Increased prednisone from 20mg to 40 mg - DuoNebs and albuterol scheduled TID - Not on home O2, requiring supplemental O2 at 2L - O2 to be kept at 88-92% 9. Chronic systolic CHF, present on admission. Chronic. - Echo from 09/16/2016 showed improved ejection fraction from 40% to 50-55% with areas of hypokinesis which are also chronic and mild systolic failure, also to note small atrial septal defect noted. 10. Hx of A-fib, present on admission. Chronic. - Monitored on telemetry 11. Chronic lower extremity ulcerations with PVD, present on admission. Chronic. - Wound care following. 12. Tobacco abuse, present on admission. Chronic. - Counseled on smoking cessation - ongoing nicotine replacement 13. Chronic pain with continuous opiate dependence, present on admission. Chronic. - Continue prior opiate regimen of morphine sulfate 15 mg twice a day with oxycodone for break through Disposition: Discharge with home health at minimum. Discharge pending cardiac workup and improved kidney and respiratory status. GI Prophylaxis: Not indicated VTE Prophylaxis: Sub-Q Heparin (Unfractionated) VTE Mechanical Devices: Intermittant Pneumatic CD Resuscitation Status: CPR: Attempt Resuscitation Attending Statement The patient was seen and examined together with Resident/House-staff on 11/04/16 and I agree with the history, exam and plan as outlined in the note above. RAMON RO DO Nov 04, 2016 07:28 José Antonio Evangelista Nov 04, 2016 17:35
--- NOTE | 2016-11-04 13:10 | NUR ---
Dialysis note: 3 1/2 hrs tx. Zero net UF. Right femoral catheter, dsg dry and intact. Pls see DTR for VS details. Qb 400. No heparin given. O2 @ 2L via mask on. Stable tx. Catheter flushed, heparin dwelled and secured. Report given to Giovana Stewart RN. Transferred back to patient's room in stable condition.
[2016-11-04] MEDS: MeTOProlol XL 25 mg ER24 Tablet PO SCH (13:44)
--- NOTE | 2016-11-04 17:18 | CONS ---
[address] [address] CONSULTATION REPORT PATIENT: MARGARET ROCHA : 1955 MR#: [id number] ADMIT: 10/23/2016 JOB ID: [id number] DATE OF SERVICE: 11/04/2016 CARDIOLOGY CONSULTATION: I have been asked to see the patient in consultation to determine if it was appropriate to consider diagnostic coronary angiography at this time given that he now has a dialysis catheter in place. HISTORY OF PRESENT ILLNESS: The patient has a long history of cardiovascular problems with three-vessel coronary bypass graft surgery dating back about 25 years. We do not have details regarding his prior surgery. He has been seen on several occasions over the past 10 years by Cardiology, but predominantly for his peripheral arterial disease. In 2009 he had bilateral iliac stents placed by interventional radiology. There is some report that he may have had a distal aortic stent placed as well and both popliteal arteries were found to be occluded at that time. He was probably last seen by Cardiology in April 2015 when he was seen by Dr. Hussein, who did repeat angiography which demonstrated an eccentric high-grade lesion involving his left common iliac that was treated with atherectomy and repeat stenting. Once again, both popliteal arteries were noted to be occluded at that time. Over the past year the patient has been in the hospital numerous times for complicated medical problems. In April of last year he spent a month and a half, close to two months in the hospital, after being found on the floor at home with a presumed narcotic overdose with hypothermia and bradycardia. His evaluation at that time included an echocardiogram which demonstrated moderate left ventricular systolic dysfunction with possible focal inferior wall motion abnormality, and of course his troponins were elevated, but this was in the setting of presumed sepsis syndrome and renal insufficiency related to his presumed drug overdose. Though he was not expected to survive, he did, and was discharged home after about a month and a half. This is his 3rd hospitalization in the last two months, with a hospitalization initially for presumed pneumonia just around [place] time which was treated with antibiotic therapy. This was followed by a repeat admission with generalized weakness and feeling poorly and he was found to be markedly anemic at that time, with evidence of a large hematoma in his right psoas muscle; again he had been found down at home. His current admission dates back to October 23 when he presented, again being found on the ground by his sister, with generalized weakness. He subsequently has been managed for fairly significant renal insufficiency and recently underwent placement of a right femoral vein dialysis catheter. Because of rising troponin and occasional symptoms of anginal chest discomfort, Dr. Dao had consented to proceed with the diagnostic coronary angiography last week, but the patient declined, and this is being readdressed today. The patient is a chronically ill-appearing, malnourished, disheveled individual who is awake and alert today and able to provide a reasonable history. He seems very mentally competent at this time. He relates a history of intermittent episodes of angina-like chest discomfort, describing a substernal and precordial pressure-like discomfort that responds typically within a couple of minutes to sublingual nitroglycerin. He has carried sublingual nitroglycerin with him for a number of years and states that his anginal symptoms have been chronic and fairly stable. Of course over the weeks and months that he has been in the hospital over the past eight months his troponin has been quite variable and generally abnormal, in part related to his variable degrees of fairly severe renal insufficiency, but also related to probable stress myocardial ischemia related to his combination of significant medical problems including sepsis syndrome, hypotension, etc. A repeat limited echocardiogram was performed a couple of days ago and reported by my partner as demonstrating an ejection fraction estimated at around 45%. This was likely from the computer estimation, but on visual estimation on my review his ejection fraction is normal at around 60%, and yes there is basal inferior posterior wall wall motion abnormality but overall his left ventricular systolic function looks normal. This gentleman, when we talk about the possibility of diagnostic coronary angiography, states that he really does not want anything done. I also had the opportunity to review the CT scan of his abdomen which was performed on the and this demonstrates extensive intraluminal atherosclerosis and narrowing of his distal aorta and bilateral iliac vessels, and there is likely not access from his femoral vessels that would be reliable and safe given his extensive peripheral arterial disease. In addition, he states that he really is not interested in undergoing that type of invasive diagnostic imaging. This gentleman's current medications from a cardiac standpoint include rosuvastatin 40 mg a day plus Zetia, which he has been on for quite some time. A lipid profile has not been performed on his current admission and his previous chemistries in fact do not look like they have been repeated. His most recent cholesterol actually was September 16 at 233 with an LDL cholesterol of 147; it is not entirely clear whether or not that was on his current dose of Crestor and Zetia. He has a long history of smoking despite his severe cardiovascular issues and states that he has been able to quit smoking since he was discharged from the hospital October 08 last year. PAST MEDICAL HISTORY: In addition includes his renal insufficiency, COPD, and anemia, narcotic addiction related to a chronic pain syndrome, and generalized malnutrition. SOCIAL HISTORY: The patient lives in a studio apartment. His sister helps care for him and takes him shopping and so forth. REVIEW OF SYSTEMS: Notable for the absence of a productive cough. He has had no fevers. He has a chronic infection on the medial aspect of his left ankle which is close to being healed but has been present for a couple of years. I do not get a history of claudication he does have prominent exertional dyspnea without symptoms of orthopnea or PND or symptomatic palpitations. He has had a history of guaiac-positive stools, but currently denies any abdominal discomfort or bowel or bladder problems, and states that his appetite is reasonably good. PHYSICAL EXAMINATION: Shows a chronically ill-appearing male who appears older than his stated age. He is moderately tachypneic throughout the examination. His blood pressures have been variable, ranging between 120 and 100-160 systolic. His heart rate has been variable as well and somewhat tachycardic. His HEENT examination is notable for bilateral arcus senilis. He has some missing teeth. He is unshaved. His jugular venous pulse is visible at the earlobe with the patient at 60 degrees. He has prominent dependent edema from his shoulders to his thighs. He has prominent diffuse muscle wasting. Lung garcia demonstrate decreased breath sounds and evidence of consolidation at both lung bases. I do not hear any obvious wheezing. Cardiac auscultation is notable for prominent physiologically split 1st heart sound. Second heart sound is prominent as well. I do not hear a ventricular gallop and no significant cardiac murmurs. Abdomen shows some mild hepatic enlargement and tenderness. I do not feel his spleen. His aorta is not palpably enlarged. He has bilateral iliac and femoral bruits and absent pulses below the groin. He appears moderately pale and anemic generally. His feet are warm, but distal pedal pulses are not palpable, with some mild chronic trophic changes noted. LABORATORY: Notable for mild hypokalemia. His creatinine is ranging between 2 and 3.5. Blood sugar is moderately increased. Transaminases are moderately elevated with an AST of 151, ALT of 123, alk phos elevated as well. Troponin levels have been variable. BNP on October 24 was markedly elevated at over 26,000. Protein and albumin are both significantly reduced. Chest x-ray shows prominent pulmonary infiltrates, mostly in the right lung but some on the left lung, as well as bilateral pleural effusions. The bottom of his lungs shows evidence of effusion and consolidation on the abdominal CT scan that was recently done as well. The abdominal CT scan also demonstrates extensive coronary calcification involving all three of his major coronary vessels and bypass grafts in addition to the dense calcific atherosclerosis previously mentioned. IMPRESSION: 1. Coronary artery disease: This patient has chronic severe ischemic heart disease with severe coronary calcification identified variable degrees of troponin release related to physiologic stress and underlying ischemia and symptoms of fairly well controlled angina. Given the multiplicity of his severe medical problems, and generally poor prognosis, the only indication for considering repeat coronary angiography would be for control of severe recurrent anginal symptoms. There is no reason at this point to consider diagnostic coronary angiography. I would recommend adding long-acting nitrates to his medical therapy since his anginal symptoms are typically nitrate responsive and there is no reason that his metoprolol medication could not be gradually augmented to improve both blood pressure control and his underlying heart rate. In view of his transaminase elevations, I think it would be reasonable to withhold his statin drugs for the time being until his liver function improves. I suspect that this represents a fairly significant degree of hepatic congestion since he is showing evidence of significant venous congestion rather diffusely. 2. Severe peripheral arterial disease: This patient has just recently been able to quit smoking. He is on appropriate, fairly aggressive lipid management. If his liver function improves, then both Crestor and Zetia should be restarted in the future and a repeat followup lipid profile should be considered. 3. Chronic renal failure. 4. Severe chronic obstructive pulmonary disease with variable degrees of pneumonia and currently with significant bilateral pleural effusions. 5. Chronic narcotic addiction with a history of previous overdose. 6. Generalized protein calorie malnutrition. RECOMMENDATIONS AND SUMMARY: Again, I would not pursue diagnostic coronary angiography, not only for the above reasons but because of the severely limited vascular access with his peripheral arterial disease. Antianginals with nitrates and increased beta-laney therapy should be well tolerated. In view of his elevated central venous pressure and edema, his intravenous normal saline should be discontinued and his dialysis perhaps augmented some to remove an additional 5-10 pounds of edema fluid. At this point Cardiology will sign off. If we can be of any further assistance in the future, do not hesitate to let me know.
--- NOTE | 2016-11-04 18:37 | NUR ---
Dialysis/mentation/HTN Cardiac: pt denies c/p, Tele: SR 90-100s, upon returning from dialysis, pt had episode of increased HR up to 130s and BP up to 155/100. Metoprolol, which was held for dialysis, was given and rate and BP reduced. Pt had 7 beats non-symptomatic vtach this evening while sitting EOB eating dinner. Dr Hatfield paged. Resp: Pt denies SOB at rest. SPO2 low 90s on 2L oxymask. Pt desats to 85% when he takes off oxymask. Pt mouth breaths and desats on NC while sleeping. continuous pulse ox on. GI/: pt denies n/v/d, kiser draining fatimah urine to gravity, 600 ml out this shift. Neuro: A&O x3, BOLA, pt sleepy this morning, off to dialysis at 09:00. Report given to BASIL Vargas. Pt returned from dialysis at 13:30. Pt is more awake, clear and engaging following dialysis.
[2016-11-05] VITALS (13 sets, daily range): BP systolic 137–158; BP diastolic 85–93; PULSE 91–112; RESP 18–26; O2SAT 91–99
--- NOTE | 2016-11-05 02:07 | NUR ---
OXYGENATION Pt pleasant and cooperative with care, A&Ox3 and able to make needs known. Pt de-sated low 80's while on 2L O2 NC at night. Pt was monitored and bumped up to 4L NC and sated low 90's, oxy-mask not needed at this time. Vitals stable, no pain noted. Pt had dialysis earlier in the day, pt extremely tired, no other issues noted at this time.
[2016-11-05 03:05] LABS: BASOPHILS % (AUTO) 0.2 % (0-3); EOSINOPHILS % (AUTO) 3.2 % (0-5); MONOCYTES % (AUTO) 9.6 % (4-12); Mean Corpuscular Hemoglobin 26.2 pg (27.0-35.0); Mean Corpuscular Volume 83.7 fL (81-100); NEUTROPHILS % (AUTO) 75.7 % (40-74); Platelet Count 292 bil/L (150-400)
[2016-11-05] MEDS: Albuterol-Ipratropium 3 mL Inhalation Solution NEB SCH ×3 (08:02→21:24)
[2016-11-05] MEDS: MeTOProlol XL 25 mg ER24 Tablet PO SCH (09:10)
[2016-11-05] MEDS: Tiotropium 18mcg/Cap 5 Capsule Inhaler Kit INHALATION SCH (09:10)
[2016-11-05] MEDS: Morphine ER 15 mg (MS Contin) Tablet PO SCH ×2 (09:10→19:45)
[2016-11-05] MEDS: Pantoprazole 20 mg ER24 Tablet PO SCH ×2 (09:10→19:45)
[2016-11-05] MEDS: Fluticasone-Salmeterol 100-50 Inhaler INHALATION SCH ×2 (09:11→19:44)
[2016-11-05] MEDS: Sodium Chloride LOK Flush 10 mL Syringe IVFLUSH PRN (10:19)
--- NOTE | 2016-11-05 11:39 | PCM.PNMED ---
Subjective Date of Service Nov 05, 2016 Subjective complains of generalized malaise and weakness. denies any CP. no other new issues/complaitns. Exam Vital Signs Vital Sign - Last Date Time Temp Pulse Resp B/P Pulse Ox O2 Delivery O2 Flow Rate FiO2 11/05/16 09:22 112 11/05/16 08:53 Supplement Oxygen 11/05/16 08:53 36.6 20 138/89 91 3.00 Intake and Output 11/04/16 11/04/16 11/05/16 Cumulative From/Thru 15:00 23:00 07:00 10/23/16 13:24 - 11/05/16 05:33 Intake Total 500 ml 200 ml 39983 ml Output Total 0 ml 600 ml 400 ml 94959 ml Balance 0 ml -100 ml -200 ml 4188 ml Intake Oral 500 ml 200 ml 60096 ml IV Total 9100 ml Packed Cells 880 ml Output Urine Total 600 ml 400 ml 59380 ml Ultrafiltrate 0 ml 2000 ml # Voids 1 # Bowel Movements 1 15 General: Alert, Cooperative, No Acute Distress Eyes: Scleral Anicteric Mouth: Mucous Membr Moist/[place] Neck: Supple Chest & Lungs: Chest Wall Normal, Clear to auscultation & percussion Cardiovascular: Regular Rate/Rhythm Abdomen: Non-tender, Non-distended, Normoactive bowel tones, Soft Extremities: No cyanosis/clubbing/edma bilat Neurological: Grossly Neurologically Intact, Normal Speech IVs and Medications Medications Reviewed: Medications were reviewed in detail Lab and Diagnostics Result Diagram: 11/05/16 0250 11/05/16 0250 X-Rays, CTs and MRIs Date of Service: 10/23/16 1403 PROCEDURE: X-RAY CHEST ONE VIEW, PORTABLE ([id number]) IMPRESSION: Persistent retrocardiac atelectasis, aspiration, or pneumonia. Dictated by: Chris Plunkett M.D. on 10/23/2016 at 15:10 Date of Service: 10/24/16 7155 PROCEDURE: CT ABDOMEN AND PELVIS WITHOUT CONTRAST ([id number]) INDICATIONS: LLQ abdomen pain IMPRESSION: 1.The presumed source of left lower quadrant pain is a relatively large left psoas muscle hematoma with epicenter in the abdomen and tapering into the pelvis. No hemoperitoneum is associated. 2.There is mild diverticulosis but without acute diverticulitis. Asymmetric pleural effusions, small to moderate on the left and scant on the right. Adjacent basilar atelectasis. Postsurgical changes are noted of presumed prior CABG. 3.This information was immediately called to the nursing station caring for the patient who is hospitalized at this time. Dictated by: Miko Garcia M.D. on 10/25/2016 at 10:57 Assessment & Plan 60-year-old male who was recently discharged on 10/22/16 and has a complex past medical history including chronic foot ulcers, recent undiagnosed GI bleeding, systolic and diastolic congestive heart failure, CAD, A. fib, history of MRSA pneumonia, and C. difficile who presented to [facility] ED after being found on the ground. Admitted for acute on chronic anemia and weakness. 1. Acute on chronic anemia, present on admission. stabilized - Initially thought to be secondary to psoas hematoma or GI bleed. - Patient has had a total of 4 units PRBCs transfused during hospitalization thus far. - Guaiac positive stools. - Oral PPI per gastroenterology's recommendations. - Not a candidate for endoscopy at this time per gastroenterology. - Previous EGD showed erosive esophagitis and gastritis and colonoscopy was unremarkable on 03/07/2016. - Gastroenterology consulted and signed off at this time. 2. Acute on chronic kidney disease, present on admission. Active. - Creatinine on admission 2.72. Baseline around 1.7 - Most likely due to vancomycin/Zosyn/Levaquin in addition to the initial dehydration and acute anemia - appreciate nephrology consult. will f/u w/ recs - Hemodialysis completed on 11/01, 11/03, and 11/04 - Catheter was planned to be removed after dialysis on 11/[address] today 3. Left psoas hematoma, present on admission. Stable. - CT abd/pelv showed 17cm hematoma on left psoas - General surgery consulted, appreciate time and expertise - No surgical interventions recommended at this time - Repeat CT abd/pelv showed hematoma decreased in size 10/27 4. Suspected pneumonia, present on admission. Resolved. - HCAP treatment started with Vancomycin, Zosyn and Levofloxacin, stopped 10/29 - MRSA screen negative 5. Hypertension, present on admission. Uncontrolled. - Currently on amlodipine, metoprolol succinate 25mg BID added 6. Weakness/failure to thrive, present on admission. Improving. - PT eval postponed due to hematoma. - Last PT eval on 10/29/16 recommends HHPT. - Reconsult PT given prolonged stay since last eval 7. Elevated troponin of unknown significance, present on admission. Active. - Difficult to assess in light of acute on chronic kidney disease. Patient has history of elevated troponin. - No new ekg changes. - Heparin drip precluded due to hematoma and recent blood loss. - appreciate cardiology consult. will f/u w/ recs - Dr. Spears does not recommend any further invasive workup at this point. will c/w conservative medical management for now. 8. COPD, present on admission. Chronic. stable - c/w current inhaler/nebs 9. Chronic systolic CHF, present on admission. improving - Echo from 09/16/2016 showed improved ejection fraction from 40% to 50-55% with areas of hypokinesis which are also chronic and mild systolic failure, also to note small atrial septal defect noted. - further diuresis per nephrology recs 10. Hx of A-fib, present on admission. Chronic. stable - Monitored on telemetry 11. Chronic lower extremity ulcerations with PVD, present on admission. Chronic. - Wound care following. 12. Tobacco abuse, present on admission. Chronic. - ongoing nicotine replacement 13. Chronic pain with continuous opiate dependence, present on admission. Chronic. - Continue prior opiate regimen of morphine sulfate 15 mg twice a day with oxycodone for break through Disposition: pending repeat PT eval and likely tomorrow. GI Prophylaxis: Not indicated VTE Prophylaxis: Sub-Q Heparin (Unfractionated) VTE Mechanical Devices: Intermittant Pneumatic CD Resuscitation Status: CPR: Attempt Resuscitation Time spent 30 min José Antonio Evangelista Nov 05, 2016 11:39
--- NOTE | 2016-11-05 12:00 | NUR ---
Evaluation completed. Please go to "Notes" then click on "Assessments and Notes" (bottom left corner of screen). Then select appropriate discipline tab on top of screen.
--- NOTE | 2016-11-05 13:31 | PCM.PNMED ---
Subjective Date of Service Nov 05, 2016 Subjective Patient is more lethargic today but otherwise has no complaints. I have discussed the case with Dr. Spears from cardiology and there are no plans for him to goal heart catheterization. Exam Vital Signs Vital Sign - Last Date Time Temp Pulse Resp B/P Pulse Ox O2 Delivery O2 Flow Rate FiO2 11/05/16 12:02 36.7 95 20 152/93 93 Nasal Cannula 2.00 Intake and Output 11/04/16 11/04/16 11/05/16 Cumulative From/Thru 15:00 23:00 07:00 10/23/16 13:24 - 11/05/16 05:33 Intake Total 500 ml 200 ml 05433 ml Output Total 0 ml 600 ml 400 ml 97053 ml Balance 0 ml -100 ml -200 ml 4188 ml Intake Oral 500 ml 200 ml 66715 ml IV Total 9100 ml Packed Cells 880 ml Output Urine Total 600 ml 400 ml 57793 ml Ultrafiltrate 0 ml 2000 ml # Voids 1 # Bowel Movements 1 1 15 Exam Sclera pale. Neck is supple without adenopathy thyromegaly or jugular venous distention. Lungs are clear to auscultation. Heart is regular with soft systolic murmur. Abdomen is soft without any tenderness rebound guarding masses or hepatosplenomegaly. Extremities show some dependent edema but otherwise are unremarkable. Lab and Diagnostics Result Diagram: 11/05/16 0250 11/05/16 0250 X-Rays, CTs and MRIs Date of Service: 10/23/16 1403 PROCEDURE: X-RAY CHEST ONE VIEW, PORTABLE ([id number]) IMPRESSION: Persistent retrocardiac atelectasis, aspiration, or pneumonia. Dictated by: Chris Plunkett M.D. on 10/23/2016 at 15:10 Date of Service: 10/24/16 1725 PROCEDURE: CT ABDOMEN AND PELVIS WITHOUT CONTRAST ([id number]) INDICATIONS: LLQ abdomen pain IMPRESSION: 1.The presumed source of left lower quadrant pain is a relatively large left psoas muscle hematoma with epicenter in the abdomen and tapering into the pelvis. No hemoperitoneum is associated. 2.There is mild diverticulosis but without acute diverticulitis. Asymmetric pleural effusions, small to moderate on the left and scant on the right. Adjacent basilar atelectasis. Postsurgical changes are noted of presumed prior CABG. 3.This information was immediately called to the nursing station caring for the patient who is hospitalized at this time. Dictated by: Miko Garcia M.D. on 10/25/2016 at 10:57 Assessment & Plan Impression #1 acute kidney injury superimposed upon chronic kidney disease #2 hypertension with hypertensive heart disease and hypertensive nephrosclerosis Recommendation #1 femoral dialysis catheter and try to convert him to diuretics to mobilize fluid. We will continue to follow his renal status and if dialysis is needed in the future GI Prophylaxis: Not indicated VTE Prophylaxis: Sub-Q Heparin (Unfractionated) VTE Mechanical Devices: Intermittant Pneumatic CD Resuscitation Status: CPR: Attempt Resuscitation Artie Pearson DO Nov 05, 2016 13:31
--- NOTE | 2016-11-05 16:31 | NUR ---
Cognition/Activity/nausea/Fem Cath DC Dialysis catheter DC'd today at 14:[address] Benitez. Manual pressure held, then pressure dressing applied with 10lbs sand bag placed over top to be left till 18:00. Pt tolerated well, reporting pain 8/10 at 15:00 relived by oxycodone. Pt ambulated 40 feet down cas[place] and back to room with PT, complains only of mild dizziness and foot pain following ambulation. Cardiac: pt denies c/p, Tele: SR 80-100s Resp: Pt denies SOB, 3L NC sating low 90's. 2L when awake, 3L when sleeping keeps pt 88-92%. Pt is mouth breather. pt requested cough med this afternoon. PRN order for Tessalon pearls obtained and administered. GI/: Pt reports mild nausea, but has appetite for a few bites of breakfast. Nausea resolved by noon. Johnson draining fatimah urine. Neuro: A&Ox3, PLAZA, pt again very tired this AM. Pt has poor memory and experiences transient bouts of confusion. Pt had cognitive study performed by speech pathology (see note) and pt performed poorly.
[2016-11-05] MEDS: Albuterol-Ipratropium 3 mL Inhalation Solution NEB PRN (16:50)
--- NOTE | 2016-11-05 23:16 | NUR ---
PRESSURE DRESSING/MENTATION/OXYGENATION Pt had right femoral dialysis cath removed, pressure dressing CDI, no pain reported. Pt's vitals stable, A&Ox3, able to make needs known. Pt very tired this evening. Pt currently on 2L NC sating at 92%. Patient tends to de-sat at night r/t mouth breathing. Pt bumped up to 3L O2 NC for the night, sating low 90's.
[2016-11-06] VITALS (16 sets, daily range): BP systolic 109–125; BP diastolic 67–82; PULSE 100–117; RESP 16–24; O2SAT 82–98
[2016-11-06] MEDS: Albuterol-Ipratropium 3 mL Inhalation Solution NEB SCH ×3 (08:28→20:49)
[2016-11-06] MEDS: Pantoprazole 20 mg ER24 Tablet PO SCH ×2 (08:30→20:39)
[2016-11-06] MEDS: MeTOProlol XL 25 mg ER24 Tablet PO SCH (08:30)
[2016-11-06] MEDS: Morphine ER 15 mg (MS Contin) Tablet PO SCH ×2 (08:30→20:39)
[2016-11-06] MEDS: Fluticasone-Salmeterol 100-50 Inhaler INHALATION SCH ×2 (09:49→20:38)
[2016-11-06] MEDS: Tiotropium 18mcg/Cap 5 Capsule Inhaler Kit INHALATION SCH (09:53)
--- NOTE | 2016-11-06 10:37 | ABG ---
DateTimeAnalyzed 10:32:00 -_ pH ____7.208 - 7.350 7.450 pCO2 ___82.0__ -mmHg 35.0 45.0 pO2 ___65.4__ -mmHg 69.0 116 HCO3- ___31.4__ -mmol/L 22.0 26.0 ABE ____1.9__ -mmol/L -2.0 2.0 tHb ___11.4__ -g/dL O2Hb ___89.0__ -% COHb ____2.5__ -% MetHb ____1.0__ -% sO2 ___92.2__ -% 25.0 FIO2 ___21.0__ -% Drawn By BTL - Date/Time Notified____ 10:36:00 -_ Liter_Flow ____3.0__ -L/min Oxygen Device 1 __CANNULA - Notified By btl - Notified Whom ___Dr. Alysia - Age 53 -years B 753 -mmHg tO2 ___14.3__ -Vol%
--- NOTE | 2016-11-06 12:05 | ABG ---
DateTimeAnalyzed 12:00:00 -_ pH ____7.247 - 7.350 7.450 pCO2 ___74.2__ -mmHg 35.0 45.0 pO2 ___72.3__ -mmHg 69.0 116 HCO3- ___31.2__ -mmol/L 22.0 26.0 ABE ____2.7__ -mmol/L -2.0 2.0 tHb ___10.9__ -g/dL O2Hb ___91.6__ -% COHb ____2.5__ -% MetHb ____1.1__ -% sO2 ___95.0__ -% 25.0 FIO2 ___40.0__ -% Set_RR ___18.0__ -b/min Vt __352.0__ -L Drawn By BTL - Date/Time Notified____ 12:04:00 -_ Spontaneous_RR ___18.0__ -b/min Oxygen Device 1 ____BIPAP - Notified By btl - Notified Whom ___Dr. Alysia - Age 53 -years B 753 -mmHg tO2 ___14.1__ -Vol%
--- NOTE | 2016-11-06 12:11 | PCM.PNMED ---
Subjective Date of Service Nov 06, 2016 Subjective very lethargic, unresponsive to verbal stimuli. femoral HD cath was removed yesterday, no bleeding. Exam Vital Signs Vital Sign - Last Date Time Temp Pulse Resp B/P Pulse Ox O2 Delivery O2 Flow Rate FiO2 11/06/16 10:59 95 40 11/06/16 10:59 112 11/06/16 10:53 18 11/06/16 09:44 36.8 123/81 Room Air 3.00 Intake and Output 11/05/16 11/05/16 11/06/16 Cumulative From/Thru 15:00 23:00 07:00 10/23/16 13:24 - 11/06/16 05:22 Intake Total 874 ml 610 ml 95624 ml Output Total 450 ml 1250 ml 19175 ml Balance 424 ml -640 ml 3972 ml Intake Oral 874 ml 610 ml 44548 ml IV Total 9100 ml Packed Cells 880 ml Output Urine Total 450 ml 1250 ml 45220 ml Ultrafiltrate 2000 ml # Voids 1 # Bowel Movements 0 15 Exam General appearance: lethargic, frail, agonal breathing. HEENT: Mild pallor. No jaundice. No JVD. No lymphadenopathy. No thyroid enlargement. Heart: Regular rhythm. Normal S1, S2. No murmur, rubs or gallops. Lungs: coarse crackles at bases. no wheezing at this moment. Abd: soft, no rebound, no HSM. Extremities: no edema of the lower extremities. Skin: No rashes. No excoriation. kiser cath in place. Lab and Diagnostics Result Diagram: 11/05/16 0250 11/06/16 0525 X-Rays, CTs and MRIs Date of Service: 10/23/16 1403 PROCEDURE: X-RAY CHEST ONE VIEW, PORTABLE ([id number]) IMPRESSION: Persistent retrocardiac atelectasis, aspiration, or pneumonia. Dictated by: Chris Plunkett M.D. on 10/23/2016 at 15:10 Date of Service: 10/24/16 1725 PROCEDURE: CT ABDOMEN AND PELVIS WITHOUT CONTRAST ([id number]) INDICATIONS: LLQ abdomen pain IMPRESSION: 1.The presumed source of left lower quadrant pain is a relatively large left psoas muscle hematoma with epicenter in the abdomen and tapering into the pelvis. No hemoperitoneum is associated. 2.There is mild diverticulosis but without acute diverticulitis. Asymmetric pleural effusions, small to moderate on the left and scant on the right. Adjacent basilar atelectasis. Postsurgical changes are noted of presumed prior CABG. 3.This information was immediately called to the nursing station caring for the patient who is hospitalized at this time. Dictated by: Miko Garcia M.D. on 10/25/2016 at 10:57 Assessment & Plan 1. BABS on CKD - now secondary to ATN, required HD x3. - aimee cath was removed. 2. Chronic anemia, stable. - h/o GIB. - large left psoas hematoma. 3. Severe deconditioning 4. COPD with tobacco abuse. 5. Afib 6. Chronic systolic heart failure. Plan: continue supportive treatment. monitor volume status on the daily basis. hold torsemide for now given worsening metabolic alkalosis. rec to consult palliative care. GI Prophylaxis: Not indicated VTE Prophylaxis: Sub-Q Heparin (Unfractionated) VTE Mechanical Devices: Intermittant Pneumatic CD Resuscitation Status: CPR: Attempt Resuscitation Flavio Alves MD Nov 06, 2016 12:11
--- NOTE | 2016-11-06 12:34 | NUR ---
mentation/unable to take po/BiPap Pt this morning somnolent, awakens only to repeated stimuli/tough/loud voice, opens eyes and mumbles a few words then right back to sleep. O2 sats 89-91% on 3LO2 via oxymask. MD in room to assess pt, new orders for ABGs, done by RT, EKG obtained by valve technician. Orders to place pt on BiPap, set up by RT. Repeat ABGs drawn by RT at 1200 and pt remains on BiPap at this time. Unable to give po scheduled meds this morning because pt is not alert enough. aware. WIll conitnue to monitor resp status and mentation. Call light in reach. Frequent rounding. Care continues. Addendum: 11/06/16 at 1240 by VALERI WOODWARD RN also aware that po metoprolol unable to be given r/t LOC. [facility] has been running ST 110's with PACs and PVCs and has had 3 short runs of vtach this morning, 7-8 beats each, asymptomatic, aware. Addendum: 11/06/16 at 1839 by VALERI WOODWARD RN Pt more alert this afternoon, taken off bipap and placed on 3-4LO2 via nasal cannula. Pt talking and visiting with family and more conversive with staff and awake/alert. Tolerated dinner well. When repositioning after dinner, pt desats quickly to 79-83% on 3Lo2. PLaced back on oxymask at 3Lo2 and sats 92%, weaned to 2Lo2 and will monitor O2 sats, goal 88-92%. Call light in reach. Care continues.
--- NOTE | 2016-11-06 12:57 | NUR ---
Palliative Care Palliative Care received verbal order from Dr Chapman 11/06/16 to assist with goals of care. Patient is a 60 year old man who was recently discharged on 10/22/16 and has a complex past medical history including chronic foot ulcers, recent undiagnosed GI bleeding, systolic and diastolic congestive heart failure, CAD, A. fib, history of MRSA pneumonia, and C. difficile. Patient was admitted 10/23/16 after being found on the ground. He is receiving care for acute on chronic anemia and weakness. Patient is well known to the Palliative Care Team. Patient lives home alone. Tiffani Kyrie (sister) [phone], Blaze Mittal (?brother in law) [phone], Palliative Care to follow. Melisa Coronado
--- NOTE | 2016-11-06 17:26 | PCM.PNMED ---
Subjective Date of Service Nov 06, 2016 Subjective Dwain Carrillo is a 60-year-old male who was recently discharged on 10/22/16 and has a complex past medical history including chronic foot ulcers, recent undiagnosed GI bleeding, systolic and diastolic congestive heart failure, CAD, A. fib, history of MRSA pneumonia, and C. difficile who presented to [facility] ED after being found on the ground. Admitted for acute on chronic anemia and weakness. Hospital day 14. Overnight: No acute events. Today: Patient minimally responsive and very lethargic. States he feels short of breath a falls back to sleep. Remaining review of systems unobtainable. Exam Vital Signs Vital Sign - Last Date Time Temp Pulse Resp B/P Pulse Ox O2 Delivery O2 Flow Rate FiO2 11/06/16 16:36 106 93 Nasal Cannula 4.00 11/06/16 13:06 20 40 11/06/16 13:00 36.7 109/75 Intake and Output 11/05/16 11/05/16 11/06/16 Cumulative From/Thru 15:00 23:00 07:00 10/23/16 13:24 - 11/06/16 05:22 Intake Total 874 ml 610 ml 63881 ml Output Total 450 ml 1250 ml 04140 ml Balance 424 ml -640 ml 3972 ml Intake Oral 874 ml 610 ml 65709 ml IV Total 9100 ml Packed Cells 880 ml Output Urine Total 450 ml 1250 ml 48249 ml Ultrafiltrate 2000 ml # Voids 1 # Bowel Movements 0 15 Exam General: Minimally responsive, elderly chronically ill-appearing male HEENT: Normocephalic, atraumatic. External ears without defect. Pupils equal, round, and reactive to light and accommodation. Anicteric sclerae, moist conjunctivae, and no lid lag. Oxygen mask in place. Cardiovascular: Tachycardic with no murmurs, rubs, or gallops appreciated Pulmonary: Decreased air movement, crackles in bases bilaterally and expiratory wheezes present. Abdomen: Bowel tones present. Soft, diffusely tender to palpation, nondistended. No hepatosplenomegaly or masses appreciated. Extremities: No lower extremity edema. Skin: Pale, normal temperature, decreased skin turgor. Neurological: Cranial nerves grossly intact. Psychiatric: Not alert and oriented. Lab and Diagnostics Result Diagram: 11/05/16 0250 11/06/16 0525 X-Rays, CTs and MRIs Date of Service: 10/23/16 1403 PROCEDURE: X-RAY CHEST ONE VIEW, PORTABLE ([id number]) IMPRESSION: Persistent retrocardiac atelectasis, aspiration, or pneumonia. Dictated by: Chris Plunkett M.D. on 10/23/2016 at 15:10 Date of Service: 10/24/16 1725 PROCEDURE: CT ABDOMEN AND PELVIS WITHOUT CONTRAST ([id number]) INDICATIONS: LLQ abdomen pain IMPRESSION: 1.The presumed source of left lower quadrant pain is a relatively large left psoas muscle hematoma with epicenter in the abdomen and tapering into the pelvis. No hemoperitoneum is associated. 2.There is mild diverticulosis but without acute diverticulitis. Asymmetric pleural effusions, small to moderate on the left and scant on the right. Adjacent basilar atelectasis. Postsurgical changes are noted of presumed prior CABG. 3.This information was immediately called to the nursing station caring for the patient who is hospitalized at this time. Dictated by: Miko Garcia M.D. on 10/25/2016 at 10:57 Assessment & Plan Dwain Carrillo is a 60-year-old male who was recently discharged on 10/22/16 and has a complex past medical history including chronic foot ulcers, recent undiagnosed GI bleeding, systolic and diastolic congestive heart failure, CAD, A. fib, history of MRSA pneumonia, and C. difficile who presented to [facility] ED after being found on the ground. Admitted for acute on chronic anemia and weakness. Hospital day 14. 1. Acute on chronic anemia, present on admission. stabilized - Initially thought to be secondary to psoas hematoma or GI bleed. - Patient has had a total of 4 units PRBCs transfused during hospitalization thus far. - Guaiac positive stools. - Oral PPI per gastroenterology's recommendations. - Not a candidate for endoscopy at this time per gastroenterology. - Previous EGD showed erosive esophagitis and gastritis and colonoscopy was unremarkable on 03/07/2016. - Gastroenterology consulted and signed off at this time. 2. Acute on chronic kidney disease, present on admission. Active. - Creatinine on admission 2.72. Baseline around 1.7 - Most likely due to vancomycin/Zosyn/Levaquin in addition to the initial dehydration and acute anemia - Appreciate nephrology consult. will f/u w/ recs - Hemodialysis completed on 11/01, 11/03, and 11/04 - Catheter removed 11/05. 3. Left psoas hematoma, present on admission. Stable. - CT abd/pelv showed 17cm hematoma on left psoas - General surgery consulted, appreciate time and expertise - No surgical interventions recommended at this time - Repeat CT abd/pelv showed hematoma decreased in size 10/27 4. Suspected pneumonia, present on admission. Resolved. - HCAP treatment started with Vancomycin, Zosyn and Levofloxacin, stopped 10/29 - MRSA screen negative 5. Hypertension, present on admission. Uncontrolled. - Currently on amlodipine, metoprolol succinate 25mg BID added 6. Weakness/failure to thrive, present on admission. Improving. - Last PT eval on 10/29/16 recommends HHPT. - Reconsult PT given prolonged stay since last eval. Today patient not able to participate. Will attempt tomorrow. 7. Elevated troponin of unknown significance, present on admission. Active. - Difficult to assess in light of acute on chronic kidney disease. Patient has history of elevated troponin. - No new ekg changes. - Heparin drip precluded due to hematoma and recent blood loss. - appreciate cardiology consult. will f/u w/ recs - Dr. Spears does not recommend any further invasive workup at this point. will c/w conservative medical management for now. 8. COPD, present on admission. Chronic. stable - c/w current inhaler/nebs 9. Chronic systolic CHF, present on admission. improving - Echo from 09/16/2016 showed improved ejection fraction from 40% to 50-55% with areas of hypokinesis which are also chronic and mild systolic failure, also to note small atrial septal defect noted. - further diuresis per nephrology recs 10. Hx of A-fib, present on admission. Chronic. stable - Monitored on telemetry 11. Chronic lower extremity ulcerations with PVD, present on admission. Chronic. - Wound care following. 12. Tobacco abuse, present on admission. Chronic. - Ongoing nicotine replacement 13. Chronic pain with continuous opiate dependence, present on admission. Chronic. - Continue prior opiate regimen of morphine sulfate 15 mg twice a day with oxycodone for break through 14. Hypoxemic and hypercarbic respiratory failure, present on admission. Ongoing. - Patient somnolent and minimally responsive this morning. - ABG revealed a respiratory acidosis. - Patient placed on BPAP. - Will continue to monitor. Disposition: Patient's current condition discussed with family at bedside. Discussed the possibility of intubation in the future. Sister states they will make a decision about code status before leaving tonight. Pain Evaluation: Adequate Pain Control GI Prophylaxis: Not indicated VTE Prophylaxis: Sub-Q Heparin (Unfractionated) VTE Mechanical Devices: Intermittant Pneumatic CD Resuscitation Status: CPR: Attempt Resuscitation Attending Statement The patient was seen and examined together with Dr. Ro on 11/06/2016 and I agree with the history, exam and plan as outlined in the note above. . RAMON RO DO Nov 06, 2016 17:26 Bro Nam MD Nov 07, 2016 16:16
[2016-11-07] VITALS (15 sets, daily range): BP systolic 112–131; BP diastolic 71–88; PULSE 89–106; RESP 18–27; O2SAT 92–99
[2016-11-07 03:59] LABS: BASOPHILS % (AUTO) 0.3 % (0-3); EOSINOPHILS % (AUTO) 2.3 % (0-5); MONOCYTES % (AUTO) 12.4 % (4-12); Mean Corpuscular Hemoglobin 26.1 pg (27.0-35.0); Mean Corpuscular Volume 86.7 fL (81-100); NEUTROPHILS % (AUTO) 74.9 % (40-74); Platelet Count 297 bil/L (150-400)
[2016-11-07] MEDS: Albuterol-Ipratropium 3 mL Inhalation Solution NEB SCH ×3 (07:29→19:26)
[2016-11-07] MEDS: Tiotropium 18mcg/Cap 5 Capsule Inhaler Kit INHALATION SCH (08:36)
[2016-11-07] MEDS: Morphine ER 15 mg (MS Contin) Tablet PO SCH ×2 (08:37→20:14)
[2016-11-07] MEDS: Fluticasone-Salmeterol 100-50 Inhaler INHALATION SCH ×2 (08:37→20:13)
[2016-11-07] MEDS: Pantoprazole 20 mg ER24 Tablet PO SCH ×2 (08:37→20:14)
[2016-11-07] MEDS: MeTOProlol XL 25 mg ER24 Tablet PO SCH (08:37)
--- NOTE | 2016-11-07 09:10 | NUR ---
Social Work Note: Continued Discharge Planning Data& Assessment: SW met with pt and pt family at bedside to check in and assess for any unmet needs. Pt and pt family confirm goal to return home with resume [facility] when medically ready. Pt is currently being evaluated by nephrology or potential new [facility] HD. Pt and pt family deny any other needs at this time. SW to continue to follow. Plan: Anticipated discharge home via POV with resume [facility] when medically ready. Pt and pt family deny any other needs at this time. SW to continue to follow. ESAU Contreras
--- NOTE | 2016-11-07 09:55 | PCM.PNMED ---
Subjective Date of Service Nov 07, 2016 Subjective Dwain Carrillo is a 60-year-old male who was recently discharged on 10/22/16 and has a complex past medical history including chronic foot ulcers, recent undiagnosed GI bleeding, systolic and diastolic congestive heart failure, CAD, A. fib, history of MRSA pneumonia, and C. difficile who presented to [facility] ED after being found on the ground. Admitted for acute on chronic anemia and weakness. Hospital day 15. Overnight: No acute events. Patient on BPAP most of the night. Today: Patient alert and oriented to person, place, and time this morning. He is conversational and states his breathing has improved since yesterday. Denies chest pain, palpations, abdominal pain, nausea, or vomiting. Discussed that his kidney function has declined and further discussion about dialysis is needed. Will have nephrology and palliative care weigh in today. Remaining review of systems unobtainable. Exam Vital Signs Vital Sign - Last Date Time Temp Pulse Resp B/P Pulse Ox O2 Delivery O2 Flow Rate FiO2 11/07/16 07:35 89 19 99 BiPAP 40 11/07/16 03:39 37.2 116/71 11/06/16 19:32 2.00 Intake and Output 11/06/16 11/06/16 11/07/16 Cumulative From/Thru 15:00 23:00 07:00 10/23/16 13:24 - 11/07/16 04:49 Intake Total 540 ml 550 ml 98320 ml Output Total 650 ml 500 ml 18703 ml Balance -110 ml 50 ml 3912 ml Intake Oral 540 ml 550 ml 35924 ml IV Total 9100 ml Packed Cells 880 ml Output Urine Total 650 ml 500 ml 76729 ml Ultrafiltrate 2000 ml # Voids 1 # Bowel Movements 15 Exam General: Elderly chronically ill-appearing male. HEENT: Normocephalic, atraumatic. External ears without defect. Pupils equal, round, and reactive to light and accommodation. Anicteric sclerae, moist conjunctivae, and no lid lag. Nasal cannula in place. Cardiovascular: Regular rate and rhythm with no murmurs, rubs, or gallops appreciated Pulmonary: Decreased air movement, faint crackles in bases bilaterally.. Abdomen: Bowel tones present. Soft, diffusely tender to palpation, nondistended. No hepatosplenomegaly or masses appreciated. Extremities: No lower extremity edema. Skin: Pale, normal temperature, decreased skin turgor. Neurological: Cranial nerves grossly intact. Psychiatric: Alert and oriented to person, place, and time. IVs and Medications IV Fluids AST 358 ALT 199 Alk Phos 290 Lab and Diagnostics Result Diagram: 11/07/16 0350 11/07/16 0350 X-Rays, CTs and MRIs PROCEDURE: X-RAY CHEST ONE VIEW, PORTABLE ([id number]) IMPRESSION: Persistent retrocardiac atelectasis, aspiration, or pneumonia. Dictated by: Chris Plunkett M.D. on 10/23/2016 at 15:10 PROCEDURE: CT ABDOMEN AND PELVIS WITHOUT CONTRAST ([id number]) IMPRESSION: 1.The presumed source of left lower quadrant pain is a relatively large left psoas muscle hematoma with epicenter in the abdomen and tapering into the pelvis. No hemoperitoneum is associated. 2.There is mild diverticulosis but without acute diverticulitis. Asymmetric pleural effusions, small to moderate on the left and scant on the right. Adjacent basilar atelectasis. Postsurgical changes are noted of presumed prior CABG. 3.This information was immediately called to the nursing station caring for the patient who is hospitalized at this time. Dictated by: Miko Garcia M.D. on 10/25/2016 at 10:57 Assessment & Plan Dwain Carrillo is a 60-year-old male who was recently discharged on 10/22/16 and has a complex past medical history including chronic foot ulcers, recent undiagnosed GI bleeding, systolic and diastolic congestive heart failure, CAD, A. fib, history of MRSA pneumonia, and C. difficile who presented to [facility] ED after being found on the ground. Admitted for acute on chronic anemia and weakness. Hospital day 15. 1. Acute on chronic anemia, present on admission. Stable. - Initially thought to be secondary to psoas hematoma or GI bleed. - Patient has had a total of 4 units PRBCs transfused during hospitalization thus far. - Guaiac positive stools. - Oral PPI per gastroenterology's recommendations. - Not a candidate for endoscopy at this time per gastroenterology. - Previous EGD showed erosive esophagitis and gastritis and colonoscopy was unremarkable on 03/07/2016. - Gastroenterology consulted and signed off at this time. 2. Acute on chronic kidney disease, present on admission. Worsening. - Creatinine on admission 2.72. Baseline around 1.7 - Etiology CKD and ATN. - Urgent hemodialysis completed on 11/01, 11/03, and 11/04. Femoral catheter removed on 11/05. - Dialysis next step at this time. Will discuss patient's desire to proceed and have palliative care assist in conversation. - Nephrology consulted. Appreciate time and recommendations. 3. Left psoas hematoma, present on admission. Stable. - CT abd/pelv showed 17cm hematoma on left psoas - General surgery consulted, appreciate time and expertise - No surgical interventions recommended at this time - Repeat CT abd/pelv showed hematoma decreased in size 10/27 4. Suspected pneumonia, present on admission. Resolved. - HCAP treatment started with Vancomycin, Zosyn and Levofloxacin, stopped 10/29 - MRSA screen negative 5. Hypertension, present on admission. Stable. - Currently on amlodipine, metoprolol succinate 25mg BID added 6. Weakness/failure to thrive, present on admission. Active. - Last physical therapy evaluation on 10/29/16 recommends HHPT. - Physical therapy to reevaluate today. 7. Elevated troponin of unknown significance, present on admission. Active. - Difficult to assess in light of acute on chronic kidney disease. Patient has history of elevated troponin. - No new ekg changes. - Heparin drip precluded due to hematoma and recent blood loss. - Appreciate cardiology consult. Will f/u w/ recs. - Dr. Spears does not recommend any further invasive workup at this point. will c/w conservative medical management for now. 8. COPD, present on admission. Chronic. - c/w current inhaler/nebs 9. Chronic systolic CHF, present on admission. Stable. - Echo from 09/16/2016 showed improved ejection fraction from 40% to 50-55% with areas of hypokinesis which are also chronic and mild systolic failure, also to note small atrial septal defect noted. - further diuresis per nephrology recs 10. Hx of A-fib, present on admission. Chronic. stable - Monitored on telemetry 11. Chronic lower extremity ulcerations with PVD, present on admission. Chronic. - Wound care following. 12. Tobacco abuse, present on admission. Chronic. - Ongoing nicotine replacement 13. Chronic pain with continuous opiate dependence, present on admission. Chronic. - Continue prior opiate regimen of morphine sulfate 15 mg twice a day with oxycodone for break through 14. Hypoxemic and hypercarbic respiratory failure, present on admission. Ongoing. - Patient's alert and oriented this morning. On BPAP overnight. Currently on nasal cannula. - ABG if patient becomes somnolent and unresponsive. - Will continue to monitor. Disposition: Patient is chronically ill and it is unclear if he understands the trajectory of his chronic diseases. Will have palliative care further discuss these issues with him along with discussion as to whether to proceed with dialysis. Patient currently Full Code. Pain Evaluation: Adequate Pain Control GI Prophylaxis: Not indicated VTE Prophylaxis: Sub-Q Heparin (Unfractionated) VTE Mechanical Devices: Intermittant Pneumatic CD Resuscitation Status: CPR: Attempt Resuscitation Attending Statement The patient was seen and examined together with Dr. Ro on 11/07/2016 and I agree with the history, exam and plan as outlined in the note above. . RAMON RO DO Nov 07, 2016 07:43 Bro Nam MD Nov 07, 2016 16:26
--- NOTE | 2016-11-07 12:48 | PCM.PNMED ---
Subjective Date of Service Nov 07, 2016 Subjective Today, he is up and about, having breakfast during my visit. He has good UOP over 24 hr. no new complaints today. Exam Vital Signs Vital Sign - Last Date Time Temp Pulse Resp B/P Pulse Ox O2 Delivery O2 Flow Rate FiO2 11/07/16 12:37 99 20 126/82 94 Nasal Cannula 3.00 11/07/16 07:55 36.7 11/07/16 07:35 40 Intake and Output 11/06/16 11/06/16 11/07/16 Cumulative From/Thru 15:00 23:00 07:00 10/23/16 13:24 - 11/07/16 04:49 Intake Total 540 ml 550 ml 72270 ml Output Total 650 ml 500 ml 51879 ml Balance -110 ml 50 ml 3912 ml Intake Oral 540 ml 550 ml 41711 ml IV Total 9100 ml Packed Cells 880 ml Output Urine Total 650 ml 500 ml 60951 ml Ultrafiltrate 2000 ml # Voids 1 # Bowel Movements 15 Exam General appearance: NAD, AAOx3, upright position. HEENT: Mild pallor. No jaundice. No JVD. No lymphadenopathy. No thyroid enlargement. Heart: Regular rhythm. Normal S1, S2. No murmur, rubs or gallops. Lungs: coarse crackles at bases. no wheezing at this moment. Abd: soft, no rebound, no HSM. Extremities: no edema of the lower extremities. Skin: No rashes. No excoriation. kiser cath in place. Lab and Diagnostics Result Diagram: 11/07/16 0350 11/07/16 0350 X-Rays, CTs and MRIs PROCEDURE: X-RAY CHEST ONE VIEW, PORTABLE ([id number]) IMPRESSION: Persistent retrocardiac atelectasis, aspiration, or pneumonia. Dictated by: Chris Plunkett M.D. on 10/23/2016 at 15:10 PROCEDURE: CT ABDOMEN AND PELVIS WITHOUT CONTRAST ([id number]) IMPRESSION: 1.The presumed source of left lower quadrant pain is a relatively large left psoas muscle hematoma with epicenter in the abdomen and tapering into the pelvis. No hemoperitoneum is associated. 2.There is mild diverticulosis but without acute diverticulitis. Asymmetric pleural effusions, small to moderate on the left and scant on the right. Adjacent basilar atelectasis. Postsurgical changes are noted of presumed prior CABG. 3.This information was immediately called to the nursing station caring for the patient who is hospitalized at this time. Dictated by: Miko Garcia M.D. on 10/25/2016 at 10:57 Assessment & Plan 1. BABS on CKD - now secondary to nonoliguric ATN, required HD x3 last HD on 11/04. - aimee cath was removed on 11/05. - no urgent HD indicated at this moment, will monitor closely. 2. Chronic anemia, stable. - h/o GIB. - large left psoas hematoma. 3. Severe deconditioning 4. COPD with tobacco abuse. 5. Afib 6. Chronic systolic heart failure. Plan: continue supportive treatment. monitor volume status on the daily basis. add 1/2 NS 80 ml/hr x 1 L today. GI Prophylaxis: Not indicated VTE Prophylaxis: Sub-Q Heparin (Unfractionated) VTE Mechanical Devices: Intermittant Pneumatic CD Resuscitation Status: CPR: Attempt Resuscitation Flavio Alves MD Nov 07, 2016 12:48
--- NOTE | 2016-11-07 14:57 | NUR ---
NUTRITION FOLLOW UP Assess: 60 yo M w/ acute on chronic anemia, BABS, and metabolic acidosis. Pt required 3 dialysis treatments for acute kidney injury, w/ last HD treatment on 11/04. No more HD needed at this time, per nephrology. PO intake remains variable. Pt is alert and oriented to person, place, and time. PMHx: Emphysema, CAD, CABG, HLD, HTN, ND, PVD, Chronic microcytic anemia, Pancreatitis, Seizure, Chronic non-healing LLE ulcers, GI bleed, MRSA pneumonia, Afib. LABS: CO2 32, BUN 28, Lead Handler 3.41, Ca 7.9, Alb 2.3, AST 358, ALT 199, Alkaline Phosphatase 290 MEDICATIONS: Reviewed. Protonix, Seroquel, Vit D3, Ferrous Sulfate DIET: Heart Healthy, PO Refused-95% - Ave. 25% GI symptoms/stool: BM x1 (11/05) Skin integrity: Wound healing on left medial ankle; Judson: 17 ANTHROPOMETRICS: Current Wt: 62.4 kg BMI: 22.9 kg/m2 IBW: 62.8 kg Admit Wt: 59.9 kg ESTIMATED NEEDS: BABS Calories: 8901-9703 kcal/d (25-35 kcal/kg BW) Protein: 40-50 g/d (0.6-0.8 g/kg BW) Fluids: 9463-7253 ml/d (25-30 ml/kg/d) NUTRITION DIAGNOSIS: 1) Increased nutrient needs related to acute kidney failure as evidenced by need for hemodialysis. ---PERSISTS INTERVENTION: 1) Will continue to send Ensure on L and D trays. MONITOR/EVALUATE: PO intake, labs, wt, nutrition status, POC. Will follow per moderate nutrition risk guidelines. Addendum: 11/07/16 at [address] Nutritional diagnosis of increased nutrient needs resolved d/t termination of HD treatments at this time. The new nutritional diagnosis is as follows: 1.) Inadequate oral intake related to acute illness as evidenced by average PO intake of 25%. Addendum: 11/07/16 at [address] I have read and agree with above student documentation. Rosa Blankenship RD, CD
--- NOTE | 2016-11-07 18:50 | PCM.CONPAL ---
Date of Service Nov 07, 2016 Date of Hospital Admission: Oct 23, 2016 at 17:13 Date of Palliative Consult: Nov 07, 2016 Requesting Provider: Shruthi Chapman DO Reason Palliative Care Consult: Goals of Care Discussion Hospital Unit @time of consult: Progressive Care Palliative Care Recommendation Summary of palliative recommendations: -Symptom management (Pain/other) Weakness- apparently did fairly well with PT but family and pt states he is weak and unsteady. ulcer on LLE- denies significant pain COPD-hopefully exsmoker. Hx sz so WB is contraindicated. -DPOA/Advanced Directives/POLST-he identifies his sister as DPOAHC -Family/emotional support-fair -Spiritual support-not interested. His sister is very religiously oriented though Patient Goals: 1. Patient wants to be told the truth about his/her illness, even if it is unpleasant. 2. Patient would like to be told prognosis when it can be predicted, to better guide treatment decisions. 3. Patient would choose quality of life over quantity of life, and defines quality as [ ]. 4. Patient would request that comfort care take priority over cognitive/mental confusion. Additional Medical Diagnoses with primary management by Hospitalist team include : Problems: End of Life Preferences FULL CODE Goals of Care He identifies his goal of dialysis and anything else to keep him alive. Resuscitation Status Resuscitation Status: CPR: Attempt Resuscitation . Pain: Moderate Symptom management: Dyspnea Pt History History of Present Illness 60 year old male presents to the ED via EMS after he was found on the ground by his sister. Pt unable to recall how long he was on the ground before EMS arrival. He states that he got tired yesterday and laid down on the floor. He was too weak to get up and was then found this morning. Patient DC'd yesterday after admit - for a multitude of issues, chronic respiratory failure, COPD, elevated troponins, acute on chronic kidney injury, chronic hypertension, chronic upper GI bleed, chronic kidney, disease, chronic lower extremity ulcerations, chronic A. fib. He states " I just don't feel good." Additionally, he reports abd pain, but is a poor historian otherwise. PALLIATIVE CARE NOTE: 60 yo with hx of progressive weakness, with known COPD, HTN, CAD s/p CABG and ischemic cardiomyopathy as well as hx cardiac arrest with PEA and prolonged hospitalization, chronic ETOH overuse and chronic pain with narcotic dependence as well as possible OD prompting hosp for respiratory failure in the recent past. He has severe, diffuse ASPVD with ischemic foot ulcers s/p stenting of L common iliac and occlusion of L femoral superficial artery. He has worsening CRI with acute ATN and had temporary dialysis cath placed in femoral for emergent dialysis-now removed.. Placement of dialysis cath is being contemplated but being postponed due to increasing UO. He has had sx of unstable angina but Dr. Spears does not think likely to get access to intervene so recommends medical treatment only. He states he stopped smoking 1 yr ago but his sister reminds him it is only 1 month. Past Medical History Significant PMH Noted: PMH tobacco abuse-none for 1 month Emphysema/COPD CAD S/P CABG, Hyperlipidemia, HTN, Hx FL Peripheral vascular disease - extensive, severe - patient was undergone multiple revascularization procedures, and at least several stents - however the details, and location are unclear on review (01/24/16) chronic microcytic anemia- History of pancreatitis secondary to alcohol. Seizure chronic non-healing LLE ulcers, follow by Wound Care chronic pain, on morphine GI bleed with hx erosive esophagitis and gastritis History of MRSA pneumonia History of chronic atrial fibrillation on anticoagulation and anemia and propensity for GI bleeding Chronic pain with narcotic dependence Depression Hx C-Diff hx psoas muscle bleed Hx abnormal LFT with hx cholelithiasis Past Surgical History BLE stent placement H/O CABG, iliac stenting, coronary stenting left hip surgery appe Social History Occupation: disabled Family Members Issues: sister- DD resident of [facility], other sister in good health, 1 brother with hx ESRD on dialysis Social Support: sister Living Situation: lives alone- has been getting HH Responsive Patient Symptoms Pain (current): Moderate Tiredness/Fatigue: Moderate Depression: Moderate Anxiety: Moderate Drowsiness/Sleepiness: Moderate Shortness of Breath: Moderate Palliative Performance Scale PPS Ambulation: Mainly Sit/Lie (can ambulate 20 ft) PPS Activity: Unable to do most activity PPS Self-Care: Occasional assistance necessary (unable to get off the floor when he falls-repeated issue) PPS Intake: Normal or reduced PPS Conscious Level: Full or confusion Performance Scale: 60% Allergy Allergies Reviewed: Yes Medications Current Medications: Current Medications Sodium Chloride 1,000 ml @ 80 mls/hr [id number] IV Last administered on 11/07/16 13:21; Admin Dose 80 MLS/HR; Start 11/07/16 at 12:45; Stop 11/08/16 at 01:14 Scheduled Albuterol Neb Soln (Albuterol Neb Soln) 1.25 Mg/3 Ml Vial.neb 1.25 MG INHALATION Q4H Amlodipine (Amlodipine) 5 Mg Tablet 2.5 MG PO DAILY Aspirin (Aspirin) 81 Mg Tablet 81 MG PO DAILY Azithromycin (Zithromax) 250 Mg Tablet 500 MG PO Q2DAY Chlorthalidone (Chlorthalidone) 25 Mg Tablet 25 MG PO DAILY Cholecalciferol (Vitamin D3) (Vitamin D) 1,000 Unit Capsule 2,000 UNIT PO DAILY Ezetimibe (Zetia) 10 Mg Tablet 10 MG PO DAILY Ferrous Sulfate (Feosol) 325 Mg Tablet 325 MG PO BIDWM Fluticasone/Salmeterol (Advair 100-50 Diskus) 60 Puffs/Inh Disk 1 PUFFS IH BID Furosemide (Furosemide) 20 Mg Tab 20 MG PO DAILY Morphine Sulfate ER (Morphine Sulfate ER) 15 Mg Tablet 15 MG PO BID Pantoprazole DR (Protonix) 20 Mg Tablet 20 MG PO BID Prednisone (Deltasone) 20 Mg Tablet 20 MG PO DAILY Quetiapine Fumarate (Quetiapine Fumarate) 25 Mg Tablet 50 MG PO HS Rosuvastatin Calcium (Rosuvastatin Calcium) 40 Mg Tablet 40 MG PO DAILY Temazepam (Temazepam) 15 Mg Capsule 15 MG PO BID Tiotropium [place] (Spiriva) 18 Mcg Cap.w.dev 18 MCG IH DAILY Scheduled PRN Clonazepam (Clonazepam) 0.5 Mg Tablet 1 MG PO BID PRN PRN anxiety Nitroglycerin SL (Nitroglycerin SL) 0.4 Mg Tab.subl 0.4 MG SL Q5MIN PRN PRN For Chest Pain oxyCODONE (oxyCODONE) 5 Mg Tablet 5 MG PO Q8H PRN PRN severe pain Objective Findings Exam Vital Sign - Last Date Time Temp Pulse Resp B/P Pulse Ox O2 Delivery O2 Flow Rate FiO2 11/07/16 16:00 102 11/07/16 15:57 36.7 18 130/80 93 Nasal Cannula 3.00 11/07/16 07:35 40 Intake and Output 11/06/16 11/06/16 11/07/16 Cumulative From/Thru 15:00 23:00 07:00 10/23/16 13:24 - 11/07/16 04:49 Intake Total 540 ml 550 ml 28263 ml Output Total 650 ml 500 ml 16550 ml Balance -110 ml 50 ml 3912 ml Intake Oral 540 ml 550 ml 63397 ml IV Total 9100 ml Packed Cells 880 ml Output Urine Total 650 ml 500 ml 27655 ml Ultrafiltrate 2000 ml # Voids 1 # Bowel Movements 15 General: Alert, Oriented, Person, Place HEENT: PERRLA, EOMI, Other (dismal dentition) Lungs: Diminished Neuro: Cranial Nerve 3-12 Intact Extremities: No Edema Lab/Diagnostics Lab and Imaging results reviewed in detail in EMR. transaminases- 200-300--hx past-- elevated, then normalized now back elevated, no sx CR 3.41 H/H alb 2.3 Nl INR 09/16/16- chest CT- emphysema, pneumonia and L effusion and cholelithiasis, Pulm nodules noted 07/29- either gone or stable Patient/Family Conference Members Present Family Members Present patient, sister and CONNER Medical Team Members Present? Brian FOWLER Discussion/Goals of Care Discussion FAMILY UNDERSTANDING OF DISEASE: Sister has some concept of severity of ds but pt does not. Sister had dropped him off at his home from last hosp and it only took a few hours for him to be on the floor. She would like him to go to SNF before coming to her house. She thinks all of this will be short term. Unclear whether pt can fxn independently anytime in the near future. He states he is interested in dialysis and will sit for the 3-4 hours 3 times a week that it takes. His family is concerned with being able to transport him without some assist- like dial a ride. This gets back into the discussion of when he goes home but they feel would even apply from their house. Denies further anginal sx but he has been at bedrest again. Severe ASVD-CAD and PVD which may make access for HD very difficult. Smoking-- hopefully has quit. He states he is not interested in patches. DISEASE PROGRESSION/EVIDENCE OF DECLINE: SYMPTOM BURDEN: GOALS: Interested in dialysis HOPES/WORRIES: He wants independence. This gets into his difficulty in recognizing debility and poor prognosis in case of arrest etc. Will continue to review FAMILY WISHES/VALUES: Palliative Care counselled: Time spent Total time 60 minutes; >50% face to face with patient and/or family, providing counselling regarding plans and recommendations, and in care coordination with his/her medical teams. Will need follow up regarding code issue and his many comorbidities I also spent an additional [ ] minutes counseling for advanced care planning with the patient/the patients family/the surrogate decision maker. copies to: Leo Lamas MD, Lorraine Sheridan MD Nov 07, 2016 18:50
[2016-11-08] VITALS (13 sets, daily range): BP systolic 102–143; BP diastolic 65–80; PULSE 93–110; RESP 19–24; O2SAT 89–98
--- NOTE | 2016-11-08 05:06 | NUR ---
Pain / Respiratory Pt reports pain at 8/10 to L foot at beginning of shift; scheduled MS Contin administered with relief at 5/10 upon reassessment. Pt on 3L NC during daytime, BiPAP with 40% bleed in at HS; SpO2 92-96%. VSS, tele SR/ST 90s-100s. Pt resting throughout shift.
[2016-11-08] MEDS: Albuterol-Ipratropium 3 mL Inhalation Solution NEB SCH ×3 (08:56→20:32)
[2016-11-08] MEDS: Fluticasone-Salmeterol 100-50 Inhaler INHALATION SCH ×2 (10:09→20:13)
[2016-11-08] MEDS: Tiotropium 18mcg/Cap 5 Capsule Inhaler Kit INHALATION SCH ×2 (10:10→12:20)
[2016-11-08] MEDS: Morphine ER 15 mg (MS Contin) Tablet PO SCH ×2 (10:12→20:20)
[2016-11-08] MEDS: Pantoprazole 20 mg ER24 Tablet PO SCH ×2 (10:13→20:14)
[2016-11-08] MEDS: MeTOProlol XL 25 mg ER24 Tablet PO SCH (10:13)
--- NOTE | 2016-11-08 10:56 | PCM.PALLBR ---
Palliative Care Recommendation Summary of palliative recommendations: -Symptom management (Pain/other) Weakness- apparently did fairly well with PT but family and pt states he is weak and unsteady. ulcer on LLE- denies significant pain COPD-hopefully exsmoker. Hx sz so WB is contraindicated. -DPOA/Advanced Directives/POLST-he identifies his sister as DPOAHC -Family/emotional support-fair -Spiritual support-not interested. His sister is very religiously oriented though Patient Goals: 1. Patient wants to be told the truth about his/her illness, even if it is unpleasant. 2. Patient would like to be told prognosis when it can be predicted, to better guide treatment decisions. 3. Patient would choose quality of life over quantity of life, and defines quality as [ ]. 4. Patient would request that comfort care take priority over cognitive/mental confusion. Additional Medical Diagnoses with primary management by Hospitalist team include : Problems: End of Life Preferences FULL CODE --wants to "give it a try" but does not need to be sustained Goals of Care He identifies his goal of dialysis and anything else to keep him alive. He reiterates this goal. Disposition Home with his sister. I do not think he should live alone and I informed him of this. Resuscitation Status Resuscitation Status: CPR: Attempt Resuscitation . Symptom management: Dyspnea Total time 30 minutes; >50% face to face with patient and/or family, providing counselling regarding plans and recommendations, and in care coordination with his/her medical teams. I also spent an additional [ ] minutes counseling for advanced care planning with the patient/the patients family/the surrogate decision maker. Palliative Brief Note Date of Service Nov 08, 2016 . 60 yo with CRI now worse, severe diffuse vascular ds, COPD Chronic anemia hx ischemic cardiomyopathy with angina at rest-- he denies angina since hospitalization. He has a goal to get better. He understands that he may need dialysis and yesterday he said he was willing to go ahead with that. Today he repeatedly states- "ask my sister-she knows what I want" Reviewed severity of illness- hx of arrest and took month but did survive that. he has no recall of that. He wants to be able to have his independence but understands that may not be possible. Reviewed options and goals. He again reiterates that he wants to "give it a try"-referring to dialysis if necessary or to the question of CPR. He understands that with his severe disease and debility that his likelihood of survival with any independence is close to 0. Lorraine Mejia MD Nov 08, 2016 10:56
--- NOTE | 2016-11-08 12:01 | PCM.PNMED ---
Subjective Date of Service Nov 08, 2016 Subjective He stated that "I feel good today" no acute issue overnight. Exam Vital Signs Vital Sign - Last Date Time Temp Pulse Resp B/P Pulse Ox O2 Delivery O2 Flow Rate FiO2 11/08/16 09:30 97 11/08/16 08:56 20 95 30 11/08/16 08:45 37.4 127/77 BiPAP 3.00 Intake and Output 11/07/16 11/07/16 11/08/16 Cumulative From/Thru 15:00 23:00 07:00 10/23/16 13:24 - 11/08/16 05:11 Intake Total 1040 ml 1410 ml 30009 ml Output Total 550 ml 600 ml 56983 ml Balance 490 ml 810 ml 5212 ml Intake Oral 1040 ml 400 ml 80869 ml IV Total 1010 ml 37667 ml Packed Cells 880 ml Output Urine Total 550 ml 600 ml 26108 ml Ultrafiltrate 2000 ml # Voids 1 # Bowel Movements 0 15 Exam General appearance: NAD, AAOx3, upright position. HEENT: Mild pallor. No jaundice. No JVD. No lymphadenopathy. No thyroid enlargement. Heart: Regular rhythm. Normal S1, S2. No murmur, rubs or gallops. Lungs: coarse crackles at bases. no wheezing at this moment. Abd: soft, no rebound, no HSM. Extremities: no edema of the lower extremities. Skin: No rashes. No excoriation. kiser cath in place. Lab and Diagnostics Result Diagram: 11/08/16 0325 11/08/16 0325 X-Rays, CTs and MRIs PROCEDURE: X-RAY CHEST ONE VIEW, PORTABLE ([id number]) IMPRESSION: Persistent retrocardiac atelectasis, aspiration, or pneumonia. Dictated by: Chris Plunkett M.D. on 10/23/2016 at 15:10 PROCEDURE: CT ABDOMEN AND PELVIS WITHOUT CONTRAST ([id number]) IMPRESSION: 1.The presumed source of left lower quadrant pain is a relatively large left psoas muscle hematoma with epicenter in the abdomen and tapering into the pelvis. No hemoperitoneum is associated. 2.There is mild diverticulosis but without acute diverticulitis. Asymmetric pleural effusions, small to moderate on the left and scant on the right. Adjacent basilar atelectasis. Postsurgical changes are noted of presumed prior CABG. 3.This information was immediately called to the nursing station caring for the patient who is hospitalized at this time. Dictated by: Miko Garcia M.D. on 10/25/2016 at 10:57 Assessment & Plan 1. BABS on CKD - secondary to nonoliguric ATN, required HD x3 last HD on 11/04. - aimee cath was removed on 11/05. - no urgent HD indicated at this moment, will monitor closely. - will arrange for tunneled cath on Sunday if kidney function continues to deteriorate. 2. Chronic anemia, stable. - h/o GIB. - large left psoas hematoma. 3. Severe deconditioning 4. COPD with tobacco abuse. 5. Afib 6. Chronic systolic heart failure. GI Prophylaxis: Not indicated VTE Prophylaxis: Sub-Q Heparin (Unfractionated) VTE Mechanical Devices: Intermittant Pneumatic CD Resuscitation Status: CPR: Attempt Resuscitation Flavio Alves MD Nov 08, 2016 12:00
--- NOTE | 2016-11-08 13:17 | NUR ---
Pt safely tolerating diet. Pt would benefit from home health or outpatient speech therapy targeting cognition. No acute needs at this time, ST will sign off.
--- NOTE | 2016-11-08 16:51 | PCM.PNMED ---
Subjective Date of Service Nov 08, 2016 Subjective Dwain Carrillo is a 60-year-old male who was recently discharged on 10/22/16 and has a complex past medical history including chronic foot ulcers, recent undiagnosed GI bleeding, systolic and diastolic congestive heart failure, CAD, A. fib, history of MRSA pneumonia, and C. difficile who presented to [facility] ED after being found on the ground. Admitted for acute on chronic anemia and weakness. Currently being treated for HTN with possible need for tunneled cath placement if kidney function continues to deteriorate. Hospital day 16. Overnight: No acute events. Patient on BPAP overnight. Today: Patient alert and oriented to person, place, and time this morning. He is conversational and states his breathing has improved since yesterday. Denies chest pain, palpations, abdominal pain, nausea, or vomiting. Discussed that his kidney function has declined in the plan is to place a tunneled catheter if no improvement is seen prior to Sunday. He is agreeable. Remaining review of systems negative. Exam Vital Signs Vital Sign - Last Date Time Temp Pulse Resp B/P Pulse Ox O2 Delivery O2 Flow Rate FiO2 11/08/16 16:18 102 20 120/80 91 Nasal Cannula 3.00 11/08/16 08:56 30 11/08/16 08:45 37.4 Intake and Output 11/07/16 11/07/16 11/08/16 Cumulative From/Thru 15:00 23:00 07:00 10/23/16 13:24 - 11/08/16 05:11 Intake Total 1040 ml 1410 ml 94631 ml Output Total 550 ml 600 ml 36941 ml Balance 490 ml 810 ml 5212 ml Intake Oral 1040 ml 400 ml 70520 ml IV Total 1010 ml 76546 ml Packed Cells 880 ml Output Urine Total 550 ml 600 ml 60346 ml Ultrafiltrate 2000 ml # Voids 1 # Bowel Movements 0 15 Exam General: Elderly chronically ill-appearing male. HEENT: Normocephalic, atraumatic. External ears without defect. Pupils equal, round, and reactive to light and accommodation. Anicteric sclerae, moist conjunctivae, and no lid lag. Nasal cannula in place. Cardiovascular: Regular rate and rhythm with no murmurs, rubs, or gallops appreciated Pulmonary: Decreased air movement, faint crackles in bases bilaterally.. Abdomen: Bowel tones present. Soft, diffusely tender to palpation, nondistended. No hepatosplenomegaly or masses appreciated. Extremities: No lower extremity edema. Skin: Pale, normal temperature, decreased skin turgor. Neurological: Cranial nerves grossly intact. Psychiatric: Alert and oriented to person, place, and time. Lab and Diagnostics Result Diagram: 11/08/16 0325 11/08/16 032 X-Rays, CTs and MRIs PROCEDURE: X-RAY CHEST ONE VIEW, PORTABLE ([id number]) IMPRESSION: Persistent retrocardiac atelectasis, aspiration, or pneumonia. Dictated by: Chris Plunkett M.D. on 10/23/2016 at 15:10 PROCEDURE: CT ABDOMEN AND PELVIS WITHOUT CONTRAST ([id number]) IMPRESSION: 1.The presumed source of left lower quadrant pain is a relatively large left psoas muscle hematoma with epicenter in the abdomen and tapering into the pelvis. No hemoperitoneum is associated. 2.There is mild diverticulosis but without acute diverticulitis. Asymmetric pleural effusions, small to moderate on the left and scant on the right. Adjacent basilar atelectasis. Postsurgical changes are noted of presumed prior CABG. 3.This information was immediately called to the nursing station caring for the patient who is hospitalized at this time. Dictated by: Miko Garcia M.D. on 10/25/2016 at 10:57 Assessment & Plan Dwain Carrillo is a 60-year-old male who was recently discharged on 10/22/16 and has a complex past medical history including chronic foot ulcers, recent undiagnosed GI bleeding, systolic and diastolic congestive heart failure, CAD, A. fib, history of MRSA pneumonia, and C. difficile who presented to [facility] ED after being found on the ground. Admitted for acute on chronic anemia and weakness. Currently being treated for HTN with possible need for tunneled cath placement if kidney function continues to deteriorate. Hospital day 16. 1. Acute on chronic kidney disease, present on admission. Worsening. - Creatinine on admission 2.72. Baseline around 1.7 - Etiology CKD and ATN. - Urgent hemodialysis completed on 11/01, 11/03, and 11/04. Femoral catheter removed on 11/05. - We will continue to monitor. If kidney function does not improve plan is to place a tunneled catheter on 11/10. - Nephrology consulted. Appreciate time and recommendations. 2. Hypoxemic and hypercarbic respiratory failure, present on admission. Ongoing. - BPAP overnight and oxygen mask/nasal cannula only used during the day. - ABG if patient becomes somnolent and unresponsive. - Will continue to monitor. 3. Acute on chronic anemia, present on admission. Stable. - Initially thought to be secondary to psoas hematoma or GI bleed. - Total of 4 units PRBCs transfused. - Guaiac positive stools. - Pantoprazole 20 mg twice a day. - Not a candidate for endoscopy. - Previous EGD showed erosive esophagitis and gastritis and colonoscopy was unremarkable on 03/07/2016. - Gastroenterology consulted and signed off at this time. 4. Left psoas hematoma, present on admission. Stable. - CT abd/pelv showed 17cm hematoma on left psoas decreased in size on repeat CT on 10/27. - General surgery consulted and does not believe this requires surgical intervention. 5. Hypertension, present on admission. Stable. - Metoprolol 12.5 mg daily. 6. Weakness/failure to thrive, present on admission. Active. - Secondary to chronic diseases and deconditioning. - Physical therapy to evaluate. 7. Elevated troponin of unknown significance, present on admission. Stable. - Difficult to assess in light of acute on chronic kidney disease. Patient has history of elevated troponin. - Dr. Spears does not recommend any further invasive workup at this point. Will continue with conservative medical management for now. 8. COPD, present on admission. Chronic. - DuoNebs scheduled 3 times a day. - Tiotropium bromide daily. - Fluticasone\salmeterol twice a day. - Supplemental oxygen as needed to maintain stats between 88% and 92%. 9. Chronic systolic CHF, present on admission. Stable. - Echo on 11/02 with no significant change from prior. Revealed EF of 45% was hypokinesis of the inferior lateral wall. - Continue medications as above. 10. Atrial fibrillation, present on admission. Chronic. - Warfarin held due to GI bleed and recent instability. - Monitored on telemetry 11. Chronic lower extremity ulcerations with PVD, present on admission. Chronic. - Wound care following. 12. Tobacco abuse, present on admission. Chronic. - Nicotine 21 mg patch daily. 13. Chronic pain with continuous opiate dependence, present on admission. Chronic. - MS Contin 15 mg twice a day. Disposition: Patient is chronically ill and it is unclear if he understands the trajectory of his chronic diseases. Will have palliative care further discuss these issues with him along with discussion as to whether to proceed with dialysis. Patient currently Full Code. Pain Evaluation: Adequate Pain Control GI Prophylaxis: Not indicated VTE Prophylaxis: Sub-Q Heparin (Unfractionated) VTE Mechanical Devices: Intermittant Pneumatic CD Resuscitation Status: CPR: Attempt Resuscitation Attending Statement The patient was seen and examined together with Dr. Ro on 11/08/2016 and I agree with the history, exam and plan as outlined in the note above. . RAMON RO DO Nov 08, 2016 16:51 Bro Nam MD Nov 09, 2016 07:26
--- NOTE | 2016-11-08 18:00 | NUR ---
Activity/Pain/Resp Patient a/o x 3, but forgetful at times. Patient c/o right groin and left ankle pain, meds given with good effect. Patient oob amb in [place] with PT marissa fair. Lungs decreased bilat, O2 @ 3 L nc sat 88-93%. Taking diet well. VSS. Tele Discontinued. Alex patent. No BM this shift. Will cont poc.
[2016-11-09] VITALS (11 sets, daily range): BP systolic 72–108; BP diastolic 53–63; PULSE 74–106; RESP 18–26; O2SAT 89–99
--- NOTE | 2016-11-09 05:21 | NUR ---
Somnolence Electro Mechanical Technician came to check on pt at 0515. Pt's Sp02 on BIPAP at 81. Electro Mechanical Technician called RT who came and placed pt on oxymask and mikel ABG. Electro Mechanical Technician called charge master specialist SO. Pt not arousing to calling of name or rubbing on arms. BP 98/63, pulse 109, SP02 at 88% on 10L via oxymask. Pt has no new medications added to regime.
--- NOTE | 2016-11-09 05:32 | ABG ---
DateTimeAnalyzed 05:26:00 -_ pH ____6.960 - 7.350 7.450 pCO2 148 -mmHg 35.0 45.0 pO2 ___65.9__ -mmHg 69.0 116 HCO3- ___31.5__ -mmol/L 22.0 26.0 ABE ___-4.8__ -mmol/L -2.0 2.0 tHb ___11.3__ -g/dL O2Hb ___85.3__ -% COHb ____2.7__ -% MetHb ____1.1__ -% sO2 ___88.7__ -% 25.0 FIO2 ___40.0__ -% Drawn By LT - Date/Time Notified____ 05:32:00 -_ Notified By LT - Notified Whom DR JAYJAY - Age 53 -years B 768 -mmHg tO2 ___13.5__ -Vol% Golden test _Positive -
[2016-11-09] MEDS ORDERED: Propofol 10,000 mCg/mL 100 mL Inj ONE (05:51)
[2016-11-09] MEDS: Propofol Inj 1,000,000 MCG in IV Premix 1 EACH IV SCH ×3 (05:52→21:42)
[2016-11-09] MEDS ORDERED: Albuterol 2.5 mg/3 mL Inhalation Solution NEB PRN (06:00)
--- NOTE | 2016-11-09 06:56 | ABG ---
DateTimeAnalyzed 06:52:00 -_ pH ____7.435 - 7.350 7.450 pCO2 ___37.1__ -mmHg 35.0 45.0 pO2 ___50.1__ -mmHg 69.0 116 HCO3- ___24.5__ -mmol/L 22.0 26.0 ABE ____0.8__ -mmol/L -2.0 2.0 tHb ____8.8__ -g/dL O2Hb ___89.5__ -% COHb ____3.6__ -% MetHb ____1.0__ -% sO2 ___93.8__ -% 25.0 FIO2 ___21.0__ -% Drawn By LT - Date/Time Notified____ 06:55:00 -_ Notified By LT - Notified Whom DR - Age 53 -years B 769 -mmHg tO2 ___11.1__ -Vol% Golden test _Positive -
--- NOTE | 2016-11-09 07:09 | NUR ---
Transfer to CCU Pt transferred to CCU due to respiratory failure. Intubated at 0557. BP as low as 50's systolic, now in the high 90's after fluid resuscitation. Sedation started at 0700. Propofol at 10mcg. Pt resting comfortably. No apparent distress at this time. Report given to Lauren Cruz RN.
[2016-11-09 07:59] LABS: BASOPHILS % (AUTO) 0.1 % (0-3)
[2016-11-09] MEDS: Albuterol-Ipratropium 3 mL Inhalation Solution NEB SCH ×4 (08:02→21:30)
[2016-11-09 08:04] LABS: EOSINOPHILS % (AUTO) 0.1 % (0-5); MONOCYTES % (AUTO) 2.6 % (4-12); Mean Corpuscular Hemoglobin 26.3 pg (27.0-35.0); Mean Corpuscular Volume 87.6 fL (81-100); NEUTROPHILS % (AUTO) 94.6 % (40-74); Platelet Count 353 bil/L (150-400)
[2016-11-09 08:21] LABS: Bilirubin, Direct < 0.2 mg/dL (0.0-0.3)
[2016-11-09] MEDS: Fluticasone-Salmeterol 100-50 Inhaler INHALATION SCH (08:30)
[2016-11-09] MEDS: Chlorhexidine 0.12% 15 mL Oral Solution MT SCH ×4 (08:42→21:41)
[2016-11-09] MEDS: 0.9% Sodium Chloride 1,000 ML IV SCH ×2 (08:42→19:07)
[2016-11-09] MEDS: fentaNYL 2,500 mCg/250 mL 2,500 MCG in IV Premix 1 EACH IV SCH (08:42)
[2016-11-09] MEDS: MeTOProlol XL 25 mg ER24 Tablet PO SCH (08:43)
[2016-11-09] MEDS: Pantoprazole 20 mg ER24 Tablet PO SCH ×2 (08:43→20:30)
--- NOTE | 2016-11-09 09:59 | DRSVH ---
PROCEDURE: X-RAY CHEST ONE VIEW, PORTABLE ([id number]) INDICATIONS: intubation TECHNIQUE: One view of the chest was acquired. COMPARISON: [facility], CR, XR CHEST 1VW (PORTABLE), 11/01/2016, 11:09. FINDINGS: Surgical changes and devices: ETT tip projected 3.5 cm above the steven. Stable positioning of right PICC. Post median sternotomy and Lungs and pleura: Persistent, widespread bilateral interstitial and mid sinus basilar airspace opacit ies are present, slightly decreased involving the right upper lobe. Persistent layering pleural effu sions. No pneumothorax. Mediastinum: Mediastinal contours appear normal. Heart size is normal. Bones and chest wall: No suspicious bony lesions. Overlying soft tissues appear unremarkable. IMPRESSION: 1. Slight decrease in opacity within the right upper lobe otherwise persistent pulmonary edema and/or bilateral pneumonia. 2. Layering pleural effusions redemonstrated. Dictated by: Misha DHALIWAL Interpreted: Lora Barth MD on 11/09/2016 at 9:39 Transcribed by: TERI on 11/09/2016 at 9:58 Approved by: Lora Barth MD, PhD on 11/09/2016 at 17:33
--- NOTE | 2016-11-09 11:16 | CONS ---
[address] [id number] CONSULTATION REPORT PATIENT: MARGARET ROCHA : 1955 MR#: [id number] ADMIT: 10/23/2016 JOB ID: [id number] DATE OF SERVICE: 11/09/2016 INFECTIOUS DISEASE CONSULTATION: I thank Dr. Ruiz for this timely consult. DATE OF SERVICE: REASON FOR CONSULTATION: Concern about multi-drug resistant pneumonia or respiratory tract colonization in a complex patient. HISTORY OF PRESENT ILLNESS: The patient is an almost bewildering complex 60-year-old gentleman with severe underlying heart disease, COPD, renal insufficiency, peripheral vascular disease, recurrent GI bleeds, lower extremity ulcers and recurrent pneumonias. He was in this facility in the summer of 2015 and he had a highly resistant Acinetobacter respiratory tract colonization and/or infection. Since that time, he has had numerous additional admissions where these highly resistant organisms have not been colonized. I last saw this patient on October 14 when he was admitted to this facility with a variety of issues including a respiratory tract infection. That proved to be due to a stubbs virus and a workup for bacterial pneumonia was negative. The patient also during October 14 admission had a GI bleed as well as other issues but eventually recovered and was discharged to home, October 22. Unfortunately, the very next day, October 23, he was found on the floor by his sister who is his closest living relative and visits him frequently. He was brought to this facility where he was found to have a psoas abscesses as well as a possible GI bleed, abdominal pain and some respiratory difficulties. He has been in the hospital here now almost two weeks and has been making some progress. Yesterday, he was seen walking with supplemental oxygen in the [place], and then last night, was using his BiPAP or CPAP mask as usual and seemed to be doing relatively well until he was found profoundly short of breath and unarousable. At that time, a blood gas showed an amazing pH of 6.9, and an even more amazing pCO2 of 148, consistent with obviously complete respiratory failure. This led to his emergent transfer to the ICU and immediate intubation. Overnight his blood gases have improved and his pCO2 has, of course, been blown off by the ventilator. He now has a physiologic pH but is intubated, restrained and sedated in the ICU, so no additional history is available for him. In reviewing the notes and data going back throughout this recent hospitalization, there has been a fever which was noted back on October 31, which lasted about one day. The nature of that process was unclear but cultures of blood were negative and a respiratory viral PCR was done at that time, which was also negative as was a nasal MRSA screen. At the time of his transfer to the ICU, he had been receiving azithromycin as a part of his treatment for COPD but otherwise had not been on much in the way of antibiotics during this admission except for a very brief course of vanc, Zosyn and levo he received for a couple days around October 27- when he had the earlier fevers. Infectious Disease consultation is requested today because the patient has now developed a full on respiratory failure requiring intubation and there are concerns about whether he could still harbor the highly resistant Acinetobacter that was such a problem when he was here this summer. There are also many questions about appropriate isolation. There is no additional history from the patient, though I did review the chart in a comprehensive fashion. The patient is currently intubated, sedated and unresponsive. PAST MEDICAL HISTORY: 1. Organic heart disease: a. Coronary artery disease. b. Status post CABG. c. Congestive heart failure. d. AFib. 2. History of alcoholism with liver disease with cirrhosis and esophageal varices. Quit drinking one year ago. 3. Peripheral vascular disease with chronic and recurring ulcerations. 4. Severe COPD. 5. Hypertension. 6. Hyperlipidemia. 7. History of pancreatitis. 8. History of MRSA as well as multi-drug resistant Acinetobacter pneumonia summer 2015. 9. History of C. difficile. 10. Recurrent GI bleeds. 11. Adult failure to thrive syndrome. SOCIAL HISTORY: The patient quit drinking about a year ago but is still a significant cigarette smoker when he is outside the hospital, but, of course, he has only been out one day in the past month. FAMILY HISTORY: Positive for a grandmother with TB who around the time he was born. There has been no evidence that he has TB. There is a strong family history of coronary disease. REVIEW OF SYSTEMS: Is not possible. The patient is intubated and sedated in the ICU. PHYSICAL EXAMINATION: Reveals an intubated, sedated and restrained gentleman in the ICU. He is non responsive. Temperature 36.9, and he has been afebrile now for eight days since his last fever about on the of this month. His pulse is in the 70s and irregular. Blood pressure 107/62. He is saturating very well on 30% FiO2 and 5 of PEEP. Examination of the head reveals no trauma though there is some temporal wasting. His eyes without notable abnormality. Nose normal. Oral endotracheal tube, oral gastric tube in place. Neck without adenopathy. Lungs relatively clear surprisingly with a few crackles at the bases. Cardiac tones are regular rate and rhythm without notable murmur. The abdomen is soft and without organomegaly. I do not appreciate a big spleen nor do I appreciate any ascites. Penis and scrotum unremarkable. Johnson catheter is present. The left lower extremity has a shallow, clean ulcer just above the left lateral malleolus. The extremities are notable for decreased pulses and the absence of hair consistent with his chronic vascular disease. His feet are not grossly ischemic today, however, there is no evidence of synovitis or joint inflammation. Neurologically the patient cannot be assessed as he is intubated and sedated. All his lines appear in good position. LABORATORIES: Include a white count which has been normal for several days, 9600 today. There are 95% segs on the differential. His creatinine is 4.58 at this point, which is dramatically up from 1.72 three days ago. His potassium is 5.9. His LFTs include an AST of 358 and an ALT of 199. Alk phos is 290. Those are all dramatically increased over levels of when he was admitted back on the . At that time his liver function tests were near normal. So they have gone up 5-10 fold. Bilirubin is 0.3. Procalcitonin I ordered stat during rounds when we were discussing this case an hour or two ago and it is still not back. His most recent procalcitonin before this was 0.26, but that was way back on October 18. Cultures include a sputum which we just sent which shows a few polys, and a culture is pending. Gram stain unimpressive. A nasopharyngeal PCR was negative on November 03. Blood cultures negative November 01. MRSA screen negative October 28. Blood cultures negative on the . Stool PCR was negative on , and stubbs virus was positive in the airway on October 14, but of course, we have a negative after that. Chest radiographs include one done just an hour ago which shows patchy interstitial bilateral infiltrates and pleural effusions bilaterally. IMPRESSION: This is a case of extraordinary complexity in a man who has serious end-organ failure of his heart, lungs, kidneys, gut and peripheral vascular system. He was readmitted this time after being found on the floor following his only day out of the hospital in October back on October 23. It appears this was due to some combination of respiratory failure and GI bleed and he was improving somewhat here in the hospital until last night when he developed acute respiratory failure requiring intubation and transfer to the ICU. I do not see evidence of an acute pneumonia based on examination, chest x-ray or looking at today's sputum Gram stain and pending culture. A procalcitonin may be of help in this regard. If he did have pneumonia, we would likely need to cover for Acinetobacter which was a highly resistant organism that we saw back in the summer but I suspect this will not be the case. In additional concern in this case is his rapidly rising LFTs. He has had hepatitis A, B and C serologies which were negative numerous times recently and I think this is clearly not a viral hepatitis. Likewise I think it is unlikely to be CMV or EBV which are other viruses that can produce such a picture. Of greater concern here is probably a med related process and I do note that he was started on Crestor a week or two ago and I wonder if this could be causing his liver issues. Recall this patient does have underlying alcoholic liver disease and also has renal insufficiency so we would certainly wish to do anything we could to prevent the possible development of hepatorenal syndrome or additional liver failure in this very sick gentleman. RECOMMENDATIONS: 1. I have ordered a stat procalcitonin. If this is negative, I would repeat it again tomorrow morning. If two of these are negative, I would not be concerned about the possibility of a significant bacterial super infecting pneumonia. 2. I have ordered a right upper quadrant ultrasound. Acalculous cholecystitis could certainly be going on here as could calculous cholecystitis, but I suspect more likely this is med related or perhaps related to right heart failure as another alternative. 3. I do not think broad-spectrum antibiotics are indicated at this time given the fact that he is afebrile, has a stable blood pressure and we have no evident source of infection.
--- NOTE | 2016-11-09 11:17 | PCM.CHPMED ---
Subjective Date of Service: Nov 09, 2016 Provider requesting consult: RAMON RO DO Primary Physician: Admitting Physician: Luis Angel Howell MD Primary Care Physician: Leo Lamas MD Attending Physician: Luis Angel Howell MD Chief Complaint: Chief Complaint: Hypercapnic respiratory failure while on BiPAP, now requiring mechanical ventilation. History of Present Illness: Pulmonary critical care consultation note: Problems: Acute on chronic hypercapnic, hypoxic respiratory failure while on BiPAP, requiring intubation with mechanical ventilation Long-standing COPD with ongoing tobacco abuse, and occasional THC use History of hassan resistant Acinetobacter in his sputum (04/2016), history of MRSA pneumonia, history of C. difficile Long-standing CAD status post CABG Congestive heart failure History of A. fib Chronic kidney disease with acute failure, worsening Chronic normocytic anemia Acute transaminitis Peripheral vascular disease with chronic cutaneous wounds Chronic pain on chronic narcotics and benzodiazepines Remote history of alcoholism (supposedly quit a year ago) Severe deconditioning Dwain Carrillo is a 60-year-old male who was recently discharged on 10/22/16 and has a complex past medical history who again presented to [facility] ED on 10/23/16 after being found on the ground at home by his sister. Reportedly, patient was tired after he got home on 10/22/16 and apparently laid down on his floor to rest. He was a poor historian at the time of admission, and intubated and sedated at this time. Admitted for acute on chronic anemia and weakness. Today is hospital day 18. Yesterday, he was reportedly up and walking in the halls, and alert and oriented. This persisted until yesterday evening at which time he received his usual nighttime temazepam 15 mg and nighttime MS Contin 15 mg (these have been given every night for the last many days always been hospitalized). Overnight nurse was rounding and found him unresponsive. He did not respond to name or rubbing of his arms or his chest. His O2 sat was 81% on BiPAP (16/6 with an FiO2 of 0.30), and the report states that he was making minimal effort with only "guppy breaths." RT was called, and he was placed on oxygen mask at 10 L ( improvement of sats to 88%), and an ABG was checked which demonstrated a pH of 6.9 and a PaCO2 of 148. He was intubated using midazolam and propofol pushes for induction, but no paralytic. ROS no possible given patient status. PMH Past Medical History 1. Organic heart disease. a. Coronary artery disease. b. Status post CABG. c. Congestive heart failure. d. Atrial fibrillation 2. Peripheral vascular disease with chronic and recurring lower extremity ulcerations. 3. History of alcoholism with liver disease and esophageal varices. History of GI bleed 4. Hypertension. 5. Hyperlipidemia. 6. COPD with ongoing tobacco abuse, and THC use. 7. Some notes report history of seizure. 8. History of pancreatitis. 9. History of MRSA and Acinetobacter pneumonia steering his long admission this summer. 10. History of C. diff. 11. Chronic pain on opiates and benzos 12. CKD 13. Chronic microcytic anemia Past Surgical History BLE stent placement H/O multiple revascularization procedures left hip surgery Reports: CABG Family History Father reportedly had "five heart attacks before the last one killed him" Mother at age 78 with dementia Reports: Coronary artery disease Maternal grandmother with TB, but she prior to this Smoking History Current Every Day Smoker, and THC once in a while Social History Alcohol Use: "Social," but reports in previous notes the patient quit 1 year ago Other Social History: Good social support, Local resident Home Medications 1. Albuterol neb 1.5 mg inhaled every 4 hours for shortness of breath. 2. Amlodipine 2.5 mg daily. 3. Aspirin 81 mg daily. 4. Oxycodone 5 mg every 8 hours as needed for severe pain 5. Chlorthalidone 25 mg daily. 6. Cholecalciferol 2000 units daily. 7. Zetia 10 mg daily. 8. Ferrous sulfate 325 mg b.i.d with meals. 9. Fluticasone salmeterol (Advair 100-50 Diskus) 1 puff inhaled twice a day. 10. Furosemide 20 mg daily. 11. Morphine sulfate ER 15 mg twice a day. 12. Pantoprazole 20 mg p.o. b.i.d. 13. Prednisone 20 mg p.o. daily. 14. Quetiapine fumarate 50 mg at hour of sleep. 15. Rosuvastatin 40 mg daily. 16. Temazepam 15 mg twice a day. 17. Spiriva 18 g inhaled daily. 18. Azithromycin 500 mg every 2 days 19. Clonazepam 1 mg twice a day as needed for anxiety 20. Nitroglycerin sublingual tablets 0.4 mg every 5 minutes as needed for chest pain Allergies: Coded Allergies: atorvastatin (Verified Allergy, Intermediate, myalgias, 04/18/16) pravastatin (Verified Allergy, Intermediate, myalgias, 04/18/16) propoxyphene (Verified Allergy, Intermediate, Hives, 04/18/16) PT DENIES KNOWLEDGE OF ANY DRUG ALLERGIES amoxicillin (Verified Adverse Reaction, Intermediate, diarrhea, 04/18/16) clavulanic acid (Verified Adverse Reaction, Intermediate, diarrhea, 04/18/16 ) niacin (Verified Adverse Reaction, Intermediate, flushing, 04/18/16) phenytoin (Verified Adverse Reaction, Mild, itching, 04/18/16) Exam Vital Signs Vital Sign - Last Date Time Temp Pulse Resp B/P Pulse Ox O2 Delivery O2 Flow Rate FiO2 11/09/16 06:19 84 72/53 91 21 11/09/16 03:31 37.1 22 BiPAP 11/08/16 23:16 2.00 Intake and Output 11/08/16 11/08/16 11/09/16 Cumulative From/Thru 15:00 23:00 07:00 10/23/16 13:24 - 11/09/16 04:41 Intake Total 800 ml 200 ml 79990 ml Output Total 800 ml 300 ml 19899 ml Balance 0 ml -100 ml 5112 ml Intake Oral 800 ml 200 ml 82716 ml IV Total 74458 ml Packed Cells 880 ml Output Urine Total 800 ml 300 ml 53375 ml Ultrafiltrate 2000 ml # Voids 1 # Bowel Movements 15 Additional Information: Gen.: 60-year-old male who appears his stated age and is lying in ICU on hospital bed, sedated and intubated. HEENT pupils are equal and reactive to light bilaterally, mucous membranes are moist. ETT suction tube contains evidence of bloody secretions. Chest: Coarse breath sounds in the right upper lobe, but otherwise relatively clear with the exception of diminished sounds in the bases consistent with x-ray findings. Large vertical surgical scar over the sternum and superior abdomen consistent with history of CABG. Cardiovascular: regular rate and rhythm with a relatively normal S1 and S2. I do not appreciate any murmur. Radial pulses are 2+ bilaterally, and fainted in the bilateral posterior tibials. Capillary refill is good peripherally. Abdomen: is soft, bowel tones appreciated. Extremities: no edema noted. Bandaged chronic wound of the left lower extremity over the anterior ankle, with scattered callused abnormalities of the skin over the bilateral feet. Bandaged skin wound of the left upper extremity. Surgical scars over the left lateral hip and left medial lower leg. UOP good with 1400 yesterday, and 300 so far today. Total fluid balance this admission is +5L. Lines: LUE PICC (2 lumen), Johnson, ETT, NGT Lab and Diagnostics Labs 94.6% neutrophils. WBC 9.6, platelets 353. Sodium 138, potassium 5.9, chloride 97, carbon dioxide 29, BUN/creatinine 50, creatinine 4.58, glucose 142, calcium 7.8 (corrects to 8.8), phosphorus 7.0, magnesium 1.8, Albumin 2.4. His T4 22, ALTs 325, alkaline phosphatase 312, total CK 53. (Please note a negative acute hepatitis panel on 11/03/69) Pro-calcitonin is pending for today, but negative 2 previously. Micro- Blood cultures negative 2 separate sets of 2. MRSA screen is negative Multiple stool guaiacs are negative. Respiratory PCR panel negative Sputum today: Gram stain showing few polys and few mixed normal lisa Micro-history- Positive for stubbs virus OC43 on 10/04/16 Acinetobacter baumanii which was basically hassan resistant from sputum on 05/01/16 MRSA in sputum on 04/20/16 Result Diagram: 11/09/16 0610 11/08/16 0325 X-Rays, CTs and MRIs Chest x-ray today shows some fluid overload, and bilateral layering effusions. 12-lead ECG Following intubation, ECG showed normal sinus rhythm without prolongation of intervals, and borderline findings suggestive of LVH and some nonspecific repolarization abnormality in the anterior leads. Additional Diagnostics: ABG on BiPAP on 11/06/16 showed pH 7.25, PCO2 74 (sat of 95%), PO2 72, bicarbonate 31 (on BiPAP with an FiO2 of 0.4) ABG performed early this morning showed pH 6.96, PCO2 148, PO2 66 (with a sat of 89%), bicarbonate of 31 (only lists an FiO2 of 0.4)-presumably on BiPAP. ABG performed approximately one hour following intubation this morning showed pH 7.43, 37, PO2 50 (with a sat of 94%), bicarbonate 24 (only lists an FiO2 of 0.21) Assessment & Plan Assessment 1. Acute on chronic hypercapnic, hypoxic respiratory failure while on BiPAP, requiring intubation with mechanical ventilation. This morning's gas following approximately 1 hour on mechanical ventilation shows significant and rapid turnaround in his hypercapnia. Given that he was in hypercapnic respiratory failure despite optimized BiPAP settings, there is high likelihood that in order for him to survive he would need to remain on mechanical ventilation. This would necessitate tracheostomy if that is something family/power of insurance attorney/patient if we're able to wean off sedation will need to decide in the coming days. In the meantime we will continue to support him on the ventilator. Current settings are FiO2 0.3, PEEP of 5, respiratory rate 26, tidal volume 430mL. Current sedation includes propofol at 30, fentanyl at 50. 2. Long-standing COPD with ongoing tobacco abuse, and occasional THC use. Will switch nebulized medications to puffers given his higher peak pressures. Outpatient medication list (reconciled at time of admission) shows prednisone 20 mg daily, but he is not receiving any steroids whatsoever this hospitalization. I do not appreciate any wheeze on exam, and other than diminished sounds in the bases, his air movement sounds fairly good. We will hold his Advair for now. 3. 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 Sputum has been sent, and analysis is pending. In the meantime , he will stay in significant contact isolation until such analysis comes back negative. If positive, defer to infectious disease specialty for appropriate treatment. The following medical conditions will complicate his ongoing care here in the ICU, but defer management decisions to primary team and subspecialties involved: Long-standing CAD status post CABG Congestive heart failure-Echo on 11/02 with no significant change from prior. Revealed EF of 45% was hypokinesis of the inferior lateral wall. History of A. fib Chronic kidney disease with acute failure, worsening-some thought from nephrology to placing a tunneled dialysis catheter Acute on chronic normocytic anemia status post 4 units PRBCs-hemoglobin currently 10 Acute transaminitis-some thought that this is secondary to Crestor in the setting of his significant renal failure Peripheral vascular disease with chronic cutaneous wounds-wound care will continue to follow Chronic pain on chronic narcotics and benzodiazepines-will continue with propofol and fentanyl as noted above Severe deconditioning-PT was working with the patient, but now that he is in such significant contact precautions/isolation, they are on hold. Recommendations: -Repeat ABG -Continue on mechanical ventilation and sedation as detailed above -Recommend discussion with family involving at the very least primary hospitalist providers and palliative care providers regarding his failure on BiPAP requiring intubation and mechanical ventilation. His ongoing prognosis from a respiratory standpoint is poor given this hypercapnic failure on BiPAP. Likelihood is high that he will require surgical tracheostomy and ongoing mechanical ventilation. -If he does happen to get extubated, and do well, smoking cessation should be emphasized. CODE STATUS: Full code DVT prophylaxis: None currently given acute bleed GI prophylaxis: Twice daily PPI Nutrition: Patient was tolerating a by mouth diet until yesterday, consideration for initiating tube feeds in the coming 1-2 days. Critical care time spent in this patient's care: 60 minutes Problems: Attending Statement The patient was seen and examined together with Dr. Nicole on 11/09/2016 and I agree with the history, exam and plan as outlined in the note above. Norris Nicole DO Nov 09, 2016 07:07 Luke Ruiz MD Nov 26, 2016 13:18
--- NOTE | 2016-11-09 11:22 | ABG ---
DateTimeAnalyzed 11:17:00 -_ pH ____7.541 - 7.350 7.450 pCO2 ___26.1__ -mmHg 35.0 45.0 pO2 ___51.1__ -mmHg 69.0 116 HCO3- ___22.3__ -mmol/L 22.0 26.0 ABE ____0.7__ -mmol/L -2.0 2.0 tHb ____9.7__ -g/dL O2Hb ___90.2__ -% COHb ____3.1__ -% MetHb ____1.1__ -% sO2 ___94.2__ -% 25.0 FIO2 ___30.0__ -% PRVC 26 - PEEP ____5.0__ -cmH2O Vt __430.0__ -L Drawn By gj - Date/Time Notified____ 11:22:00 -_ Spontaneous_RR ___26.0__ -b/min Oxygen Device 1 VENTILATOR - Notified By gj - Notified Whom DE LA HOUSSAYE - Age 53 -years B 771 -mmHg tO2 ___12.3__ -Vol% Golden test _Positive -
--- NOTE | 2016-11-09 14:04 | PCM.PALLBR ---
Palliative Care Recommendation 60-year-old male with multiple medical problems, now with acute on chronic respiratory failure necessitating reintubation. Per extensive discussions (during this hospitalization as well as previous hospitalizations) now transitioning to comfort/end-of-life care. Per family wish, plan on compassionate extubation and comfort care tomorrow a.m. In anticipation of transitioning to purely comfort care, cancel additional radiology/imaging studies, laboratory studies, etc. with plan to discontinue non -comfort related medications tomorrow morning at time of compassionate extubation. Summary of palliative recommendations: -Symptom management (Pain/other)- continue current sedating/analgesic drips per medical/critical care team. -DPOA/Advanced Directives/POLST- sister is DPOAHC. She recognizes patient is not decisional and recognizes his inexorable decline over the last year. Transitioning now to DO NOT RESUSCITATE status with plan for compassionate extubation and comfort/end-of-life care tomorrow. In the meantime, DO NOT RESUSCITATE status confirmed and he is not a candidate for aggressive intervention such as pressors, antiarrhythmics, etc. Per family wish, continue other care until tomorrow morning, so that his sister and [id number] can be at bedside with him during the day tomorrow post extubation. -Family/emotional support- sister and [id number] will be bringing the patient's other sister in for final visit later today. -Spiritual support-not interested. His sister is very religiously oriented though and reiterated today that "it is all in God's hands". Patient Goals: 1. Patient's family wants to be told the truth about his illness, even if it is unpleasant. 2. Patient's family would like to be told prognosis when it can be predicted, to better guide treatment decisions. Additional Medical Diagnoses with primary management by Hospitalist team include : 1. Acute on chronic kidney disease, present on admission. Worsening. 2. Hypoxemic and hypercarbic respiratory failure, present on admission. Ongoing. 3. Acute on chronic anemia, present on admission. Stable. 4. Left psoas hematoma, present on admission. Stable. 5. Hypertension, present on admission. Stable. 6. Weakness/failure to thrive, present on admission. Active. 7. Elevated troponin of unknown significance, present on admission. Stable. 8. COPD, present on admission. Chronic. 9. Chronic systolic CHF, present on admission. Stable. 10. Atrial fibrillation, present on admission. Chronic. 11. Chronic lower extremity ulcerations with PVD, present on admission. Chronic. 12. Tobacco abuse, present on admission. Chronic. 13. Chronic pain with continuous opiate dependence, present on admission. Chronic. Problems: End of Life Preferences DO NOT RESUSCITATE; transitioning to comfort care in a.m. on 11/10 Goals of Care Comfort and to be allowed to pass away peacefully Disposition Patient likely to here in hospital Resuscitation Status Resuscitation Status: DNR/DNI:Do Not Resuscitate/Intubate POLST Updates/Changes Previous POLST?: Yes POLST Review Outcome: Form Voided . Advanced Care Planning Address: Code status change, Comfort care Pain: None Total time 95 minutes; >50% face to face with patient and family, providing counselling regarding plans and recommendations, and in care coordination with his medical teams. Of the above total time, 60 minutes counseling for advanced care planning with the patients family copies to: Leo Lamas MD Palliative Brief Note Date of Service Nov 09, 2016 . Returned 2 to see patient and family. Prior to visiting, reviewed his updated records in the EMR in detail, reviewed status with his medical team and with his bedside nurse. On first visit we were accompanied by his primary hospitalist, Dr. Hatfield, who updated the patient's family (sister/REA Nixon and her Blaze) on his status, now post intubation. She also reviewed in detail with the family his other medical problems which have been long-standing and progressive. We discussed his overall quality of life and the overall long-term downward trend in his status. We talked about the process of transitioning to comfort care, including compassionate extubation. Patient's sister and her had several questions and then indicated that they wanted some time to talk further and think. We returned later in the day and spoke further with Tiffani and Blaze. She had questions about the potential timing of compassionate extubation. She expressed the desire to bring their sister (who is disabled and developmentally delayed) into the hospital for one last visit. Tiffani noted that she would prefer patient be extubated tomorrow morning so that she could spend the day with him, providing comfort, and I reassured her that this was very reasonable. We then discussed advanced directive issues in light of Tiffani's overall decision- at this time the patient will become DO NOT RESUSCITATE and is no longer a candidate for CPR/defibrillation/pressors or other critical care, in anticipation of his compassionate extubation tomorrow and transition to end-of- life/comfort care. Yoan Ortega MD Nov 09, 2016 14:04
--- NOTE | 2016-11-09 15:10 | PCM.PNMED ---
Subjective Date of Service Nov 09, 2016 Subjective developed acute on chronic hypercapnic, hypoxic respiratory failure last night. intubated and transferred to ICU. worsening kidney function with hyperkalemia. Exam Vital Signs Vital Sign - Last Date Time Temp Pulse Resp B/P Pulse Ox O2 Delivery O2 Flow Rate FiO2 11/09/16 08:03 77 107/62 98 30 11/09/16 08:00 36.9 26 Mechanical Ventilator 11/08/16 23:16 2.00 Intake and Output 11/08/16 11/08/16 11/09/16 Cumulative From/Thru 15:00 23:00 07:00 10/23/16 13:24 - 11/09/16 04:41 Intake Total 800 ml 200 ml 29311 ml Output Total 800 ml 300 ml 92349 ml Balance 0 ml -100 ml 5112 ml Intake Oral 800 ml 200 ml 14392 ml IV Total 13941 ml Packed Cells 880 ml Output Urine Total 800 ml 300 ml 53030 ml Ultrafiltrate 2000 ml # Voids 1 # Bowel Movements 15 Exam General appearance: chronically-ill looking, intubated, sedated. HEENT: Mild pallor. No jaundice. No JVD. No lymphadenopathy. No thyroid enlargement. Heart: Regular rhythm. Normal S1, S2. No murmur, rubs or gallops. Lungs: Abd: soft, no rebound, no HSM. Extremities: no edema of the lower extremities. Skin: No rashes. No excoriation. kiser cath in place. Lab and Diagnostics Result Diagram: 11/09/16 0610 11/09/16 0610 X-Rays, CTs and MRIs PROCEDURE: X-RAY CHEST ONE VIEW, PORTABLE ([id number]) IMPRESSION: Persistent retrocardiac atelectasis, aspiration, or pneumonia. Dictated by: Chris Plunkett M.D. on 10/23/2016 at 15:10 PROCEDURE: CT ABDOMEN AND PELVIS WITHOUT CONTRAST ([id number]) IMPRESSION: 1.The presumed source of left lower quadrant pain is a relatively large left psoas muscle hematoma with epicenter in the abdomen and tapering into the pelvis. No hemoperitoneum is associated. 2.There is mild diverticulosis but without acute diverticulitis. Asymmetric pleural effusions, small to moderate on the left and scant on the right. Adjacent basilar atelectasis. Postsurgical changes are noted of presumed prior CABG. 3.This information was immediately called to the nursing station caring for the patient who is hospitalized at this time. Dictated by: Miko Garcia M.D. on 10/25/2016 at 10:57 Assessment & Plan 1. BABS on CKD due to nonoliguric ATN. 2. Acute on chronic hypoxemic and hypercarbic respiratory failure 3. Left psoas hematoma/abscess 4. Acute on chronic anemia. 5. COPD 6. Afib/CHF 7. Severe deconditioning. Plan: Pt now with worsening kidney function and hyperkalemia. Overall prognosis is extremely poor. He is not a good candidate for chronic hemodialysis given multiple comorbidities and unstable hemodynamics. Since he is full code, we will discuss with family whether they would like to proceed with renal replacement therapy. GI Prophylaxis: Not indicated VTE Prophylaxis: Sub-Q Heparin (Unfractionated) VTE Mechanical Devices: Intermittant Pneumatic CD Resuscitation Status: CPR: Attempt Resuscitation Flavio Alves MD Nov 09, 2016 12:24
--- NOTE | 2016-11-09 16:11 | NUR ---
Social Work: Continued Planning D: Pt discussed in am rounds. Pt transferred to CCU after respiratory distress on 11/08/15. Pt currently on vent with poor prognosis. Palliative care team met with pt's sister to discuss goals and prognosis. Pt's sister has decided to move towards comfort care with the plan to compassionately extubate the pt tomorrow morning. It is expected the pt will at [facility] post extubation. A: Pt currently in CCU, vented and sedated. P: Anticipate pt to be compassionately extubated tomorrow per palliative care MD notes. OPERATOR ASSISTANT I CEMENTING to provide support to family as needed/requested. ESAU Becker
--- NOTE | 2016-11-09 16:23 | NUR ---
Has remained on vent support this shift, vent changes per RT/ABGs. Appears comfortable on Fentanyl and Propofol infusions. IVFs infusing. Minimal UOP via patent kiser cath. No stool since this morning. OGT draining darkish green-brown fluid. BP stable, afebrile. Sinus rhythm on tele. Potassium level improved. Blood sugars running low, 76, MD aware. Family/Palliative consult today, most likely will extubate tomorrow. Remains in isolation.
--- NOTE | 2016-11-09 19:30 | PCM.PNMED ---
Subjective Date of Service Nov 09, 2016 Subjective Dwain Carrillo is a 60-year-old male who was recently discharged on 10/22/16 and has a complex past medical history including chronic foot ulcers, recent undiagnosed GI bleeding, systolic and diastolic congestive heart failure, CAD, A. fib, history of MRSA pneumonia, and C. difficile who presented to [facility] ED after being found on the ground. Admitted for acute on chronic anemia and weakness. Currently being treated for HTN with possible need for tunneled cath placement if kidney function continues to deteriorate. Hospital day 17. Overnight: The patient was found to be somnolent and unresponsive on BiPAP. Blood gas was obtained which showed a respiratory acidosis. Patient was subsequently intubated and sedated. Today: Patient is currently intubated and sedated. Called family and they arrived at bedside. Discussion about ongoing care with the final decision from the sister, who is the patient's DPOA, to switch to comfort care but wait until tomorrow to extubate allowing the family time to gather and say goodbye. CODE STATUS DO NOT RESUSCITATE DO NOT INTUBATE. Exam Vital Signs Vital Sign - Last Date Time Temp Pulse Resp B/P Pulse Ox O2 Delivery O2 Flow Rate FiO2 11/09/16 03:31 37.1 106 22 97/63 89 BiPAP 11/08/16 23:16 2.00 11/08/16 08:56 30 Intake and Output 11/08/16 11/08/16 11/09/16 Cumulative From/Thru 15:00 23:00 07:00 10/23/16 13:24 - 11/09/16 04:41 Intake Total 800 ml 200 ml 18386 ml Output Total 800 ml 300 ml 76003 ml Balance 0 ml -100 ml 5112 ml Intake Oral 800 ml 200 ml 17528 ml IV Total 49130 ml Packed Cells 880 ml Output Urine Total 800 ml 300 ml 42762 ml Ultrafiltrate 2000 ml # Voids 1 # Bowel Movements 15 Exam General: Elderly chronically ill-appearing male, intubated, and sedated HEENT: Normocephalic, atraumatic. External ears without defect. PT and OG tube in place. Cardiovascular: Tachycardic with regular rate no murmurs, rubs, or gallops appreciated Pulmonary: Decreased air movement, faint crackles in bases bilaterally.. Abdomen: Bowel tones present. Soft, nondistended. No hepatosplenomegaly or masses appreciated. Extremities: No lower extremity edema. Skin: Pale, normal temperature, decreased skin turgor. Neurological: Intubated and sedated. Psychiatric: Intubated and sedated. Lab and Diagnostics Result Diagram: 11/08/16 0325 11/08/16 032 X-Rays, CTs and MRIs PROCEDURE: X-RAY CHEST ONE VIEW, PORTABLE ([id number]) IMPRESSION: Persistent retrocardiac atelectasis, aspiration, or pneumonia. Dictated by: Chris Plunkett M.D. on 10/23/2016 at 15:10 PROCEDURE: CT ABDOMEN AND PELVIS WITHOUT CONTRAST ([id number]) IMPRESSION: 1.The presumed source of left lower quadrant pain is a relatively large left psoas muscle hematoma with epicenter in the abdomen and tapering into the pelvis. No hemoperitoneum is associated. 2.There is mild diverticulosis but without acute diverticulitis. Asymmetric pleural effusions, small to moderate on the left and scant on the right. Adjacent basilar atelectasis. Postsurgical changes are noted of presumed prior CABG. 3.This information was immediately called to the nursing station caring for the patient who is hospitalized at this time. Dictated by: Miko Garcia M.D. on 10/25/2016 at 10:57 Assessment & Plan Dwain Carrillo is a 60-year-old male who was recently discharged on 10/22/16 and has a complex past medical history including chronic foot ulcers, recent undiagnosed GI bleeding, systolic and diastolic congestive heart failure, CAD, A. fib, history of MRSA pneumonia, and C. difficile who presented to [facility] ED after being found on the ground. Admitted and treated for acute on chronic anemia, acute on chronic kidney disease, and respiratory failure. Currently care slowly being withdrawn as patient is DNR/DNI and moving towards comfort care. Family would like to wait until tomorrow to extubate so they have time to gather and say goodbye but otherwise patient is comfort care at this time. Hospital day 17. The assessment and plan following was prior to the family switching to comfort care: 1. Acute on chronic kidney disease, present on admission. Worsening. - Creatinine on admission 2.72. Baseline around 1.7 - Etiology CKD and ATN. - Urgent hemodialysis completed on 11/01, 11/03, and 11/04. Femoral catheter removed on 11/05. - Nephrology consulted. Appreciate time and recommendations. 2. Hypoxemic and hypercarbic respiratory failure, present on admission. Ongoing. - Intubated overnight due to decline in respiratory and mental status. 3. Acute on chronic anemia, present on admission. Stable. - Initially thought to be secondary to psoas hematoma or GI bleed. - Total of 4 units PRBCs transfused. - Guaiac positive stools. - Pantoprazole 20 mg twice a day. - Not a candidate for endoscopy. - Previous EGD showed erosive esophagitis and gastritis and colonoscopy was unremarkable on 03/07/2016. - Gastroenterology consulted and signed off at this time. 4. Left psoas hematoma, present on admission. Stable. - CT abd/pelv showed 17cm hematoma on left psoas decreased in size on repeat CT on 10/27. - General surgery consulted and does not believe this requires surgical intervention. 5. Hypertension, present on admission. Stable. - Metoprolol 12.5 mg daily. 6. Weakness/failure to thrive, present on admission. Active. - Secondary to chronic diseases and deconditioning. - Physical therapy to evaluate. 7. Elevated troponin of unknown significance, present on admission. Stable. - Difficult to assess in light of acute on chronic kidney disease. Patient has history of elevated troponin. - Dr. Spears does not recommend any further invasive workup at this point. Will continue with conservative medical management for now. 8. COPD, present on admission. Chronic. - DuoNebs scheduled 3 times a day. - Tiotropium bromide daily. - Fluticasone\salmeterol twice a day. - Supplemental oxygen as needed to maintain stats between 88% and 92%. 9. Chronic systolic CHF, present on admission. Stable. - Echo on 11/02 with no significant change from prior. Revealed EF of 45% was hypokinesis of the inferior lateral wall. - Continue medications as above. 10. Atrial fibrillation, present on admission. Chronic. - Warfarin held due to GI bleed and recent instability. - Monitored on telemetry 11. Chronic lower extremity ulcerations with PVD, present on admission. Chronic. - Wound care following. 12. Tobacco abuse, present on admission. Chronic. - Nicotine 21 mg patch daily. 13. Chronic pain with continuous opiate dependence, present on admission. Chronic. - MS Contin 15 mg twice a day. Disposition: CODE STATUS switch to DNR/DNI. Family would like to wait until tomorrow to extubate so they have time to gather and say goodbye but otherwise patient is comfort care at this time. Pain Evaluation: Adequate Pain Control GI Prophylaxis: Not indicated VTE Mechanical Devices: Intermittant Pneumatic CD Resuscitation Status: DNR/DNI:Do Not Resuscitate/Intubate Attending Statement The patient was seen and examined together with Dr. Ro on 11/09/2016 and I agree with the history, exam and plan as outlined in the note above. . RAMON RO DO Nov 09, 2016 06:38 Bro Nam MD Nov 11, 2016 07:44
--- NOTE | 2016-11-09 19:55 | ABG ---
DateTimeAnalyzed 19:48:51 -_ pH ____7.474 - pCO2 ___33.3__ -mmHg pO2 ___65.5__ -mmHg HCO3- ___24.4__ -mmol/L ABE ____0.8__ -mmol/L tHb ____9.5__ -g/dL O2Hb ___93.7__ -% COHb ____1.6__ -% MetHb ____0.3__ -% sO2 ___95.5__ -% FIO2 ___21.0__ -% Drawn By LT - Date/Time Notified____ 19:54:00 -_ Notified Whom DR ZAMBRANO - Age 53 -years B 770 -mmHg K+ ____4.0__ -mmol/L tO2 ___12.6__ -Vol% Golden test _Positive -
[2016-11-10] VITALS (7 sets, daily range): BP systolic 98–110; BP diastolic 54–62; PULSE 81–109; RESP 16–20; O2SAT 96–98
[2016-11-10] MEDS: Chlorhexidine 0.12% 15 mL Oral Solution MT SCH ×5 (01:08→14:20)
[2016-11-10] MEDS: Propofol Inj 1,000,000 MCG in IV Premix 1 EACH IV SCH ×2 (03:58→10:18)
[2016-11-10] MEDS: 0.9% Sodium Chloride 1,000 ML IV SCH (05:19)
[2016-11-10] MEDS: fentaNYL 2,500 mCg/250 mL 2,500 MCG in IV Premix 1 EACH IV SCH ×2 (05:52→10:18)
[2016-11-10] MEDS: Albuterol-Ipratropium 3 mL Inhalation Solution NEB SCH ×2 (06:30→11:30)
[2016-11-10 06:43] LABS: BASOPHILS % (AUTO) 0.1 % (0-3); EOSINOPHILS % (AUTO) 0 % (0-5); MONOCYTES % (AUTO) 11.4 % (4-12); Mean Corpuscular Volume 83.9 fL (81-100); NEUTROPHILS % (AUTO) 80.8 % (40-74); Platelet Count 321 bil/L (150-400)
[2016-11-10 07:02] LABS: Magnesium 1.7 mg/dL (1.6-2.6); Phosphorus 5.1 mg/dL (2.5-4.9)
[2016-11-10] MEDS: Fluticasone-Salmeterol 100-50 Inhaler INHALATION SCH (07:16)
[2016-11-10] MEDS: Pantoprazole 20 mg ER24 Tablet PO SCH (07:26)
[2016-11-10] MEDS: MeTOProlol XL 25 mg ER24 Tablet PO SCH (07:26)
--- NOTE | 2016-11-10 07:57 | ABG ---
DateTimeAnalyzed 07:52:00 -_ pH ____7.396 - 7.350 7.450 pCO2 ___41.2__ -mmHg 35.0 45.0 pO2 ___90.7__ -mmHg 69.0 116 HCO3- ___24.8__ -mmol/L 22.0 26.0 ABE ____0.4__ -mmol/L -2.0 2.0 tHb ___11.2__ -g/dL O2Hb ___95.4__ -% COHb ____1.5__ -% MetHb ____1.1__ -% sO2 ___97.9__ -% 25.0 FIO2 ___50.0__ -% PEEP ____5.0__ -cmH2O Set_RR ___16.0__ -b/min Vt __390.0__ -L Drawn By MT - Date/Time Notified____ 07:57:00 -_ Oxygen Device 1 TENT - Notified By MT - Notified Whom DR Hinderstein - Age 53 -years B 773 -mmHg tO2 ___15.1__ -Vol% Golden test _Positive -
--- NOTE | 2016-11-10 08:14 | PCM.PNMED ---
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 difficile Long-standing CAD status post CABG Congestive heart failure History of A. fib Chronic kidney disease with acute failure, worsening Chronic normocytic anemia Acute transaminitis Peripheral vascular disease with chronic cutaneous wounds Chronic pain on chronic narcotics and benzodiazepines Remote history of alcoholism (supposedly quit a year ago) Severe deconditioning Subjective: No events reported by nursing overnight. ROS no possible given patient status. Exam Vital Signs Vital Sign - Last Date Time Temp Pulse Resp B/P Pulse Ox O2 Delivery O2 Flow Rate FiO2 11/10/16 04:30 36.8 81 20 106/59 96 Mechanical Ventilator 50 11/08/16 23:16 2.00 Intake and Output 11/09/16 11/09/16 11/10/16 Cumulative From/Thru 15:00 23:00 07:00 10/23/16 13:24 - 11/10/16 05:57 Intake Total 2037 ml 1561 ml 29135 ml Output Total 350 ml 200 ml 72119 ml Balance 1687 ml 1361 ml 8160 ml Intake Oral 60 ml 07203 ml IV Total 1947 ml 1531 ml 17559 ml Packed Cells 880 ml Tube Irrigant 30 ml 30 ml 60 ml Output Urine Total 150 ml 150 ml 13183 ml Gastric Drainage Total 200 ml 50 ml 250 ml Ultrafiltrate 2000 ml # Voids 1 # Bowel Movements 10 15 16 Exam Gen.: 60-year-old male who appears older than his stated age and is lying in ICU on hospital bed, sedated and intubated. HEENT: pupils are equal and reactive to light bilaterally, mucous membranes are moist. ETT suction tube contains evidence of bloody secretions. Chest: Coarse breath sounds in the right upper lobe, but otherwise relatively clear with the exception of diminished sounds in the bases consistent with x-ray findings. Large vertical surgical scar over the sternum and superior abdomen consistent with history of CABG. Cardiovascular: regular rate and rhythm with a relatively normal S1 and S2. I do not appreciate any murmur. Radial pulses are 2+ bilaterally, and fainted in the bilateral posterior tibials. Capillary refill is good peripherally. Abdomen: is soft, bowel tones appreciated. Extremities: Mild nonpitting edema in bilateral upper extremities noted, but none in the lower extremities. Bandaged chronic wound of the left lower extremity over the anterior ankle, with scattered callused abnormalities of the skin over the bilateral feet. Bandaged skin wound of the left upper extremity. Surgical scars over the left lateral hip and left medial lower leg. UOP good with 300 yesterday, and none so far reported today. Total fluid balance this admission is +8L. Lines: LUE PICC (2 lumen), Johnson, ETT, NGT Vent settings: FiO2 0.5, PEEP of 5, respiratory rate 16, tidal volume 390 mL. Peak plateau pressures look okay. IVs and Medications IV Fluids NS at 100 mL per hour Medications Reviewed: Medications were reviewed in detail Medications Propofol at 30 Fentanyl at 25 Lab and Diagnostics 81% neutrophils. Calcium 6.9 (corrects to 8.4), phosphorus 5.1, magnesium 1.7, albumin 2.1 LFTs grossly abnormal, and getting worse: AST 664, ALC 387, alkaline phosphatase 331 (Please note a negative acute hepatitis panel on 11/03/69) Pro-calcitonin was 0.68 yesterday, but negative 2 previously. Micro- Blood cultures negative 2 separate sets of 2. MRSA screen is negative Multiple stool guaiacs are negative. Respiratory PCR panel negative Sputum 11/09/16: Gram stain showing few polys and few mixed normal lisa Micro-history- Positive for stubbs virus OC43 on 10/04/16 Acinetobacter baumanii which was basically hassan resistant from sputum on 05/01/16 MRSA in sputum on 04/20/16 Result Diagram: 11/10/16 0625 11/10/16 0625 X-Rays, CTs and MRIs Chest x-ray performed today shows minimal change in the left lung garcia, and somewhat worse in the right lower lung garcia (the right heart border is less visible than yesterday). Additional Diagnostics ABG today PH 7.4, PCO2 41, PO2 91 with a sat of 98%, bicarbonate of 25. Assessment & Plan Primary team visited with the family yesterday, and the reported decision was to continue supportive care as is until sometime today (potentially this morning ) at which point their tentative plan is to compassionately extubate. 1. Acute on chronic hypercapnic, hypoxic respiratory failure while on BiPAP, requiring intubation with mechanical ventilation. This morning's gas following approximately 1 hour on mechanical ventilation shows significant and rapid turnaround in his hypercapnia. Given that he was in hypercapnic respiratory failure despite optimized BiPAP settings, there is high likelihood that in order for him to survive he would need to remain on mechanical ventilation. This would necessitate tracheostomy if that is something family/power of ip technology transactions attorney/patient if we're able to wean off sedation will need to decide in the coming days. In the meantime we will continue to support him on the ventilator. 2. Long-standing COPD with ongoing tobacco abuse, and occasional THC use. Will continue scheduled and when necessary nebulizers. Outpatient medication list (reconciled at time of admission) shows prednisone 20 mg daily, but he is not receiving any steroids whatsoever this hospitalization. I do not appreciate any wheeze on exam, and other than diminished sounds in the bases, his air movement sounds fairly good. We will hold his Advair and Spiriva for now. 3. 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 Sputum has been sent, and analysis is pending. In the meantime , he will stay in significant contact isolation until such analysis comes back negative. If positive, defer to infectious disease specialty for appropriate treatment. The following medical conditions will complicate his ongoing care here in the ICU, but defer management decisions to primary team and subspecialties involved: Long-standing CAD status post CABG Congestive heart failure-Echo on 11/02 with no significant change from prior. Revealed EF of 45% was hypokinesis of the inferior lateral wall. History of A. fib Chronic kidney disease with acute failure, worsening-some thought from nephrology to placing a tunneled dialysis catheter (of course this will not occur if family decides to compassionately extubate( Acute on chronic normocytic anemia status post 4 units PRBCs Acute transaminitis-some thought that this is secondary to Crestor in the setting of his significant renal failure Peripheral vascular disease with chronic cutaneous wounds-wound care will continue to follow Chronic pain on chronic narcotics and benzodiazepines-will continue with propofol and fentanyl as noted above Severe deconditioning-PT was working with the patient, but now that he is in such significant contact precautions/isolation, they are on hold. Recommendations: -Continue on mechanical ventilation and sedation as detailed above -We await family's final decision regarding extubation CODE STATUS: DNR/DNI DVT prophylaxis: None currently given acute bleed GI prophylaxis: Twice daily PPI Critical care time spent in this patient's care: 30 minutes Attending Statement The patient was seen and examined together with Dr. Nicole on 11/10/2016 and I agree with the history, exam and plan as outlined in the note above Norris iNcole DO Nov 10, 2016 08:14 Luke Ruiz MD Nov 26, 2016 13:26 GI prophylaxis: Twice daily PPI Nutrition: Patient was tolerating a by mouth diet until yesterday, consideration for initiating tube feeds in the coming 1-2 days. Critical care time spent in this patient's care: 60 minutes Norris Nicole DO Nov 10, 2016 08:14
[2016-11-10] MEDS ORDERED: Atropine 1% 5 mL Ophthalmic Solution PO PRN (11:10)
[2016-11-10] MEDS ORDERED: fentaNYL-PF 50 mCg/mL 2 mL Inj IVPUSH PRN (11:10)
[2016-11-10] MEDS ORDERED: LORazepam 100 mg/100 mL NS 100 MG in IV Premix 1 EACH IV PRN (11:10)
[2016-11-10] MEDS ORDERED: Artificial Tears 15 mL Ophthalmic Solution AFFECT_EYE PRN (11:10)
[2016-11-10] MEDS ORDERED: Haloperidol 5 mg/mL Inj IVPUSH PRN (11:10)
--- NOTE | 2016-11-10 11:31 | DRSVH ---
PROCEDURE: X-RAY CHEST ONE VIEW, PORTABLE ([id number]) INDICATIONS: infilt, effusion TECHNIQUE: One view of the chest was acquired. COMPARISON: [facility], CR, XR CHEST 1VW (PORTABLE), 11/09/2016, 5:45. FINDINGS: Surgical changes and devices: ETT tip appears similar position to prior exam of note, the steven is n ot well-seen on the current exam. Stable positioning of right PICC. Post median sternotomy and Lungs and pleura: Persistent, widespread bilateral interstitial and mid sinus basilar airspace opacit ies are present, and not significantly changed. Persistent layering pleural effusions. No pneumotho rax. Mediastinum: Mediastinal contours appear normal. Heart size is normal. Bones and chest wall: No suspicious bony lesions. Overlying soft tissues appear unremarkable. IMPRESSION: 1. Persistent edema and/or bilateral pneumonia not significantly changed. 2. Layering pleural effusions redemonstrated. Dictated by: Misha Mera [facility] Interpreted: Lora Barth MD on 11/10/2016 at 11:28 Transcribed by: TERI on 11/10/2016 at 11:30 Approved by: Lora Barth MD, PhD on 11/10/2016 at 16:48
--- NOTE | 2016-11-10 11:40 | PROG NOTE ---
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 INTERVAL HISTORY: Overnight, the patient has been relatively stable but critically ill on the ventilator. Recall that he had been here in the hospital slowly improving from a GI bleed and respiratory issues when he was found to have basically with respiratory arrest the night before last. This led to his intubation and transfer to the unit. He has been relatively stable, though he remains obviously critically ill. There are discussions this morning with his family about possible transition to comfort care. Recall that yesterday Infectious Disease had been consulted about two issues. One was his rising LFT, and the other the question about appropriate isolation given his prior history of multi-drug resistant organisms. As of yesterday, we placed the patient on very strict contact and droplet isolation because of his history of multi-drug resistant acinetobacter during 2015, while we awaited a sputum screen. We had also commenced a workup for his elevated LFT. Today, the patient remains intubated, sedated and unresponsive. PHYSICAL EXAMINATION: Reveals an afebrile gentleman, lying supine, intubated in the ICU. He has been afebrile. His temperature is 36.5, pulse in the 90s. He is 50% on the vent, saturating 97%. Blood pressure 100/54. He is in no distress but, of course, he is not awake at all. Eyes without change. Oral endotracheal tube and orogastric tube in position. Lungs with decreased breath sounds, occasional wheezes. Abdomen without focal tenderness. No skin rash. LABORATORIES: Include white count 6900, platelet count 321. His creatinine has risen to 5. His AST has risen to 664, his ALT 387 and his alk phos 331. Note that these are dramatic elevations when he was last in the hospital October 23 and when he was recently readmitted on October 30, and his ALT, for example, was only 72. Procalcitonin 0.68, which is probably normal, given his creatinine. Urinalysis, no white cells. Hep B and hep C serologies are negative. The sputum is growing a light growth of coag-negative staph and nothing else. Nasopharyngeal PCR negative. Blood cultures negative. IMAGING: Yesterday's chest x-ray showed pulmonary edema and/or bilateral pneumonia with layering pleural effusions. IMPRESSION: I see no evidence for the multi-drug resistant acinetobacter in his sputum or blood, and we can discontinue his isolation at this point. The reason for his rapidly rising LFT is unclear. Yesterday, I had ordered an ultrasound but this has not yet been done, and his LFT continue to worsen. We have no evidence for hep B or hep C, and I wonder if this is related to perhaps Crestor that was started recently or another medication. It is also possible there could be a clot or some other process affecting his liver The family is strongly considering comfort care on this gentleman who has been admitted many, many times in the past year and who has an overlapping series of really unsurmountable medical problems. I concur with these discussions regarding comfort care, as it is hard to see how this patient would ever get better enough from all of his problems to have any quality of life. RECOMMENDATIONS: 1. Isolation is discontinued. 2. I do not see any indication for antibiotics at this time. 3. I agree with the plan for comfort care. If there was reason to continue aggressive care in this patient, I think we would need a right upper quadrant ultrasound but it does not appear we are going that way. 4. Infectious Disease will go ahead and sign off in view of the plans for probable comfort care. Please call us if these plans change.
--- NOTE | 2016-11-10 11:56 | NUR ---
extubation assist at 1867
--- NOTE | 2016-11-10 13:56 | NUR ---
P: Respiratory Distress I: Pt extubated at 1140 and restraints removed. Family at pt's bedside. Fentanyl increased to 150mcqs and ativan gtt at 4 mg IV to assist pt with feeling SOB. Pt stated he felt that he needed help breathing. ST. Room air. Respiratory rate 14. Johnson patent and very minimal urine output. Oral care done for comfort. Turns for comfort. E: Appears comfortable S: Frequent rounding. Pt unable to use call light.
--- NOTE | 2016-11-10 14:00 | PCM.PALLBR ---
Palliative Care Recommendation Summary of palliative recommendations: 60-year-old male with multiple medical problems, now with acute on chronic respiratory failure necessitating reintubation. Patient's sister and DPOAHC Tiffani recognized yesterday 11/09 that patient is not decisional and recognizes his inexorable decline over the last year. She decided to transitioned to DO NOT RESUSCITATE status on 11/09 and per family wish, continue interventions/care until 11/10, so that Bill's other sister and Tiffani and Duncan ([id number]) can be at bedside with him during the day after compassionate extubation. Today initiated compassionate extubation and comfort/end-of-life care 11/10 at 10:00. Currently purely comfort care, cancel additional radiology/imaging studies, laboratory studies, etc. with plan to discontinue non-comfort related medications tomorrow morning at time of compassionate extubation. -Symptom management (Pain/other)- - Prior to extubation Fentanyl was at 75mcg/hr and gradually increased Fentanyl to 150mcg/hr and titrated off Propophol Gtt. Patient given Lorazepam bolus and started on Lorazepam Drip Gtt , eventually uptitrated to 4mg/hr. Patient Started on comfort care order set with Bolus doses or Fentanyl and Lorazepam available PRN for comfort. Patient also has atropine, artificial tears , glycopyrrolate all started per comfort care order set. -DPOA/Advanced Directives/POLST- - sister Tiffani is DPOAHC - patient code status change to DNR 11/09 with transition to comfort care and compassionate extubation on 11/10 -Family/emotional support- - sister and [id number] brought the patient's other sister, as well as nephews in for final visit today. -Spiritual support- -not interested. His sister is very religiously oriented though and reiterated today that "it is all in God's hands". Patient Goals: 1. Patient's family would like Dwain to be kept comfortable 2. Patient's family would like to be told the truth about his prognosis even if it is poor Additional Medical Diagnoses with primary management by Hospitalist team include : 1. Acute on chronic kidney disease, present on admission. Worsening. 2. Hypoxemic and hypercarbic respiratory failure, present on admission. Ongoing. 3. Acute on chronic anemia, present on admission. Stable. 4. Left psoas hematoma, present on admission. Stable. 5. Hypertension, present on admission. Stable. 6. Weakness/failure to thrive, present on admission. Active. 7. Elevated troponin of unknown significance, present on admission. Stable. 8. COPD, present on admission. Chronic. 9. Chronic systolic CHF, present on admission. Stable. 10. Atrial fibrillation, present on admission. Chronic. 11. Chronic lower extremity ulcerations with PVD, present on admission. Chronic. 12. Tobacco abuse, present on admission. Chronic. 13. Chronic pain with continuous opiate dependence, present on admission. Chronic. Problems: End of Life Preferences DO NOT RESUSCITATE; transitioned to comfort care only at 10:00 on 11/10 Goals of Care Comfort and to be allowed to pass away peacefully Disposition Patient likely to here in hospital within next several days Resuscitation Status Resuscitation Status: DNR/DNI:Do Not Resuscitate/Intubate (comfort care only) POLST Updates/Changes Previous POLST?: Yes POLST Review Outcome: Form Voided . Symptom management: Anxiety, Agitation, Dyspnea, Pain, Delirium Total time 70 minutes; >50% face to face with patient and/or family, providing counselling regarding plans and recommendations, and in care coordination with his/her medical teams. Attending Statement The patient was seen and examined together with Dr. Lozano on 11/10/16 and I agree with the history, exam and plan as outlined in the note above. copies to: Leo Lamas MD Palliative Brief Note Date of Service Nov 10, 2016 . Patient's sister and DPOAHC Tiffani recognized yesterday 11/09 that patient is not decisional and recognizes his inexorable decline over the last year. She decided to transitioned to DO NOT RESUSCITATE status on 11/09 and per family wish , continue interventions/care until 11/10, so that Bill's other sister and Tiffani and Duncan ([id number]) can be at bedside with him during the day after compassionate extubation. Today initiated compassionate extubation and comfort/end-of-life care 11/10 at 10:00. Prior to extubation Fentanyl was at 75mcg/hr and increased as needed to Fentanyl 150mcg/hr and titrated off Propophol Gtt. Patient given Lorazepam bolus and started on Lorazepam Drip Gtt , eventually uptitrated to 4mg/hr. Patient Started on comfort care order set with Bolus doses or Fentanyl and Lorazepam available PRN for comfort. Patient also has atropine, artificial tears, glycopyrrolate all started per comfort care order set. JASON LOZANO DO Nov 10, 2016 14:00 Yoan Ortega MD Nov 10, 2016 14:03
--- NOTE | 2016-11-10 14:07 | NUR ---
spiritual care: staff--pt rec comfort care brief check-in, emotional support to family as they jacob. Family grieving/pregrieving.
--- NOTE | 2016-11-10 16:35 | NUR ---
Pt at 1510 with family at bedside.
--- NOTE | 2016-11-10 17:18 | PCM.DC.MED ---
Discharge Summary Date of Service Nov 10, 2016 Dates of Hospitalization Date of Hospital Admission Oct 23, 2016 at 17:13 Date of Discharge: Nov 10, 2016 Providers: Admitting Physician: Luis Angel Howell MD Primary Care Physician: Leo Lamas MD Attending Physician: Luis Angel Howell MD Diagnosis at Time of Discharge Diagnosis at Time of Discharge 1. Acute on chronic kidney disease, present on admission. Worsening. 2. Hypoxemic and hypercarbic respiratory failure, present on admission. Ongoing. 3. Acute on chronic anemia, present on admission. Stable. 4. Left psoas hematoma, present on admission. Stable. 5. Hypertension, present on admission. Stable. 6. Weakness/failure to thrive, present on admission. Active. 7. Elevated troponin of unknown significance, present on admission. Stable. 8. COPD, present on admission. Chronic. 9. Chronic systolic CHF, present on admission. Stable. 10. Atrial fibrillation, present on admission. Chronic. 11. Chronic lower extremity ulcerations with PVD, present on admission. Chronic. 12. Tobacco abuse, present on admission. Chronic. 13. Chronic pain with continuous opiate dependence, present on admission. Chronic. Consultations Pulmonology/Critical Care - Dr. Ruiz Nephrology - Dr. Alves and Dr. Pearson Cardiology - Dr. Dao and Dr. Spears Hematology/Oncology - Dr. Clark [facility] Surgery - Dr. Virk Procedures XRay, CTs & MRIs Chest x-ray performed today shows minimal change in the left lung garcia, and somewhat worse in the right lower lung garcia (the right heart border is less visible than yesterday). Other Diagnostics ABG today PH 7.4, PCO2 41, PO2 91 with a sat of 98%, bicarbonate of 25. Brief History Per Dr. Howell's H&P: 60 year old male presents to the ED via EMS after he was found on the ground by his sister. Pt unable to recall how long he was on the ground before EMS arrival. He states that he got tired yesterday and laid down on the floor. He was too weak to get up and was then found this morning. Patient DC'd yesterday after admit - for a multitude of issues, chronic respiratory failure, COPD, elevated troponins, acute on chronic kidney injury, chronic hypertension, chronic upper GI bleed, chronic kidney, disease, chronic lower extremity ulcerations, chronic A. fib. He states " I just don't feel good." Additionally, he reports abd pain, but is a poor historian otherwise. Hospital Course Dwain Carrillo is a 60-year-old male who was recently discharged on 10/22/16 and has a complex past medical history including chronic foot ulcers, recent undiagnosed GI bleeding, systolic and diastolic congestive heart failure, CAD, A. fib, history of MRSA pneumonia, and C. difficile who presented to [facility] ED after being found on the ground. Admitted and treated for acute on chronic anemia, acute on chronic kidney disease, and respiratory failure. On hospital day 17, 11/09/16, patient was emergently intubated in the morning. Patient's sister, who is his DPOA, switched code status to DNR/DNI and decided to proceed with comfort care. Patient was extubated after family was gathered on the morning of 11/10. Patient was declared later on that afternoon in the presence of family. 1. Acute on chronic kidney disease, present on admission. Worsening. - Creatinine on admission 2.72. Baseline around 1.7 - Etiology CKD and ATN. - Urgent hemodialysis completed on 11/01, 11/03, and 11/04. Femoral catheter removed on 11/05. - Nephrology consulted. Appreciated time and recommendations. 2. Hypoxemic and hypercarbic respiratory failure, present on admission. Ongoing. - Intubated on 11/10 due to decline in respiratory and mental status. 3. Acute on chronic anemia, present on admission. Stable. - Initially thought to be secondary to psoas hematoma or GI bleed. - Total of 4 units PRBCs transfused. - Guaiac positive stools. - Pantoprazole 20 mg twice a day. - Not a candidate for endoscopy. - Previous EGD showed erosive esophagitis and gastritis and colonoscopy was unremarkable on 03/07/2016. - Gastroenterology consulted. Appreciate time and recommendations. 4. Left psoas hematoma, present on admission. Stable. - CT abd/pelv showed 17cm hematoma on left psoas decreased in size on repeat CT on 10/27. - General surgery consulted and did not believe this required surgical intervention. 5. Hypertension, present on admission. Stable. - Metoprolol 12.5 mg daily. 6. Weakness/failure to thrive, present on admission. Active. - Secondary to chronic diseases and deconditioning. - Physical therapy evaluated. 7. Elevated troponin of unknown significance, present on admission. Stable. - Difficult to assess in light of acute on chronic kidney disease. Patient has history of elevated troponin. - Dr. Spears does not recommend any further invasive workup at this point. Conservative medical management. 8. COPD, present on admission. Chronic. - DuoNebs scheduled 3 times a day. - Tiotropium bromide daily. - Fluticasone\\salmeterol twice a day. - Supplemental oxygen as needed to maintain stats between 88% and 92%. 9. Chronic systolic CHF, present on admission. Stable. - Echo on 11/02 with no significant change from prior. Revealed EF of 45% was hypokinesis of the inferior lateral wall. - Continued medications as above. 10. Atrial fibrillation, present on admission. Chronic. - Warfarin held due to GI bleed and recent instability. - Monitored on telemetry 11. Chronic lower extremity ulcerations with PVD, present on admission. Chronic. - Wound care followed. 12. Tobacco abuse, present on admission. Chronic. - Nicotine 21 mg patch daily. 13. Chronic pain with continuous opiate dependence, present on admission. Chronic. - MS Contin 15 mg twice a day. Exam Vital Signs (Last) Date Time Temp Pulse Resp B/P Pulse Ox O2 Delivery O2 Flow Rate FiO2 11/10/16 12:30 109 11/10/16 08:30 36.5 16 100/54 97 Mechanical Ventilator 50 11/08/16 23:16 2.00 Test 10/23/16 13:42 10/23/16 14:20 10/23/16 15:35 10/24/16 05:20 Hold Urine Received (Received) Urine Color Straw (YELLOW) Urine Appearance Hazy (CLEAR,HAZY) Urine pH 7.0 (5.0-8.0) Urine Specific Center Line 1.020 (1.003-1.035) Urine Protein 100mg/dL (NEG,TRACE) Urine Glucose (UA) Negativemg/dL (NEGATIVE) Urine Ketones Negativemg/dL (NEGATIVE) Urine Occult Blood Moderate (NEGATIVE) Urine Nitrite Negative (NEGATIVE) Urine Bilirubin Negative (NEGATIVE) Urine Urobilinogen Normalmg/dL (NORMAL) Urine Leukocyte Esterase Negative (NEGATIVE) Urine RBC 0-2/hpf (0-2) Urine WBC 0-5/hpf (0-5) Urine Epithelial Cells Occasional/hpf (NONE-MOD) Urine Crystals None seen (NONE SEEN) Urine Bacteria None/hpf (NONE-FEW) Urine Hyaline Casts None/lpf (NONE) Urine Granular Casts None seen (NONE SEEN) Urine Waxy Casts None seen (NONE SEEN) Urine Red Blood Cell Casts None seen (NONE SEEN) Urine White Blood Cell Casts None seen (NONE SEEN) Urine Mucus None seen (None Seen) Urine Trichomonas None seen (NONE SEEN) Urine Yeast None (NONE SEEN) Urinalysis Comment None Urine Culture Reflexed Not indicated Reticulocyte Count,Calculated 4.8% (0.6-2.6) Lactic Acid Level 1.4mmol/L (0.4-2.0) Ferritin 51ng/mL (30-400) Vitamin B12 Level 873pg/mL (211-946) Pro-B-Type Natriuretic Peptide 69067cg/mL (0-210) Test 10/29/16 04:47 10/30/16 05:15 10/31/16 02:56 11/01/16 09:50 Vancomycin Level Trough 8.8mcg/mL Prostate Specific Antigen 0.8ng/mL (0.0-4.0) Vitamin D 25-Hydroxy 20.6ng/mL (30.0-100.0) Parathyroid Hormone (Intact) 368pg/mL (15-65) Iron Level 15ug/dL (35-150) Total Iron Binding Capacity 186ug/dL (250-450) Percent Iron Saturation 8%sat (15-50) Unsaturated Iron Binding 171.0ug/dL Prothrombin Time 11.5sec (8.1-12.5) Prothromb Time International Ratio 1.07ratio Test 11/02/16 08:05 11/03/16 11:47 11/09/16 06:10 11/10/16 06:25 Troponin T 0.294ug/L (0.0-0.011) Hepatitis B Surface Antigen Negative (Negative) Hepatitis B Surface Antibody Non reactive (.) Hepatitis B Core Total Antibody Negative (Negative) Hepatitis C Antibody <0.1s/co ratio (0.0-0.9) Direct Bilirubin < 0.2mg/dL (0.0-0.3) Total Creatine Kinase 53U/L (21-232) Triglycerides Level 289mg/dL (0-149) Procalcitonin 0.68ng/mL (See Comment) White Blood Count 6.9th/mm3 (3.8-10.1) Red Blood Count 3.23mil/mm3 (4.40-5.80) Hemoglobin 8.4g/dL (13.8-17.2) Hematocrit 27.1% (41.0-50.0) Mean Corpuscular Volume 83.9fL (81-100) Mean Corpuscular Hemoglobin 26.0pg (27.0-35.0) Mean Corpuscular Hemoglobin Concent 31.0% (32.0-37.0) Red Cell Distribution Width 18.5% (12.3-15.4) Platelet Count 321bil/L (150-400) Neutrophils (%) (Auto) 80.8% (40-74) Lymphocytes (%) (Auto) 7.1% (14-46) Monocytes (%) (Auto) 11.4% (4-12) Eosinophils (%) (Auto) 0% (0-5) Basophils (%) (Auto) 0.1% (0-3) Sodium Level 143mEq/L (134-144) Potassium Level 4.0mEq/L (3.5-5.2) Chloride Level 103mEq/L (97-108) Carbon Dioxide Level 25mmol/L (18-29) Blood Urea Nitrogen 55mg/dL (8-27) Creatinine 5.00mg/dL (0.76-1.27) Estimat Glomerular Filtration Rate 13mL/min (>59) Glucose Level 95mg/dL (60-99) Calcium Level 6.9mg/dL (8.5-10.1) Phosphorus Level 5.1mg/dL (2.5-4.9) Magnesium Level 1.7mg/dL (1.6-2.6) Total Bilirubin 0.2mg/dL (0.0-1.2) Aspartate Amino Transf (AST/SGOT) 664U/L (0-50) Alanine Aminotransferase (ALT/SGPT) 387U/L (0-44) Alkaline Phosphatase 331U/L (25-160) Total Protein 4.6g/dL (6.4-8.4) Albumin 2.1g/dL (3.4-5.0) Discharge Medications Discharge Medications Albuterol Neb Soln (Albuterol Neb Soln) 1.25 Mg/3 Ml Vial.neb 1.25 MG INHALATION Q4H Prescribed by: PAO NOBLES DO Amlodipine (Amlodipine) 5 Mg Tablet 2.5 MG PO DAILY Prescribed by: SHIRLEY DAMON MD Aspirin (Aspirin) 81 Mg Tablet 81 MG PO DAILY Prescribed by: PAO NOBLES DO Azithromycin (Zithromax) 250 Mg Tablet 500 MG PO Q2DAY Prescribed by: PAO NOBLES DO Chlorthalidone (Chlorthalidone) 25 Mg Tablet 25 MG PO DAILY Prescribed by: PAO NOBLES DO Cholecalciferol (Vitamin D3) (Vitamin D) 1,000 Unit Capsule 2,000 UNIT PO DAILY (Reported) Ezetimibe (Zetia) 10 Mg Tablet 10 MG PO DAILY (Reported) Ferrous Sulfate (Feosol) 325 Mg Tablet 325 MG PO BIDWM Prescribed by: SHIRLEY DAMON MD Fluticasone/Salmeterol (Advair 100-50 Diskus) 60 Puffs/Inh Disk 1 PUFFS IH BID Prescribed by: PAO NOBLES DO Furosemide (Furosemide) 20 Mg Tab 20 MG PO DAILY Prescribed by: JUMANA URBAN DO Morphine Sulfate ER (Morphine Sulfate ER) 15 Mg Tablet 15 MG PO BID Prescribed by: JUMANA URBAN DO Pantoprazole DR (Protonix) 20 Mg Tablet 20 MG PO BID Prescribed by: JUMANA URBAN DO Prednisone (Deltasone) 20 Mg Tablet 20 MG PO DAILY Prescribed by: PAO NOBLES DO Quetiapine Fumarate (Quetiapine Fumarate) 25 Mg Tablet 50 MG PO HS Prescribed by: SHIRLEY DAMON MD Rosuvastatin Calcium (Rosuvastatin Calcium) 40 Mg Tablet 40 MG PO DAILY Prescribed by: JUMANA URBAN DO Temazepam (Temazepam) 15 Mg Capsule 15 MG PO BID Prescribed by: JUMANA URBAN DO Tiotropium [place] (Spiriva) 18 Mcg Cap.w.dev 18 MCG IH DAILY Prescribed by: PAO NOBLES DO As needed Clonazepam (Clonazepam) 0.5 Mg Tablet 1 MG PO BID PRN PRN anxiety Prescribed by: LAUREEN CUMMINGS DO Nitroglycerin SL (Nitroglycerin SL) 0.4 Mg Tab.subl 0.4 MG SL Q5MIN PRN PRN For Chest Pain (Reported) oxyCODONE (oxyCODONE) 5 Mg Tablet 5 MG PO Q8H PRN PRN severe pain Prescribed by: LAUREEN CUMMINGS DO Followup Plan Disposition: On hospital day 17, 11/09/16, patient was emergently intubated in the morning. Patient's sister, who is his DPOA, switched code status to DNR/DNI and decided to proceed with comfort care. Patient was extubated after family was gathered on the morning of 11/10. Patient was declared later on that afternoon in the presence of family. Attending Statement The patient was seen and examined together with Dr. Hatfield on 11/10/2016 and I agree with the history as outlined in the note above. . copies to: Leo Lamas MD, BETHANY A DO Nov 10, 2016 17:18 Bro Nam MD Nov 11, 2016 07:43
== END 2016-11-10 15:10 | disposition expired | DRG 460 ==
LOC: SED 13:17 → EDBD 13:17 → MPC 17:13 → OBSVTOIN 17:13 → PCC 11-01 17:14 → CCU 11-09 05:47 → PCC 11-10 14:00
PROVIDERS: ADMIT Hospitalist; ATTEND Hospitalist
PROC: 30233N1 Transfusion of Nonautologous Red Blood Cells into Peripheral Vein, Percutaneous Approach (ICD-10-PCS; 2016-10-24)
PROC: 30233N1 Transfusion of Nonautologous Red Blood Cells into Peripheral Vein, Percutaneous Approach (ICD-10-PCS; 2016-11-01)
PROC: 5A1D00Z (ICD-10-PCS; 2016-11-03)
PROC: 5A1D00Z (ICD-10-PCS; 2016-11-04)
PROC: 4A033R1 Measurement of Arterial Saturation, Peripheral, Percutaneous Approach (ICD-10-PCS; principal; 2016-11-06)
PROC: 5A1945Z Respiratory Ventilation, 24-96 Consecutive Hours (ICD-10-PCS; 2016-11-09)
PROC: 0BH17EZ Insertion of Endotracheal Airway into Trachea, Via Natural or Artificial Opening (ICD-10-PCS; 2016-11-09)
DX: N17.9 Acute kidney failure, unspecified (principal); J18.9 Pneumonia, unspecified organism; J96.22 Acute and chronic respiratory failure with hypercapnia; J96.21 Acute and chronic respiratory failure with hypoxia; D62 Acute posthemorrhagic anemia; I50.22 Chronic systolic (congestive) heart failure; F11.20 Opioid dependence, uncomplicated; I13.0 Hypertensive heart and chronic kidney disease with heart failure and stage 1 through stage 4 chronic kidney disease, or unspecified chronic kidney disease; L97.829 Non-pressure chronic ulcer of other part of left lower leg with unspecified severity; I24.8 Other forms of acute ischemic heart disease; J44.9 Chronic obstructive pulmonary disease, unspecified; N18.3 Chronic kidney disease, stage 3 (moderate); F17.210 Nicotine dependence, cigarettes, uncomplicated; I48.2 Chronic atrial fibrillation; I25.10 Atherosclerotic heart disease of native coronary artery without angina pectoris; Z95.1 Presence of aortocoronary bypass graft; R62.7 Adult failure to thrive; I70.248 Atherosclerosis of native arteries of left leg with ulceration of other part of lower leg; D50.9 Iron deficiency anemia, unspecified; M79.81 Nontraumatic hematoma of soft tissue; G89.4 Chronic pain syndrome; Z51.5 Encounter for palliative care